=== PATIENT | female | born 1975 | race Caucasian/White ===

== ENCOUNTER 2020-03-08 21:37 | Observation (INO) | payer BC, SELFPAY ==
--- NOTE | ~2020-03-08 | CT_ITS ---
EXAMINATION: CT chest abdomen pelvis w con EXAM DATE: 03/09/2020 00:10 INDICATION: Shortness of air, upper abdominal pain. TECHNIQUE: Spiral CT of the chest, abdomen and pelvis was performed following intravenous injection o f 100 mL Omnipaque 350. Axial, coronal and sagittal images were reviewed. Coronal maximum intensity pixel images of chest reviewed. The dose-length product (DLP) for this examination was 1994.05 mGy- cm. The exposure was tailored according to patient size (auto mA exposure control), and iterative re construction (ASIR) was used as additional dose reduction technique. There is no prior study for jeremy corea. FINDINGS: CHEST: There is elevated right hemidiaphragm with right basilar subsegmental atelectasis. There are no pleural or pericardial effusions. Tracheobronchial tree is patent. There is no mediastinal, h ilar or axillary lymphadenopathy. There is no pneumothorax. Heart normal in size. There is mild coronary arterial calcification, arterial sclerosis. ABDOMEN PELVIS: There is hepatic steatosis without suspicious focal lesion identified. Spleen, adrena l glands, pancreas are unremarkable. Probable poorly calcified gallstone. Gallbladder otherwise unre markable. Portal and splenic veins are patent. Kidneys enhance symmetrically. There is no hydronep hrosis. The uterus is not identified and has likely been surgically resected. There is right adnexa l cystic lesion measuring 4 cm without evidence of solid nodule. Uncertain whether or not this is the same cyst seen in 2017 which measured 3.4 cm. Not likely clinically significant. The bladder is unre markable. There is no retroperitoneal or pelvic lymphadenopathy. The appendix is normal. Gastric banding procedure. There is mild scattered colonic diverticulosis. There is no adjacent inflammatory change to suggest diverticulitis. No free intraperitoneal gas. T he bones are unremarkable. IMPRESSION: 1. No acute chest abdomen or pelvis findings. 2. Elevated right hemidiaphragm with adjacent segmental atelectasis. 3. Right ovarian cystic lesion not likely clinically significant. 4. Colonic diverticulosis. 5. Hepatic steatosis. 6. Cholelithiasis. Reviewed, dictated and finalized at location A.
--- NOTE | ~2020-03-08 | XR_ITS ---
XR chest 2V 03/08/2020 23:10 Indication: Shortness of breath and chest congestion Procedure: 2 view chest Comparison: No prior studies for comparison. Findings: Elevation of the right diaphragm. Right basilar atelectasis. Heart size normal for techniqu e. Left lung clear. No pleural effusion or pneumothorax. Impression: 1: Right basilar atelectasis with elevation of the right diaphragm. Reviewed, dictated and finalized at location A. Impression: 1: Right basilar atelectasis with elevation of the right diaphragm.
[2020-03-08 21:46] VITALS: BP 129/73; PULSE 112; RESP 20; TEMP 36.3; O2SAT 97
--- NOTE | 2020-03-08 21:49 | ECG_ITS ---
Measurements Intervals [place] Rate: 113 P: 38 PA: 132 QRS: -4 QRSD: 86 T: -3 QT: 324 QTc: 445 Interpretive Statements SINUS TACHYCARDIA BORDERLINE R WAVE PROGRESSION, ANTERIOR LEADS BORDERLINE ST-T WAVE ABNORMALITY- DIFFUSE LEADS BASELINE ARTIFACT- I, II, III, AVR, AVL, AVF, V1-V3, V6 ABNORMAL ECG Electronically Signed On 03-09-2020 10:03:36 CDT by Alexis Reeves D.O.
[2020-03-08 22:07] VITALS: O2SAT 94
[2020-03-08 23:16] VITALS: BP 104/65; PULSE 105
[2020-03-08 23:17] VITALS: BP 107/77; BP 111/80; PULSE 103; PULSE 116
[2020-03-08 23:21] LABS: Basophils Absolute Auto 0.1 K/mm3 (0.0-0.1); Basophils Percent Auto 0.7 % (0.2-1.2); Eosinophils Absolute Auto 0.1 K/mm3 (0-0.3); Eosinophils Percent Auto 1.5 % (0-4.4); Hematocrit 34.5 % (37.0-47.0); Hemoglobin 11.3 g/dL (12.0-15.0); Immature Granulocyte Absolute 0.04 K/mm3 (0.00-0.031); Immature Granulocyte Percent A 0.5 % (0-0.5); Lymphocytes Absolute Auto 2.78 K/mm3 (0.9-3.2); Mean Corpuscular HGB Conc 32.8 g/dl (32-36); Mean Corpuscular Hemoglobin 33.5 pg (26-34); Mean Corpuscular Volume 102.4 fl (80-100); Mean Platelet Volume 10.3 fl (7.4-10.4); Monocytes Absolute Auto 0.8 K/mm3 (0.1-0.6); Monocytes Percent Auto 10.4 % (2.6-8.5); Neutrophils Absolute Auto 3.6 K/mm3 (1.3-6.7); Neutrophils Percent Auto 48.9 % (45.5-73.1); Platelet Count Result 241 k/mm3 (150-375); Red Blood Count 3.37 M/mm3 (4.2-5.4); Red Cell Distribution Width 17.6 % (11.5-14.5); White Blood Count 7.3 K/mm3 (4.5-10.0)
[2020-03-08] MEDS: SODIUM CHLORIDE 0.9% IV 1,000 ML 999 ML IV CONT (23:24)
[2020-03-08 23:33] LABS: Anion Gap 10 mmol/L (8-16); Blood Urea Nitrogen 29 mg/dL (7-17); Calcium 7.5 mg/dL (8.4-10.2); Carbon Dioxide 30 mmol/L (22-30); Chloride 95 mmol/L (98-107); Estimated CRCL calculation 122 ml/min; Estimated Glomerular Filt Rate > 60; Glucose 146 mg/dL (65-105); Potassium 2.7 mmol/L (3.4-5.0); Sodium 135 mmol/L (137-145)
--- NOTE | 2020-03-08 23:38 | ED.SOB ---
HPI - SOB/Dyspnea General Chief Complaint: Shortness of Breath/Dyspnea <Malachi Joyce MD - Last Filed: 03/10/20 03:20> Stated Complaint: SOB <Malachi Joyce MD - Last Filed: 03/10/20 03:20> Time Seen by Provider: 03/08/20 22:28 <Malachi Joyce MD - Last Filed: 03/10/20 03:20> History of Present Illness HPI Narrative: Patient is a 44-year-old female who presents ER with lightheadedness and weakness. Ongoing for last couple days. Feels similar to when she was very dehydrated in the past and had renal failure after having an episode of diverticulitis being on antihypertensives. Patient has been on no medications recently active because he is a sex. She reports she is feeling short of breath when she is walking and occasionally at rest. She has upper abdominal discomfort mainly on the left side and it seems more distended than typical. She is passing gas and having bowel movements. No nausea or vomiting. She has no chest pain or chest pressure. She also reports that her mentally she is getting some tingling in her arms and blurred vision. These will last for only a couple of seconds. Patient also thinks she has some swelling to her face and that she has gained some weight over the last couple of months. <Malachi Joyce MD - Last Filed: 03/10/20 03:20> Related Data Home Medications: Home Medications Medication Instructions Recorded Confirmed diphenhydramine HCl [Benadryl 25 mg PO HS PRN 03/08/20 03/09/20 Allergy] escitalopram oxalate 10 mg PO DAILY 03/08/20 03/09/20 hydrochlorothiazide 25 mg PO DAILY 03/08/20 03/09/20 lisinopril 40 mg PO DAILY 03/08/20 03/09/20 naproxen sodium 440 mg PO BID PRN 03/08/20 03/09/20 <Malachi Joyce MD - Last Filed: 03/10/20 03:20> Allergies/Adverse Reactions: Allergies Allergy/AdvReac Type Severity Reaction Status Date / Time No Known Allergies Allergy Unverified 03/08/20 21:57 <Malachi Joyce MD - Last Filed: 03/10/20 03:20> Review of Systems Review of Systems: All systems reviewed & are unremarkable except as noted in HPI and below <Malachi Joyce MD - Last Filed: 03/10/20 03:20> Constitutional: Constitutional: Denies chills, Denies fever(s) and Reports weakness <Malachi Joyce MD - Last Filed: 03/10/20 03:20> ENT: Denies nasal congestion and Denies sore throat <Malachi Joyce MD - Last Filed: 03/10/20 03:20> Cardiovascular: Cardiovascular: Denies chest pain, Denies rapid heart rate and Denies radiating jaw, neck or arm pain <Malachi Joyce MD - Last Filed: 03/10/20 03:20> Respiratory: Respiratory: Denies cough, Reports dyspnea and Denies wheezing <Malachi Joyce MD - Last Filed: 03/10/20 03:20> Gastrointestinal: Gastrointestinal: Reports abdominal pain, Denies constipation, Denies diarrhea, Denies nausea and Denies vomiting <Malachi Joyce MD - Last Filed: 03/10/20 03:20> Neurologic: Denies syncope, Denies focal weakness and Reports numbness <Malachi Joyce MD - Last Filed: 03/10/20 03:20> PMFSH Past Medical History Medical History: Medical History (Updated 03/10/20 @ 03:20 by Malachi Joyce MD) Anal polyp s/p removal Anxiety Cervical cancer s/p hysterectomy Depression Diverticulitis Essential hypertension Hemorrhoids Rectocele s/p intervention x2 <Malachi Joyce MD - Last Filed: 03/10/20 03:20> Surgical History Surgical History: Surgical History History of hysterectomy Hx of laparoscopic gastric banding <Malachi Joyce MD - Last Filed: 03/10/20 03:20> Family History Family History: Family History Mother Hypertension Familial primary pulmonary hypertension Carcinoma of colon Sibling Family history of irritable bowel syndrome Father Family history of congestive heart failure Other Family history of cardiovasc
[2020-03-08] MEDS: POTASSIUM CHLORIDE 20 MEQ TABLET 40 MEQ PO (23:52)
[2020-03-09] VITALS (11 sets, daily range): BP systolic 115–139; BP diastolic 69–75; PULSE 78–102; RESP 15–24; TEMP 35.9–36.5; O2SAT 94–97; BMI 44.5
--- NOTE | 2020-03-09 | ECHO_ITS ---
Patient Info Name: Rosie Abdalla Age: 44 years : 1975 Gender: Female Ht: 69 in Wt: 301 lbs BSA: 2.65 m2 HR: 80 bpm BP: 139 / 75 mmHg Technical Quality: Good Exam Date: 03/09/2020 11:11 AM Exam Location: [facility] Patient Status: Inpatient Admit Date: 03/09/2020 Staff Ordering Physician: Allegra Cunningham PA-C Software Licensing Analyst: Sravan Bernal RDCS, RT Attending Provider: Allegra Cunningham PA-C Referring Physician: Marisa SALAS; Exam Type: CA echo dop color flow w con Study Info Indications R06.02 - Shortness of breath Complete two-dimensional, color flow and Doppler transthoracic echocardiogram is performed with contrast to opacify the left ventricle and to improve the deliniation of the left ventricle endocardial borders. Summary 1. Left ventricular chamber size, wall thickness, systolic and diastolic function are normal with no regional wall motion abnormalities with an estimated ejection fraction of >70%. 2. No significant valve disease. 3. Unable to calculated right ventricular systolic pressure due to lack of sufficient tricuspid regurgitant envelope. 4. Somewhat technically difficult study; definity echo contrast used. 5. Normal sinus rhythm. Left Ventricle Left ventricular chamber dimension is normal. Left ventricular systolic function is normal, estimated at >70%. There is no increased left ventricular wall thickness. Left ventricular septal wall motion is normal. The left ventricular diastolic function is normal. Left ventricular chamber size, wall thickness, systolic and diastolic function are normal with no regional wall motion abnormalities with an estimated ejection fraction of >70%. Right Ventricle Right ventricular chamber dimension is normal. Right ventricular systolic function is normal. Left Atria Left atrial chamber dimension is normal. Right Atria Right atrial chamber dimension is normal. Aortic Valve The aortic valve is trileaflet. There is no aortic valve sclerosis. There is no aortic valve stenosis. There is no aortic valve regurgitation. Pulmonic Valve The pulmonic valve is normal. There is no pulmonic valve stenosis. There is no pulmonic regurgitation. Mitral Valve The mitral valve has normal leaflets. There is no mitral valve stenosis. There is no mitral valve regurgitation. Tricuspid Valve The tricuspid valve leaflets are normal. There is no significant tricuspid valve stenosis. There is trace tricuspid valve regurgitation. No pulmonary hypertension, estimated pulmonary arterial systolic pressure is Empty. Pericardium/Pleural The pericardium appears normal. There is no pericardial effusion. Inferior Vena Cava Normal inferior vena cava with >50% collapse upon inspiration consistent with Empty right atrial pressure, Empty. Aorta The aortic root size at the sinus of Valsalva is normal. The prox ascending aorta size is normal. Left Ventricular Outflow Tract Name Value Normal LVOT 2D LVOT Diameter 2.04 cm LVOT Doppler LVOT Peak Gradient 5 mmHg LVOT Mean Gradient 3 mmHg
--- NOTE | 2020-03-09 01:55 | PC.NURSE ---
pt states she does not feel like she can give a urine sample at this time. pt requests to wait until she gets to her room to try. EDP aware.
[2020-03-09 02:00] LABS: Free T4 Free Thyroxine Reflex 1.05 ng/dL (0.78-2.19)
[2020-03-09 02:42] LABS: Magnesium 1.7 mg/dL (1.6-2.3)
[2020-03-09 02:48] LABS: Total Triiodothyronine (T3) 1.62 NG/ML (0.97-1.69)
--- NOTE | 2020-03-09 03:54 | PC.NURSE ---
This patient, Rosie Abdalla, was admitted to Medical Room 248-. Patient/family oriented to hospital policies and general routines including ID bracelet, bed and alarms, visiting hours, pain management, procedures, bathroom and other care routines, personal items, smoking policy, room service/diet, and visiting hours. Valuables list has been completed. Information on how to activate the Rapid Response Team has been discussed. Patient/Family are encouraged to report perceived risks to care and to ask questions if they do not understand what they are told or what they should do.
[2020-03-09 04:15] LABS: Add Urine Microscopic? YES; Appearance Urine Clear (Clear); Bacteria Urine Trace /hpf; Bilirubin Urine Negative (Negative); Blood Urine Negative (Negative); Color Urine Yellow (Yellow); Glucose Urine UA Negative (Negative); Ketones Urine Negative (Negative); Leukocyte Esterase Ur Trace LEU/UL (Negative); Mucus Urine Rare /lpf; Nitrate Urine Negative (Negative); Protein Urine Negative (Negative); Squamous Epithelial Cell Urine Many /hpf (Few); WBC Urine 0-3 /hpf
[2020-03-09 04:16] LABS: Specific Grav Ur > 1.060 (1.001-1.035)
[2020-03-09 06:58] LABS: Magnesium 1.7 mg/dL (1.6-2.3)
[2020-03-09] MEDS: ESCITALOPRAM OXALATE 10 MG TABLET PO (08:19)
[2020-03-09] MEDS: lisinopriL 20 MG TABLET 40 MG PO (08:20)
[2020-03-09 08:38] LABS: Alanine Aminotransferase 23 U/L (4-35); Albumin Level 3.1 g/dL (3.5-5.1); Alkaline Phosphatase 75 U/L (38-126); Anion Gap 7 mmol/L (8-16); Aspartate Amino Transferase 61 U/L (14-36); Bilirubin,Total 0.3 mg/dL (0.2-1.3); Blood Urea Nitrogen 24 mg/dL (7-17); Calcium 7.1 mg/dL (8.4-10.2); Carbon Dioxide 32 mmol/L (22-30); Chloride 97 mmol/L (98-107); Estimated CRCL calculation 175 ml/min; Estimated Glomerular Filt Rate > 60; Glucose 114 mg/dL (65-105); Potassium 2.9 mmol/L (3.4-5.0); Sodium 136 mmol/L (137-145)
[2020-03-09 08:43] LABS: Iron 62 ug/dL (37-170)
[2020-03-09 08:45] LABS: Transferrin 259 mg/dL (206-381)
[2020-03-09 08:52] LABS: Percent Iron Saturation 18 % (20-50)
[2020-03-09 09:44] LABS: Folic Acid 7.2 ng/mL (2.76->20)
--- NOTE | 2020-03-09 10:30 | PM.IMHP ---
H&P: HPI History of Present Illness Date/Time: 03/09/20 10:30 Chief complaint: Hypokalemia, Abd distension Narrative: Rosie Abdalla is a 44 year old female with PMH significant for hypertension, obesity, hx of laparoscopic gastric band procedure, anxiety, depression, and hx of diverticulitis who presented to the emergency department for the evaluation of dyspnea on exertion for the past 3-4 days. She denies associated pleuritic pain or chest pain. She reports dry cough which occurs predominantly at night. She denies PND and lower extremity edema. She reports that she sleeps on 2 pillows at night but does not endorse orthopnea. She also reports vague upper abdominal discomfort which she notes is only present when pressure is applied to the area. She reports chronic diarrhea with 5-6 loose stools per day, unchanged from baseline. She denies nausea and vomiting. She was recently treated for cellulitis of the right foot February 23 with a 10 day course of cephalexin with resolution of erythema. She also reports intermittent and brief paresthesias of the bilateral upper extremities, mild frontal headache, generalized weakness, muscle cramps, and fatigue for 3-4 days. She denies lateralizing symptoms and speech change. Initial workup in the emergency department revealed WBC 7,300, Hb 11.3, Hct 34.5, MCV 102.4, sodium 135, potassium 2.7, chloride 95, CO2 30, BUN 29, Cr 0.7, magnesium 1.7, TSH 5.090 with normal free T4 and total T3, CXR with right basilar atelectasis and right diaphragm elevation, and chest/abd/pelvis CT with contrast with elevated right hemidiaphragm with adjacent atelectasis, right ovarian cyst measuring 4cm without evidence of solid nodule, diverticulosis, hepatic steatosis, and cholelithiasis. She was admitted to the hospitalist service for the treatment of her hypokalemia. She is currently comfortable at the time of my evaluation with no complaints. Review of Systems Review of Systems: Narrative: Constitutional: Denies fever, chills, recent contacts, and appetite change. Reports generalized weakness and fatigue. Eyes: Reports occasional blurred vision. No additional eye complaints. ENT: Denies change in hearing, dysphagia, odynophagia, and sore throat. Cardiovascular: Denies palpitations and chest pain. Denies PND and orthopnea. Reports dyspnea on exertion. Respiratory: Reports dry cough at night. Reports dyspnea on exertion. Gastrointestinal: As above. Reports upper abdominal discomfort when she presses on the area. Genitourinary: Denies dysuria, frequency, urgency, and hesitancy. Musculoskeletal: Denies joint pain and swelling. Reports occasional myalgias. Skin: Reports recent treatment for RLE cellulitis which has resolved. Neurologic: Denies focal weakness, focal paresthesias, confusion, and speech change. Reports occasional paresthesias of the upper extremities for 3-4 days. Psychiatric: Reports stable mood. All systems reviewed & are unremarkable except as noted in HPI and below PMFSH Past Medical History Medical History (Updated 03/09/20 @ 11:32 by Allegra Cunningham PA-C) Anal polyp s/p removal Anxiety Cervical cancer s/p hysterectomy Depression Diverticulitis Essential hypertension Hemorrhoids Rectocele s/p intervention x2 Surgical History Surgical History History of hysterectomy Hx of laparoscopic gastric banding Family History Family History Mother Hypertension Familial primary pulmonary hypertension Carcinoma of colon Sibling Family history of irritable bowel syndrome Father Family history of congestive heart failure Other Family history of cardiovascular disease Family history of malignant neoplasm Social History Social History (Updated 03/09/20 @ 11:36 by Allegra Cunningham PA-C) Social History: Ms. Abdalla reports that she lives at home with her son. She has 2 childr
[2020-03-09] MEDS: POTASSIUM CHLORIDE 20 MEQ PACKET (FOR LIQUID) 40 MEQ PO ×2 (11:06→17:18)
[2020-03-09 11:21] LABS: Creatine Kinase 76 U/L (30-135); Lipase 372 U/L (23-300)
[2020-03-09] MEDS: PERFLUTREN LIPID MICROSPHERES 1.5 ML VIAL DILUTED TO 10 ML TOTAL VOLUME IV PUSH (11:58)
[2020-03-09 13:01] LABS: Parathyroid Intact 445.2 pg/mL (7.5-53.5)
[2020-03-09] MEDS: CYANOCOBALAMIN INJ 1,000 MCG/ML VIAL 1000 MCG IM (13:24)
[2020-03-09 14:35] LABS: Vitamin D 25 Hydroxy < 12.8 ng/mL
[2020-03-09 15:13] LABS: Creatinine Urine 121.5 mg/dL
[2020-03-09 15:19] LABS: Potassium Urine Random 27.6 meq/L
[2020-03-09 16:01] LABS: Potassium 3.5 mmol/L (3.4-5.0)
[2020-03-09] MEDS: ENOXAPARIN 40 MG/0.4 ML SYRINGE SUB-Q (20:34)
[2020-03-09] MEDS: ACETAMINOPHEN 325 MG TABLET 650 MG PO (20:56)
[2020-03-10] VITALS: PULSE 70; PULSE 76
[2020-03-10 04:00] VITALS: PULSE 66
--- NOTE | 2020-03-10 04:59 | PC.NURSE ---
04:00 CIWA assessment not completed. Pt. is undergoing a sleep study at this time and is currently asleep
[2020-03-10 06:00] VITALS: BP 128/70; PULSE 84; RESP 16; TEMP 36.7; O2SAT 98
[2020-03-10 07:57] LABS: Alanine Aminotransferase 30 U/L (4-35); Albumin Level 3.1 g/dL (3.5-5.1); Alkaline Phosphatase 66 U/L (38-126); Anion Gap 5 mmol/L (8-16); Aspartate Amino Transferase 84 U/L (14-36); Bilirubin,Total 0.2 mg/dL (0.2-1.3); Blood Urea Nitrogen 16 mg/dL (7-17); Calcium 7.5 mg/dL (8.4-10.2); Carbon Dioxide 32 mmol/L (22-30); Chloride 100 mmol/L (98-107); Estimated CRCL calculation 213 ml/min; Estimated Glomerular Filt Rate > 60; Glucose 112 mg/dL (65-105); Magnesium 1.6 mg/dL (1.6-2.3); Phosphorus 2.5 mg/dL (2.5-4.5); Potassium 3.3 mmol/L (3.4-5.0); Sodium 137 mmol/L (137-145)
[2020-03-10 08:00] VITALS: PULSE 75; PULSE 91
[2020-03-10] MEDS: PANTOPRAZOLE 40 MG TABLET PO (08:41)
[2020-03-10] MEDS: CHOLECALCIFEROL 1,000 UNITS TABLET 1000 UNITS PO (08:41)
[2020-03-10] MEDS: THIAMINE HCL 50 MG TABLET PO (08:41)
[2020-03-10] MEDS: FOLIC ACID 1 MG TABLET PO (08:41)
[2020-03-10] MEDS: lisinopriL 20 MG TABLET 40 MG PO (08:41)
[2020-03-10] MEDS: ESCITALOPRAM OXALATE 10 MG TABLET PO (08:41)
[2020-03-10] MEDS: POTASSIUM CHLORIDE 20 MEQ PACKET (FOR LIQUID) 40 MEQ PO (08:42)
--- NOTE | 2020-03-10 10:00 | PM.DS ---
DS: Admitting Diagnosis Admitting Diagnosis Admitting Diagnosis: Hypokalemia, Abd distension DS: Discharge Diagnosis Discharge Diagnosis (1) Hypokalemia: Code(s): E87.6 - Hypokalemia Status: Acute Assessment and Plan: Discharge Summary (Date of service 03/10/20): Rosie Abdalla is a 44 year old female with PMH significant for hypertension, obesity, hx of laparoscopic gastric band procedure, anxiety, depression, and hx of diverticulitis who presented to the emergency department for the evaluation of several nonspecific complaints. She endorsed dyspnea on exertion, dry cough, vague upper abdominal discomfort, chronic diarrhea with 5-6 loose stools per day, brief paresthesias of the bilateral upper extremities, mild frontal headache, generalized weakness, muscle cramps, and fatigue. Please see HPI for additioanl details. Initial workup in the emergency department revealed WBC 7,300, Hb 11.3, Hct 34.5, MCV 102.4, sodium 135, potassium 2.7, chloride 95, CO2 30, BUN 29, Cr 0.7, magnesium 1.7, TSH 5.090 with normal free T4 and total T3, CXR with right basilar atelectasis and right diaphragm elevation, and chest/abd/pelvis CT with contrast with elevated right hemidiaphragm with adjacent atelectasis, right ovarian cyst measuring 4cm without evidence of solid nodule, diverticulosis, hepatic steatosis, and cholelithiasis. She was admitted to the hospitalist service for the treatment of her hypokalemia. She received PO and IV potassium replacement. Potassium improved. Etiology is unclear but likely due to hydrochlorothiazide therapy and chronic diarrhea. Hydrochlorothiazide was held and discontinued at discharge. She will need repeat BMP Saturday. Her symptoms, likely due to hypokalemia, resolved with potassium replacement. She was advised to continue low dose PO potassium for 2 weeks. 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 She was found to be calcium, vitamin D, and vitamin B12 deficient. These were supplemented and she was encouraged to follow-up with her PCP outpatient. PTH was likely elevated due to low vitamin D and calcium but will need outpatient follow-up to ensure this has resolved once her vitamin D and calcium are replaced. PTH related protein is still pending. Echocardiogram was performed for evaluation of her dyspnea and was unremarkable with normal EF. She was discharged in stable condition on the afternoon of 03/10/20. (2) Hypocalcemia: Code(s): E83.51 - Hypocalcemia Status: Acute Assessment and Plan: Calcium was 7.1 today with corrected calcium of 7.4. Vitamin D was deficient. Plan below. PO calcium supplement was prescribed. (3) Vitamin D deficiency: Code(s): E55.9 - Vitamin D deficiency, unspecified Status: Acute Assessment and Plan: Calcium was noted to be low. Vitamin D 25-Hydroxy was ordered and very low (<12.9). She received 1 dose of drisdol and was advised to continue this weekly for 4 weeks. She will need to follow-up with her PCP. Intact PTH was elevated, likely due to vitamin D/calcium deficiency. PTH related protein was ordered and is still pending. (4) Dyspnea on exertion: Code(s): R06.00 - Dyspnea, unspecified Status: Resolved Assessment and Plan: This may be due to hypokalemia. She reports that the onset was 3-4 days ago. She denies pleuritic pain. CT chest revealed elevated right hemidiaphragm with right basilar subsegmental atelectasis. Heart size was normal with no evidence of effusions, PE, lymphadenopathy, or consolidation. Echocardiogram was performed and unremarkable with normal EF. Apnea link was ordered due to reported snoring, daytime drowsiness, and large neck circumference/obesity as she seems at risk for sleep apnea. Apnea link was borderline but in the normal range. She may still consider formal sleep study outpatient. Her dyspnea resolved. (5) Abdominal pain: Code(s): R10.9 - Unspecifie
[2020-03-10] MEDS: ERGOCALCIFEROL 50,000 UNIT CAPSULE 50000 UNITS PO (11:35)
== END 2020-03-10 12:37 | disposition home or self-care (01) ==
LOC: ANHED 03-09 01:13 → ANH2MED 03-09 02:29
PROVIDERS: Emergency Medicine; Physician Assistant; Admitting Provider Internal Medicine; Emergency Provider Emergency Medicine; PCP Family Medicine Adolescent Medicine; Visit Provider Internal Medicine
DX: E87.6 Hypokalemia (principal); R14.0 Abdominal distension (gaseous); R19.7 Diarrhea, unspecified; N83.201 Unspecified ovarian cyst, right side; I10 Essential (primary) hypertension; E66.9 Obesity, unspecified; E83.51 Hypocalcemia; E53.8 Deficiency of other specified B group vitamins; F10.10 Alcohol abuse, uncomplicated; F32.9 Major depressive disorder, single episode, unspecified; K76.0 Fatty (change of) liver, not elsewhere classified; Z68.41 Body mass index [BMI] 40.0-44.9, adult; Z98.84 Bariatric surgery status; Z85.41 Personal history of malignant neoplasm of cervix uteri; Z79.899 Other long term (current) drug therapy
CPT/HCPCS: 36415; 71046; 71260; 74177; 80048; 80053; 81001; 82306; 82550; 82570; 82607; 82728; 82746; 83036; 83519; 83540; 83550; 83690; 83735; 83970; 84100; 84132; 84133; 84439; 84443; 84466; 84480; 85025; 93005; 94762; 96361; 96365; 96366; 96372; 96375; 99285; A9270; C8929; G0378; J1650; J3420; J3480; J7030; Q9957; Q9967

== ENCOUNTER 2020-04-06 08:48 | Outpatient (CLI) | payer BC, SELFPAY ==
--- NOTE | 2020-04-12 10:34 | WPDPFTINT ---
PFT Interpretation PFT Interpretation: This PFT met all criteria for ATS standards and reproducibility FEV/FVC post bronchodilator 79% of predicted FEV1 53% or 1.61 liters FVC 52% or 2.04 liters TLC 67% or 4.04 liters RV 90% or 1.92 liters RV/TLC 47% DLCO 56% when adjusted for alveolar volume but not adjusted for hemoglobin Flow volume loops showed some end expiratory coving. Impression: Possible mild obstruction. A restrictive ventilatory defect is present but this may be due to obesity rather than intrinsic lung disease. Moderately decreased diffusion capacity. Clinical correlation is advised.
== END 2020-04-06 08:49 | disposition home or self-care (01) ==
PROVIDERS: PCP Family Medicine Adolescent Medicine; Visit Provider Physician Assistant
DX: R06.02 Shortness of breath (principal); R94.2 Abnormal results of pulmonary function studies
CPT/HCPCS: 94060; 94726; 94729

== ENCOUNTER 2020-08-11 01:18 | Emergency (ER) | payer BC, SELFPAY ==
--- NOTE | ~2020-08-11 | XR_ITS ---
EXAMINATION: XR chest 1V EXAM DATE: 08/11/2020 01:42 INDICATION: Shortness of breath. TECHNIQUE: Portable AP frontal chest x-ray was obtained. Comparison is made to prior examination from 03/08/2020. FINDINGS: Again there is right basilar linear opacity likely atelectasis or scarring with elevated ri ght hemidiaphragm. The lungs are otherwise clear. There are no pleural effusions. The cardiomediast inal silhouette is within normal limits. There is no pneumothorax suspected. The bones and soft tis sues are unremarkable. IMPRESSION: Chronic right basilar atelectasis or scarring and elevated right hemidiaphragm. Reviewed, dictated and finalized at location A. R IMPRESSION: Chronic right basilar atelectasis or scarring and elevated right he midiaphragm.
--- NOTE | ~2020-08-11 | CT_ITS ---
EXAMINATION: CTA chest PE protocol EXAM DATE: 08/11/2020 02:46 INDICATION: Dyspnea. TECHNIQUE: Spiral CTA of the chest (pulmonary arteries) was performed with 100 cc Omnipaque 350 intr avenous contrast injection. Images were acquired during the pulmonary arterial phase. Coronal maxi mum intensity projection 3D-reconstructions were created by the technologist on dedicated workstation . Axial, coronal and sagittal reformatted images were reviewed. The dose-length product (DLP) for t his examination was 1030.15 mGy-cm. The exposure was tailored according to patient size (auto mA ex posure control), and iterative reconstruction (ASIR) was used as additional dose reduction technique. Comparison is made to prior examination from 03/08/2020. FINDINGS: There are no pulmonary emboli in the 1st through 3rd order (central and interlobar) pulmon romain arteries. Some loss of attenuation in the segmental pulmonary arteries due to respiratory motion , but no intraluminal filling defects suspected. No thoracic aortic dissection. There is subsegmental right basilar and right middle lobe atelectasis probably compressive atelectasi s from the elevated right hemidiaphragm. Possible hemidiaphragm paralysis. There is posterior periphe ral groundglass opacity in the left lower lobe, could be atelectasis or an acute infectious process. COVID pneumonia not excludable. There are no pleural or pericardial effusions. Tracheobronchial tree is patent. There is no media stinal, hilar or axillary lymphadenopathy. There is no pneumothorax. Heart normal in size. Ther e is mild coronary arterial calcification, arterial sclerosis. There is gastric banding device. Chol elithiasis. Hepatic steatosis. Subacute left 9th rib fracture. IMPRESSION: 1. No central pulmonary emboli. Some segmental pulmonary arteries not confidently evaluated. 2. Dependent posterior left lower lobe groundglass opacities, atelectasis or acute infectious proces s. COVID pneumonia not excludable. 3. Subacute left 9th rib fracture. 4. Hepatic steatosis. 5. Cholelithiasis. Reviewed, dictated and finalized at location A. REPAIRER IMPRESSION: 1. No central pulmonary emboli. Some segmental pulmonary arteries not confiden tly evaluated. 2. Dependent posterior left lower lobe groundglass opacities, atelectasis or a cute infectious process. COVID pneumonia not excludable. 3. Subacute left 9th rib fracture. 4. Hepatic steatosis. 5. Cholelithiasis.
[2020-08-11 01:22] VITALS: BP 177/102; PULSE 119; RESP 16; TEMP 36.3; O2SAT 96
[2020-08-11 01:25] VITALS: PULSE 104; O2SAT 94
--- NOTE | 2020-08-11 01:28 | ECG_ITS ---
Measurements Intervals [place] Rate: 112 P: 16 ID: 144 QRS: 0 QRSD: 93 T: -4 QT: 313 QTc: 428 Interpretive Statements SINUS TACHYCARDIA BORDERLINE R WAVE PROGRESSION, ANTERIOR LEADS BORDERLINE T WAVE ABNORMALITY- INFERIOR LEADS ABNORMAL ECG Electronically Signed On 08-11-2020 7:10:00 SOLAR SALES REPRESENTATIVE by Alexis Reeves D.O.
[2020-08-11 01:39] LABS: Basophils Absolute Auto 0.1 K/mm3 (0.0-0.1); Basophils Percent Auto 0.6 % (0.2-1.2); Eosinophils Absolute Auto 0.2 K/mm3 (0-0.3); Eosinophils Percent Auto 2.6 % (0-4.4); Hematocrit 41.8 % (37.0-47.0); Hemoglobin 12.8 g/dL (12.0-15.0); Immature Granulocyte Absolute 0.05 K/mm3 (0.00-0.031); Immature Granulocyte Percent A 0.6 % (0-0.5); Lymphocytes Absolute Auto 2.46 K/mm3 (0.9-3.2); Mean Corpuscular HGB Conc 30.6 g/dl (32-36); Mean Corpuscular Volume 98.1 fl (80-100); Mean Platelet Volume 9.6 fl (7.4-10.4); Monocytes Absolute Auto 1.1 K/mm3 (0.1-0.6); Monocytes Percent Auto 13.1 % (2.6-8.5); Neutrophils Absolute Auto 4.6 K/mm3 (1.3-6.7); Neutrophils Percent Auto 54.1 % (45.5-73.1); Platelet Count Result 237 k/mm3 (150-375); Red Blood Count 4.26 M/mm3 (4.2-5.4); Red Cell Distribution Width 18.4 % (11.5-14.5); White Blood Count 8.5 K/mm3 (4.5-10.0)
--- NOTE | 2020-08-11 01:41 | ED.GENADULT ---
HPI - General Adult General Chief complaint: Shortness of Breath/Dyspnea Stated complaint: Shortness of breath Time Seen by Provider: 08/11/20 01:28 History of Present Illness HPI narrative: Patient a 45-year-old female who presents to the emergency department with chief complaint of shortness of breath. Patient reports over the last several weeks has been having increasing shortness of breath particularly with exertion patient also noticed that she has had some swelling in her lower extremities and now has reached a point that when she sleeps she has to sleep in the recliner in a upright position. Patient denies fever denies chills Related Data Home Medications Medication Instructions Recorded Confirmed diphenhydramine HCl [Benadryl 25 mg PO HS PRN 03/08/20 03/09/20 Allergy] escitalopram oxalate 10 mg PO DAILY 03/08/20 03/09/20 lisinopril 40 mg PO DAILY 03/08/20 03/09/20 naproxen sodium 440 mg PO BID PRN 03/08/20 03/09/20 Allergies Allergy/AdvReac Type Severity Reaction Status Date / Time No Known Allergies Allergy Unverified 03/08/20 21:57 Review of Systems Review of Systems: Narrative: A 10 system review of systems was completed on the patient and is negative except for what is stated in the HPI. Nursing and ancillary documentation was reviewed. [facility] Past Medical History Medical History Anal polyp s/p removal Anxiety Cervical cancer s/p hysterectomy Depression Diverticulitis Essential hypertension Hemorrhoids Rectocele s/p intervention x2 Surgical History Surgical History History of hysterectomy Hx of laparoscopic gastric banding Family History Family History Mother Hypertension Familial primary pulmonary hypertension Carcinoma of colon Sibling Family history of irritable bowel syndrome Father Family history of congestive heart failure Other Family history of cardiovascular disease Family history of malignant neoplasm Social History Social History Social History: Ms. Abdalla reports that she lives at home with her son. She has 2 children. She reports that she drinks alcohol 4-5x per week and has 4-5 mixed drinks when she drinks. She denies tobacco use and other illicit substance use. 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 She wishes to be a full code. Smoking status: Never smoker Alcohol intake: current Substance use: never Gender identity (if verbalized by the patient): Female Spiritual care concerns: No Exam Narrative: Exam Narrative: GENERAL: Well-appearing, well-nourished, and in no acute distress. HEAD: Normocephalic, atraumatic. EYES: PERRLA and EOMI. ENT: Nares clear, no rhinorrhea or epistaxis. Mucous membranes moist. NECK: Supple. CHEST: Clear to auscultation. No respiratory distress. HEART: Regular rate and rhythm. No murmur heard. Normal peripheral pulses. ABDOMEN: Soft, nontender, nondistended, normal active bowel sounds. EXTREMITIES: Normal range of motion. +1 edema. SKIN: Warm, dry, no rash. NEURO: No focal deficits. Alert and oriented x3. PSYCH: Normal mood and affect. Course Course Emergency Course: CT chest shows evidence of 1/9 rib fracture with possible pneumonia. Vital Signs Vital signs: Vital Signs Temperature 36.3 C L 08/11/20 01:22 Pulse Rate 119 H 08/11/20 01:22 Respiratory Rate 16 08/11/20 01:22 Blood Pressure 177/102 H 08/11/20 01:22 Pulse Oximetry 96 08/11/20 01:22 Temperature 36.3 C L 08/11/20 01:22 Pulse Rate 117 H 08/11/20 02:14 Respiratory Rate 25 H 08/11/20 02:14 Blood Pressure 158/93 H 08/11/20 02:14 Pulse Oximetry 94 08/11/20 02:14 Medical Decision Making Vital Signs Vital Signs: Vital Signs Temperature 36.3 C L 08/11/20
[2020-08-11 01:57] LABS: Alanine Aminotransferase 29 U/L (4-35); Albumin Level 4.2 g/dL (3.5-5.1); Alkaline Phosphatase 97 U/L (38-126); Anion Gap 10 mmol/L (8-16); Aspartate Amino Transferase 44 U/L (14-36); Bilirubin,Total 0.6 mg/dL (0.2-1.3); Blood Urea Nitrogen 10 mg/dL (7-17); Calcium 9.5 mg/dL (8.4-10.2); Carbon Dioxide 31 mmol/L (22-30); Chloride 96 mmol/L (98-107); Estimated CRCL calculation 186 ml/min; Estimated Glomerular Filt Rate > 60; Glucose 115 mg/dL (65-105); Magnesium 1.4 mg/dL (1.6-2.3); Potassium 3.9 mmol/L (3.4-5.0); Sodium 137 mmol/L (137-145)
[2020-08-11 02:06] LABS: INR 0.9; NT Pro B Type Natriuretic Pept 200 PG/ML (5-100); Partial Thromboplastin Time 22.5 SECONDS (22.3-36.8); Prothrombin Time 12.2 Seconds (11.1-14.7); Troponin I < 0.012 ng/mL (0.000-0.034)
[2020-08-11 02:09] LABS: D Dimer 0.83 ug/mL (<0.48)
[2020-08-11 02:14] VITALS: BP 158/93; PULSE 117; RESP 25; O2SAT 94
[2020-08-11 02:45] LABS: Add Urine Microscopic? YES; Appearance Urine Cloudy (Clear); Bacteria Urine Trace /hpf; Bilirubin Urine Negative (Negative); Blood Urine Negative (Negative); Color Urine Yellow (Yellow); Glucose Urine UA Negative (Negative); Ketones Urine Trace mg/dL (Negative); Leukocyte Esterase Ur 1+ LEU/UL (Negative); Mucus Urine Rare /lpf; Nitrate Urine Negative (Negative); Protein Urine 1+ mg/dL (Negative); RBC Urine 0-2 /hpf (0-2); Specific Grav Ur 1.019 (1.001-1.035); Squamous Epithelial Cell Urine Many /hpf (Few); Urobilinogen Urine Negative mg/dL (<2.0)
[2020-08-11] MEDS: HYDROcodone/acetaminophen (*CRX) 5-325 MG TABLET 1 TAB PO (03:57)
[2020-08-11 04:12] VITALS: BP 145/84; PULSE 97; RESP 17; TEMP 37; O2SAT 99
[2020-08-11 04:15] VITALS: TEMP 37
== END 2020-08-11 04:15 | disposition home or self-care (01) ==
PROVIDERS: Emergency Provider Emergency Medicine; PCP Family Medicine Adolescent Medicine
DX: J18.9 Pneumonia, unspecified organism (principal); S22.32XA Fracture of one rib, left side, initial encounter for closed fracture; I10 Essential (primary) hypertension; Z85.41 Personal history of malignant neoplasm of cervix uteri; F41.9 Anxiety disorder, unspecified; F32.9 Major depressive disorder, single episode, unspecified; Z98.84 Bariatric surgery status; R00.0 Tachycardia, unspecified; R94.31 Abnormal electrocardiogram [ECG] [EKG]; K76.0 Fatty (change of) liver, not elsewhere classified; K80.20 Calculus of gallbladder without cholecystitis without obstruction; X58.XXXA Exposure to other specified factors, initial encounter
CPT/HCPCS: 36415; 71045; 71275; 80053; 81001; 81025; 83735; 83880; 84484; 85025; 85380; 85610; 85730; 93005; 99284; A9270; Q9967

== ENCOUNTER 2021-05-04 21:35 | Inpatient (IN) | payer BC, SELFPAY ==
--- NOTE | ~2021-05-04 | XR_ITS ---
EXAMINATION: XR chest 1V portable INDICATION: Shortness of breath TECHNIQUE: Portable AP chest at 2226 hours COMPARISON: 08/03/2020 FINDINGS: There are patchy bilateral airspace opacities. No pleural effusion or pneumothorax is ident ified. The cardiomediastinal silhouette is normal. There is chronic elevation of the right hemidiaphr agm. IMPRESSION: 1. Patchy bilateral airspace opacities, consistent with atelectasis versus pneumonia. Reviewed, dictated and finalized at location A. IMPRESSION: 1. Patchy bilateral airspace opacities, consistent with atelectasis versus pneu monia.
--- NOTE | ~2021-05-04 | XR_ITS ---
EXAMINATION: XR chest 2V EXAM DATE: 05/09/2021 10:02 INDICATION: Hypoxia. TECHNIQUE: Frontal and lateral projections of the chest obtained and reviewed. Comparison is made to prior examination from 05/04/2021. FINDINGS: Subsegmental bibasilar airspace disease, with some linear opacities in the right and evide nce of volume loss. Appearance is consistent with pneumonia and atelectasis. Appearance not significa ntly changed compared to prior examination. There are no pleural effusions. Borderline heart size. There are no osseous abnormalities identified. Gastric banding device. IMPRESSION: Bibasilar atelectasis and pneumonia unchanged. Reviewed, dictated and finalized at location B.
--- NOTE | ~2021-05-04 | CT_ITS ---
EXAMINATION: CTA chest PE abdomen pel DATE: 05/05/2021 00:14 INDICATION: Shortness of breath. Right chest pain. Right upper quadrant mass. TECHNIQUE: Computed tomography angiography (CTA) of the chest was performed with 100 mL Omnipaque-350 intravenous contrast timed to evaluate the pulmonary arteries. Coronal maximum intensity projection 3D-reconstructions were created by the technologist. Computed tomography (CT) of the abdomen and pelv is was performed with intravenous contrast. Automated exposure control and iterative reconstruction t echnique were employed. The dose-length product was 2579.73 mGy-cm. COMPARISON: Chest CT 08/11/2020, CT abdomen and pelvis 03/08/2020 FINDINGS: CTA chest: Again seen are small lung volumes with relative elevation of right hemidiaphragm. There is mild atelectasis bilaterally. There are dependent airspace and groundglass opacities in left lower l obe. No pleural effusion. Cardiomegaly is noted. The central pulmonary arteries are enlarged, consist ent with pulmonary arterial hypertension. There is no pulmonary embolus. There are old healed left ri b fractures. CT abdomen and pelvis: The liver, gallbladder, spleen are normal. There is a lap band in the proximal stomach. There is an ulcer of the inferomedial aspect of the first portion of the duodenum with abby cent fat stranding. The adrenal glands are normal. There is cortical thinning of the kidneys. There i s an 8 mm mass of fat in left kidney, consistent with an angiomyolipoma. There is a 4.2 cm cyst in ri ght ovary. There is diverticulosis of the colon without evidence of diverticulitis. The appendix is n ormal. There are no dilated loops of bowel. There are no pathologically enlarged lymph nodes. There i s no free intraperitoneal fluid. There is moderate lumbar spondylosis. IMPRESSION: 1. Ulcer of the inferomedial aspect of the first portion of the duodenum. 2. No pulmonary embolus. 3. Dependent airspace and groundglass opacities in left lung lower lobe, consistent with atelectasis versus pneumonia. Reviewed, dictated and finalized at location A. IMPRESSION: 1. Ulcer of the inferomedial aspect of the first portion of the duodenum. 2. No pulmonary embolus. 3. Dependent airspace and groundglass opacities in left lung lower lobe, consis tent with atelectasis versus pneumonia.
[2021-05-04 21:50] VITALS: BP 180/107; PULSE 108; RESP 19; TEMP 36.2; O2SAT 93
[2021-05-04 22:05] VITALS: PULSE 97; O2SAT 90
[2021-05-04 22:09] VITALS: BP 193/107; PULSE 100; RESP 33; O2SAT 95
--- NOTE | 2021-05-04 22:11 | PC.NURSE ---
Pt placed on 2L nasal cannula at this time. O2 saturation 97%.
--- NOTE | 2021-05-04 22:20 | ECG_ITS ---
Measurements Intervals [place] Rate: 87 P: 7 WI: 141 QRS: -14 QRSD: 89 T: -8 QT: 338 QTc: 407 Interpretive Statements SINUS RHYTHM VOLTAGE CRITERIA FOR LVH BORDERLINE R WAVE PROGRESSION, ANTERIOR LEADS INFERIOR INFARCT, AGE INDETERMINATE BASELINE ARTIFACT- I, III, AVL, AVF ABNORMAL ECG Electronically Signed On 05-05-2021 6:09:17 CDT by Alexis Reeves D.O.
--- NOTE | 2021-05-04 22:28 | ED.GENADULT ---
HPI - General Adult General Chief complaint: Shortness of Breath/Dyspnea Stated complaint: shortness of breath Time Seen by Provider: 05/04/21 22:06 History of Present Illness HPI narrative: Patient 46-year-old female presents the emergency department with chief complaint of shortness of breath. Patient reports that she started having shortness of breath today and reports that she has had discomfort in her right upper quadrant and noticed that she feels like appears to be a mass in the soft tissue on her right upper quadrant. The patient states the pain is worse with inspiration reports is worse with movement. Patient also reports that for some time she has noticed that she had a rash on her upper extremities the patient states that she has no history of lupus or other inflammatory condition Related Data Home Medications Medication Instructions Recorded Confirmed diphenhydramine HCl [Benadryl 25 mg PO HS PRN 03/08/20 03/09/20 Allergy] escitalopram oxalate 10 mg PO DAILY 03/08/20 03/09/20 lisinopril 40 mg PO DAILY 03/08/20 03/09/20 naproxen sodium 440 mg PO BID PRN 03/08/20 03/09/20 hydrochlorothiazide 25 mg PO DAILY 05/04/21 Allergies Allergy/AdvReac Type Severity Reaction Status Date / Time No Known Allergies Allergy Verified 05/04/21 22:12 Review of Systems Review of Systems: A 10 system review of systems was completed on the patient and is negative except for what is stated in the HPI. Nursing and ancillary documentation was reviewed. PMFSH Past Medical History Medical History Anal polyp s/p removal Anxiety Cervical cancer s/p hysterectomy Depression Diverticulitis Essential hypertension Hemorrhoids Rectocele s/p intervention x2 Surgical History Surgical History History of hysterectomy Hx of laparoscopic gastric banding Family History Family History Mother Hypertension Familial primary pulmonary hypertension Carcinoma of colon Sibling Family history of irritable bowel syndrome Father Family history of congestive heart failure Other Family history of cardiovascular disease Family history of malignant neoplasm Social History Social History Social History: Ms. Abdalla reports that she lives at home with her son. She has 2 children. She reports that she drinks alcohol 4-5x per week and has 4-5 mixed drinks when she drinks. She denies tobacco use and other illicit substance use. 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 She wishes to be a full code. Smoking status: Never smoker Alcohol intake: current Substance use: never Gender identity (if verbalized by the patient): Female Spiritual care concerns: No Exam Narrative: GENERAL: Well-appearing, well-nourished, and in no acute distress. HEAD: Normocephalic, atraumatic. EYES: PERRLA and EOMI. ENT: Nares clear, no rhinorrhea or epistaxis. Mucous membranes moist. NECK: Supple. CHEST: Clear to auscultation. No respiratory distress. HEART: Regular rate and rhythm. No murmur heard. Normal peripheral pulses. ABDOMEN: Soft, nontender, nondistended, normal active bowel sounds. EXTREMITIES: Normal range of motion. No edema. SKIN: Warm, dry, erythematous scaly rash on the upper extremities. NEURO: No focal deficits. Alert and oriented x3. PSYCH: Normal mood and affect. Course Vital Signs Vital signs: Vital Signs Temperature 36.2 C L 05/04/21 21:50 Pulse Rate 108 H 05/04/21 21:50 Respiratory Rate 19 05/04/21 21:50 Blood Pressure 180/107 H 05/04/21 21:50 Pulse Oximetry 93 05/04/21 21:50 Temperature 36.2 C L 05/04/21 21:50 Pulse Rate 89 05/04/21 23:48 Respiratory Rate 12 05/04/21 23:48 Blood Pressure 129/76 05/04/21 23:48 Pulse Oximetry 96
[2021-05-04] MEDS: ALBUTEROL SULFATE (*SP) INHALER 2 PUFF INHALATION (22:30)
[2021-05-04 22:31] VITALS: BP 156/103; PULSE 95; RESP 31; O2SAT 94
[2021-05-04] MEDS: MORPHINE SULFATE (*CRX) 4 MG/ML INJ IV PUSH (22:49)
--- NOTE | 2021-05-04 22:55 | PC.NURSE ---
Pt unable to void for sample at this time, refusing straight catheterization at this time. Urine cup at bedside.
[2021-05-04 23:18] LABS: Basophils Percent Auto 0.6 % (0.2-1.2); Eosinophils Absolute Auto 0.2 K/mm3 (0-0.3); Eosinophils Percent Auto 2.2 % (0-4.4); Hematocrit 41.9 % (37.0-47.0); Hemoglobin 13.2 g/dL (12.0-15.0); Immature Granulocyte Absolute 0.05 K/mm3 (0.00-0.031); Immature Granulocyte Percent A 0.7 % (0-0.5); Lymphocytes Absolute Auto 1.16 K/mm3 (0.9-3.2); Lymphocytes Percent Auto 16.8 % (18.3-44.2); Mean Corpuscular HGB Conc 31.5 g/dl (32-36); Mean Corpuscular Hemoglobin 28.8 pg (26-34); Mean Corpuscular Volume 91.3 fl (80-100); Monocytes Absolute Auto 0.7 K/mm3 (0.1-0.6); Monocytes Percent Auto 10.1 % (2.6-8.5); Neutrophils Absolute Auto 4.8 K/mm3 (1.3-6.7); Neutrophils Percent Auto 69.6 % (45.5-73.1); Platelet Count Result 326 k/mm3 (150-375); Red Blood Count 4.59 M/mm3 (4.2-5.4); Red Cell Distribution Width 20.9 % (11.5-14.5); White Blood Count 6.9 K/mm3 (4.5-10.0)
[2021-05-04 23:38] VITALS: BP 144/90; PULSE 81; RESP 19; O2SAT 94
[2021-05-04 23:38] LABS: Add Urine Microscopic? YES; Appearance Urine Cloudy (Clear); Bacteria Urine Trace /hpf; Bilirubin Urine 2+ (Negative); Color Urine Amber (Yellow); Glucose Urine UA Negative (Negative); Ketones Urine Trace mg/dL (Negative); Leukocyte Esterase Ur 3+ LEU/UL (Negative); Mucus Urine Heavy /lpf; Nitrate Urine Negative (Negative); Protein Urine 2+ mg/dL (Negative); Squamous Epithelial Cell Urine Many /hpf (Few); WBC Urine 51-75 /hpf
[2021-05-04 23:39] LABS: Blood Urine Negative (Negative); Specific Grav Ur 1.032 (1.001-1.035)
[2021-05-04 23:48] VITALS: BP 129/76; PULSE 89; RESP 12; O2SAT 96
[2021-05-04 23:50] LABS: Alanine Aminotransferase 20 U/L (4-35); Albumin Level 4.1 g/dL (3.5-5.1); Alkaline Phosphatase 89 U/L (38-126); Anion Gap 11 mmol/L (8-16); Aspartate Amino Transferase 25 U/L (14-36); Bilirubin,Total 0.5 mg/dL (0.2-1.3); Blood Urea Nitrogen 14 mg/dL (7-17); Calcium 8.8 mg/dL (8.4-10.2); Carbon Dioxide 27 mmol/L (22-30); Chloride 99 mmol/L (98-107); Estimated CRCL calculation 148 ml/min; Estimated Glomerular Filt Rate > 60; Glucose 127 mg/dL (65-110); Lipase 106 U/L (23-300); Potassium 3.9 mmol/L (3.4-5.0); Sodium 137 mmol/L (137-145)
[2021-05-05] VITALS (10 sets, daily range): BP systolic 149–170; BP diastolic 81–98; PULSE 63–94; RESP 16–30; TEMP 36.6–36.7; O2SAT 95–97; BMI 47.9
[2021-05-05 00:03] LABS: NT Pro B Type Natriuretic Pept 3470 pg/mL (5-100); Troponin I < 0.012 ng/mL (0.000-0.034)
[2021-05-05 00:06] LABS: INR 0.9; Prothrombin Time 11.8 Seconds (11.1-14.7)
[2021-05-05 00:07] LABS: Partial Thromboplastin Time 24.8 SECONDS (22.3-36.8)
[2021-05-05] MEDS: FUROSEMIDE INJ 40 MG/4 ML VIAL IV PUSH ×2 (01:31→09:57)
[2021-05-05 02:03] LABS: Troponin I < 0.012 ng/mL (0.000-0.034)
--- NOTE | 2021-05-05 03:04 | ADMGEN ---
This patient, Rosie Abdalla, was admitted to Medical Room 247-. Patient/family oriented to hospital policies and general routines including ID bracelet, bed and alarms, visiting hours, pain management, procedures, bathroom and other care routines, personal items, smoking policy, room service/diet, and visiting hours. Information on how to activate the Rapid Response Team has been discussed. Patient/Family are encouraged to report perceived risks to care and to ask questions if they do not understand what they are told or what they should do.
--- NOTE | 2021-05-05 03:17 | PM.IMHP ---
H&P: HPI History of Present Illness Date/Time: 05/05/21 03:17 Chief Complaint: Shortness of breath Narrative: is a 38-year-old female who presents to the ED with chief complaint of shortness of breath since past few days. She also reports that she been having discomfort in her right upper quadrant since past few days. She states that she has been having some dry cough since past several weeks. She denies any fever or chills. She does not think she has any increased abdominal distension which she does note some increased swelling in his legs. She states she drinks mostly daily hard liquor such as Tequila or Baylee since past 5-6 years. She feels like there is a mass in her right upper quadrant and has not had a drink for the past 3 days due to that discomfort in that area. She also reports he has been having this rash in her upper extremities since past few weeks. In the ED evaluation she was noted to be hypertensive and oxygen level in low 90s. Her BNP came back elevated at 3470 chest x-ray with patchy bilateral airway opacities consistent with atelectasis versus pneumonia. Chest abdomen pelvis CTA was done which showed reduced lung volumes with bibasilar consolidation no central PE cardiomegaly with elevation of the right her diaphragmatic mild thickening of the distal stomach that may be from ulcer with gastritis some colonic diverticula hysterectomy and dominant follicle in the right ovary. she got a dose of Lasix in the ER and is getting admitted for further evaluation and management. Review of Systems Review of Systems: - CONSTITUTIONAL: Denies weight loss, fever and chills. - HEENT: Denies changes in vision and hearing - RESPIRATORY: Reports SOB and cough. - CV: Denies palpitations and CP. - GI: reports right abdominal discomfort Denies abdominal pain, nausea, vomiting and diarrhea. - : Denies dysuria and urinary frequency. - MSK: Denies myalgia and joint pain. - SKIN: reports rash on her bilateral upper extremities, denies pruritus. - NEUROLOGICAL: Denies headache and syncope. - PSYCHIATRIC: Denies recent changes in mood. Denies anxiety and depression. All systems reviewed & are unremarkable except as noted in HPI and below Constitutional: Constitutional: Reports fatigue and Reports weakness Neurologic: Reports weakness Endocrine: Endocrine: Reports fatigue [facility] Past Medical History Medical History (Updated 05/05/21 @ 03:31 by Juanpablo Bee MD) Anal polyp s/p removal Anxiety Cervical cancer s/p hysterectomy Depression Diverticulitis Essential hypertension Hemorrhoids Rectocele s/p intervention x2 Surgical History Surgical History (Updated 05/05/21 @ 03:31 by Juanpablo Bee MD) History of hysterectomy Hx of laparoscopic gastric banding Family History Family History Mother Hypertension Familial primary pulmonary hypertension Carcinoma of colon Sibling Family history of irritable bowel syndrome Father Family history of congestive heart failure Other Family history of cardiovascular disease Family history of malignant neoplasm Social History Social History Social History: Ms. Abdalla reports that she lives at home with her son. She has 2 children. She reports that she drinks alcohol 4-5x per week and has 4-5 mixed drinks when she drinks. She denies tobacco use and other illicit substance use. 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 She wishes to be a full code. Smoking status: Never smoker Alcohol intake: current Substance use: never Gender identity (if verbalized by the patient): Female Spiritual care concerns: No Meds Home Medications and Allergies Home Medications Medication Instructions Recorded Confirmed Type diphenhydramine HCl [Benadryl 25 mg PO HS PRN 03/08/20 03/09/20 History Allergy] escitalopra
[2021-05-05 08:47] LABS: Magnesium 1.3 mg/dL (1.6-2.3)
--- NOTE | 2021-05-05 08:50 | P.PNIM_ITS ---
Progress Note: A&P Assessment and Plan (1) Duodenal ulcer: Code(s): K26.9 - Duodenal ulcer, unspecified as acute or chronic, without hemorrhage or perforation Status: Acute Assessment and Plan: * Chest CT shows: Ulcer of the inferomedial aspect of the first portion of the duodenum. * GI consulted thank you for your recommendations * Could be the reason for the Abdominal pain in the RUQ * Protonix and Carafate (2) Community acquired pneumonia: Qualifiers: Laterality: unspecified laterality Qualified Code(s): J18.9 - Pneumonia, unspecified organism Code(s): J18.9 - Pneumonia, unspecified organism Status: Acute Assessment and Plan: * Chest xray shows: Patchy bilateral airspace opacities, consistent with atelectasis vs PNA * Chest CTA:No pulmonary embolus, Dependent airspace and groundglass opacities in left lung lower lobe, consistent with atelectasis versus pneumonia * Complaint os a cough * WBC 6.9 * IV ceftriaxone and Azithromycin * Sputum culture ordered * Supplemental oxygen to maintain saturations greater than 94% (3) Congestive heart failure: Qualifiers: Heart failure chronicity: unspecified Heart failure type: unspecified Qualified Code(s): I50.9 - Heart failure, unspecified Code(s): I50.9 - Heart failure, unspecified Status: Acute Assessment and Plan: * Noted CTA and chest x-ray with cardiomegaly * possibility of congestive heart failure * gently diurese her as well with Lasix 40 mg IV daily * echocardiogram to determine systolic or diastolic * Could be acute exacerbation with need for oxygen * Troponins <0.012 x 2 * Echo from 03/09/2020 with ejection fraction more than 70% with no other valvular problem noted * Strict I&Os * BNP elevated 3470 (4) Alcohol abuse: Code(s): F10.10 - Alcohol abuse, uncomplicated Status: Acute Assessment and Plan: * 6 drinks a day for the last 6 years * CIWA * No sign of withdrawal * Education about cessation (5) B12 deficiency: Code(s): E53.8 - Deficiency of other specified B group vitamins Status: Acute Assessment and Plan: * Takes Vit B12 at home * Continue (6) Dyspnea on exertion: Code(s): R06.00 - Dyspnea, unspecified Status: Resolved Assessment and Plan: * raise right hemidiaphragm this is chronic also visible on CT scan from July 2020 * Supplemental oxygen * BNP is elevated * Could be related to PNA or CHF (7) Essential hypertension: Code(s): I10 - Essential (primary) hypertension Status: Chronic Assessment and Plan: * Uncontrolled * Current BP is 153/81 * Continue home lisinopril 40mg PO daily, HCTZ 25mg PO daily * Trend BP * Change therapy as needed (8) Depression: Code(s): F32.9 - Major depressive disorder, single episode, unspecified Status: Chronic Assessment and Plan: * Continue escitalopram (9) Cervical cancer: Code(s): C53.9 - Malignant neoplasm of cervix uteri, unspecified Status: Acute Assessment and Plan: * History s/p hysterectomy (10) Morbid obesity: Code(s): E66.01 - Morbid (severe) obesity due to excess calories Status: Acute Assessment and Plan: * Past history of lap band * BMI is 47.9 * Assistant Media Buyer consult
--- NOTE | 2021-05-05 08:50 | PM.IMPN ---
Progress Note: A&P Assessment and Plan (1) Duodenal ulcer: Code(s): K26.9 - Duodenal ulcer, unspecified as acute or chronic, without hemorrhage or perforation Status: Acute Assessment and Plan: Chest CT shows: Ulcer of the inferomedial aspect of the first portion of the duodenum. GI consulted thank you for your recommendations Could be the reason for the Abdominal pain in the RUQ Protonix and Carafate (2) Community acquired pneumonia: Qualifiers: Laterality: unspecified laterality Qualified Code(s): J18.9 - Pneumonia, unspecified organism Code(s): J18.9 - Pneumonia, unspecified organism Status: Acute Assessment and Plan: Chest xray shows: Patchy bilateral airspace opacities, consistent with atelectasis vs PNA Chest CTA:No pulmonary embolus, Dependent airspace and groundglass opacities in left lung lower lobe, consistent with atelectasis versus pneumonia Complaint os a cough WBC 6.9 IV ceftriaxone and Azithromycin Sputum culture ordered Supplemental oxygen to maintain saturations greater than 94% (3) Congestive heart failure: Qualifiers: Heart failure chronicity: unspecified Heart failure type: unspecified Qualified Code(s): I50.9 - Heart failure, unspecified Code(s): I50.9 - Heart failure, unspecified Status: Acute Assessment and Plan: Noted CTA and chest x-ray with cardiomegaly possibility of congestive heart failure gently diurese her as well with Lasix 40 mg IV daily echocardiogram to determine systolic or diastolic Could be acute exacerbation with need for oxygen Troponins <0.012 x 2 Echo from 03/09/2020 with ejection fraction more than 70% with no other valvular problem noted Strict I&Os BNP elevated 3470 (4) Alcohol abuse: Code(s): F10.10 - Alcohol abuse, uncomplicated Status: Acute Assessment and Plan: 6 drinks a day for the last 6 years CIWA No sign of withdrawal Education about cessation (5) B12 deficiency: Code(s): E53.8 - Deficiency of other specified B group vitamins Status: Acute Assessment and Plan: Takes Vit B12 at home Continue (6) Dyspnea on exertion: Code(s): R06.00 - Dyspnea, unspecified Status: Resolved Assessment and Plan: raise right hemidiaphragm this is chronic also visible on CT scan from July 2020 Supplemental oxygen BNP is elevated Could be related to PNA or CHF (7) Essential hypertension: Code(s): I10 - Essential (primary) hypertension Status: Chronic Assessment and Plan: Uncontrolled Current BP is 153/81 Continue home lisinopril 40mg PO daily, HCTZ 25mg PO daily Trend BP Change therapy as needed (8) Depression: Code(s): F32.9 - Major depressive disorder, single episode, unspecified Status: Chronic Assessment and Plan: Continue escitalopram (9) Cervical cancer: Code(s): C53.9 - Malignant neoplasm of cervix uteri, unspecified Status: Acute Assessment and Plan: History s/p hysterectomy (10) Morbid obesity: Code(s): E66.01 - Morbid (severe) obesity due to excess calories Status: Acute Assessment and Plan: Past history of lap band BMI is 47.9 Petrophysical Engineer consult Education about lifestyle changes Time Spent With Patient Time with patient: Greater than 35 minutes Subjective Date/time seen: 05/05/21 08:50 Interval history: Date/Time: 05/05/21 03:17 Narrative: is a 38-year-old female who presents to the ED with chief complaint of shortness of breath since past few days. She also reports that she been having discomfort in her right upper quadrant since past few days. She states that she has been having some dry cough since past several weeks. She denies any fever or chills. She does not think she has any increased abdominal distension w
[2021-05-05] MEDS: ESCITALOPRAM OXALATE 10 MG TABLET PO (09:56)
[2021-05-05] MEDS: lisinopriL 20 MG TABLET 40 MG PO (09:57)
[2021-05-05] MEDS: ERGOCALCIFEROL 50,000 UNIT CAPSULE 50000 UNITS PO (09:57)
[2021-05-05] MEDS: hydroCHLOROthiazide 25 MG TABLET PO (09:57)
[2021-05-05] MEDS: CYANOCOBALAMIN 1,000 MCG TABLET 1000 MCG PO (09:57)
[2021-05-05] MEDS: PANTOPRAZOLE 40 MG TABLET PO ×2 (09:58→20:28)
[2021-05-05] MEDS: THIAMINE HCL 100 MG TABLET PO (09:58)
[2021-05-05] MEDS: FOLIC ACID 1 MG TABLET PO (09:58)
[2021-05-05] MEDS: SUCRALFATE SUSP 100 MG/ML 10 ML UDC 1000 MG PO ×3 (12:06→20:28)
[2021-05-05] MEDS: MAGNESIUM SULF 4 GM/WATER100ML 4 GM/100 ML BAG IVPB (15:46)
[2021-05-06] VITALS (13 sets, daily range): BP systolic 115–152; BP diastolic 59–81; PULSE 63–123; RESP 16–20; TEMP 35.7–36.7; O2SAT 92–98
[2021-05-06] MEDS: SUCRALFATE SUSP 100 MG/ML 10 ML UDC 1000 MG PO ×4 (05:40→20:24)
[2021-05-06 05:41] LABS: Basophils Percent Auto 0.7 % (0.2-1.2); Eosinophils Absolute Auto 0.2 K/mm3 (0-0.3); Eosinophils Percent Auto 3.9 % (0-4.4); Hemoglobin 12.3 g/dL (12.0-15.0); Immature Granulocyte Absolute 0.03 K/mm3 (0.00-0.031); Immature Granulocyte Percent A 0.5 % (0-0.5); Lymphocytes Absolute Auto 1.62 K/mm3 (0.9-3.2); Lymphocytes Percent Auto 28.4 % (18.3-44.2); Mean Corpuscular Volume 93.2 fl (80-100); Mean Platelet Volume 9.9 fl (7.4-10.4); Monocytes Percent Auto 17.2 % (2.6-8.5); Neutrophils Absolute Auto 2.8 K/mm3 (1.3-6.7); Neutrophils Percent Auto 49.3 % (45.5-73.1); Platelet Count Result 206 k/mm3 (150-375); White Blood Count 5.7 K/mm3 (4.5-10.0)
[2021-05-06 05:52] LABS: Anion Gap 7 mmol/L (8-16); Blood Urea Nitrogen 13 mg/dL (7-17); Calcium 9.1 mg/dL (8.4-10.2); Carbon Dioxide 35 mmol/L (22-30); Chloride 94 mmol/L (98-107); Estimated CRCL calculation 179 ml/min; Estimated Glomerular Filt Rate > 60; Glucose 100 mg/dL (65-110); Potassium 3.2 mmol/L (3.4-5.0); Sodium 136 mmol/L (137-145)
--- NOTE | 2021-05-06 06:00 | ECHO_ITS ---
Patient Info Name: Rosie Abdalla Age: 46 years : 1975 Gender: Female Ht: 69 in Wt: 324 lbs BSA: 2.75 m2 HR: 68 bpm BP: 139 / 65 mmHg Heart Rhythm: Sinus Rhythm Technical Quality: Poor Exam Date: 05/06/2021 7:24 AM Exam Location: [facility] Pulmonary Exam Room: [facility] Patient Status: Inpatient Admit Date: 05/05/2021 Staff Ordering Physician: Olvin Hendrix MD Data Processing Operator: Alyssa Taylor RDCS Attending Provider: Juanpablo Bee MD Referring Physician: Simeon CARRION; Exam Type: CA echo dop color flow w con Study Info Indications - cardiomegaly elevated bnp sob chest pain Complete two-dimensional, color flow and Doppler transthoracic echocardiogram is performed with contrast to opacify the left ventricle and to improve the deliniation of the left ventricle endocardial borders. Contrast/Agitated Saline Contrast/Ag. Saline: Definity Amount: 2.00 ml Administered By: José Luis Abdalla RN Existing IV Access: Yes Reason for Poor Study: patient body habitus Summary 1. Left ventricular chamber dimension is normal. 2. Left ventricular systolic function is normal, estimated at 65-70%. 3. There is mildly increased left ventricular wall thickness. 4. The left ventricular diastolic function is grade I diastolic dysfunction. 5. Right ventricular chamber dimension is mildly enlarged. 6. There is mild tricuspid valve regurgitation. 7. Severe pulmonary hypertension, estimated pulmonary arterial systolic pressure is 68 mmHg. Left Ventricle Left ventricular chamber dimension is normal. Left ventricular systolic function is normal, estimated at 65-70%. There is mildly increased left ventricular wall thickness. The left ventricular diastolic function is grade I diastolic dysfunction. Right Ventricle Right ventricular chamber dimension is mildly enlarged. Right ventricular systolic function is normal. Left Atria Left atrial chamber dimension is normal. Right Atria Right atrial chamber dimension is normal. Atrial Septum Intact interatrial septum visualized by color flow imaging. Aortic Valve The aortic valve is trileaflet. There is no aortic valve sclerosis. There is no aortic valve stenosis. There is trace aortic valve regurgitation. Pulmonic Valve The pulmonic valve is normal. There is no pulmonic valve stenosis. There is trace pulmonic regurgitation. Mitral Valve The mitral valve has normal leaflets. There is no mitral valve stenosis. There is trace mitral valve regurgitation. Tricuspid Valve The tricuspid valve leaflets are normal. There is no significant tricuspid valve stenosis. There is mild tricuspid valve regurgitation. Severe pulmonary hypertension, estimated pulmonary arterial systolic pressure is 68 mmHg. Pericardium/Pleural The pericardium appears normal. There is no pericardial effusion. Inferior Vena Cava Normal inferior vena cava with >50% collapse upon inspiration consistent with normal right atrial pressure, 5 mmHg. Aorta The aortic root size at the sinus of Valsalva is normal. The prox ascending aorta size is normal. Left Ventricular Outflow Tract Name Value Normal LVOT 2D
--- NOTE | 2021-05-06 09:02 | P.PNIM_ITS ---
Progress Note: A&P Assessment and Plan (1) Duodenal ulcer: Code(s): K26.9 - Duodenal ulcer, unspecified as acute or chronic, without hemorrhage or perforation Status: Acute Assessment and Plan: * Chest CT shows: Ulcer of the inferomedial aspect of the first portion of the duodenum. * GI consulted thank you for your recommendations * Could be the reason for the Abdominal pain in the RUQ * Protonix and Carafate (2) Community acquired pneumonia: Qualifiers: Laterality: unspecified laterality Qualified Code(s): J18.9 - Pneumonia, unspecified organism Code(s): J18.9 - Pneumonia, unspecified organism Status: Acute Assessment and Plan: * Chest xray shows: Patchy bilateral airspace opacities, consistent with atelectasis vs PNA * Chest CTA:No pulmonary embolus, Dependent airspace and groundglass opacities in left lung lower lobe, consistent with atelectasis versus pneumonia * Complaint os a cough * WBC 5.7 * IV ceftriaxone and Azithromycin * Sputum culture ordered and pending * Supplemental oxygen to maintain saturations greater than 94% (3) Congestive heart failure: Qualifiers: Heart failure chronicity: unspecified Heart failure type: unspecified Qualified Code(s): I50.9 - Heart failure, unspecified Code(s): I50.9 - Heart failure, unspecified Status: Acute Assessment and Plan: * Noted CTA and chest x-ray with cardiomegaly * possibility of congestive heart failure * gently diurese her as well with Lasix 40 mg IV daily * echocardiogram to determine systolic or diastolic * Could be acute exacerbation with need for oxygen * Troponins <0.012 x 2 * Echo from 03/09/2020 with ejection fraction more than 70% with no other valvular problem noted * Strict I&Os * BNP elevated 3470 (4) Alcohol abuse: Code(s): F10.10 - Alcohol abuse, uncomplicated Status: Acute Assessment and Plan: * 6 drinks a day for the last 6 years * CIWA * No sign of withdrawal * Education about cessation (5) B12 deficiency: Code(s): E53.8 - Deficiency of other specified B group vitamins Status: Acute Assessment and Plan: * Takes Vit B12 at home * Continue (6) Dyspnea on exertion: Code(s): R06.00 - Dyspnea, unspecified Status: Resolved Assessment and Plan: * raise right hemidiaphragm this is chronic also visible on CT scan from July 2020 * Supplemental oxygen * BNP is elevated * Could be related to PNA or CHF (7) Essential hypertension: Code(s): I10 - Essential (primary) hypertension Status: Chronic Assessment and Plan: * Uncontrolled * Current BP is 152/81 * Continue home lisinopril 40mg PO daily, HCTZ 25mg PO daily * Trend BP * Change therapy as needed (8) Depression: Code(s): F32.9 - Major depressive disorder, single episode, unspecified Status: Chronic Assessment and Plan: * Continue escitalopram (9) Cervical cancer: Code(s): C53.9 - Malignant neoplasm of cervix uteri, unspecified Status: Acute Assessment and Plan: * History s/p hysterectomy (10) Morbid obesity: Code(s): E66.01 - Morbid (severe) obesity due to excess calories Status: Acute Assessment and Plan: * Past history of lap band * BMI is 47.9 * Dietic
--- NOTE | 2021-05-06 09:02 | PM.IMPN ---
Progress Note: A&P Assessment and Plan (1) Duodenal ulcer: Code(s): K26.9 - Duodenal ulcer, unspecified as acute or chronic, without hemorrhage or perforation Status: Acute Assessment and Plan: Chest CT shows: Ulcer of the inferomedial aspect of the first portion of the duodenum. GI consulted thank you for your recommendations Could be the reason for the Abdominal pain in the RUQ Protonix and Carafate (2) Community acquired pneumonia: Qualifiers: Laterality: unspecified laterality Qualified Code(s): J18.9 - Pneumonia, unspecified organism Code(s): J18.9 - Pneumonia, unspecified organism Status: Acute Assessment and Plan: Chest xray shows: Patchy bilateral airspace opacities, consistent with atelectasis vs PNA Chest CTA:No pulmonary embolus, Dependent airspace and groundglass opacities in left lung lower lobe, consistent with atelectasis versus pneumonia Complaint os a cough WBC 5.7 IV ceftriaxone and Azithromycin Sputum culture ordered and pending Supplemental oxygen to maintain saturations greater than 94% (3) Congestive heart failure: Qualifiers: Heart failure chronicity: unspecified Heart failure type: unspecified Qualified Code(s): I50.9 - Heart failure, unspecified Code(s): I50.9 - Heart failure, unspecified Status: Acute Assessment and Plan: Noted CTA and chest x-ray with cardiomegaly possibility of congestive heart failure gently diurese her as well with Lasix 40 mg IV daily echocardiogram to determine systolic or diastolic Could be acute exacerbation with need for oxygen Troponins <0.012 x 2 Echo from 03/09/2020 with ejection fraction more than 70% with no other valvular problem noted Strict I&Os BNP elevated 3470 (4) Alcohol abuse: Code(s): F10.10 - Alcohol abuse, uncomplicated Status: Acute Assessment and Plan: 6 drinks a day for the last 6 years CIWA No sign of withdrawal Education about cessation (5) B12 deficiency: Code(s): E53.8 - Deficiency of other specified B group vitamins Status: Acute Assessment and Plan: Takes Vit B12 at home Continue (6) Dyspnea on exertion: Code(s): R06.00 - Dyspnea, unspecified Status: Resolved Assessment and Plan: raise right hemidiaphragm this is chronic also visible on CT scan from July 2020 Supplemental oxygen BNP is elevated Could be related to PNA or CHF (7) Essential hypertension: Code(s): I10 - Essential (primary) hypertension Status: Chronic Assessment and Plan: Uncontrolled Current BP is 152/81 Continue home lisinopril 40mg PO daily, HCTZ 25mg PO daily Trend BP Change therapy as needed (8) Depression: Code(s): F32.9 - Major depressive disorder, single episode, unspecified Status: Chronic Assessment and Plan: Continue escitalopram (9) Cervical cancer: Code(s): C53.9 - Malignant neoplasm of cervix uteri, unspecified Status: Acute Assessment and Plan: History s/p hysterectomy (10) Morbid obesity: Code(s): E66.01 - Morbid (severe) obesity due to excess calories Status: Acute Assessment and Plan: Past history of lap band BMI is 47.9 Adjustment Clerk consult thank you Education about lifestyle changes Time Spent With Patient Time with patient: Greater than 35 minutes Subjective Date/time seen: 05/06/21 09:02 Interval history: Date/Time: 05/05/21 03:17 Narrative: is a 38-year-old female who presents to the ED with chief complaint of shortness of breath since past few days. She also reports that she been having discomfort in her right upper quadrant since past few days. She states that she has been having some dry cough since past several weeks. She denies any fever or chills. She does not think she has any increase
[2021-05-06] MEDS: ESCITALOPRAM OXALATE 10 MG TABLET PO (09:13)
[2021-05-06] MEDS: lisinopriL 20 MG TABLET 40 MG PO (09:13)
[2021-05-06] MEDS: hydroCHLOROthiazide 25 MG TABLET PO (09:13)
[2021-05-06] MEDS: CYANOCOBALAMIN 1,000 MCG TABLET 1000 MCG PO (09:13)
[2021-05-06] MEDS: FOLIC ACID 1 MG TABLET PO (09:13)
[2021-05-06] MEDS: THIAMINE HCL 100 MG TABLET PO (09:13)
[2021-05-06] MEDS: FUROSEMIDE INJ 40 MG/4 ML VIAL IV PUSH (09:13)
[2021-05-06] MEDS: PANTOPRAZOLE 40 MG TABLET PO ×2 (09:13→20:24)
[2021-05-06 10:10] LABS: Magnesium 1.9 mg/dL (1.6-2.3)
--- NOTE | 2021-05-06 13:43 | WPDGICN ---
Assessment and Plan Assessment and plan (1) Duodenal ulcer: Code(s): K26.9 - Duodenal ulcer, unspecified as acute or chronic, without hemorrhage or perforation Status: Acute Assessment and Plan: no signs of bleeding but noted abnormal duodenum by CT scan, will do EGD on Saturday to assess on ppi for now (2) Community acquired pneumonia: Qualifiers: Laterality: unspecified laterality Qualified Code(s): J18.9 - Pneumonia, unspecified organism Code(s): J18.9 - Pneumonia, unspecified organism Status: Acute Assessment and Plan: treated with antibiotics (3) Congestive heart failure: Qualifiers: Heart failure chronicity: unspecified Heart failure type: unspecified Qualified Code(s): I50.9 - Heart failure, unspecified Code(s): I50.9 - Heart failure, unspecified Status: Acute Assessment and Plan: by primary team, received diuretic (4) Alcohol abuse: Code(s): F10.10 - Alcohol abuse, uncomplicated Status: Acute Assessment and Plan: suggest to stop drinking (5) RUQ pain: Code(s): R10.11 - Right upper quadrant pain Status: Acute Assessment and Plan: could be from respiratory issues but will assess with egd (6) Morbid obesity: Code(s): E66.01 - Morbid (severe) obesity due to excess calories Status: Acute (7) Hx of laparoscopic gastric banding: Code(s): Z98.84 - Bariatric surgery status Status: Acute GI Consult Note Consult date/time: 05/06/21 13:43 Reason for consult: RUQ pain, duodenal ulcer per CT scan HPI: Rosie Abdalla is a 46 year old female who came to the ED with dry cough that has been going on for almost a month but recently also noted worsening shortness of breath, also reports that she been having discomfort in her right upper quadrant since past few days with abdominal distension. She also drinks hard liquor such as Tequila or Baylee since past 5-6 years but none last few days because discomfort in RUQ. ER evaluation revealed pneumonia with CHF, had elevated BNP and low O2 sat ~ 90%, started on antibiotics and given lasix, liver enzymes normal. She had CT chest/a/p reviewed and showed ulcer of the inferomedial aspect of the first portion of the duodenum, no pulmonary embolus, dependent airspace and groundglass opacities in left lung lower lobe, consistent with atelectasis versus pneumonia. Never had EGD, denies using nsaid's, no GIB or melena. She is eating regular food now, wearing oxygen. Hb is stable. Review of Systems Constitutional: Constitutional: Denies chills Eyes: Eyes: Denies blurry vision ENT: Reports Normal hearing present Cardiovascular: Cardiovascular: Denies lightheadedness Respiratory: Respiratory: Reports cough and Reports dyspnea on exertion Gastrointestinal: Gastrointestinal: Reports abdominal pain Genitourinary: Genitourinary: Denies hematuria Musculoskeletal: Musculoskeletal: Denies neck pain Integumentary/Breasts: Skin/Breast: Denies dry skin Neurologic: Denies headache(s) Psychiatric: Psychiatric: Reports no additional psychiatric complaints [facility] Past Medical History Medical History (Updated 05/06/21 @ 13:50 by Luis Lamar MD) Anal polyp s/p removal Anxiety Cervical cancer s/p hysterectomy Depression Diverticulitis Essential hypertension Hemorrhoids Rectocele s/p intervention x2 RUQ pain Surgical History Surgical History (Updated 05/05/21 @ 03:31 by Juanpablo Bee MD) History of hysterectomy Hx of laparoscopic gastric banding Family History Family History Mother Hypertension Familial primary pulmonary hypertension Carcinoma of colon Sibling Family history of irritable bowel syndrome Father Family history of congestive heart failure Other Family history of cardiovascular disease Family history of malignant neoplasm Soc
[2021-05-07] VITALS (11 sets, daily range): BP systolic 115–137; BP diastolic 63–73; PULSE 66–101; RESP 16–20; TEMP 35.4–36.2; O2SAT 92–97
[2021-05-07 05:25] LABS: Basophils Percent Auto 0.7 % (0.2-1.2); Eosinophils Absolute Auto 0.2 K/mm3 (0-0.3); Hemoglobin 12.2 g/dL (12.0-15.0); Immature Granulocyte Absolute 0.04 K/mm3 (0.00-0.031); Immature Granulocyte Percent A 0.7 % (0-0.5); Lymphocytes Percent Auto 29.9 % (18.3-44.2); Mean Corpuscular HGB Conc 30.5 g/dl (32-36); Mean Corpuscular Hemoglobin 28.2 pg (26-34); Mean Corpuscular Volume 92.4 fl (80-100); Mean Platelet Volume 9.9 fl (7.4-10.4); Monocytes Absolute Auto 1.1 K/mm3 (0.1-0.6); Monocytes Percent Auto 18.6 % (2.6-8.5); Neutrophils Absolute Auto 2.9 K/mm3 (1.3-6.7); Neutrophils Percent Auto 47.1 % (45.5-73.1); Platelet Count Result 203 k/mm3 (150-375); Red Blood Count 4.33 M/mm3 (4.2-5.4)
[2021-05-07 05:34] LABS: Alanine Aminotransferase 17 U/L (4-35); Albumin Level 3.7 g/dL (3.5-5.1); Alkaline Phosphatase 66 U/L (38-126); Anion Gap 8 mmol/L (8-16); Aspartate Amino Transferase 24 U/L (14-36); Bilirubin,Total 0.3 mg/dL (0.2-1.3); Blood Urea Nitrogen 19 mg/dL (7-17); Calcium 8.8 mg/dL (8.4-10.2); Carbon Dioxide 34 mmol/L (22-30); Chloride 92 mmol/L (98-107); Estimated CRCL calculation 152 ml/min; Estimated Glomerular Filt Rate > 60; Glucose 108 mg/dL (65-110); Magnesium 1.9 mg/dL (1.6-2.3); Potassium 2.9 mmol/L (3.4-5.0); Sodium 134 mmol/L (137-145)
[2021-05-07] MEDS: SUCRALFATE SUSP 100 MG/ML 10 ML UDC 1000 MG PO ×4 (06:09→20:32)
[2021-05-07] MEDS: POTASSIUM CHLORIDE 20 MEQ PACKET (FOR LIQUID) 60 MEQ PO (08:01)
--- NOTE | 2021-05-07 08:01 | WPDGIPROGNO ---
Progress Note: A&P Assessment and Plan (1) RUQ pain: Code(s): R10.11 - Right upper quadrant pain Status: Acute Assessment and Plan: could be from abnormal finding in duodenum by CT scan ? ulcer EGD tomorrow (2) Duodenal ulcer: Code(s): K26.9 - Duodenal ulcer, unspecified as acute or chronic, without hemorrhage or perforation Status: Acute Assessment and Plan: possible, will assess with egd tomorrow on iv protonix for now no signs of bleeding (3) Community acquired pneumonia: Qualifiers: Laterality: unspecified laterality Qualified Code(s): J18.9 - Pneumonia, unspecified organism Code(s): J18.9 - Pneumonia, unspecified organism Status: Acute Assessment and Plan: main reason of admission, on antibiotics by primary (4) Congestive heart failure: Qualifiers: Heart failure chronicity: unspecified Heart failure type: unspecified Qualified Code(s): I50.9 - Heart failure, unspecified Code(s): I50.9 - Heart failure, unspecified Status: Acute (5) Hx of laparoscopic gastric banding: Code(s): Z98.84 - Bariatric surgery status Status: Acute (6) Morbid obesity: Code(s): E66.01 - Morbid (severe) obesity due to excess calories Status: Acute Subjective Date/time seen: 05/07/21 08:01 Interval history: resting comfortable this morning, mild pain in ruq unchanged Review of Systems Review of Systems: All systems reviewed & are unremarkable except as noted in HPI and below Exam Const: General: comfortable and no acute distress Other: obese HENMT: General nose exam: Normal nares present Eyes: Sclera: sclerae normal Neck: Neck: supple Resp: Effort & Inspection: normal respiratory effort Other: using oxygen, coarse breath sounds Cardio: Rate: regular rate GI: Inspection: non-distended GI Palp: Yes Soft to palpation and Yes Tenderness to palpation present (GI) (mild ttp in ruq, no rebound) Auscultation: normal bowel sounds Skin: General skin exam: normal color Neuro: Speech: normal speech Motor exam (neuro): Normal motor muscle tone present throughout Extrem: General: pedal edema bilaterally Psych: Mental Status: mental status grossly normal Objective Data Vital Signs Vital Signs: Vital Signs - 24 hr 05/06/21 09:10 05/06/21 09:15 05/06/21 12:00 Temperature Pulse Rate 105 H 105 H 113 H Pulse Rate [Brachial] Respiratory Rate 16 16 Blood Pressure 152/81 H Pulse Oximetry 94 94 05/06/21 14:54 05/06/21 16:00 05/06/21 18:28 Temperature 96.2 F L Pulse Rate 102 H 99 Pulse Rate [Brachial] 78 100 Respiratory Rate 20 Blood Pressure 129/69 Pulse Oximetry 92 05/06/21 20:00 05/06/21 20:20 05/06/21 22:00 Temperature 98.1 F Pulse Rate 123 H 94 Pulse Rate [Brachial] 94 Respiratory Rate 16 Blood Pressure 115/59 L Pulse Oximetry 95 95 05/07/21 00:00 05/07/21 04:00 05/07/21 06:00 Temperature 97.0 F L Pulse Rate 86 70 66 Pulse Rate [Brachial] Respiratory Rate 16 Blood Pressure 137/73 Pulse Oximetry 94 Intake/Output Intake/Output: Intake & Output 05/04/21 05/05/21 05/06/21 05/07/21 23:59 23:59 23:59 23:59 Intake Total 1810 1590 500 Output Total 1600 2100 700 Balance 210 510 -200 Meds/Results Medications: Active Medications Generic Name Dose Route Start Last Admin Trade Name Freq PRN Reason Stop Dose Admin Albuterol 2 puff 05/05/21 03:42 Albuterol Sulfate (*Sp) Aerosol 1 Puff INHALATION Q6HRT PRN Shortness Of Breath Chlordiazepoxide HCl 25 mg 05/06/21 14:03 Chlordiazepoxide (*Crx) 25 Mg Capsule PO Q6H PRN Withdrawal Cyanocobalamin 1,000 mcg 05/05/21 09:00 05/06/21 09:13 Cyanocobalamin 1,000 Mcg Tablet PO 1,000 mcg DAILY FARNAZ Administration Cyclobenzaprine HCl 5 mg 05/06/21 14:05 Cyclobenzaprine Hcl 5 Mg Tablet PO Q12H PRN Muscle Spasm Diphenhydramine HC
[2021-05-07] MEDS: lisinopriL 20 MG TABLET 40 MG PO (08:03)
[2021-05-07] MEDS: hydroCHLOROthiazide 25 MG TABLET PO (08:03)
[2021-05-07] MEDS: ESCITALOPRAM OXALATE 10 MG TABLET PO (08:03)
[2021-05-07] MEDS: FUROSEMIDE INJ 40 MG/4 ML VIAL IV PUSH ×2 (08:03→16:57)
[2021-05-07] MEDS: FOLIC ACID 1 MG TABLET PO (08:03)
[2021-05-07] MEDS: PANTOPRAZOLE 40 MG TABLET PO ×2 (08:03→20:32)
[2021-05-07] MEDS: CYANOCOBALAMIN 1,000 MCG TABLET 1000 MCG PO (08:03)
[2021-05-07] MEDS: THIAMINE HCL 100 MG TABLET PO (08:03)
--- NOTE | 2021-05-07 11:40 | PM.IMPN ---
Progress Note: A&P Assessment and Plan (1) Duodenal ulcer: Code(s): K26.9 - Duodenal ulcer, unspecified as acute or chronic, without hemorrhage or perforation Status: Acute Assessment and Plan: CT chest/abd/pel shows: Ulcer of the inferomedial aspect of the first portion of the duodenum. GI consulted thank you for your recommendations Could be the reason for the Abdominal pain in the RUQ Protonix and Carafate EGD tomorrow (2) Community acquired pneumonia: Qualifiers: Laterality: unspecified laterality Qualified Code(s): J18.9 - Pneumonia, unspecified organism Code(s): J18.9 - Pneumonia, unspecified organism Status: Acute Assessment and Plan: Chest xray shows: Patchy bilateral airspace opacities, consistent with atelectasis vs PNA Chest CTA:No pulmonary embolus, Dependent airspace and groundglass opacities in left lung lower lobe, consistent with atelectasis versus pneumonia Complaint of a cough WBC 6.0 IV ceftriaxone and Azithromycin Sputum culture ordered and pending Supplemental oxygen to maintain saturations greater than 94% (3) Congestive heart failure: Qualifiers: Heart failure chronicity: unspecified Heart failure type: unspecified Qualified Code(s): I50.9 - Heart failure, unspecified Code(s): I50.9 - Heart failure, unspecified Status: Acute Assessment and Plan: Noted CTA and chest x-ray with cardiomegaly Probably acute exacerbation of diastolic heart failure possibility of congestive heart failure gently diurese her as well with Lasix 40 mg IV daily echocardiogram shows normal systolic function with EF of 65-70%, with grade one diastolic dysfunction Could be acute exacerbation with need for oxygen Troponins <0.012 x 2 Echo from 03/09/2020 with ejection fraction more than 70% with no other valvular problem noted Lasix 40mg IV BID Strict I&Os BNP elevated 3470 (4) Alcohol abuse: Code(s): F10.10 - Alcohol abuse, uncomplicated Status: Acute Assessment and Plan: 6 drinks a day for the last 6 years CIWA No sign of withdrawal Education about cessation (5) B12 deficiency: Code(s): E53.8 - Deficiency of other specified B group vitamins Status: Acute Assessment and Plan: Takes Vit B12 at home Continue (6) Dyspnea on exertion: Code(s): R06.00 - Dyspnea, unspecified Status: Resolved Assessment and Plan: raise right hemidiaphragm this is chronic also visible on CT scan from July 2020 Supplemental oxygen BNP is elevated Could be related to PNA or CHF (7) Essential hypertension: Code(s): I10 - Essential (primary) hypertension Status: Chronic Assessment and Plan: Uncontrolled Current BP is 125/72 Continue home lisinopril 40mg PO daily, HCTZ 25mg PO daily Trend BP Change therapy as needed (8) Depression: Code(s): F32.9 - Major depressive disorder, single episode, unspecified Status: Chronic Assessment and Plan: Continue escitalopram (9) Cervical cancer: Code(s): C53.9 - Malignant neoplasm of cervix uteri, unspecified Status: Acute Assessment and Plan: History s/p hysterectomy (10) Morbid obesity: Code(s): E66.01 - Morbid (severe) obesity due to excess calories Status: Acute Assessment and Plan: Past history of lap band BMI is 47.9 Cost Clerk consult thank you Education about lifestyle changes Time Spent With Patient Time with patient: Greater than 35 minutes Subjective Date/time seen: 05/07/21 11:43 Interval history: Date/Time: 05/05/21 03:17 Narrative: is a 38-year-old female who presents to the ED with chief complaint of shortness of breath since past few days. She also reports that she been having discomfort in her right upper quadrant since past few
--- NOTE | 2021-05-07 11:40 | P.PNIM_ITS ---
Progress Note: A&P Assessment and Plan (1) Duodenal ulcer: Code(s): K26.9 - Duodenal ulcer, unspecified as acute or chronic, without hemorrhage or perforation Status: Acute Assessment and Plan: * CT chest/abd/pel shows: Ulcer of the inferomedial aspect of the first portion of the duodenum. * GI consulted thank you for your recommendations * Could be the reason for the Abdominal pain in the RUQ * Protonix and Carafate * EGD tomorrow (2) Community acquired pneumonia: Qualifiers: Laterality: unspecified laterality Qualified Code(s): J18.9 - Pneumonia, unspecified organism Code(s): J18.9 - Pneumonia, unspecified organism Status: Acute Assessment and Plan: * Chest xray shows: Patchy bilateral airspace opacities, consistent with atelectasis vs PNA * Chest CTA:No pulmonary embolus, Dependent airspace and groundglass opacities in left lung lower lobe, consistent with atelectasis versus pneumonia * Complaint of a cough * WBC 6.0 * IV ceftriaxone and Azithromycin * Sputum culture ordered and pending * Supplemental oxygen to maintain saturations greater than 94% (3) Congestive heart failure: Qualifiers: Heart failure chronicity: unspecified Heart failure type: unspecified Qualified Code(s): I50.9 - Heart failure, unspecified Code(s): I50.9 - Heart failure, unspecified Status: Acute Assessment and Plan: * Noted CTA and chest x-ray with cardiomegaly * Probably acute exacerbation of diastolic heart failure * possibility of congestive heart failure * gently diurese her as well with Lasix 40 mg IV daily * echocardiogram shows normal systolic function with EF of 65-70%, with grade one diastolic dysfunction * Could be acute exacerbation with need for oxygen * Troponins <0.012 x 2 * Echo from 03/09/2020 with ejection fraction more than 70% with no other valvular problem noted * Lasix 40mg IV BID * Strict I&Os * BNP elevated 3470 (4) Alcohol abuse: Code(s): F10.10 - Alcohol abuse, uncomplicated Status: Acute Assessment and Plan: * 6 drinks a day for the last 6 years * CIWA * No sign of withdrawal * Education about cessation (5) B12 deficiency: Code(s): E53.8 - Deficiency of other specified B group vitamins Status: Acute Assessment and Plan: * Takes Vit B12 at home * Continue (6) Dyspnea on exertion: Code(s): R06.00 - Dyspnea, unspecified Status: Resolved Assessment and Plan: * raise right hemidiaphragm this is chronic also visible on CT scan from July 2020 * Supplemental oxygen * BNP is elevated * Could be related to PNA or CHF (7) Essential hypertension: Code(s): I10 - Essential (primary) hypertension Status: Chronic Assessment and Plan: * Uncontrolled * Current BP is 125/72 * Continue home lisinopril 40mg PO daily, HCTZ 25mg PO daily * Trend BP * Change therapy as needed (8) Depression: Code(s): F32.9 - Major depressive disorder, single episode, unspecified Status: Chronic Assessment and Plan: * Continue escitalopram (9) Cervical cancer: Code(s): C53.9 - Malignant neoplasm of cervix uteri, unspecified Status: Acute Assessment and Plan: * History s/p hysterectomy (10) Morbid obesity:
[2021-05-07] MEDS: ENOXAPARIN 40 MG/0.4 ML SYRINGE SUB-Q (14:35)
[2021-05-08] VITALS (13 sets, daily range): BP systolic 107–140; BP diastolic 57–72; PULSE 61–97; RESP 16–29; TEMP 36–36.2; O2SAT 94–99
[2021-05-08 05:32] LABS: Basophils Percent Auto 0.6 % (0.2-1.2); Eosinophils Absolute Auto 0.2 K/mm3 (0-0.3); Hemoglobin 12.9 g/dL (12.0-15.0); Immature Granulocyte Absolute 0.07 K/mm3 (0.00-0.031); Immature Granulocyte Percent A 1.1 % (0-0.5); Mean Corpuscular HGB Conc 30.7 g/dl (32-36); Mean Corpuscular Hemoglobin 28.6 pg (26-34); Mean Corpuscular Volume 93.1 fl (80-100); Mean Platelet Volume 9.9 fl (7.4-10.4); Monocytes Absolute Auto 1.3 K/mm3 (0.1-0.6); Monocytes Percent Auto 20.3 % (2.6-8.5); Neutrophils Absolute Auto 3.2 K/mm3 (1.3-6.7); Platelet Count Result 201 k/mm3 (150-375); Red Blood Count 4.51 M/mm3 (4.2-5.4); Red Cell Distribution Width 20.8 % (11.5-14.5); White Blood Count 6.3 K/mm3 (4.5-10.0)
[2021-05-08 05:59] LABS: Alanine Aminotransferase 17 U/L (4-35); Albumin Level 3.8 g/dL (3.5-5.1); Alkaline Phosphatase 59 U/L (38-126); Anion Gap 9 mmol/L (8-16); Aspartate Amino Transferase 23 U/L (14-36); Bilirubin,Total 0.5 mg/dL (0.2-1.3); Blood Urea Nitrogen 28 mg/dL (7-17); Carbon Dioxide 33 mmol/L (22-30); Chloride 91 mmol/L (98-107); Estimated CRCL calculation 117 ml/min; Estimated Glomerular Filt Rate > 60; Glucose 113 mg/dL (65-110); Magnesium 1.8 mg/dL (1.6-2.3); Potassium 3.4 mmol/L (3.4-5.0); Sodium 133 mmol/L (137-145)
[2021-05-08] MEDS: SUCRALFATE SUSP 100 MG/ML 10 ML UDC 1000 MG PO ×3 (06:52→20:13)
[2021-05-08] MEDS: MAGNESIUM SULF 2 GM/WATER 50ML 2 GM/50 ML BAG IVPB (08:59)
[2021-05-08] MEDS: CYANOCOBALAMIN 1,000 MCG TABLET 1000 MCG PO (09:09)
[2021-05-08] MEDS: PANTOPRAZOLE 40 MG TABLET PO ×2 (09:09→20:14)
[2021-05-08] MEDS: FUROSEMIDE INJ 40 MG/4 ML VIAL IV PUSH ×2 (09:09→16:21)
[2021-05-08] MEDS: THIAMINE HCL 100 MG TABLET PO (09:10)
[2021-05-08] MEDS: ESCITALOPRAM OXALATE 10 MG TABLET PO (09:10)
[2021-05-08] MEDS: FOLIC ACID 1 MG TABLET PO (09:10)
[2021-05-08] MEDS: hydroCHLOROthiazide 25 MG TABLET PO (09:10)
[2021-05-08] MEDS: lisinopriL 20 MG TABLET 40 MG PO (09:10)
--- NOTE | 2021-05-08 09:21 | P.PNIM_ITS ---
Progress Note: A&P Assessment and Plan (1) Duodenal ulcer: Code(s): K26.9 - Duodenal ulcer, unspecified as acute or chronic, without hemorrhage or perforation Status: Acute Assessment and Plan: * CT chest/abd/pel shows: Ulcer of the inferomedial aspect of the first portion of the duodenum. * GI consulted thank you for your recommendations * Could be the reason for the Abdominal pain in the RUQ * Protonix and Carafate * EGD today (2) Community acquired pneumonia: Qualifiers: Laterality: unspecified laterality Qualified Code(s): J18.9 - Pneumonia, unspecified organism Code(s): J18.9 - Pneumonia, unspecified organism Status: Acute Assessment and Plan: * Chest xray shows: Patchy bilateral airspace opacities, consistent with atelectasis vs PNA * Chest CTA:No pulmonary embolus, Dependent airspace and groundglass opacities in left lung lower lobe, consistent with atelectasis versus pneumonia * Complaint of a cough, with no production * WBC 6.3 * IV ceftriaxone and Azithromycin * Sputum culture ordered and pending * Supplemental oxygen to maintain saturations greater than 94% (3) Congestive heart failure: Qualifiers: Heart failure chronicity: unspecified Heart failure type: unspecified Qualified Code(s): I50.9 - Heart failure, unspecified Code(s): I50.9 - Heart failure, unspecified Status: Acute Assessment and Plan: * Noted CTA and chest x-ray with cardiomegaly * Probable combination of Acute exacerbation of diastolic heart failure and PNA, with the need for supplemental oxygen * echocardiogram shows normal systolic function with EF of 65-70%, with grade one diastolic dysfunction * Troponins <0.012 x 2 * Lasix 40mg IV BID x 4 doses * Strict I&Os * Repeat BNP (4) Alcohol abuse: Code(s): F10.10 - Alcohol abuse, uncomplicated Status: Acute Assessment and Plan: * 6 drinks a day for the last 6 years * CIWA * Librium 25mg PO Q6h * No sign of withdrawal * Education about cessation (5) B12 deficiency: Code(s): E53.8 - Deficiency of other specified B group vitamins Status: Acute Assessment and Plan: * Takes Vit B12 at home * Continue (6) Dyspnea on exertion: Code(s): R06.00 - Dyspnea, unspecified Status: Resolved Assessment and Plan: * raise right hemidiaphragm this is chronic also visible on CT scan from July 2020 * Supplemental oxygen * Repeat BNP * Increased lasix to 40mg IV BID * Could be related to PNA or CHF (7) Essential hypertension: Code(s): I10 - Essential (primary) hypertension Status: Chronic Assessment and Plan: * Uncontrolled * Current BP is 123/57 * Continue home lisinopril 40mg PO daily, HCTZ 25mg PO daily * Trend BP * Change therapy as needed (8) Depression: Code(s): F32.9 - Major depressive disorder, single episode, unspecified Status: Chronic Assessment and Plan: * Continue escitalopram (9) Cervical cancer: Code(s): C53.9 - Malignant neoplasm of cervix uteri, unspecified Status: Acute Assessment and Plan: * History s/p hysterectomy (10) Morbid obesity: Code(s): E66.01 - Morbid (severe) obesity due to excess calories Status: Acute Assessm
--- NOTE | 2021-05-08 09:21 | PM.IMPN ---
Progress Note: A&P Assessment and Plan (1) Duodenal ulcer: Code(s): K26.9 - Duodenal ulcer, unspecified as acute or chronic, without hemorrhage or perforation Status: Acute Assessment and Plan: CT chest/abd/pel shows: Ulcer of the inferomedial aspect of the first portion of the duodenum. GI consulted thank you for your recommendations Could be the reason for the Abdominal pain in the RUQ Protonix and Carafate EGD today (2) Community acquired pneumonia: Qualifiers: Laterality: unspecified laterality Qualified Code(s): J18.9 - Pneumonia, unspecified organism Code(s): J18.9 - Pneumonia, unspecified organism Status: Acute Assessment and Plan: Chest xray shows: Patchy bilateral airspace opacities, consistent with atelectasis vs PNA Chest CTA:No pulmonary embolus, Dependent airspace and groundglass opacities in left lung lower lobe, consistent with atelectasis versus pneumonia Complaint of a cough, with no production WBC 6.3 IV ceftriaxone and Azithromycin Sputum culture ordered and pending Supplemental oxygen to maintain saturations greater than 94% (3) Congestive heart failure: Qualifiers: Heart failure chronicity: unspecified Heart failure type: unspecified Qualified Code(s): I50.9 - Heart failure, unspecified Code(s): I50.9 - Heart failure, unspecified Status: Acute Assessment and Plan: Noted CTA and chest x-ray with cardiomegaly Probable combination of Acute exacerbation of diastolic heart failure and PNA, with the need for supplemental oxygen echocardiogram shows normal systolic function with EF of 65-70%, with grade one diastolic dysfunction Troponins <0.012 x 2 Lasix 40mg IV BID x 4 doses Strict I&Os Repeat BNP (4) Alcohol abuse: Code(s): F10.10 - Alcohol abuse, uncomplicated Status: Acute Assessment and Plan: 6 drinks a day for the last 6 years CIWA Librium 25mg PO Q6h No sign of withdrawal Education about cessation (5) B12 deficiency: Code(s): E53.8 - Deficiency of other specified B group vitamins Status: Acute Assessment and Plan: Takes Vit B12 at home Continue (6) Dyspnea on exertion: Code(s): R06.00 - Dyspnea, unspecified Status: Resolved Assessment and Plan: raise right hemidiaphragm this is chronic also visible on CT scan from July 2020 Supplemental oxygen Repeat BNP Increased lasix to 40mg IV BID Could be related to PNA or CHF (7) Essential hypertension: Code(s): I10 - Essential (primary) hypertension Status: Chronic Assessment and Plan: Uncontrolled Current BP is 123/57 Continue home lisinopril 40mg PO daily, HCTZ 25mg PO daily Trend BP Change therapy as needed (8) Depression: Code(s): F32.9 - Major depressive disorder, single episode, unspecified Status: Chronic Assessment and Plan: Continue escitalopram (9) Cervical cancer: Code(s): C53.9 - Malignant neoplasm of cervix uteri, unspecified Status: Acute Assessment and Plan: History s/p hysterectomy (10) Morbid obesity: Code(s): E66.01 - Morbid (severe) obesity due to excess calories Status: Acute Assessment and Plan: Past history of lap band BMI is 47.9 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 She also reports that she been having discomfort in her right upper quadrant since past few days. She states that she has been having some dry cough since past several weeks. She denies any fever or chills. She does not think she has any increased abdominal distensi
[2021-05-08 10:34] LABS: NT Pro B Type Natriuretic Pept 33 pg/mL (5-100)
--- NOTE | 2021-05-08 12:15 | PCDIET ---
Dietitian consult for obesity. Hx of ETOH. Patient states to eating a regular diet at home. She had Lap Band Surgery back in 2004. Lost 180 ibs and gained all the weight back. She has been eating 100% of heart healthy diet. She had not diet questions or concerns at this time, patient instruction attached. Patient is currently NPO for EGD today. Recommend advancing has tolerated to heart healthy diet. No further nutritional interventions needed. Thank you for the consult.
--- NOTE | 2021-05-08 12:56 | PC.NURSE ---
Report called to Miranda CORTES in GI Lab.
--- NOTE | 2021-05-08 13:40 | PC.NURSE ---
To GI Lab via wheelchair.
--- NOTE | 2021-05-08 13:54 | WPDANESEPPF ---
Anes - Initial Pre Proc Eval Procedure: Operation Date: 05/08/21 14:00 Proposed Procedures p Esophagogastroduodenoscopy - Luis Lamar MD Date/Time: 05/08/21 13:54 Surgeon: Juanpablo Bee MD Pre Op Diagnosis: SOB, Pneumonia, Cardiomegaly Elevated BNP Patient Data Age: 46 Gender: F Height: 1.75 m Weight: 147.2 kg Last Vital Signs Temp 96.8 F L 05/08/21 06:00 Pulse 69 05/08/21 12:00 Resp 16 05/08/21 09:10 BP 123/57 L 05/08/21 06:00 Pulse Ox 94 05/08/21 09:10 Allergies Allergy/AdvReac Type Severity Reaction Status Date / Time No Known Allergies Allergy Verified 05/04/21 22:12 Home Medications Medication Instructions Recorded Confirmed Type diphenhydramine HCl [Benadryl 25 mg PO HS PRN 03/08/20 05/05/21 History Allergy] escitalopram oxalate 10 mg PO DAILY 03/08/20 05/05/21 History lisinopril 40 mg PO DAILY 03/08/20 05/05/21 History cyanocobalamin (vitamin B-12) 1,000 mcg PO DAILY 30 Days #30 03/10/20 05/05/21 Rx tablet ergocalciferol (vitamin D2) 1,250 mcg PO WEEKLY 28 Days #4 cap 03/10/20 05/05/21 Rx [Drisdol] hydrochlorothiazide 25 mg PO DAILY 05/04/21 05/05/21 History Laboratory Tests 05/08/21 05/08/21 05/08/21 05:15 05:15 09:41 WBC 6.3 K/mm3 K/mm3 (4.5-10.0) RBC 4.51 M/mm3 M/mm3 (4.2-5.4) Hgb 12.9 g/dL g/dL (12.0-15.0) Hct 42.0 % % (37.0-47.0) MCV 93.1 fl fl (80-100) MCH 28.6 pg pg (26-34) MCHC 30.7 g/dl L g/dl (32-36) RDW 20.8 % H % (11.5-14.5) Plt Count 201 k/mm3 k/mm3 (150-375) MPV 9.9 fl fl (7.4-10.4) Immature Gran % (Auto) 1.1 % H % (0-0.5) Neut % (Auto) 51.0 % % (45.5-73.1) Lymph % (Auto) 24.0 % % (18.3-44.2) [place] % (Auto) 20.3 % H % (2.6-8.5) Eos % (Auto) 3.0 % % (0-4.4) Baso % (Auto) 0.6 % % (0.2-1.2) Lymph # (Auto) 1.50 K/mm3 K/mm3 (0.9-3.2) [place]wey # (Auto) 1.3 K/mm3 H K/mm3 (0.1-0.6) Eos # (Auto) 0.2 K/mm3 K/mm3 (0-0.3) Baso # (Auto) 0.0 K/mm3 K/mm3 (0.0-0.1) Abs Immat Gran (auto) 0.07 K/mm3 H K/mm3 (0.00-0.031) Absolute Neuts (auto) 3.2 K/mm3 K/mm3 (1.3-6.7) Absolute Nucleated RBC 0.0 K/mm3 K/mm3 (0.0-0.012) Nucleated RBC % 0.0 % % (0.0-0.2) Sodium 133 mmol/L L mmol/L (137-145) Potassium 3.4 mmol/L mmol/L (3.4-5.0) Chloride 91 mmol/L L mmol/L (98-107) Carbon Dioxide 33 mmol/L H mmol/L (22-30) Anion Gap 9 mmol/L mmol/L (8-16) BUN 28 mg/dL H mg/dL (7-17) Creatinine 0.80 mg/dL mg/dL (0.7-1.0) Estim Creat Clear Calc 117 ml/min ml/min Estimated GFR > 60 (59 - ) Glucose 113 mg/dL H mg/dL (65-110) Calcium 9.0 mg/dL mg/dL (8.4-10.2) Magnesium 1.8 mg/dL mg/dL (1.6-2.3) Total Bilirubin 0.5 mg/dL mg/dL (0.2-1.3) AST 23 U/L U/L (14-36) ALT 17 U/L U/L (4-35) Alkaline Phosphatase 59 U/L U/L (38-126) NT-Pro-B Natriuret Pep 33 pg/mL pg/mL (5-100) Total Protein 7.0 g/dL g/dL (6.3-8.2) Albumin 3.8 g/dL g/dL (3.5-5.1) Patient hx anesthesia problems: none Family hx anesthesia problems: none Results Review: All pre-operative results and documents have been reviewed as part of the pre-operative evaluation. [facility] Past Medical History Medical History (Updated 05/06/21 @ 13:50 by Luis Lamar MD) Anal polyp s/p removal Anxiety Cervical cancer s/p hysterectomy Depression Diverticulitis Essential hypertension Hemorrhoids Rectocele s/p intervention x2 RUQ pain Surgical History Surgical History (Updated 05/05/21 @ 03:31 by Juanpablo Bee MD) History of hysterectomy Hx of laparoscopic gastric banding Family History
[2021-05-08] MEDS: LACTATED RINGERS 1,000 ML 150 ML IV CONT (14:00)
--- NOTE | 2021-05-08 16:10 | PC.NURSE ---
Returned from GI Lab via stretcher.
[2021-05-09] VITALS (7 sets, daily range): BP systolic 100–130; BP diastolic 58–72; PULSE 70–87; RESP 18–20; TEMP 36.1–36.9; O2SAT 92–94
[2021-05-09 05:56] LABS: Basophils Absolute Auto 0.1 K/mm3 (0.0-0.1); Basophils Percent Auto 0.8 % (0.2-1.2); Eosinophils Absolute Auto 0.2 K/mm3 (0-0.3); Eosinophils Percent Auto 3.2 % (0-4.4); Hematocrit 40.1 % (37.0-47.0); Hemoglobin 12.2 g/dL (12.0-15.0); Immature Granulocyte Absolute 0.06 K/mm3 (0.00-0.031); Immature Granulocyte Percent A 0.9 % (0-0.5); Lymphocytes Percent Auto 22.7 % (18.3-44.2); Mean Corpuscular HGB Conc 30.4 g/dl (32-36); Mean Corpuscular Hemoglobin 28.4 pg (26-34); Mean Corpuscular Volume 93.5 fl (80-100); Mean Platelet Volume 10.3 fl (7.4-10.4); Monocytes Absolute Auto 1.5 K/mm3 (0.1-0.6); Monocytes Percent Auto 22.1 % (2.6-8.5); Neutrophils Absolute Auto 3.3 K/mm3 (1.3-6.7); Neutrophils Percent Auto 50.3 % (45.5-73.1); Platelet Count Result 214 k/mm3 (150-375); Red Blood Count 4.29 M/mm3 (4.2-5.4); Red Cell Distribution Width 20.4 % (11.5-14.5); White Blood Count 6.6 K/mm3 (4.5-10.0)
[2021-05-09 06:06] LABS: Alanine Aminotransferase 16 U/L (4-35); Albumin Level 3.7 g/dL (3.5-5.1); Alkaline Phosphatase 55 U/L (38-126); Anion Gap 9 mmol/L (8-16); Aspartate Amino Transferase 24 U/L (14-36); Bilirubin,Total 0.3 mg/dL (0.2-1.3); Blood Urea Nitrogen 35 mg/dL (7-17); Carbon Dioxide 35 mmol/L (22-30); Chloride 91 mmol/L (98-107); Estimated CRCL calculation 60 ml/min; Estimated Glomerular Filt Rate 34; Glucose 113 mg/dL (65-110); Magnesium 2.4 mg/dL (1.6-2.3); Potassium 3.2 mmol/L (3.4-5.0); Sodium 135 mmol/L (137-145)
[2021-05-09] MEDS: SUCRALFATE SUSP 100 MG/ML 10 ML UDC 1000 MG PO ×4 (06:19→21:11)
[2021-05-09] MEDS: LACTATED RINGERS 1,000 ML 100 ML IV CONT ×2 (08:46→21:10)
[2021-05-09] MEDS: ENOXAPARIN 40 MG/0.4 ML SYRINGE SUB-Q (08:47)
[2021-05-09] MEDS: THIAMINE HCL 100 MG TABLET PO (08:47)
[2021-05-09] MEDS: POTASSIUM CHLORIDE 20 MEQ TABLET 40 MEQ PO (08:47)
[2021-05-09] MEDS: FOLIC ACID 1 MG TABLET PO (08:48)
[2021-05-09] MEDS: ESCITALOPRAM OXALATE 10 MG TABLET PO (08:48)
[2021-05-09] MEDS: PANTOPRAZOLE 40 MG TABLET PO ×2 (08:48→21:11)
[2021-05-09] MEDS: CYANOCOBALAMIN 1,000 MCG TABLET 1000 MCG PO (08:48)
--- NOTE | 2021-05-09 10:50 | PM.IMPN ---
Progress Note: A&P Assessment and Plan (1) MONY (acute kidney injury): Code(s): N17.9 - Acute kidney failure, unspecified Status: Acute Assessment and Plan: MONY overnight with use of IV Lasix therapy. IV fluids at 100 cc an hour have been started. Will hold HCTZ, lisinopril, and discontinue the Lasix therapy. Monitor urine output Repeat BMP in the morning. (2) Acute respiratory failure with hypoxemia: Code(s): J96.01 - Acute respiratory failure with hypoxia Status: Acute Assessment and Plan: Patient was found to be hypoxic on arrival to the emergency room and oxygen has been between 1 L to 3 L via nasal cannula. Patient was believed to have community-acquired pneumonia from chest x-ray showing atelectasis versus pneumonia and started on IV azithromycin and Rocephin on 05/05/2021. Today would be day #5 of IV antibiotics for community-acquired pneumonia and she is wean down to 1 L via nasal cannula and 93%. Repeat chest x-ray 05/09/21 showed Bibasilar atelectasis and pneumonia unchanged. Echocardiogram showed normal EF 65-70%, mild LVH, diastolic grade 1 dysfunction, mild enlargement of RV chamber, severe pulmonary hypertension with a pulmonary arterial systolic pressure of 68 mmHg. I believe some of her hypoxia could be related to DAVIAN and obesity hypoventilation syndrome and needing further outpatient workup for sleep apnea Educated the patient she needs to use her incentive spirometer, get up and walk around the room frequently and we will reassess her oxygenation requirements tomorrow with a home oxygen evaluation. The previous provider believed she was in congestive heart failure and gave her IV Lasix 40 mg b.i.d. which was discontinued due to a today. It did not improve her oxygen requirements with 3 out of the 4 doses. Her BNP yesterday was normal at 33. Will continue monitoring her oxygenation status and wean as tolerated. (3) Community acquired pneumonia: Qualifiers: Laterality: unspecified laterality Qualified Code(s): J18.9 - Pneumonia, unspecified organism Code(s): J18.9 - Pneumonia, unspecified organism Status: Acute Assessment and Plan: Chest xray shows: Patchy bilateral airspace opacities, consistent with atelectasis vs PNA Chest CTA:No pulmonary embolus, Dependent airspace and groundglass opacities in left lung lower lobe, consistent with atelectasis versus pneumonia Complaint of a cough, with no production WBC 6.6 IV ceftriaxone and Azithromycin Day #5 Sputum culture ordered and pending Supplemental oxygen to maintain saturations greater than 94% (4) Duodenal ulcer: Code(s): K26.9 - Duodenal ulcer, unspecified as acute or chronic, without hemorrhage or perforation Status: Acute Assessment and Plan: CT chest/abd/pel shows: Ulcer of the inferomedial aspect of the first portion of the duodenum. GI consulted and performed EGD showing gastritis and duodenal ulcers. Recommends PPI BID and Avoid NSAIDS. Repeat EGD in 3 months to assess for healing of ulcer. (5) Congestive heart failure: Qualifiers: Heart failure chronicity: unspecified Heart failure type: unspecified Qualified Code(s): I50.9 - Heart failure, unspecified Code(s): I50.9 - Heart failure, unspecified Status: Acute Assessment and Plan: Previous provider felt she may have CHF exacerbation contributing to her hypoxia and ordered Lasix 40 mg BID and after the third dose of IV Lasix her creatinine doubled. I stopped further Lasix therapy, Held HCTZ and Losartan to prevent further MOYN. echocardiogram shows normal systolic function with EF of 65-70%, with grade one diastolic dysfunction Troponins <0.012 x 2 BNP was normal 05/08 at 33. She was found to have diastolic dysfunction, but do not believe she is in acute exacerbation (6) Alcohol abuse: Code(s): F10.10 - Alcohol abuse, uncomplicated Stat
--- NOTE | 2021-05-09 11:28 | PC.NURSE ---
On 05/09/21, the student, [Yumi Teresa ], provided care and completed [facility] documentation on this patient. I have reviewed the student's documentation and agree with the findings.
--- NOTE | 2021-05-09 16:48 | WPDGIPROGNO ---
Progress Note: A&P Assessment and Plan (1) Duodenal ulcer: Code(s): K26.9 - Duodenal ulcer, unspecified as acute or chronic, without hemorrhage or perforation Status: Acute Assessment and Plan: non-bleeding, continue with ppi twice daily no nsaid's egd in 3 months to assess healing will follow from af[place], call if questions (2) RUQ pain: Code(s): R10.11 - Right upper quadrant pain Status: Acute Assessment and Plan: resolved (3) MONY (acute kidney injury): Code(s): N17.9 - Acute kidney failure, unspecified Status: Acute Assessment and Plan: noted today, on fluids and medical management by primary (4) Acute respiratory failure with hypoxemia: Code(s): J96.01 - Acute respiratory failure with hypoxia Status: Acute (5) Community acquired pneumonia: Qualifiers: Laterality: unspecified laterality Qualified Code(s): J18.9 - Pneumonia, unspecified organism Code(s): J18.9 - Pneumonia, unspecified organism Status: Acute Subjective Date/time seen: 05/09/21 16:48 Interval history: egd yesterday found DU, no bleeding with bx pending. Review of Systems Review of Systems: All systems reviewed & are unremarkable except as noted in HPI and below Exam Const: General: comfortable and no acute distress Other: obese HENMT: General nose exam: Normal nares present Eyes: Sclera: sclerae normal Neck: Neck: supple Resp: Effort & Inspection: normal respiratory effort Other: using oxygen, coarse breath sounds Cardio: Rate: regular rate GI: Inspection: non-distended GI Palp: Yes Soft to palpation and No Guarding due to palpation present (GI) Auscultation: normal bowel sounds Skin: General skin exam: normal color Neuro: Speech: normal speech Motor exam (neuro): Normal motor muscle tone present throughout Extrem: General: pedal edema bilaterally Psych: Mental Status: mental status grossly normal Objective Data Vital Signs Vital Signs: Vital Signs - 24 hr 05/08/21 20:00 05/08/21 20:50 05/08/21 21:10 Temperature 97.2 F L Pulse Rate 97 Respiratory Rate 20 Blood Pressure 140/64 Pulse Oximetry 95 94 94 05/09/21 04:25 05/09/21 08:55 05/09/21 14:00 Temperature 97.6 F 98.5 F Pulse Rate 70 87 Respiratory Rate 20 20 18 Blood Pressure 100/58 L Pulse Oximetry 94 93 92 05/09/21 14:50 Temperature Pulse Rate Respiratory Rate Blood Pressure 130/72 Pulse Oximetry Intake/Output Intake/Output: Intake & Output 05/06/21 05/07/21 05/08/21 05/09/21 23:59 23:59 23:59 23:59 Intake Total 1590 1760 890 810 Output Total 2100 2750 1900 400 Balance -510 -990 -1010 410 Meds/Results Medications: Active Medications Generic Name Dose Route Start Last Admin Trade Name Freq PRN Reason Stop Dose Admin Albuterol 2 puff 05/05/21 03:42 Albuterol Sulfate (*Sp) Aerosol 1 Puff INHALATION Q6HRT PRN Shortness Of Breath Chlordiazepoxide HCl 25 mg 05/06/21 14:03 Chlordiazepoxide (*Crx) 25 Mg Capsule PO Q6H PRN Withdrawal Cyanocobalamin 1,000 mcg 05/05/21 09:00 05/09/21 08:48 Cyanocobalamin 1,000 Mcg Tablet PO 1,000 mcg DAILY FARNAZ Administration Cyclobenzaprine HCl 5 mg 05/06/21 14:05 Cyclobenzaprine Hcl 5 Mg Tablet PO Q12H PRN Muscle Spasm Diphenhydramine HCl 25 mg 05/05/21 03:41 Diphenhydramine Hcl Cap 25 Mg Capsule PO HS PRN Allergy Symptoms Enoxaparin Sodium 40 mg 05/07/21 12:45 05/09/21 08:47 Enoxaparin 40 Mg/0.4 Ml Syringe SUB-Q 40 mg DAILY FARNAZ Administration Ergocalciferol 50,000 unit 05/05/21 09:00 05/05/21 09:57 Ergocalciferol 50,000 Unit Capsule PO 50,000 unit WEEKLY FARNAZ Administration Escitalopram Oxalate 10 mg 05/05/21 09:00 05/09/21 08:48 Escitalopram Oxalate 10 Mg Tablet PO 10 mg DAILY FARNAZ Administration Folic Acid 1 mg 05/05/21 09:00 05/09/21 08:48 Folic Acid 1 Mg Tablet PO 1 m
[2021-05-10 04:48] VITALS: BP 110/54; PULSE 66; RESP 20; TEMP 36.6; O2SAT 95
[2021-05-10 05:50] LABS: Anion Gap 5 mmol/L (8-16); Blood Urea Nitrogen 36 mg/dL (7-17); Carbon Dioxide 38 mmol/L (22-30); Chloride 94 mmol/L (98-107); Estimated CRCL calculation 95 ml/min; Estimated Glomerular Filt Rate 59; Glucose 104 mg/dL (65-110); Potassium 3.4 mmol/L (3.4-5.0); Sodium 137 mmol/L (137-145)
[2021-05-10] MEDS: SUCRALFATE SUSP 100 MG/ML 10 ML UDC 1000 MG PO ×2 (06:16→11:48)
[2021-05-10] MEDS: LACTATED RINGERS 1,000 ML 100 ML IV CONT (06:17)
[2021-05-10] MEDS: CYANOCOBALAMIN 1,000 MCG TABLET 1000 MCG PO (09:29)
[2021-05-10] MEDS: POTASSIUM CHLORIDE 20 MEQ TABLET 40 MEQ PO (09:29)
[2021-05-10] MEDS: ESCITALOPRAM OXALATE 10 MG TABLET PO (09:30)
[2021-05-10] MEDS: THIAMINE HCL 100 MG TABLET PO (09:30)
[2021-05-10] MEDS: FOLIC ACID 1 MG TABLET PO (09:30)
[2021-05-10] MEDS: ENOXAPARIN 40 MG/0.4 ML SYRINGE SUB-Q (09:30)
[2021-05-10] MEDS: PANTOPRAZOLE 40 MG TABLET PO (09:30)
[2021-05-10 10:00] VITALS: PULSE 98; O2SAT 96
[2021-05-10 10:10] VITALS: PULSE 100; O2SAT 96
--- NOTE | 2021-05-10 11:27 | HOMEO2EVAL ---
Evaluation was performed at [facility]
--- NOTE | 2021-05-10 11:35 | HOMEO2EVAL ---
Evaluation was performed at [facility] Home Oxygen Evaluation RC: Home Oxygen (O2) Evaluation Start: 05/09/21 16:22 Freq: ONCE Status: Active Protocol: RPE Activity Type Activity Date Activity User E-Sign Co-Sign Detail Recorded Client Recorded Date Recorded By Document 05/10/21 10:00 KMV [id number] 05/10/21 11:35 KMV Document 05/10/21 10:10 KMV [id number] 05/10/21 11:35 KMV 05/10/21 05/10/21 10:00 10:10 Home O2 Evaluation Test Phase Resting Exercise Oxygen Delivery Room Air Room Air Pulse Oximetry (90-100 %) 96 96 Pulse Rate (60-100 beats/min) 98 100 Activity Tolerance Good Rate of Perceived Exertion (PE) 6 Very, very 6 Very, very light light Ambulation Distance (feet) 100 Treatment Charges O2 Evaluation - Inpatient
--- NOTE | 2021-05-10 11:45 | PM.DS ---
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 In the ED evaluation she was noted to be hypertensive and oxygen level in low 90s. Her BNP came back elevated at 3470 chest x-ray with patchy bilateral airway opacities consistent with atelectasis versus pneumonia. Chest abdomen pelvis CTA was done which showed reduced lung volumes with bibasilar consolidation, no central PE, cardiomegaly with elevation of the right her diaphragmatic, mild thickening of the distal stomach that may be from ulcer with gastritis, and some colonic diverticula. She received a dose of Lasix in the ER and is getting admitted for further evaluation and management. Further work up included Echogram showing normal EF 65-70%, Mild LVH, Diastolic grade 1, severe pulmonary HTN and RV chamber is mildly enlarged. She was give a few more days of diuresis which caused MONY 05/09/21 with Cr 1.6. IV diuresis was discontinued and IV fluids were started with improvement of creatinine overnight to 1.0. She was euvolemic at this time. The pt had still been requiring 1L of oxygen despite IV abx that were started of pneumonia by the previous provider and diuresis. Home O2 evaluated was completed showing she did not need oxygen at discharge. I feel she has obesity hypoventilation syndrome and needs further work up for DAVIAN due to echo showing increased pulmonary HTN. CT Findings suggested duodenal ulcer and Dr. Cortez was consulted and preformed EGD which showed gastritis and duodenal ulcer. Recommended PPI BID and Avoid NSAIDS. Repeat EGD recommended for 3 months. The patients RUQ pain improved during hospitalization and PPI. Not having eating issues. (2) Acute respiratory failure with hypoxemia: Code(s): J96.01 - Acute respiratory failure with hypoxia Status: Acute Assessment and Plan: Patient was found to be hypoxic on arrival to the emergency room and oxygen has been between 1 L to 3 L via nasal cannula. Patient was believed to have community-acquired pneumonia from chest x-ray showing atelectasis versus pneumonia and started on IV azithromycin and Rocephin on 05/05/2021. Today would be day #5 of IV antibiotics for community-acquired pneumonia and she is wean down to 1 L via nasal cannula and 93%. Repeat chest x-ray 05/09/21 showed Bibasilar atelectasis and pneumonia unchanged. Echocardiogram showed normal EF 65-70%, mild LVH, diastolic grade 1 dysfunction, mild enlargement of RV chamber, severe pulmonary hypertension with a pulmonary arterial systolic pressure of 68 mmHg. I believe some of her hypoxia could be related to DAVIAN and obesity hypoventilation syndrome and needing further outpatient workup for sleep apnea Educated the patient she needs to use her incentive spirometer, get up and walk around the room frequently and we will reassess her oxygenation requirements tomorrow with a home oxygen evaluation. Home O2 evaluation was normal and she does not need oxygen. (3) Community acquired pneumonia: Qualifiers: Laterality: unspecified laterality Qualified Code(s): J18.9 - Pneumonia, unspecified organism Code(s): J18.9 - Pneumonia, unspecified organism Status: Acute Assessment and Plan: Will receive a few more days of Cefdinir. Azithromycin course was completed x5 days. (4) Duodenal ulcer: Code(s): K26.9 - Duodenal ulcer, unspecified as acute or chronic, without hemorrhage or perforation Status: Acute Assessment and Plan: CT chest/abd/pel shows: Ulcer of the inferomedial aspect of the first portion of the duodenum. GI
== END 2021-05-10 14:00 | disposition home or self-care (01) | DRG 383 ==
LOC: ANHED 05-05 01:19 → ANH2MED 05-05 01:50
PROVIDERS: Internal Medicine Gastroenterology; Nurse Practitioner; Admitting Provider Internal Medicine; Emergency Provider Emergency Medicine; PCP Family Medicine Adolescent Medicine; Visit Provider Physician Assistant
PROC: 0DJ08ZZ Inspection of Upper Intestinal Tract, Via Natural or Artificial Opening Endoscopic (ICD-10-PCS; CPT 43235; principal; 2021-05-08 14:00)
DX: K26.9 Duodenal ulcer, unspecified as acute or chronic, without hemorrhage or perforation (principal); J18.9 Pneumonia, unspecified organism; J96.01 Acute respiratory failure with hypoxia; Z68.42 Body mass index [BMI] 45.0-49.9, adult; N17.9 Acute kidney failure, unspecified; K29.70 Gastritis, unspecified, without bleeding; E66.01 Morbid (severe) obesity due to excess calories; Z23 Encounter for immunization; K44.9 Diaphragmatic hernia without obstruction or gangrene; J98.6 Disorders of diaphragm; I27.20 Pulmonary hypertension, unspecified; F10.10 Alcohol abuse, uncomplicated; E53.8 Deficiency of other specified B group vitamins; F32.9 Major depressive disorder, single episode, unspecified; I11.0 Hypertensive heart disease with heart failure; I50.9 Heart failure, unspecified; R21 Rash and other nonspecific skin eruption; F41.9 Anxiety disorder, unspecified; R10.11 Right upper quadrant pain; Z79.899 Other long term (current) drug therapy; Z85.41 Personal history of malignant neoplasm of cervix uteri; Z90.710 Acquired absence of both cervix and uterus; Z98.84 Bariatric surgery status
CPT/HCPCS: 36415; 71045; 71046; 71275; 74177; 80048; 80053; 81001; 81025; 83690; 83735; 83880; 84484; 85025; 85610; 85730; 87040; 87070; 87081; 87086; 87088; 87205; 88305; 88342; 90471; 90653; 93005; 94618; 96365; 96366; 96367; 96375; 96376; 99285; A9270; C8929; G0008; G0378; J0456; J0696; J1650; J1940; J2270; J2704; J3475; J7120; Q9957; Q9967

== ENCOUNTER 2021-08-10 18:46 | Inpatient (IN) | payer BC, SELFPAY ==
[2021-08-10] VITALS (8 sets, daily range): BP systolic 123–174; BP diastolic 79–104; PULSE 64–88; RESP 17–34; TEMP 37.2; O2SAT 84–100
--- NOTE | ~2021-08-10 | CT_ITS ---
EXAMINATION: CTA chest PE protocol DATE: 08/10/2021 21:31 INDICATION: Shortness of breath, cough, congestion. Covid-positive. TECHNIQUE: Computed tomography angiography (CTA) of the chest was performed with 100 mL Omnipaque-350 intravenous contrast timed to evaluate the pulmonary arteries. Coronal maximum intensity projection 3D-reconstructions were created by the technologist. Automated exposure control and iterative reconst ruction technique were employed. Exam dose: 948.23 mGy-cm total exam DLP. COMPARISON: 08/10/2021 portable AP chest 05/04/2021 CT pulmonary scan FINDINGS: The pulmonary arteries are moderately opacified, without apparent embolism. Cardiomegaly. No pericardial or pleural effusion. No thoracic aortic aneurysm or dissection. No hilar or mediastinal mass lesion or lymphadenopathy. Elevated right diaphragm with associated atelectasis at the right lung base. Minimal dependent left l ower lobe atelectasis. The lungs otherwise appear clear of consolidation. Incidentally noted is a left band device. Normal morphology of the adrenal glands. Old healed posterolateral left ninth rib fracture. Hemangioma of T7 vertebral body. IMPRESSION: No evidence of pulmonary embolism Cardiomegaly Elevated right diaphragm with associated atelectasis at the right lung base Reviewed, dictated and finalized at [facility]. Reviewed, dictated and finalized at location A. TRIC RAZOR MECHANIC
--- NOTE | ~2021-08-10 | XR_ITS ---
XR chest 1V portable DATE: 08/10/2021 19:33 INDICATION: Shortness of breath TECHNIQUE: Portable upright AP chest on 08/10/2021 at 1929 hours COMPARISON: 05/09/2021 PA and lateral chest FINDINGS: There is prominent elevation right leaf of the diaphragm and right basilar atelectasis. Cardiomegaly. There is pulmonary vascular congestion and redistribution, consistent with congestive h eart failure. There are mild patchy predominantly central pulmonary infiltrates suggesting mild pulmo nary edema. Pneumonia is not excluded. IMPRESSION: Congestive heart failure Elevation right diaphragm and right basilar atelectasis Reviewed, dictated and finalized at location A. HT CREW SCHEDULER
--- NOTE | ~2021-08-10 | XR_ITS ---
EXAMINATION: XR chest 1V portable DATE: 08/16/2021 10:33 INDICATION: COVID pneumonia TECHNIQUE: frontal view of the chest was obtained. COMPARISON: Chest radiograph and CT dated 08/10/2021 FINDINGS: Unchanged elevation of the right hemidiaphragm with associated basilar compressive atelectasis. Left lung remains clear. No pulmonary edema, pleural effusion or pneumothorax. Cardiomegaly. IMPRESSION: 1. Cardiomegaly. 2. Unchanged elevation right hemidiaphragm with right basilar atelectasis. Reviewed, dictated and finalized at location A. TRUCK DISPATCHER
--- NOTE | ~2021-08-10 | XR_ITS ---
EXAMINATION: XR chest 1V portable DATE: 08/17/2021 09:31 INDICATION: Pneumonia. TECHNIQUE: A single frontal view of the chest was obtained. COMPARISON: Chest single view 08/16/2021, chest CT 08/10/2021 FINDINGS: There is marked elevation of right hemidiaphragm. There is mild atelectasis at the lung bas es. No pleural effusion or pneumothorax. Cardiomegaly is noted. IMPRESSION: 1. Chronic marked elevation of right hemidiaphragm. 2. Mild atelectasis at the lung bases. 3. Cardiomegaly. Reviewed, dictated and finalized at location E. IDE SALES INSPECTOR
--- NOTE | 2021-08-10 19:07 | ECG_ITS ---
Measurements Intervals [place] Rate: 87 P: 2 OK: 163 QRS: 21 QRSD: 96 T: 8 QT: 380 QTc: 459 Interpretive Statements SINUS RHYTHM BASELINE ARTIFACT- I, II, III, AVR, V6 NORMAL ECG Electronically Signed On 08-10-2021 20:15:53 RELIEF SALESPERSON by Alexis Reeves D.O.
--- NOTE | 2021-08-10 19:16 | ED.GENADULT ---
HPI - General Adult General Chief complaint: Shortness of Breath/Dyspnea Stated complaint: shortness of breath Time Seen by Provider: 08/10/21 19:06 Source: patient, RN notes reviewed and old records reviewed Limitations: no limitations History of Present Illness HPI narrative: 46-year-old female with recent diagnosis of pulmonary hypertension presents to the emergency department for evaluation of worsening shortness of breath. 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 Patient states she has had worsening shortness of breath since April and just recently received a diagnosis of pulmonary hypertension. Patient denies any current chest pain. Patient's primary complaint is exertional shortness of breath. Patient is dyspneic upon arrival. Patient was also 84% on room air. Patient is saturating at 100% on 2 L. Patient does take medications for high blood pressure. Patient denies any prior history of VT. Patient has no recent Covid testing. Patient was vaccinated against Covid. Related Data Home Medications Medication Instructions Recorded Confirmed lisinopril 40 mg PO DAILY 03/08/20 08/08/21 hydrochlorothiazide 25 mg PO DAILY 05/04/21 08/08/21 allopurinol 300 mg tablet 300 mg PO DAILY 08/08/21 08/08/21 amlodipine 5 mg tablet 5 mg PO DAILY 08/08/21 08/08/21 indomethacin 50 mg capsule 50 mg PO TID cap 08/08/21 08/08/21 Allergies Allergy/AdvReac Type Severity Reaction Status Date / Time No Known Allergies Allergy Verified 05/08/21 13:55 Review of Systems Review of Systems: CONSTITUTIONAL: Denies fever, chills, or sweats. EYES: Denies visual changes, redness, or discharge. ENT: Denies rhinorrhea, congestion, sore throat, or otalgia. CARDIOVASCULAR: Denies any chest pain but does report shortness of breath and worsening bilateral lower extremity edema RESPIRATORY: Shortness of breath GASTROINTESTINAL: Denies abdominal pain, nausea, vomiting, or diarrhea. GENITOURINARY: Denies dysuria or hematuria. SKIN: Denies rash or itching. MUSCULOSKELETAL: Denies back pain, joint pain, or myalgia. NEUROLOGIC: Denies headache, numbness, or weakness. [facility] Past Medical History Medical History Anal polyp s/p removal Anxiety Cervical cancer s/p hysterectomy Depression Diverticulitis Essential hypertension Hemorrhoids Rectocele s/p intervention x2 RUQ pain Surgical History Surgical History History of hysterectomy Hx of laparoscopic gastric banding Family History Family History Mother Hypertension Familial primary pulmonary hypertension Carcinoma of colon Sibling Family history of irritable bowel syndrome Father Family history of congestive heart failure Other Family history of cardiovascular disease Family history of malignant neoplasm Social History Social History Social History: Ms. Abdalla reports that she lives at home with her son. She has 2 children. She reports that she drinks alcohol 4-5x per week and has 4-5 mixed drinks when she drinks. She denies tobacco use and other illicit substance use. 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 She wishes to be a full code. Smoking status: Never smoker Alcohol intake: current Substance use: never Gender identity (if verbalized by the patient): Female Spiritual care concerns: No Exam Narrative: APPEARANCE: Dyspneic but in no distress HEAD: normocephalic, atraumatic. EYES: PERRLA/EOMI, conjunctivae clear. NOSE: Normal no drainage NECK: Supple. No adenopathy, no masses. RESPIRATORY: Airway patent, respirations nonlabored. Distant lung sounds bilaterally CARDIOVASCULAR: Regular rate and rhythm without murmurs rubs or gallops. ABDOMINAL: Soft, nontende
[2021-08-10] MEDS: FUROSEMIDE INJ 40 MG/4 ML VIAL IV PUSH (19:21)
[2021-08-10 19:34] LABS: Basophils Absolute Auto 0.1 K/mm3 (0.0-0.1); Eosinophils Absolute Auto 0.2 K/mm3 (0-0.3); Eosinophils Percent Auto 2.4 % (0-4.4); Hematocrit 40.2 % (37.0-47.0); Hemoglobin 11.6 g/dL (12.0-15.0); Immature Granulocyte Absolute 0.03 K/mm3 (0.00-0.031); Immature Granulocyte Percent A 0.5 % (0-0.5); Lymphocytes Absolute Auto 0.87 K/mm3 (0.9-3.2); Mean Corpuscular HGB Conc 28.9 g/dl (32-36); Mean Corpuscular Hemoglobin 25.7 pg (26-34); Mean Corpuscular Volume 89.1 fl (80-100); Monocytes Absolute Auto 0.9 K/mm3 (0.1-0.6); Monocytes Percent Auto 13.7 % (2.6-8.5); Neutrophils Absolute Auto 4.3 K/mm3 (1.3-6.7); Neutrophils Percent Auto 68.4 % (45.5-73.1); Platelet Count Result 310 k/mm3 (150-375); Red Blood Count 4.51 M/mm3 (4.2-5.4); Red Cell Distribution Width 18.7 % (11.5-14.5); White Blood Count 6.2 K/mm3 (4.5-10.0)
[2021-08-10 19:34] LABS: Alveolar/Arterial O2 Gradient 72.6 mmHg; Base Excess ABG 1.7 mEq/l (+/-2.0); Fractional Inspired Oxygen 36 %; HCO3 ABG 26.9 mEq/l (22.0-26.0); Oxygen Content ABG 16.2 %vol (16.0-22.0); Oxygen Saturation ABG 98.6 % (95.0-100.0); Oxyhemoglobin 96.5 % THb (90.0-100.0); PCO2 ABG 44.9 mmHg (35.0-45.0); PO2 FiO2 Ratio Arterial Blood 3.67 %; Total Hemoglobin 11.8 g/dL (12.0-18.0); pH ABG 7.396 (7.350-7.450)
[2021-08-10 19:36] LABS: Device NASAL CANNULA; Modified Allen's Test Pass; Site Drawn RIGHT RADIAL
[2021-08-10 19:45] LABS: Alanine Aminotransferase 17 U/L (4-35); Albumin Level 4.1 g/dL (3.5-5.1); Alkaline Phosphatase 80 U/L (38-126); Anion Gap 8 mmol/L (8-16); Aspartate Amino Transferase 27 U/L (14-36); Bilirubin,Total 1.5 mg/dL (0.2-1.3); Blood Urea Nitrogen 14 mg/dL (7-17); Calcium 9.1 mg/dL (8.4-10.2); Carbon Dioxide 32 mmol/L (22-30); Chloride 99 mmol/L (98-107); Estimated CRCL calculation 186 ml/min; Estimated Glomerular Filt Rate > 60; Glucose 127 mg/dL (65-110); Potassium 4.3 mmol/L (3.4-5.0); Sodium 139 mmol/L (137-145)
[2021-08-10 19:51] LABS: Anisocytosis 2+ (NORMAL); Hypochromasia 1+ (NORMAL); Platelet Estimate Adequate (Adequate)
[2021-08-10 19:57] LABS: NT Pro B Type Natriuretic Pept 8130 pg/mL (5-100); Troponin I < 0.012 ng/mL (0.000-0.034)
[2021-08-10 20:10] LABS: SARS-CoV-2 RNA PCR Positive
[2021-08-11] VITALS (17 sets, daily range): BP systolic 134–188; BP diastolic 80–126; PULSE 64–92; RESP 15–49; TEMP 36; O2SAT 92–98; BMI 48.3
[2021-08-11 00:50] LABS: Troponin I < 0.012 ng/mL (0.000-0.034)
--- NOTE | 2021-08-11 05:09 | PM.IMHP ---
H&P: HPI History of Present Illness Date/Time: 08/11/21 05:09 Chief Complaint: Shortness of breath and leg swelling Narrative: 46-year-old female with a past medical history of severe pulmonary hypertension, morbid obesity, gout and essential hypertension who presented to the ER with worsening shortness of breath. The patient reports that she has been short of breath ever since couple months before her last hospitalization and April. However over the last 2 weeks she has become more acutely short of breath and is short of breath even when going from sitting to standing. She has also noticed increased orthopnea over the last 4-6 weeks. She had an echocardiogram in April which demonstrated severe pulmonary hypertension. She reports that she has been referred to both a certified professional midwife and a shoe dresser but she does not recall the name of those providers. She had a at home sleep study which she reports was negative for obstructive sleep apnea. She reports that her daughter tested positive for COVID the 1st week in July. The patient herself has had a dry nonproductive cough for 2 weeks. She denies any fevers or chills. She reports a sense of heaviness to her chest like she cannot catch her breath but this sensation has been ongoing for several months. Although the heaviness is been worse over the last 2 weeks. She denies any chest pain or palpitations. She reports that the last time she was hospitalized she had been started on Lasix. However they over diuresed her and she required IV fluids. She is extremely nervous about receiving diuresis during this hospitalization. She does admit that she has been having increased lower extremity swelling for couple of months. Is been associated with a dry flaking skin from her legs. She does not weigh herself on a regular basis. She did have a lap band performed many years ago and she lost 180 lb. However the lap band slipped and since that time it is been nonfunctional. She has subsequently gained all of her weight back. She denies any nausea or vomiting. She has not had any changes in her bowel habits. She noted at home that she was having sensation of needing to urinate but only urinating small amounts. Since she arrived to the ER and received Lasix she has had good urine output feels like she is emptying her bladder completely. She has been vaccinated against COVID. Review of Systems Review of Systems: 12 systems were reviewed with pertinent positives and negatives per HPI. Except as documented in the HPI, all other systems were reviewed and are negative. [facility] Past Medical History Medical History (Updated 08/11/21 @ 05:28 by Danii Pereira DO) Alcohol abuse Anal polyp s/p removal Anxiety B12 deficiency Cervical cancer s/p hysterectomy Congestive heart failure Echocardiogram 04/2021: EF 65-70%, mild LVH, diastolic dysfunction grade 1, severe pulmonary hypertension, mildly enlarged right ventricular chamber Depression Diverticulitis Duodenal ulcer Essential hypertension Hemorrhoids Morbid obesity Rectocele s/p intervention x2 RUQ pain Severe pulmonary hypertension Vitamin D deficiency Surgical History Surgical History (Updated 08/11/21 @ 05:29 by Danii Pereira DO) History of esophagogastroduodenoscopy (EGD) (04/2021) Hiatal hernia, gastritis, duodenal ulcer performed by Dr. Lamar History of hysterectomy Hx of laparoscopic gastric banding Family History Family History Mother Hypertension Familial primary pulmonary hypertension Carcinoma of colon Sibling Family history of irritable bowel syndrome Father Family history of congestive heart failure Other Family history of cardiovascular disease Family history of malignant neoplasm Social History Social History Social History: Ms. Abdalla reports that she lives at home with her son. She h
--- NOTE | 2021-08-11 07:25 | PC.NURSE ---
community engagement leader has ordered pt room tray at [phone]
--- NOTE | 2021-08-11 07:52 | PC.NURSE ---
community mental health social worker delivered room tray at [phone]. pt is sitting up eating at this time.
[2021-08-11] MEDS: INDOMETHACIN 25 MG CAPSULE 50 MG PO (08:52)
[2021-08-11] MEDS: DEXAMETHASONE 2 MG TABLET 6 MG PO (08:53)
[2021-08-11] MEDS: allopurinoL 300 MG TABLET PO (08:53)
[2021-08-11] MEDS: lisinopriL 20 MG TABLET 40 MG PO (08:53)
[2021-08-11] MEDS: METOPROLOL SUCCINATE EXT REL 100 MG TABCR PO (08:54)
[2021-08-11] MEDS: ESCITALOPRAM OXALATE 10 MG TABLET PO (08:54)
[2021-08-11] MEDS: FUROSEMIDE INJ 40 MG/4 ML VIAL IV PUSH ×2 (08:54→21:55)
[2021-08-11] MEDS: ENOXAPARIN 40 MG/0.4 ML SYRINGE SUB-Q ×2 (08:55→21:55)
[2021-08-11] MEDS: amLODIPine BESYLATE 5 MG TABLET PO (08:55)
[2021-08-11 09:30] LABS: Alanine Aminotransferase 15 U/L (4-35)
[2021-08-11 09:31] LABS: Anion Gap 4 mmol/L (8-16); Blood Urea Nitrogen 13 mg/dL (7-17); Calcium 8.8 mg/dL (8.4-10.2); Carbon Dioxide 37 mmol/L (22-30); Chloride 97 mmol/L (98-107); Estimated CRCL calculation 158 ml/min; Estimated Glomerular Filt Rate > 60; Glucose 104 mg/dL (65-110); Potassium 3.5 mmol/L (3.4-5.0); Sodium 138 mmol/L (137-145)
[2021-08-11 09:39] LABS: INR 1.1; Prothrombin Time 13.7 Seconds (11.1-14.7)
[2021-08-11] MEDS: REMDESIVIR 200 MG/NS 250 ML 200 MG/250 ML BAG 250 MG IVPB (10:55)
--- NOTE | 2021-08-11 12:24 | PC.NURSE ---
Patient finished her lunch, currently resting on stretcher. Patient still awaiting inpatient bed placement. Aircraft Structural Repairer removed lunch tray out of patient's room since patient was finished with her lunch.
[2021-08-12] VITALS (10 sets, daily range): BP systolic 132–186; BP diastolic 81–110; PULSE 53–127; RESP 14–20; TEMP 35.8–36.4; O2SAT 95–100
[2021-08-12 06:53] LABS: INR 1.1; Prothrombin Time 13.7 Seconds (11.1-14.7)
[2021-08-12 06:59] LABS: Alanine Aminotransferase 13 U/L (4-35); Estimated CRCL calculation 180 ml/min; Estimated Glomerular Filt Rate > 60
[2021-08-12 07:31] LABS: Lactate Dehydrogenase 611 U/L (313-618)
[2021-08-12] MEDS: lisinopriL 20 MG TABLET 40 MG PO (10:09)
[2021-08-12] MEDS: DEXAMETHASONE 2 MG TABLET 6 MG PO (10:09)
[2021-08-12] MEDS: allopurinoL 300 MG TABLET PO (10:09)
[2021-08-12] MEDS: INDOMETHACIN 25 MG CAPSULE 50 MG PO (10:09)
[2021-08-12] MEDS: FUROSEMIDE INJ 40 MG/4 ML VIAL IV PUSH ×2 (10:09→20:53)
[2021-08-12] MEDS: ESCITALOPRAM OXALATE 10 MG TABLET PO (10:09)
[2021-08-12] MEDS: METOPROLOL SUCCINATE EXT REL 100 MG TABCR PO (10:10)
[2021-08-12] MEDS: amLODIPine BESYLATE 5 MG TABLET PO (10:10)
[2021-08-12] MEDS: ENOXAPARIN 40 MG/0.4 ML SYRINGE SUB-Q ×2 (10:10→20:53)
[2021-08-12] MEDS: REMDESIVIR 100 MG/NS 250 ML 100 MG/250 ML BAG 250 MG IVPB (12:16)
--- NOTE | 2021-08-12 14:15 | PM.IMPN ---
Progress Note: A&P Assessment and Plan (1) Acute respiratory failure with hypoxia: Code(s): J96.01 - Acute respiratory failure with hypoxia Status: Acute (2) COVID: Code(s): U07.1 - COVID-19 Status: Acute (3) Severe pulmonary hypertension: Code(s): I27.20 - Pulmonary hypertension, unspecified Status: Acute (4) Alcohol abuse: Code(s): F10.10 - Alcohol abuse, uncomplicated Status: Acute (5) Congestive heart failure: Qualifiers: Heart failure chronicity: unspecified Heart failure type: unspecified Qualified Code(s): I50.9 - Heart failure, unspecified Code(s): I50.9 - Heart failure, unspecified Status: Acute Additional Plan Patient has acute hypoxic respiratory failure likely combination of CHF due to severe pulmonary hypertension/diastolic heart failure and concomitant COVID 19 infection. Will give the patient IV Lasix and monitor strict I&O's. The patient at states that she actually does not take Lasix at home although ER nurses had Lasix 40 mg listed on the patient's home med rec. She states that she was not discharged on Lasix because she had acute kidney injury due to over-diuresis. I have encouraged the patient to start weighing herself daily at least every other day at home. 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 The patient does test positive for COVID. It sounds as if her COVID infection may have started about 2 weeks ago. She is technically outside the window for Remdesivir but she is requesting Remdesivir administration as it will not harm and may help Remdesivir has subsequently been ordered. Patient has also been started on Decadron. The patient's CT does not demonstrate significant evidence of COVID pneumonia and thusly do not feel strongly about placing patient on Baricitinib. CTA was negative for pulmonary embolism. Patient has been admitted as observation status. 08/12/21 pending cardio recs cont current care BP meds adjusted pending expert consultation cont COVID tx Atarax for anxiety Subjective Date/time seen: 08/12/21 14:15 ok no complaints on oxygen PAH and CHF reviewed w pt Exam Narrative: PHYSICAL EXAM: WEIGHT 158 kg BMI 51.4 General: Morbidly obese, appears stated age HEENT: Mucous membranes are tacky, no oral pharyngeal erythema, crowded posterior oropharynx, large neck circumference, good dentition Respiratory: Clear to auscultation bilaterally, no increased work of breathing Cardiovascular: Regular rate, regular rhythm, 2+ bilateral radial and pedal pulses Gastrointestinal: Obese, nontender Skin: Dry flaking skin to bilateral lower extremities, chronic venous stasis changes, small tattoo to the right dorsal foot Musculoskeletal: 2+ pitting edema bilateral lower extremities up to the knees, no clubbing, no cyanosis Neurological: Alert and oriented, speech is clear, no facial asymmetry Psychiatric: Appropriate mood and affect, pleasant and cooperative Objective Data Vital Signs Vital Signs: Vital Signs - 24 hr 08/11/21 14:45 08/11/21 15:44 08/11/21 15:45 Temperature Pulse Rate 81 80 82 Respiratory Rate 22 H 24 H 32 H Blood Pressure 177/112 H 188/126 H Pulse Oximetry 93 98 94 08/11/21 15:47 08/11/21 15:48 08/11/21 18:00 Temperature Pulse Rate 80 75 92 Respiratory Rate 29 H 18 24 H Blood Pressure 173/114 H Pulse Oximetry 97 96 94 08/11/21 22:21 08/12/21 01:19 08/12/21 05:17 Temperature 96.8 F L 97.2 F L Pulse Rate 71 53 L Respiratory Rate 20 18 Blood Pressure 164/103 H 170/99 H Pulse Oximetry 98 95 97 08/12/21 05:43 08/12/21 08:00 08/12/21 09:47 Temperature 97.4 F L 96.4 F L Pulse Rate 127 H 67 66 Respiratory Rate 20 14 Blood Pressure 154/100 H 186/104 H Pulse Oximetry 98 96 100 08/12/21 12:00 08/12/21 13:30 Temperature 97.1 F L Pulse R
[2021-08-13 00:53] VITALS: BP 164/92; PULSE 101; RESP 18; TEMP 35.8; O2SAT 96
[2021-08-13 06:34] VITALS: BP 151/91; PULSE 55; RESP 96; TEMP 35.8; O2SAT 96
[2021-08-13 08:00] VITALS: BP 176/99; PULSE 46; PULSE 62; RESP 20; TEMP 37; O2SAT 99
[2021-08-13 08:01] LABS: INR 1.1; Prothrombin Time 14.1 Seconds (11.1-14.7)
[2021-08-13 08:07] LABS: Alanine Aminotransferase 13 U/L (4-35); Estimated CRCL calculation 179 ml/min; Estimated Glomerular Filt Rate > 60
[2021-08-13] MEDS: lisinopriL 20 MG TABLET 40 MG PO (11:17)
[2021-08-13] MEDS: ENOXAPARIN 40 MG/0.4 ML SYRINGE SUB-Q ×2 (11:17→23:23)
[2021-08-13] MEDS: INDOMETHACIN 25 MG CAPSULE 50 MG PO (11:17)
[2021-08-13] MEDS: DEXAMETHASONE 2 MG TABLET 6 MG PO (11:17)
[2021-08-13] MEDS: ESCITALOPRAM OXALATE 10 MG TABLET PO (11:17)
[2021-08-13] MEDS: allopurinoL 300 MG TABLET PO (11:17)
[2021-08-13] MEDS: FUROSEMIDE INJ 40 MG/4 ML VIAL IV PUSH ×2 (11:17→23:23)
[2021-08-13] MEDS: NIFEdipine 30 MG TAB.ER.24 PO (11:18)
[2021-08-13] MEDS: METOPROLOL SUCCINATE EXT REL 100 MG TABCR PO (11:18)
[2021-08-13] MEDS: REMDESIVIR 100 MG/NS 250 ML 100 MG/250 ML BAG 250 MG IVPB (11:19)
[2021-08-13 12:00] VITALS: BP 161/85; PULSE 44; PULSE 78; RESP 20; TEMP 37; O2SAT 99
--- NOTE | 2021-08-13 13:28 | PM.CNPUL ---
Assessment and Plan Assessment and plan (1) Acute respiratory failure with hypoxia: Code(s): J96.01 - Acute respiratory failure with hypoxia Status: Acute Assessment and Plan: .l admitted with severe shortness of breath, swelling, limited ability to do any exertion including simply standing up new echo is pending to re-evaluate the findings from April karen the [facility]. she had an echo in Apr 2021 with grade I diastolic dysfunction, enlarged RV, EF 65%, mild LVH. She required O2 to maintian adequate saturation. this is due to COVID with a(+) test Aug 10 She had 2 vaccinations, not hte booster She is at increased risk for bad outcomes with elevated BMI 48.2, HTN She is on 4 L with saturation 95-99%. Will need walk study before discharge She reports having recurrent pneumonias. Maybe she had under-managed CHF. She has hypertension that is not controlled, and now as an in patient her BP is elevated 150-180/80-105. She needs more medications. (2) DAVIAN (obstructive sleep apnea): Code(s): G47.33 - Obstructive sleep apnea (adult) (pediatric) Status: Acute Assessment and Plan: She had a home sleep test out of [facility], AHI was 11 and lowest saturation was 56%, spent 90% of the night below 88%. She needs split night study. The prior test is too old to use for managing sleep apnea. Seh snores, wakes at night to urinate, she is tired in the day and she has pulmonary hypertension. Obstructive sleep apnea generally leads to mild pulmonary hypertension so the severity of her pulmonary hypertension may involve other factors such as left heart failure, collagen vascular disease,work up in progress. (3) Severe pulmonary hypertension: Code(s): I27.20 - Pulmonary hypertension, unspecified Status: Acute Assessment and Plan: per prior echo repeat echo pending (4) Congestive heart failure: Qualifiers: Heart failure chronicity: unspecified Heart failure type: unspecified Qualified Code(s): I50.9 - Heart failure, unspecified Code(s): I50.9 - Heart failure, unspecified Status: Acute Assessment and Plan: CHFpEF; cardiology is adjusting meds She has HTN with elevated BP now, (5) COVID: Code(s): U07.1 - COVID-19 Status: Acute Assessment and Plan: had initial series, no booster, whole family was sick with it. on remdesivir and dexamethasone Will need PFTS after discharge; follow inflammatory markers, wean O2, supplemental Vit D. (6) Mixed obstructive and restrictive ventilatory defect: Code(s): R94.2 - Abnormal results of pulmonary function studies Status: Acute Assessment and Plan: PFT showed TLC 67%, decreased FEV1 53% with decreased FEV1/FVC, DLCO 56%, increased RV/TLC = air trapping. Never smoker. May benefit from bronchodilator therapy. She has increased BMI which may contribute to the restrictive defect. History of Present Illness History of Present Illness Consult date: 08/13/21 Requesting physician: Adeline Salmeron MD Chief complaint: COVID,Pulm HTN, Pulm Edema Narrative: consulted requested by Dr Salmeron ; acute hypoxemic respiratory failure, pneumonia due to COVID NEW: Rosie Abdalla is a 46 year old female admitted with acute respiratory failure with acute COVID pneumonia. She has worsening shortness of breath for 6 months, swelling of the legs x 2 weeks, nonproductive cough for 2 weeks. She cannot breathe lying down, so rests with the head of the bed elevated. She is short of breath with simply standing. She works from home, forgets to take her medications on the weekends. Her a
--- NOTE | 2021-08-13 13:41 | PM.IMPN ---
Progress Note: A&P Assessment and Plan (1) Acute respiratory failure with hypoxia: Code(s): J96.01 - Acute respiratory failure with hypoxia Status: Acute (2) COVID: Code(s): U07.1 - COVID-19 Status: Acute (3) Severe pulmonary hypertension: Code(s): I27.20 - Pulmonary hypertension, unspecified Status: Acute (4) Alcohol abuse: Code(s): F10.10 - Alcohol abuse, uncomplicated Status: Acute (5) Congestive heart failure: Qualifiers: Heart failure chronicity: unspecified Heart failure type: unspecified Qualified Code(s): I50.9 - Heart failure, unspecified Code(s): I50.9 - Heart failure, unspecified Status: Acute Additional Plan Patient has acute hypoxic respiratory failure likely combination of CHF due to severe pulmonary hypertension/diastolic heart failure and concomitant COVID 19 infection. Will give the patient IV Lasix and monitor strict I&O's. The patient at states that she actually does not take Lasix at home although ER nurses had Lasix 40 mg listed on the patient's home med rec. She states that she was not discharged on Lasix because she had acute kidney injury due to over-diuresis. I have encouraged the patient to start weighing herself daily at least every other day at home. 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 The patient does test positive for COVID. It sounds as if her COVID infection may have started about 2 weeks ago. She is technically outside the window for Remdesivir but she is requesting Remdesivir administration as it will not harm and may help Remdesivir has subsequently been ordered. Patient has also been started on Decadron. The patient's CT does not demonstrate significant evidence of COVID pneumonia and thusly do not feel strongly about placing patient on Baricitinib. CTA was negative for pulmonary embolism. Patient has been admitted as observation status. 08/12/21 pending cardio recs cont current care BP meds adjusted pending expert consultation cont COVID tx Atarax for anxiety 08/13/21 doing ok spoke w cardio recommends repeat ECHO to reassess pulm htn pulm consulted cont current care cont current COVID apnea link test ordered Subjective Date/time seen: 08/13/21 13:41 pt doing ok seen by pulm and cardio today O2 requirements improving Exam Narrative: PHYSICAL EXAM: General: Morbidly obese, appears stated age HEENT: Mucous membranes are tacky, large neck circumference, good dentition Respiratory: symmetric chest rise, no increased work of breathing Cardiovascular: Regular rate, regular rhythm, 2+ bilateral radial and pedal pulses Gastrointestinal: Obese, nontender Skin: chronic venous stasis changes Musculoskeletal: 2+ pitting edema bilateral lower extremities up to the knees, no clubbing, no cyanosis Neurological: Alert and oriented, speech is clear, no facial asymmetry Psychiatric: Appropriate mood and affect, pleasant and cooperative Objective Data Vital Signs Vital Signs: Vital Signs - 24 hr 08/12/21 16:00 08/12/21 20:00 08/12/21 21:28 Temperature 97.4 F L 97.6 F Pulse Rate 70 62 62 Respiratory Rate 14 18 Blood Pressure 173/96 H 141/81 H Pulse Oximetry 95 95 08/13/21 00:53 08/13/21 06:34 08/13/21 08:00 Temperature 96.5 F L 96.5 F L 98.6 F Pulse Rate 101 H 55 L 46 L Respiratory Rate 18 96 H 20 Blood Pressure 164/92 H 151/91 H 176/99 H Pulse Oximetry 96 96 99 Intake/Output Intake/Output: Intake & Output 08/10/21 08/11/21 08/12/21 08/13/21 23:59 23:59 23:59 23:59 Intake Total 250 2470 490 Output Total 500 Balance -629 649 0254 490 Meds/Results Medications: Active Medications Generic Name Dose Route Start Last Admin Trade Name Freq PRN Reason Stop Dose Admin Allopurinol 300 mg 08/11/21 08:00 08/13/21 11:17 Allopurinol 300 Mg
--- NOTE | 2021-08-13 13:58 | PM.CNCAR ---
Assessment and Plan Assessment and plan (1) Congestive heart failure: Qualifiers: Heart failure chronicity: unspecified Heart failure type: unspecified Qualified Code(s): I50.9 - Heart failure, unspecified Code(s): I50.9 - Heart failure, unspecified Status: Acute Assessment and Plan: Acute heart failure with preserved ejection fraction likely multifactorial etiology complicated by uncontrolled hypertension, nocturnal hypoxia, untreated DAVIAN, probable underlying lung disease, alcohol abuse, intermittent medication noncompliance, and morbid obesity in addition to recent COVID infection. No clear evidence to suggest underlying obstructive CAD. Continue IV Lasix judiciously. Monitor renal function and electrolytes. Patient responding fairly well at this time. Continue accurate input and output, daily weight. Repeat 2D echocardiogram to assess LV size/function, valve pathology, pulmonary pressures. Recommendation to follow. DVT prophylaxis. Minimize NSAID therapy. Low sodium intake <2gram daily. Compliance with recommendations, medications, and follow up. (2) Severe pulmonary hypertension: Code(s): I27.20 - Pulmonary hypertension, unspecified Status: Acute Assessment and Plan: Likely multifactorial related to underlying lung disease, untreated DAVIAN, obesity hypoventilation syndrome. Appreciate pulmonology involvement. Repeat 2D echocardiogram to reassess pulmonary pressures. Recommendation to follow in this regard. We discussed potential need for further invasive evaluation such as right heart catheterization, however, at this time it appears likely her nocturnal hypoxia, DAVIAN or treatable contributors. We will confirm if in fact her pulmonary hypertension is as significant and was suggested on her echocardiogram April 2021. (3) Acute respiratory failure with hypoxia: Code(s): J96.01 - Acute respiratory failure with hypoxia Status: Acute Assessment and Plan: Continue O2 support, wean as tolerated. (4) Essential hypertension: Code(s): I10 - Essential (primary) hypertension Status: Chronic Assessment and Plan: Improved BP control. Repeat blood pressure remains significantly elevated. Monitor renal function. (5) Alcohol abuse: Code(s): F10.10 - Alcohol abuse, uncomplicated Status: Acute Assessment and Plan: Counseled on the importance of reduction and or abstinence. LFTs normal, coags normal. No laboratory or radiographic evidence of cirrhosis. (6) DAVIAN (obstructive sleep apnea): Code(s): G47.33 - Obstructive sleep apnea (adult) (pediatric) Status: Acute Assessment and Plan: Defer to primary service. Based on home sleep study AHI 11 May be underestimated. Significant nocturnal hypoxia. She would benefit from formal sleep study. Will defer further recommendation to pulmonology. Greatly appreciate their involvement. History of Present Illness History of Present Illness Consult date/time: Date of Service: 08/13/21 13:58 Cardiology consultation at the request of Dr. Salmeron Requesting physician: Adeline Salmeron MD Consult reason: congestive heart failure and Other (Pulmonary HTN) Reason For Visit: COVID,Pulm HTN, Pulm Edema Narrative: Patient is a 46-year-old female history significant for morbid obesity status post gastric band surgery, hypertension, alcohol abuse recent COVID-19 infection, DAVIAN, significant nocturnal hypoxia on sleep study May 2021 AHI 11, reported severe pulmonary hypertension by echocardiogram April 2021 RVSP 68 mm Hg who presents the ER with progressive shortness of breath, lower extremity edema, orthopnea and PND. Patient feels her weight has increased but she has not been weighing herself. She noted abdominal fullness which became uncomfortable. Patient reported nonproductive cough for 2 weeks with worsening shortness of breath progressive over the past several months. She not
[2021-08-13 16:00] VITALS: BP 158/99; PULSE 53; PULSE 58; RESP 20; TEMP 37; O2SAT 94
[2021-08-13 20:00] VITALS: BP 150/91; PULSE 55; PULSE 70; RESP 18; TEMP 36.3; O2SAT 92; O2SAT 93
--- NOTE | 2021-08-13 23:40 | PCRCNOTE ---
Therapist fully set up apnea link when RN came by to give pt Lasix. Pt then stated she will be up and down all night to use the restroom after Lasix are started and needed extension tubing. RT does not carry any extension tubing for apnea link studies. Therapist stated to pt that she would have to use a bed side commode. Pt stated she can not use a bed side commode due to the size and would rather hold off on the sleep study so that she has access to be up and down all night. RT agreed it would not be an accurate study if pt is up and down all night long. Pt also stated she had a sleep study in April 2021 and July 2021 that showed mild apnea. Pt stated that her primary doctor suggested low 02 at night VS a CPAP. Pt stated she is fine on 02 at night without a CPAP.
[2021-08-14] VITALS (9 sets, daily range): BP systolic 133–157; BP diastolic 69–94; PULSE 48–70; RESP 16–20; TEMP 36–36.8; O2SAT 93–95
--- NOTE | 2021-08-14 | ECHO_ITS ---
Patient Info Name: Rosie Abdalla Age: 46 years : 1975 Gender: Female Ht: 69 in Wt: 326 lbs BSA: 2.76 m2 HR: 54 bpm BP: 147 / 89 mmHg Technical Quality: Fair Exam Date: 08/14/2021 10:46 AM Exam Location: [facility] Patient Status: Inpatient Admit Date: 08/11/2021 Staff Ordering Physician: Adeline Salmeron MD Manager Clinical Research: Sravan Bernal, LELO, RT Attending Provider: Danii Pereira DO Referring Physician: Jaron GEIGER; Exam Type: CA echo dop color flow w con Study Info Indications I50.9 - Heart failure, unspecified I27.0 - Primary pulmonary hypertension Complete two-dimensional, color flow and Doppler transthoracic echocardiogram is performed with contrast to opacify the left ventricle and to improve the deliniation of the left ventricle endocardial borders. Summary 1. Left ventricular chamber dimension is normal. 2. Definity contrast administered improved wall motion interpretation. 3. Left ventricular systolic function is normal, estimated at 60-65%. 4. There is mildly increased left ventricular wall thickness. 5. The left ventricular diastolic function is grade III diastolic dysfunction. 6. E/e' 9 is minimally elevated. 7. Left atrial chamber dimension is moderately enlarged. 8. There is mild to moderate tricuspid valve regurgitation. 9. Severe pulmonary hypertension, estimated pulmonary arterial systolic pressure is 61 mmHg. 10. Dilated inferior vena cava with <50% collapse upon inspiration consistent with significantly elevated right atrial pressure, 15 mmHg. Left Ventricle Definity contrast administered improved wall motion interpretation. E/e' 9 is minimally elevated. Left ventricular chamber dimension is normal. Left ventricular systolic function is normal, estimated at 60-65%. There is mildly increased left ventricular wall thickness. The left ventricular diastolic function is grade III diastolic dysfunction. Right Ventricle Right ventricular chamber dimension is not well visualized. Left Atria Left atrial chamber dimension is moderately enlarged. Right Atria Right atrial chamber dimension is not well visualized. Aortic Valve The aortic valve is trileaflet. There is no aortic valve stenosis. There is no aortic valve regurgitation. Pulmonic Valve There is no pulmonic regurgitation. Mitral Valve There is no mitral valve stenosis. There is no mitral valve regurgitation. Tricuspid Valve There is mild to moderate tricuspid valve regurgitation. Severe pulmonary hypertension, estimated pulmonary arterial systolic pressure is 61 mmHg. Pericardium/Pleural There is no pericardial effusion. Inferior Vena Cava Dilated inferior vena cava with <50% collapse upon inspiration consistent with significantly elevated right atrial pressure, 15 mmHg. Aorta The aortic root size at the sinus of Valsalva is normal. Left Ventricular Outflow Tract Name Value Normal LVOT 2D LVOT Diameter 2.22 cm Mitral Valve Name Value Normal MV Doppler
[2021-08-14 07:47] LABS: Basophils Percent Auto 0.2 % (0.2-1.2); Eosinophils Percent Auto 0.2 % (0-4.4); Hematocrit 34.9 % (37.0-47.0); Hemoglobin 10.1 g/dL (12.0-15.0); Immature Granulocyte Absolute 0.02 K/mm3 (0.00-0.031); Immature Granulocyte Percent A 0.3 % (0-0.5); Lymphocytes Absolute Auto 0.79 K/mm3 (0.9-3.2); Lymphocytes Percent Auto 13.5 % (18.3-44.2); Mean Corpuscular HGB Conc 28.9 g/dl (32-36); Mean Corpuscular Hemoglobin 25.6 pg (26-34); Mean Corpuscular Volume 88.4 fl (80-100); Mean Platelet Volume 10.5 fl (7.4-10.4); Monocytes Absolute Auto 1.1 K/mm3 (0.1-0.6); Monocytes Percent Auto 18.1 % (2.6-8.5); Neutrophils Percent Auto 67.7 % (45.5-73.1); Platelet Count Result 242 k/mm3 (150-375); Red Blood Count 3.95 M/mm3 (4.2-5.4); Red Cell Distribution Width 18.6 % (11.5-14.5); White Blood Count 5.9 K/mm3 (4.5-10.0)
[2021-08-14 08:03] LABS: Alanine Aminotransferase 13 U/L (4-35); Blood Urea Nitrogen 32 mg/dL (7-17); Calcium 8.3 mg/dL (8.4-10.2); Carbon Dioxide > 40 mmol/L (22-30); Chloride 89 mmol/L (98-107); Estimated CRCL calculation 179 ml/min; Estimated Glomerular Filt Rate > 60; Glucose 106 mg/dL (65-110); Potassium 2.9 mmol/L (3.4-5.0); Sodium 136 mmol/L (137-145)
[2021-08-14 08:05] LABS: INR 1.1; Prothrombin Time 14.4 Seconds (11.1-14.7)
--- NOTE | 2021-08-14 09:34 | PM.PNCARD ---
Progress Note: A&P Assessment and Plan (1) Congestive heart failure: Qualifiers: Heart failure chronicity: unspecified Heart failure type: unspecified Qualified Code(s): I50.9 - Heart failure, unspecified Code(s): I50.9 - Heart failure, unspecified Status: Acute Assessment and Plan: Acute heart failure with preserved ejection fraction likely multifactorial etiology complicated by uncontrolled hypertension, nocturnal hypoxia, untreated DAVIAN, probable underlying lung disease, alcohol abuse, intermittent medication noncompliance, and morbid obesity in addition to recent COVID infection. No clear evidence to suggest underlying obstructive CAD. Improving on IV furosemide. Patient states she is making a lot of urine however the documentation of her output does not reflect this. Wonder if inaccurate charting. Continue furosemide 40 mg IV q.12 Continue to monitor renal function and electrolytes. Potassium 2.9 is a morning-repleted with 40 mEq IV. Recheck potassium this afternoon. May require additional supplementation. 2D echocardiogram completed but not yet interpreted. Will leave further recommendations upon review of the results of this study. Low-sodium diet Compression stockings Daily weights (2) Severe pulmonary hypertension: Code(s): I27.20 - Pulmonary hypertension, unspecified Status: Acute Assessment and Plan: Likely multifactorial related to underlying lung disease, untreated DAVIAN, obesity hypoventilation syndrome. Appreciate pulmonology involvement. Repeat 2D echocardiogram to reassess pulmonary pressures. Recommendation to follow in this regard. (3) Acute respiratory failure with hypoxia: Code(s): J96.01 - Acute respiratory failure with hypoxia Status: Acute Assessment and Plan: Continue O2 support, wean as tolerated. (4) Essential hypertension: Code(s): I10 - Essential (primary) hypertension Status: Chronic Assessment and Plan: Improved BP control. Repeat blood pressure remains significantly elevated. Monitor renal function. (5) Alcohol abuse: Code(s): F10.10 - Alcohol abuse, uncomplicated Status: Acute (6) DAVIAN (obstructive sleep apnea): Code(s): G47.33 - Obstructive sleep apnea (adult) (pediatric) Status: Acute Assessment and Plan: Defer to primary service. Based on home sleep study AHI 11 May be underestimated. Significant nocturnal hypoxia. She would benefit from formal sleep study. Will defer further recommendation to pulmonology. Greatly appreciate their involvement. Subjective Date/time seen: 08/14/21 09:34 cardiology follow-up for CHF Feeling better today. Her breathing is improved, she also thinks her swelling is improved. She says that she has been making a lot of urine. No complaints today. Review of Systems Review of Systems: All systems reviewed & are unremarkable except as noted in HPI and below Constitutional: Constitutional: Reports as per HPI, Reports no additional constitutional complaints, Reports fatigue, Reports lethargy and Reports weakness Eyes: Eyes: Reports as per HPI and Reports no additional eye complaints ENT: Reports system reviewed and no additional complaints, except as documented and Reports as per HPI Cardiovascular: Cardiovascular: Reports as per HPI, Reports no additional cardiovascular complaints, Reports chest pain, Denies diaphoresis, Reports pedal edema, Reports leg edema, Denies lightheadedness, Denies palpitations, Reports dyspnea and Reports dyspnea on exertion Respiratory: Respiratory: Reports as per HPI, Reports no additional respiratory complaints, Reports chest congestion, Reports cough, Denies hemoptysis, Reports dyspnea, Reports dyspnea on exertion and Denies wheezing Gastrointestinal: Gastrointestinal: Reports as per HPI, Reports no additional gastrointestinal complaints, Reports abdominal pain, Denies melena, Reports bloating and Denies h
[2021-08-14] MEDS: PERFLUTREN LIPID MICROSPHERES 1.5 ML VIAL DILUTED TO 10 ML TOTAL VOLUME IV PUSH (10:24)
--- NOTE | 2021-08-14 10:24 | IVDEFINITY ---
Prior to administration of IV Definity the patient was educated on the risks and benefits of the imaging enhancing agent including potential adverse side effects. The patient verbalized understanding. Allergies were verified. No exclusion criteria were identified and at least one of the following inclusion criteria were met: 1) physician request, 2) patient technically difficult to image (per the [place] [employer] guidelines of two or more segments not discernable within the apical view), or 3) questionable left ventricular function. ?
[2021-08-14] MEDS: FUROSEMIDE INJ 40 MG/4 ML VIAL IV PUSH ×2 (10:53→17:48)
[2021-08-14] MEDS: lisinopriL 20 MG TABLET 40 MG PO (10:53)
[2021-08-14] MEDS: allopurinoL 300 MG TABLET PO (10:53)
[2021-08-14] MEDS: METOPROLOL SUCCINATE EXT REL 100 MG TABCR PO (10:53)
[2021-08-14] MEDS: DEXAMETHASONE 2 MG TABLET 6 MG PO (10:53)
[2021-08-14] MEDS: REMDESIVIR 100 MG/NS 250 ML 100 MG/250 ML BAG 250 MG IVPB (10:54)
[2021-08-14] MEDS: ESCITALOPRAM OXALATE 10 MG TABLET PO (10:54)
[2021-08-14] MEDS: INDOMETHACIN 25 MG CAPSULE 50 MG PO (10:54)
[2021-08-14] MEDS: ENOXAPARIN 40 MG/0.4 ML SYRINGE SUB-Q ×2 (10:54→23:23)
[2021-08-14] MEDS: NIFEdipine 30 MG TAB.ER.24 PO (10:55)
--- NOTE | 2021-08-14 11:53 | PM.IMPN ---
Progress Note: A&P Assessment and Plan (1) Acute respiratory failure with hypoxia: Code(s): J96.01 - Acute respiratory failure with hypoxia Status: Acute (2) COVID: Code(s): U07.1 - COVID-19 Status: Acute (3) Severe pulmonary hypertension: Code(s): I27.20 - Pulmonary hypertension, unspecified Status: Acute (4) Alcohol abuse: Code(s): F10.10 - Alcohol abuse, uncomplicated Status: Acute (5) Congestive heart failure: Qualifiers: Heart failure chronicity: unspecified Heart failure type: unspecified Qualified Code(s): I50.9 - Heart failure, unspecified Code(s): I50.9 - Heart failure, unspecified Status: Acute Additional Plan Patient has acute hypoxic respiratory failure likely combination of CHF due to severe pulmonary hypertension/diastolic heart failure and concomitant COVID 19 infection. Will give the patient IV Lasix and monitor strict I&O's. The patient at states that she actually does not take Lasix at home although ER nurses had Lasix 40 mg listed on the patient's home med rec. She states that she was not discharged on Lasix because she had acute kidney injury due to over-diuresis. I have encouraged the patient to start weighing herself daily at least every other day at home. 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 The patient does test positive for COVID. It sounds as if her COVID infection may have started about 2 weeks ago. She is technically outside the window for Remdesivir but she is requesting Remdesivir administration as it will not harm and may help Remdesivir has subsequently been ordered. Patient has also been started on Decadron. The patient's CT does not demonstrate significant evidence of COVID pneumonia and thusly do not feel strongly about placing patient on Baricitinib. CTA was negative for pulmonary embolism. Patient has been admitted as observation status. 08/12/21 pending cardio recs cont current care BP meds adjusted pending expert consultation cont COVID tx Atarax for anxiety 08/13/21 doing ok spoke w cardio recommends repeat ECHO to reassess pulm htn pulm consulted cont current care cont current COVID apnea link test ordered 08/14/21 repeat ECHO shows severe pulm HTN cardio and pulm following down to 2L NC cont diuresis cont COVID tx for total of 5days lasix changed to 8am and 5pm dosing monitor renal fxn will need home O2 eval prior to dc Subjective Date/time seen: 08/14/21 11:53 doing ok no new complaints updated on new eCHO results, will need PFTs after dc and pulm fxn testing Exam Narrative: PHYSICAL EXAM: General: Morbidly obese, appears stated age HEENT: moist Mucous membranes, large neck circumference, good dentition Respiratory: symmetric chest rise, no increased work of breathing, no W/R/C Cardiovascular: Regular rate, regular rhythm, 2+ bilateral radial and pedal pulses Gastrointestinal: Obese, nontender Skin: chronic venous stasis changes Musculoskeletal: 2+ pitting edema bilateral lower extremities up to the knees improving , no clubbing, no cyanosis Neurological: Alert and oriented, speech is clear, no facial asymmetry Psychiatric: Appropriate mood and affect, pleasant and cooperative Objective Data Vital Signs Vital Signs: Vital Signs - 24 hr 08/13/21 12:00 08/13/21 16:00 08/13/21 20:00 Temperature 98.6 F 98.6 F 97.3 F L Pulse Rate 44 L 53 L 70 Respiratory Rate 20 20 18 Blood Pressure 161/85 H 158/99 H 150/91 H Pulse Oximetry 99 94 93 08/14/21 00:00 08/14/21 04:00 08/14/21 04:32 Temperature 97.6 F 98.1 F Pulse Rate 62 57 L Respiratory Rate 18 18 Blood Pressure 147/89 H 141/82 H Pulse Oximetry 93 93 93 08/14/21 09:38 Temperature 98.2 F Pulse Rate 70 Respiratory Rate 20 Blood Pressure 140/69 Pulse Oximetry 94 Intake/O
--- NOTE | 2021-08-14 12:18 | PM.PNPUL ---
Progress Note: A&P Assessment and Plan (1) COVID: Code(s): U07.1 - COVID-19 Status: Acute Assessment and Plan: Patient tested positive for COVID on 08/10/2021. Patient is receiving dexamethasone and Remdesivir since 08/11/2021. Initially her oxygen requirements were 4 L and currently she is on 2 L with saturations 93%. Overall she is clinically improved and I would continue current therapy for at least 5 days of remdesivir (reevaluate morning of 08/16). Agree with holding antibiotics at this point. Wean O2 as tolerated to maintain saturations greater than 90%. she will need a home O2 assessment and a chest x-ray prior to discharge to serve as a new baseline. Discussed with Adeline Salmeron (2) DAVIAN (obstructive sleep apnea): Code(s): G47.33 - Obstructive sleep apnea (adult) (pediatric) Status: Acute Assessment and Plan: 08/13 She had a home sleep test out of [facility], AHI was 11 and lowest saturation was 56%, spent 90% of the night below 88%. She needs split night study. The prior test is too old to use for managing sleep apnea. Seh snores, wakes at night to urinate, she is tired in the day and she has pulmonary hypertension. Obstructive sleep apnea generally leads to mild pulmonary hypertension so the severity of her pulmonary hypertension may involve other factors such as left heart failure, work up in progress. 08/14 While awaiting her outpatient split night sleep study I will perform an apnea link and try to provide her with adequate oxygenation to prevent nocturnal hypoxemia. She cannot perform the apnea link last night because of her p.m. dose of Lasix makes her urinate all night. Will speak with the hospitalist regarding her diuretics so that she can have this study tonight on 2 L. (3) Pulmonary hypertension: Code(s): I27.20 - Pulmonary hypertension, unspecified Status: Acute Assessment and Plan: Repeat echocardiogram with a pulmonary arterial systolic pressure of 61 which has marginally improved from 68 previously on 05/06/21. Etiologies include obstructive sleep apnea, hypoxic respiratory failure from COVID and Grade 3 diastolic dysfunction. She has improved edema with Lasix. (4) Mixed obstructive and restrictive ventilatory defect: Code(s): R94.2 - Abnormal results of pulmonary function studies Status: Acute Assessment and Plan: PFT showed TLC 67%, decreased FEV1 53% with decreased FEV1/FVC, DLCO 56%, increased RV/TLC = air trapping. Never smoker. May benefit from bronchodilator therapy. She has increased BMI which may contribute to the restrictive defect. Subjective Date/time seen: 08/14/21 12:18 Interval history: 08/13 Rosie Abdalla is a 46 year old female admitted with acute respiratory failure with acute COVID pneumonia. She has worsening shortness of breath for 6 months, swelling of the legs x 2 weeks, nonproductive cough for 2 weeks. She cannot breathe lying down, so rests with the head of the bed elevated. She is short of breath with simply standing. She works from home, forgets to take her medications on the weekends. Her adult daughter lives with her. Her BNP was 8130 on Aug 10, elevated. She has not had a PE or DVT. She has 2 pets, 1 dog and a cat. She had a home sleep test from May that shows hypoxemia for most of the night with an apnea-hypopnea index of 11 and severe hypoxemia with 90% of the night spent below 88%. She was admitted with CHF with preserved EF. She drinks heavy alcohol, does not smoke. She says she was admitted to the hospital April 2021 with pneumonia and she had pneumonia in February of 2020. She is a nonsmoker, no occupational exposure, works at [employer]. She has had worsening exertional dyspnea and even now just standing up caused her to be short of breath. Shortness of breath been terrible last 2 weeks and overall bad in the last 6 months. She still has to sleep with the head of the
[2021-08-14] MEDS: POTASSIUM CHLORIDE INJ 40 MEQ in SODIUM CHLORIDE 0.9% IV 500 ML 130 MEQ IVPB (13:20)
[2021-08-14 16:38] LABS: Potassium 3.9 mmol/L (3.4-5.0)
[2021-08-14 21:08] LABS: Alanine Aminotransferase 19 U/L (4-35); Albumin Level 3.9 g/dL (3.5-5.1); Alkaline Phosphatase 63 U/L (38-126); Aspartate Amino Transferase 28 U/L (14-36); Bilirubin,Total 0.8 mg/dL (0.2-1.3); Blood Urea Nitrogen 36 mg/dL (7-17); Carbon Dioxide > 40 mmol/L (22-30); Chloride 91 mmol/L (98-107); Estimated CRCL calculation 179 ml/min; Estimated Glomerular Filt Rate > 60; Glucose 148 mg/dL (65-110); Potassium 3.5 mmol/L (3.4-5.0); Sodium 137 mmol/L (137-145)
[2021-08-15] VITALS (17 sets, daily range): BP systolic 121–152; BP diastolic 68–96; PULSE 43–104; RESP 16; TEMP 36.1–36.6; O2SAT 86–98
[2021-08-15 06:55] LABS: Basophils Percent Auto 0.3 % (0.2-1.2); Eosinophils Percent Auto 0.3 % (0-4.4); Hematocrit 37.2 % (37.0-47.0); Hemoglobin 10.7 g/dL (12.0-15.0); Immature Granulocyte Absolute 0.01 K/mm3 (0.00-0.031); Immature Granulocyte Percent A 0.2 % (0-0.5); Lymphocytes Absolute Auto 0.96 K/mm3 (0.9-3.2); Lymphocytes Percent Auto 15.8 % (18.3-44.2); Mean Corpuscular HGB Conc 28.8 g/dl (32-36); Mean Corpuscular Hemoglobin 25.1 pg (26-34); Mean Corpuscular Volume 87.1 fl (80-100); Mean Platelet Volume 10.6 fl (7.4-10.4); Monocytes Percent Auto 17.1 % (2.6-8.5); Neutrophils Percent Auto 66.3 % (45.5-73.1); Platelet Count Result 242 k/mm3 (150-375); Red Blood Count 4.27 M/mm3 (4.2-5.4); Red Cell Distribution Width 18.6 % (11.5-14.5); White Blood Count 6.1 K/mm3 (4.5-10.0)
[2021-08-15 07:11] LABS: INR 1.1; Prothrombin Time 13.7 Seconds (11.1-14.7)
[2021-08-15 08:20] LABS: Hypochromasia 1+ (NORMAL); Platelet Estimate Adequate (Adequate)
--- NOTE | 2021-08-15 09:04 | PM.IMPN ---
Progress Note: A&P Assessment and Plan (1) Acute respiratory failure with hypoxia: Code(s): J96.01 - Acute respiratory failure with hypoxia Status: Acute (2) COVID: Code(s): U07.1 - COVID-19 Status: Acute (3) Severe pulmonary hypertension: Code(s): I27.20 - Pulmonary hypertension, unspecified Status: Acute (4) Alcohol abuse: Code(s): F10.10 - Alcohol abuse, uncomplicated Status: Acute (5) Congestive heart failure: Qualifiers: Heart failure chronicity: unspecified Heart failure type: unspecified Qualified Code(s): I50.9 - Heart failure, unspecified Code(s): I50.9 - Heart failure, unspecified Status: Acute Additional Plan Patient has acute hypoxic respiratory failure likely combination of CHF due to severe pulmonary hypertension/diastolic heart failure and concomitant COVID 19 infection. Will give the patient IV Lasix and monitor strict I&O's. The patient at states that she actually does not take Lasix at home although ER nurses had Lasix 40 mg listed on the patient's home med rec. She states that she was not discharged on Lasix because she had acute kidney injury due to over-diuresis. I have encouraged the patient to start weighing herself daily at least every other day at home. 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 The patient does test positive for COVID. It sounds as if her COVID infection may have started about 2 weeks ago. She is technically outside the window for Remdesivir but she is requesting Remdesivir administration as it will not harm and may help Remdesivir has subsequently been ordered. Patient has also been started on Decadron. The patient's CT does not demonstrate significant evidence of COVID pneumonia and thusly do not feel strongly about placing patient on Baricitinib. CTA was negative for pulmonary embolism. Patient has been admitted as observation status. 08/12/21 pending cardio recs cont current care BP meds adjusted pending expert consultation cont COVID tx Atarax for anxiety 08/13/21 doing ok spoke w cardio recommends repeat ECHO to reassess pulm htn pulm consulted cont current care cont current COVID apnea link test ordered 08/15/21 repeat ECHO shows severe pulm HTN due to bradycardia metoprolol and procardia held. Patient needs noturnal Oxygen supplementation cardio and pulm following down to 2L NC cont diuresis cont COVID tx for total of 5days lasix changed to 8am and 5pm dosing ; switch to PO today monitor renal fxn Home O2 eval tomorrowprior to dc Subjective Date/time seen: 08/15/21 11:00 S: Patient was seen and examined at the bedside; no complaints. She denies lightheadedness and dizziness. Bradycardia noticed on telemetry. Exam Narrative: PHYSICAL EXAM: General: Morbidly obese, appears stated age HEENT: moist Mucous membranes, large neck circumference, good dentition Respiratory: symmetric chest rise, no increased work of breathing, no W/R/C Cardiovascular: Regular rate, regular rhythm, 2+ bilateral radial and pedal pulses Gastrointestinal: Obese, nontender Skin: chronic venous stasis changes Musculoskeletal: 2+ pitting edema bilateral lower extremities up to the knees improving , no clubbing, no cyanosis Neurological: Alert and oriented, speech is clear, no facial asymmetry Psychiatric: Appropriate mood and affect, pleasant and cooperative Objective Data Vital Signs Vital Signs: Vital Signs - 24 hr 08/14/21 20:00 08/14/21 21:37 08/15/21 00:00 Temperature 96.8 F L Pulse Rate 61 55 L 47 L Respiratory Rate 16 Blood Pressure 133/73 Pulse Oximetry 93 95 08/15/21 01:14 08/15/21 04:00 08/15/21 05:37 Temperature 96.9 F L Pulse Rate 43 L 47 L Respiratory Rate 16 Blood Pressure 152/96 H Pulse Oximetry 93 96 08/15/21 08:00
[2021-08-15 09:13] LABS: Alanine Aminotransferase 17 U/L (4-35); Estimated CRCL calculation 179 ml/min; Estimated Glomerular Filt Rate > 60
[2021-08-15] MEDS: DEXAMETHASONE 2 MG TABLET 6 MG PO (09:25)
[2021-08-15] MEDS: ENOXAPARIN 40 MG/0.4 ML SYRINGE SUB-Q ×2 (09:25→21:57)
[2021-08-15] MEDS: INDOMETHACIN 25 MG CAPSULE 50 MG PO (09:25)
[2021-08-15] MEDS: allopurinoL 300 MG TABLET PO (09:25)
[2021-08-15] MEDS: FUROSEMIDE INJ 40 MG/4 ML VIAL IV PUSH ×2 (09:26→09:31)
[2021-08-15] MEDS: ESCITALOPRAM OXALATE 10 MG TABLET PO (09:26)
[2021-08-15] MEDS: REMDESIVIR 100 MG/NS 250 ML 100 MG/250 ML BAG 250 MG IVPB (09:29)
--- NOTE | 2021-08-15 09:54 | PM.PNPUL ---
Progress Note: A&P Assessment and Plan (1) COVID: Code(s): U07.1 - COVID-19 Status: Acute Assessment and Plan: 08/14 Patient tested positive for COVID on 08/10/2021. Patient is receiving dexamethasone and Remdesivir since 08/11/2021. Initially her oxygen requirements were 4 L and currently she is on 2 L with saturations 93%. Overall she is clinically improved and I would continue current therapy for at least 5 days of remdesivir (reevaluate morning of 08/16). Agree with holding antibiotics at this point. Wean O2 as tolerated to maintain saturations greater than 90%. she will need a home O2 assessment and a chest x-ray prior to discharge to serve as a new baseline. 08/15 Patient continues to slowly improve. She states she has breathing better today than she has in the last month. Currently she is on 2 L nasal cannula saturations 96%. If she remains stable overnight she will be ready for discharge from a pulmonary speck perspective on these medicines. Dexamethasone 6 mg p.o. q.day x4 days oxygen at rest and with ambulation per home O2 assessment ( I have ordered this today). Oxygen at night per repeat overnight oximetry on 3 L nasal cannula tonight. Diuretics per hospitalist team. Will follow with you. (2) DAVIAN (obstructive sleep apnea): Code(s): G47.33 - Obstructive sleep apnea (adult) (pediatric) Status: Acute Assessment and Plan: 08/13 She had a home sleep test out of [facility], AHI was 11 and lowest saturation was 56%, spent 90% of the night below 88%. She needs split night study. The prior test is too old to use for managing sleep apnea. Seh snores, wakes at night to urinate, she is tired in the day and she has pulmonary hypertension. Obstructive sleep apnea generally leads to mild pulmonary hypertension so the severity of her pulmonary hypertension may involve other factors such as left heart failure, work up in progress. 08/14 While awaiting her outpatient split night sleep study I will perform an apnea link and try to provide her with adequate oxygenation to prevent nocturnal hypoxemia. She cannot perform the apnea link last night because of her p.m. dose of Lasix makes her urinate all night. Will speak with the hospitalist regarding her diuretics so that she can have this study tonight on 2 L. 08/15 Patient had an overnight oximetry on 2 L nasal cannula with a baseline saturation 91%, Lowest saturation 78%. Time with saturation less than or equal to 88% was 13 minutes. I will repeat an overnight oximetry tonight on 3 L. (3) Pulmonary hypertension: Code(s): I27.20 - Pulmonary hypertension, unspecified Status: Acute Assessment and Plan: Repeat echocardiogram with a pulmonary arterial systolic pressure of 61 which has marginally improved from 68 previously on 05/06/21. Etiologies include obstructive sleep apnea, hypoxic respiratory failure from COVID and Grade 3 diastolic dysfunction. She has improved edema with Lasix. 08/15 Her swelling is better and she feels like she would be ready for discharge tomorrow on diuretics per hospitalist team. (4) Mixed obstructive and restrictive ventilatory defect: Code(s): R94.2 - Abnormal results of pulmonary function studies Status: Acute Assessment and Plan: PFT showed TLC 67%, decreased FEV1 53% with decreased FEV1/FVC, DLCO 56%, increased RV/TLC = air trapping. Never smoker. May benefit from bronchodilator therapy. She has increased BMI which may contribute to the restrictive defect. Subjective Date/time seen: 08/15/21 09:54 Interval history: 08/13 Rosie Abdalla is a 46 year old female admitted with acute respiratory failure with acute COVID pneumonia. She has worsening shortness of breath for 6 months, swelling of the legs x 2 weeks, nonproductive cough for 2 weeks. She cannot breathe lying down, so rests with the head of the bed elevated. She is short of breath with simp
--- NOTE | 2021-08-15 10:11 | PM.PNCARD ---
Progress Note: A&P Assessment and Plan (1) Congestive heart failure: Qualifiers: Heart failure chronicity: unspecified Heart failure type: unspecified Qualified Code(s): I50.9 - Heart failure, unspecified Code(s): I50.9 - Heart failure, unspecified Status: Acute Assessment and Plan: Acute heart failure with preserved ejection fraction likely multifactorial etiology complicated by uncontrolled hypertension, nocturnal hypoxia, untreated DAVIAN, probable underlying lung disease, alcohol abuse, intermittent medication noncompliance, and morbid obesity in addition to recent COVID infection. No clear evidence to suggest underlying obstructive CAD. Improving. Has had 10.5lb weight loss since admission. LE edema is minimal at this point. She is stable from a respiratory perspective 2D echocardiogram completed and revealed grade III diastolic dysfunction Now that she is reaching euvolemic state, would like to optimize medical therapy for her diastolic dysfunction Start Jardiance 25mg daily Start spironolactone 25mg daily Shift from IV furosemide to oral today. 40mg p.o. b.i.d. Continue to monitor renal function and electrolytes Low-sodium diet Compression stockings Daily weights (2) Severe pulmonary hypertension: Code(s): I27.20 - Pulmonary hypertension, unspecified Status: Acute Assessment and Plan: Echocardiogram showed severe pHTN with PASP 61mmHg (slight improvement from echo in Apr 2021 with PASP 68mmHg). Likely multifactorial related to underlying lung disease, untreated DAVIAN, obesity hypoventilation syndrome. Appreciate pulmonology involvement. (3) Acute respiratory failure with hypoxia: Code(s): J96.01 - Acute respiratory failure with hypoxia Status: Acute Assessment and Plan: Continue O2 support, wean as tolerated. (4) Essential hypertension: Code(s): I10 - Essential (primary) hypertension Status: Chronic Assessment and Plan: Improved BP control. Repeat blood pressure remains significantly elevated. Monitor renal function. (5) Alcohol abuse: Code(s): F10.10 - Alcohol abuse, uncomplicated Status: Acute (6) DAVIAN (obstructive sleep apnea): Code(s): G47.33 - Obstructive sleep apnea (adult) (pediatric) Status: Acute Assessment and Plan: Defer to primary service. Based on home sleep study AHI 11 May be underestimated. Significant nocturnal hypoxia. She would benefit from formal sleep study. Will defer further recommendation to pulmonology. Greatly appreciate their involvement. Subjective Date/time seen: 08/15/21 10:11 Cardiology follow up for CHF Feeling much better today. Swelling is essentially resolved, breathing has improved. Does not have any complaints today. Review of Systems Review of Systems: All systems reviewed & are unremarkable except as noted in HPI and below Constitutional: Constitutional: Reports as per HPI, Reports no additional constitutional complaints, Reports fatigue, Reports lethargy and Reports weakness Eyes: Eyes: Reports as per HPI and Reports no additional eye complaints ENT: Reports system reviewed and no additional complaints, except as documented and Reports as per HPI Cardiovascular: Cardiovascular: Reports as per HPI, Reports no additional cardiovascular complaints, Reports chest pain, Denies diaphoresis, Reports pedal edema, Reports leg edema, Denies lightheadedness, Denies palpitations, Reports dyspnea and Reports dyspnea on exertion Respiratory: Respiratory: Reports as per HPI, Reports no additional respiratory complaints, Reports chest congestion, Reports cough, Denies hemoptysis, Reports dyspnea, Reports dyspnea on exertion and Denies wheezing Gastrointestinal: Gastrointestinal: Reports as per HPI, Reports no additional gastrointestinal complaints, Reports abdominal pain, Denies melena, Reports bloating and Denies hematochezia Genitourinary: Genitourinary:
[2021-08-15] MEDS: lisinopriL 20 MG TABLET 40 MG PO (10:20)
--- NOTE | 2021-08-15 10:33 | PC.NURSE ---
MD Albrecht to recheck bp medication, pt HR in 40-50's, currently 56, metoprolol and procardia xl held this morning, MD Albrecht aware.
[2021-08-15 11:29] LABS: Troponin I 0.012 ng/mL (0.000-0.034)
--- NOTE | 2021-08-15 14:48 | HOMEO2EVAL ---
Evaluation was performed at [facility] Home Oxygen Evaluation RC: Home Oxygen (O2) Evaluation Start: 08/15/21 10:01 Freq: ONCE Status: Active Protocol: RPE Activity Type Activity Date Activity User E-Sign Co-Sign Detail Recorded Client Recorded Date Recorded By Document 08/15/21 13:45 EHSAN [email or web address] 08/15/21 14:48 EHSAN Document 08/15/21 13:46 EHSAN [email or web address] 08/15/21 14:48 EHSAN Document 08/15/21 13:47 EHSAN [email or web address] 08/15/21 14:48 EHSAN Document 08/15/21 13:50 EHSAN [email or web address] 08/15/21 14:48 EHSAN Document 08/15/21 13:52 EHSAN [email or web address] 08/15/21 14:48 EHSAN Document 08/15/21 13:55 EHSAN [email or web address] 08/15/21 14:48 EHSAN 08/15/21 08/15/21 08/15/21 13:45 13:46 13:47 Home O2 Evaluation Test Phase Resting Resting Resting Oxygen Delivery Room Air Nasal Cannula Nasal Cannula Oxygen Flow Rate (L/min) 1 2 Pulse Oximetry (90-100 %) 87 L 87 L 93 Home Oxygen Evaluation Comments Treatment Charges O2 Evaluation - Inpatient 08/15/21 08/15/21 08/15/21 13:50 13:52 13:55 Home O2 Evaluation Test Phase Exercise Exercise Resting Oxygen Delivery Nasal Cannula Nasal Cannula Nasal Cannula Oxygen Flow Rate (L/min) 2 3 2 Pulse Oximetry (90-100 %) 86 L 90 94 Home Oxygen Evaluation Comments Home O2 at 2 L at rest and 3 L with activity Treatment Charges
--- NOTE | 2021-08-15 15:00 | PCRCNOTE ---
Home O2 eval done, Home O2 set up with [facility]. 2L rest and 3L activity. tank to be delivered today for transport home.
[2021-08-15] MEDS: FUROSEMIDE 40 MG TABLET PO (16:19)
[2021-08-15 20:27] LABS: Alanine Aminotransferase 21 U/L (4-35); Albumin Level 3.7 g/dL (3.5-5.1); Alkaline Phosphatase 64 U/L (38-126); Aspartate Amino Transferase 32 U/L (14-36); Bilirubin,Total 0.6 mg/dL (0.2-1.3); Blood Urea Nitrogen 40 mg/dL (7-17); Calcium 8.7 mg/dL (8.4-10.2); Carbon Dioxide > 40 mmol/L (22-30); Chloride 91 mmol/L (98-107); Estimated CRCL calculation 152 ml/min; Estimated Glomerular Filt Rate > 60; Glucose 138 mg/dL (65-110); Potassium 3.4 mmol/L (3.4-5.0); Sodium 136 mmol/L (137-145)
[2021-08-16] VITALS (9 sets, daily range): BP systolic 120–159; BP diastolic 52–99; PULSE 40–80; RESP 16–20; TEMP 35.6–36.4; O2SAT 95–98
--- NOTE | 2021-08-16 09:12 | PM.PNPUL ---
Progress Note: A&P Assessment and Plan (1) COVID: Code(s): U07.1 - COVID-19 Status: Acute Assessment and Plan: 08/14 Patient tested positive for COVID on 08/10/2021. Patient is receiving dexamethasone and Remdesivir since 08/11/2021. Initially her oxygen requirements were 4 L and currently she is on 2 L with saturations 93%. Overall she is clinically improved and I would continue current therapy for at least 5 days of remdesivir (reevaluate morning of 08/16). Agree with holding antibiotics at this point. Wean O2 as tolerated to maintain saturations greater than 90%. she will need a home O2 assessment and a chest x-ray prior to discharge to serve as a new baseline. 08/15 Patient continues to slowly improve. She states she has breathing better today than she has in the last month. Currently she is on 2 L nasal cannula saturations 96%. 08/16 Ready for discharge from a pulmonary speck perspective on these medicines. Dexamethasone 6 mg p.o. q.day x3 days 2 L oxygen at rest and 3 with ambulation. 3 L at night and when she sleeps during the day. Diuretics per hospitalist team. Follow-up in pulmonary clinic in 3-4 weeks. Gave her business card and informed our air intercept controller. She will need an outpatient split night sleep study to diagnose and determine optimal pressures for CPAP. Will sign off, call with questions. (2) DAVIAN (obstructive sleep apnea): Code(s): G47.33 - Obstructive sleep apnea (adult) (pediatric) Status: Acute Assessment and Plan: 08/13 She had a home sleep test out of [facility], AHI was 11 and lowest saturation was 56%, spent 90% of the night below 88%. She needs split night study. The prior test is too old to use for managing sleep apnea. Seh snores, wakes at night to urinate, she is tired in the day and she has pulmonary hypertension. Obstructive sleep apnea generally leads to mild pulmonary hypertension so the severity of her pulmonary hypertension may involve other factors such as left heart failure, work up in progress. 08/14 While awaiting her outpatient split night sleep study I will perform an apnea link and try to provide her with adequate oxygenation to prevent nocturnal hypoxemia. She cannot perform the apnea link last night because of her p.m. dose of Lasix makes her urinate all night. Will speak with the hospitalist regarding her diuretics so that she can have this study tonight on 2 L. 08/15 Patient had an overnight oximetry on 2 L nasal cannula with a baseline saturation 91%, Lowest saturation 78%. Time with saturation less than or equal to 88% was 13 minutes. I will repeat an overnight oximetry tonight on 3 L. 08/16 Patient had an overnight oximetry last night on 3 L nasal cannula demonstrating baseline saturation 96%, average saturation 94%. Lowest saturation 85%. Time with saturation less than or equal to 88% was 1 minutes. Patient had a home O2 assessment yesterday which demonstrated she required 2 L at rest and 3 with ambulation. She will need an outpatient split night sleep study to diagnose and determine optimal pressures for CPAP. Follow-up in Pulmonary Clinic in 3-4 weeks. I have given her our business card and informed our air intercept controller. Will sign off. Call with questions. (3) Pulmonary hypertension: Code(s): I27.20 - Pulmonary hypertension, unspecified Status: Acute Assessment and Plan: Repeat echocardiogram with a pulmonary arterial systolic pressure of 61 which has marginally improved from 68 previously on 05/06/21. Etiologies include obstructive sleep apnea, hypoxic respiratory failure from COVID and Grade 3 diastolic dysfunction. She has improved edema with Lasix. 08/15 Her swelling is better and she feels like she would be ready for discharge tomorrow on diuretics per hospitalist team. (4) Mixed obstructive and restrictive ventilatory defect: Code(s): R94.2 - Abnormal results of pulmonar
[2021-08-16] MEDS: ENOXAPARIN 40 MG/0.4 ML SYRINGE SUB-Q ×2 (09:38→21:17)
[2021-08-16] MEDS: lisinopriL 20 MG TABLET 40 MG PO (09:39)
[2021-08-16] MEDS: FUROSEMIDE 40 MG TABLET PO ×2 (09:39→17:24)
[2021-08-16] MEDS: NIFEdipine 30 MG TAB.ER.24 PO (09:39)
[2021-08-16] MEDS: ESCITALOPRAM OXALATE 10 MG TABLET PO (09:39)
[2021-08-16] MEDS: EMPAGLIFLOZIN 25 MG TABLET PO (09:39)
[2021-08-16] MEDS: SPIRONOLACTONE 25 MG TABLET PO (09:39)
[2021-08-16] MEDS: DEXAMETHASONE 2 MG TABLET 6 MG PO (09:43)
[2021-08-16] MEDS: INDOMETHACIN 25 MG CAPSULE 50 MG PO (09:49)
[2021-08-16] MEDS: allopurinoL 300 MG TABLET PO (09:52)
--- NOTE | 2021-08-16 10:55 | PM.PNCARD ---
Progress Note: A&P Assessment and Plan (1) Congestive heart failure: Qualifiers: Heart failure chronicity: unspecified Heart failure type: unspecified Qualified Code(s): I50.9 - Heart failure, unspecified Code(s): I50.9 - Heart failure, unspecified Status: Acute Assessment and Plan: Acute heart failure with preserved ejection fraction likely multifactorial etiology complicated by uncontrolled hypertension, nocturnal hypoxia, untreated DAVIAN, probable underlying lung disease, alcohol abuse, intermittent medication noncompliance, and morbid obesity in addition to recent COVID infection. No clear evidence to suggest underlying obstructive CAD. 2D echocardiogram completed and revealed grade III diastolic dysfunction This has improved. No signs of decompensated heart failure on exam at this point. Continue Jardiance 25mg daily Continue spironolactone 25mg daily Continue furosemide 40mg p.o. b.i.d Continue lisinopril 40mg daily - consider shifting to Entresto at some point as an outpatient Decrease metoprolol to 75mg daily, has been having some mild bradycardia. Continue to monitor renal function and electrolytes Reviewed low-sodium diet Compression stockings Daily weights (2) Severe pulmonary hypertension: Code(s): I27.20 - Pulmonary hypertension, unspecified Status: Acute Assessment and Plan: Echocardiogram showed severe pHTN with PASP 61mmHg (slight improvement from echo in Apr 2021 with PASP 68mmHg). Likely multifactorial related to underlying lung disease, untreated DAVIAN, obesity hypoventilation syndrome. Appreciate pulmonology involvement. (3) Acute respiratory failure with hypoxia: Code(s): J96.01 - Acute respiratory failure with hypoxia Status: Acute Assessment and Plan: Continue O2 support, wean as tolerated. (4) Essential hypertension: Code(s): I10 - Essential (primary) hypertension Status: Chronic Assessment and Plan: Improved BP control. Repeat blood pressure remains significantly elevated. Monitor renal function. (5) Alcohol abuse: Code(s): F10.10 - Alcohol abuse, uncomplicated Status: Acute (6) DAVIAN (obstructive sleep apnea): Code(s): G47.33 - Obstructive sleep apnea (adult) (pediatric) Status: Acute Assessment and Plan: Defer to primary service. Based on home sleep study AHI 11 May be underestimated. Significant nocturnal hypoxia. She would benefit from formal sleep study. Will defer further recommendation to pulmonology. Greatly appreciate their involvement. Subjective Date/time seen: 08/16/21 10:55 Feeling about the same today. Swelling has resolved and respiratory status us stable she is breathing comfortably on 3L O2. Review of Systems Review of Systems: All systems reviewed & are unremarkable except as noted in HPI and below Constitutional: Constitutional: Reports as per HPI, Reports no additional constitutional complaints, Reports fatigue, Reports lethargy and Reports weakness Eyes: Eyes: Reports as per HPI and Reports no additional eye complaints ENT: Reports system reviewed and no additional complaints, except as documented and Reports as per HPI Cardiovascular: Cardiovascular: Reports as per HPI, Reports no additional cardiovascular complaints, Reports chest pain, Denies diaphoresis, Reports pedal edema, Reports leg edema, Denies lightheadedness, Denies palpitations, Reports dyspnea and Reports dyspnea on exertion Respiratory: Respiratory: Reports as per HPI, Reports no additional respiratory complaints, Reports chest congestion, Reports cough, Denies hemoptysis, Reports dyspnea, Reports dyspnea on exertion and Denies wheezing Gastrointestinal: Gastrointestinal: Reports as per HPI, Reports no additional gastrointestinal complaints, Reports abdominal pain, Denies melena, Reports bloating and Denies hematochezia Genitourinary: Genitourinary: Reports as per HPI Muscul
--- NOTE | 2021-08-16 11:04 | PM.IMPN ---
Progress Note: A&P Assessment and Plan (1) Acute respiratory failure with hypoxia: Code(s): J96.01 - Acute respiratory failure with hypoxia Status: Acute Assessment and Plan: Patient tested positive for COVID on 08/10/2021. Patient is receiving dexamethasone and Remdesivir since 08/11/2021. Initially her oxygen requirements were 4 L and currently she is on 2 L with saturations 93%. She has responded to current therapy; continue remdesivir to complete 5 days of therapy. Agree with holding antibiotics at this point. Wean O2 as tolerated to maintain saturations greater than 90%. Currently patient is stable from pulmonary perspective. She can be discharged on oxygen 2 L rest and 3 L with ambulation. She will need 3 to of oxygen at night and during naps. (2) COVID: Code(s): U07.1 - COVID-19 Status: Acute Assessment and Plan: As above. (3) Severe pulmonary hypertension: Code(s): I27.20 - Pulmonary hypertension, unspecified Status: Acute Assessment and Plan: Management by cardiology (4) Alcohol abuse: Code(s): F10.10 - Alcohol abuse, uncomplicated Status: Acute Assessment and Plan: CIWA scale protocol (5) Congestive heart failure: Qualifiers: Heart failure chronicity: unspecified Heart failure type: unspecified Qualified Code(s): I50.9 - Heart failure, unspecified Code(s): I50.9 - Heart failure, unspecified Status: Acute Assessment and Plan: Continue furosemide 40mg p.o. b.i.d Continue lisinopril 40mg daily - consider shifting to Entresto at some point as an outpatient (6) Bradycardia: Code(s): R00.1 - Bradycardia, unspecified Status: Acute Assessment and Plan: Decrease metoprolol to 75mg daily, has been having some mild bradycardia. Additional Plan Patient has acute hypoxic respiratory failure likely combination of CHF due to severe pulmonary hypertension/diastolic heart failure and concomitant COVID 19 infection. Will give the patient IV Lasix and monitor strict I&O's. The patient at states that she actually does not take Lasix at home although ER nurses had Lasix 40 mg listed on the patient's home med rec. She states that she was not discharged on Lasix because she had acute kidney injury due to over-diuresis. I have encouraged the patient to start weighing herself daily at least every other day at home. 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 The patient does test positive for COVID. It sounds as if her COVID infection may have started about 2 weeks ago. She is technically outside the window for Remdesivir but she is requesting Remdesivir administration as it will not harm and may help Remdesivir has subsequently been ordered. Patient has also been started on Decadron. The patient's CT does not demonstrate significant evidence of COVID pneumonia and thusly do not feel strongly about placing patient on Baricitinib. CTA was negative for pulmonary embolism. Patient has been admitted as observation status. 08/12/21 pending cardio recs cont current care BP meds adjusted pending expert consultation cont COVID tx Atarax for anxiety 08/13/21 doing ok spoke w cardio recommends repeat ECHO to reassess pulm htn pulm consulted cont current care cont current COVID apnea link test ordered 08/15/21 repeat ECHO shows severe pulm HTN due to bradycardia metoprolol and procardia held. Patient needs noturnal Oxygen supplementation cardio and pulm following down to 2L NC cont diuresis cont COVID tx for total of 5days lasix changed to 8am and 5pm dosing ; switch to PO today monitor renal fxn Home O2 eval tomorrowprior to dc Subjective Date/time seen: 08/16/21 10:04 S: Patient was seen and examined at the bedside; she denies any complaints; remains asymptomatic d
[2021-08-16 21:09] LABS: Alanine Aminotransferase 24 U/L (4-35); Albumin Level 3.7 g/dL (3.5-5.1); Alkaline Phosphatase 63 U/L (38-126); Aspartate Amino Transferase 26 U/L (14-36); Bilirubin,Total 0.7 mg/dL (0.2-1.3); Blood Urea Nitrogen 38 mg/dL (7-17); Calcium 9.1 mg/dL (8.4-10.2); Carbon Dioxide > 40 mmol/L (22-30); Chloride 92 mmol/L (98-107); Estimated CRCL calculation 132 ml/min; Estimated Glomerular Filt Rate > 60; Glucose 132 mg/dL (65-110); Potassium 3.7 mmol/L (3.4-5.0); Sodium 136 mmol/L (137-145)
[2021-08-17] VITALS (10 sets, daily range): BP systolic 119–158; BP diastolic 75–93; PULSE 43–57; RESP 16–20; TEMP 35.6–36.8; O2SAT 94–100
[2021-08-17] MEDS: ENOXAPARIN 40 MG/0.4 ML SYRINGE SUB-Q ×2 (08:45→21:00)
[2021-08-17] MEDS: lisinopriL 20 MG TABLET 40 MG PO (08:48)
[2021-08-17] MEDS: FUROSEMIDE 40 MG TABLET PO ×2 (08:48→17:26)
[2021-08-17] MEDS: SPIRONOLACTONE 25 MG TABLET PO (08:48)
[2021-08-17] MEDS: DEXAMETHASONE 2 MG TABLET 6 MG PO (08:48)
[2021-08-17] MEDS: INDOMETHACIN 25 MG CAPSULE 50 MG PO (08:48)
[2021-08-17] MEDS: ESCITALOPRAM OXALATE 10 MG TABLET PO (08:48)
[2021-08-17] MEDS: allopurinoL 300 MG TABLET PO (08:48)
[2021-08-17] MEDS: NIFEdipine 30 MG TAB.ER.24 PO (08:48)
[2021-08-17] MEDS: EMPAGLIFLOZIN 25 MG TABLET PO (08:48)
--- NOTE | 2021-08-17 09:50 | PM.PNCARD ---
Progress Note: A&P Assessment and Plan (1) Congestive heart failure: Qualifiers: Heart failure chronicity: unspecified Heart failure type: unspecified Qualified Code(s): I50.9 - Heart failure, unspecified Code(s): I50.9 - Heart failure, unspecified Status: Acute Assessment and Plan: Acute heart failure with preserved ejection fraction likely multifactorial etiology complicated by uncontrolled hypertension, nocturnal hypoxia, untreated DAVIAN, probable underlying lung disease, alcohol abuse, intermittent medication noncompliance, and morbid obesity in addition to recent COVID infection. No clear evidence to suggest underlying obstructive CAD. 2D echocardiogram completed and revealed grade III diastolic dysfunction This has improved. No signs of decompensated heart failure on exam at this point. Continue Jardiance 25mg daily Continue spironolactone 25mg daily Continue furosemide 40mg p.o. b.i.d Continue lisinopril 40mg daily - consider shifting to Entresto at some point as an outpatient Continue to monitor renal function and electrolytes Reviewed low-sodium diet Compression stockings Daily weights (2) Severe pulmonary hypertension: Code(s): I27.20 - Pulmonary hypertension, unspecified Status: Acute Assessment and Plan: Echocardiogram showed severe pHTN with PASP 61mmHg (slight improvement from echo in Apr 2021 with PASP 68mmHg). Likely multifactorial related to underlying lung disease, untreated DAVIAN, obesity hypoventilation syndrome. Appreciate pulmonology involvement. (3) Acute respiratory failure with hypoxia: Code(s): J96.01 - Acute respiratory failure with hypoxia Status: Acute Assessment and Plan: Continue O2 support, wean as tolerated. (4) Essential hypertension: Code(s): I10 - Essential (primary) hypertension Status: Chronic Assessment and Plan: Improved BP control. She has not been receiving her metoprolol due to bradycardia. Discontinue metoprolol, increase nifedipine to 60 mg daily. Monitor for blood pressure response. (5) Alcohol abuse: Code(s): F10.10 - Alcohol abuse, uncomplicated Status: Acute (6) DAVIAN (obstructive sleep apnea): Code(s): G47.33 - Obstructive sleep apnea (adult) (pediatric) Status: Acute Assessment and Plan: Defer to primary service. Based on home sleep study AHI 11 May be underestimated. Significant nocturnal hypoxia. She would benefit from formal sleep study. Will defer further recommendation to pulmonology. Greatly appreciate their involvement. Subjective Date/time seen: 08/17/21 09:50 Continues to feel well. Breathing comfortably on 2 L oxygen per nasal cannula. Not experiencing any shortness of breath. Swelling has resolved. Review of Systems Review of Systems: All systems reviewed & are unremarkable except as noted in HPI and below Constitutional: Constitutional: Reports as per HPI, Reports no additional constitutional complaints, Reports fatigue, Reports lethargy and Reports weakness Eyes: Eyes: Reports as per HPI and Reports no additional eye complaints ENT: Reports system reviewed and no additional complaints, except as documented and Reports as per HPI Cardiovascular: Cardiovascular: Reports as per HPI, Reports no additional cardiovascular complaints, Reports chest pain, Denies diaphoresis, Reports pedal edema, Reports leg edema, Denies lightheadedness, Denies palpitations, Reports dyspnea and Reports dyspnea on exertion Respiratory: Respiratory: Reports as per HPI, Reports no additional respiratory complaints, Reports chest congestion, Reports cough, Denies hemoptysis, Reports dyspnea, Reports dyspnea on exertion and Denies wheezing Gastrointestinal: Gastrointestinal: Reports as per HPI, Reports no additional gastrointestinal complaints, Reports abdominal pain, Denies melena, Reports bloating and Denies hematochezia Genitourinary: Genitourinary: R
--- NOTE | 2021-08-17 12:29 | P.PNIM_ITS ---
Progress Note: A&P Assessment and Plan (1) Acute respiratory failure with hypoxia: Code(s): J96.01 - Acute respiratory failure with hypoxia Status: Acute Assessment and Plan: Patient tested positive for COVID on 08/10/2021. Patient is receiving dexamethasone and Remdesivir since 08/11/2021. Initially her oxygen requirements were 4 L and currently she is on 2 L with saturations 93%. She has responded to current therapy; continue remdesivir to complete 5 days of therapy. Agree with holding antibiotics at this point. Wean O2 as tolerated to maintain saturations greater than 90%. Currently patient is stable from pulmonary perspective. She can be discharged on oxygen 2 L rest and 3 L with ambulation. She will need 3 to of oxygen at night and during naps. (2) COVID: Code(s): U07.1 - COVID-19 Status: Acute Assessment and Plan: As above. (3) Severe pulmonary hypertension: Code(s): I27.20 - Pulmonary hypertension, unspecified Status: Acute Assessment and Plan: Management by cardiology (4) Alcohol abuse: Code(s): F10.10 - Alcohol abuse, uncomplicated Status: Acute Assessment and Plan: CIWA scale protocol (5) Congestive heart failure: Qualifiers: Heart failure chronicity: unspecified Heart failure type: unspecified Qualified Code(s): I50.9 - Heart failure, unspecified Code(s): I50.9 - Heart failure, unspecified Status: Acute Assessment and Plan: Continue furosemide 40mg p.o. b.i.d Continue lisinopril 40mg daily - consider shifting to Entresto at some point as an outpatient (6) Bradycardia: Code(s): R00.1 - Bradycardia, unspecified Status: Acute Assessment and Plan: Decrease metoprolol to 75mg daily, has been having some mild bradycardia. Additional Plan Patient has acute hypoxic respiratory failure likely combination of CHF due to severe pulmonary hypertension/diastolic heart failure and concomitant COVID 19 infection. Will give the patient IV Lasix and monitor strict I&O's. The patient at states that she actually does not take Lasix at home although ER nurses had Lasix 40 mg listed on the patient's home med rec. She states that she was not discharged on Lasix because she had acute kidney injury due to over- diuresis. I have encouraged the patient to start weighing herself daily at least every other day at home. 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 The patient does test positive for COVID. It sounds as if her COVID infection may have started about 2 weeks ago. She is technically outside the window for Remdesivir but she is requesting Remdesivir administration as it will not harm a nd may help Remdesivir has subsequently been ordered. Patient has also been started on Decadron. The patient's CT does not demonstrate significant evidence of COVID pneumonia and thusly do not feel strongly about placing patient on Baricitinib. CTA was negative for pulmonary embolism. Patient has been admitted as observation status. 08/12/21 pending cardio recs cont current care BP meds adjusted pending expert consultation cont COVID tx Atarax for anxiety 08/13/21 doing ok spoke w cardio recommends repeat ECHO to reassess pulm htn pulm consulted cont current care cont current COVID apnea link test ordered 08/15/21 repeat ECHO shows severe pulm HTN due to bradycardia metoprolol and procardia held. Patient needs noturnal Oxygen supplementation
[2021-08-17 20:12] LABS: Alanine Aminotransferase 24 U/L (4-35); Albumin Level 3.8 g/dL (3.5-5.1); Alkaline Phosphatase 59 U/L (38-126); Anion Gap 5 mmol/L (8-16); Aspartate Amino Transferase 23 U/L (14-36); Bilirubin,Total 0.6 mg/dL (0.2-1.3); Blood Urea Nitrogen 30 mg/dL (7-17); Carbon Dioxide 39 mmol/L (22-30); Chloride 92 mmol/L (98-107); Estimated CRCL calculation 132 ml/min; Estimated Glomerular Filt Rate > 60; Glucose 177 mg/dL (65-110); Potassium 3.6 mmol/L (3.4-5.0); Sodium 136 mmol/L (137-145)
[2021-08-17] MEDS: REMDESIVIR 100 MG/NS 250 ML 100 MG/250 ML BAG 250 MG IVPB (21:00)
[2021-08-18] VITALS: PULSE 46
[2021-08-18 04:00] VITALS: BP 139/88; PULSE 43; PULSE 46; RESP 16; TEMP 36.1; O2SAT 95
[2021-08-18 07:42] LABS: Prothrombin Time 13.2 Seconds (11.1-14.7)
[2021-08-18 08:00] VITALS: BP 135/81; PULSE 51; PULSE 58; RESP 20; TEMP 35.9; O2SAT 98
[2021-08-18 09:00] VITALS: O2SAT 96
[2021-08-18] MEDS: INDOMETHACIN 25 MG CAPSULE 50 MG PO (09:00)
[2021-08-18] MEDS: ENOXAPARIN 40 MG/0.4 ML SYRINGE SUB-Q (09:00)
[2021-08-18] MEDS: NIFEdipine 30 MG TAB.ER.24 60 MG PO (09:00)
[2021-08-18] MEDS: FUROSEMIDE 40 MG TABLET PO (09:01)
[2021-08-18] MEDS: SPIRONOLACTONE 25 MG TABLET PO (09:01)
[2021-08-18] MEDS: ESCITALOPRAM OXALATE 10 MG TABLET PO (09:01)
[2021-08-18] MEDS: DEXAMETHASONE 2 MG TABLET 6 MG PO (09:01)
[2021-08-18] MEDS: lisinopriL 20 MG TABLET 40 MG PO (09:01)
[2021-08-18] MEDS: allopurinoL 300 MG TABLET PO (09:01)
[2021-08-18] MEDS: EMPAGLIFLOZIN 10 MG TABLET PO (09:02)
--- NOTE | 2021-08-18 09:12 | PCNWS ---
Weekly nutritional screen. Patient screened in for 7 day length of stay. Patient is tolerating current diet with adequate intake. Agree with diet orders at this time. No nutritional needs at this time.
--- NOTE | 2021-08-18 09:27 | PM.PNCARD ---
Progress Note: A&P Assessment and Plan (1) Congestive heart failure: Qualifiers: Heart failure chronicity: unspecified Heart failure type: unspecified Qualified Code(s): I50.9 - Heart failure, unspecified Code(s): I50.9 - Heart failure, unspecified Status: Acute Assessment and Plan: Acute heart failure with preserved ejection fraction likely multifactorial etiology complicated by uncontrolled hypertension, nocturnal hypoxia, untreated DAVIAN, probable underlying lung disease, alcohol abuse, intermittent medication noncompliance, and morbid obesity in addition to recent COVID infection. No clear evidence to suggest underlying obstructive CAD. 2D echocardiogram completed and revealed grade III diastolic dysfunction This has improved. No signs of decompensated heart failure on exam at this point. Continue Jardiance 10mg daily Continue spironolactone 25mg daily Reduce furosemide to 40mg p.o. daily Continue lisinopril 40mg daily - consider shifting to Entresto at some point as an outpatient Continue to monitor renal function and electrolytes Reviewed low-sodium diet Compression stockings Daily weights (2) Severe pulmonary hypertension: Code(s): I27.20 - Pulmonary hypertension, unspecified Status: Acute Assessment and Plan: Echocardiogram showed severe pHTN with PASP 61mmHg (slight improvement from echo in Apr 2021 with PASP 68mmHg). Likely multifactorial related to underlying lung disease, untreated DAVIAN, obesity hypoventilation syndrome. Appreciate pulmonology involvement. (3) Acute respiratory failure with hypoxia: Code(s): J96.01 - Acute respiratory failure with hypoxia Status: Acute Assessment and Plan: Continue O2 support, wean as tolerated. (4) Essential hypertension: Code(s): I10 - Essential (primary) hypertension Status: Chronic Assessment and Plan: Improved BP control. Continue current antihypertensive regimen. (5) Alcohol abuse: Code(s): F10.10 - Alcohol abuse, uncomplicated Status: Acute (6) DAVIAN (obstructive sleep apnea): Code(s): G47.33 - Obstructive sleep apnea (adult) (pediatric) Status: Acute Assessment and Plan: Defer to primary service. Based on home sleep study AHI 11 May be underestimated. Significant nocturnal hypoxia. She would benefit from formal sleep study. Will defer further recommendation to pulmonology. Greatly appreciate their involvement. Subjective Date/time seen: 08/18/21 09:27 Cardiology follow up for CHF Continues to improve. Feeling well today overall. Denies any shortness of breath or swelling. Reviewed new medications started for heart failure, salt restriction, fluid restriction, dietary/lifestyle modifications. She is stable from a cardiac perspective and appropriate for discharge from my perspective. She will follow up with me in 3-4 weeks as an outpatient. Review of Systems Review of Systems: All systems reviewed & are unremarkable except as noted in HPI and below Constitutional: Constitutional: Reports as per HPI, Reports no additional constitutional complaints, Reports fatigue, Reports lethargy and Reports weakness Eyes: Eyes: Reports as per HPI and Reports no additional eye complaints ENT: Reports system reviewed and no additional complaints, except as documented and Reports as per HPI Cardiovascular: Cardiovascular: Reports as per HPI, Reports no additional cardiovascular complaints, Reports chest pain, Denies diaphoresis, Reports pedal edema, Reports leg edema, Denies lightheadedness, Denies palpitations, Reports dyspnea and Reports dyspnea on exertion Respiratory: Respiratory: Reports as per HPI, Reports no additional respiratory complaints, Reports chest congestion, Reports cough, Denies hemoptysis, Reports dyspnea, Reports dyspnea on exertion and Denies wheezing Gastrointestinal: Gastrointestinal: Reports as per HPI, Reports no additional gas
[2021-08-18 11:59] VITALS: BP 149/85; PULSE 58; RESP 16; TEMP 35.6; O2SAT 96
[2021-08-18 12:00] VITALS: PULSE 52
[2021-08-18] MEDS: REMDESIVIR 100 MG/NS 250 ML 100 MG/250 ML BAG 250 MG IVPB (13:09)
--- NOTE | 2021-08-18 15:24 | PM.DS ---
DS: Admitting Diagnosis Discharge Date 08/18/2020 Admitting Diagnosis (1) Acute respiratory failure with hypoxia: Code(s): J96.01 - Acute respiratory failure with hypoxia Status: Acute (2) COVID: Code(s): U07.1 - COVID-19 Status: Acute (3) Severe pulmonary hypertension: Code(s): I27.20 - Pulmonary hypertension, unspecified Status: Acute (4) Alcohol abuse: Code(s): F10.10 - Alcohol abuse, uncomplicated Status: Acute (5) Congestive heart failure: Qualifiers: Heart failure chronicity: unspecified Heart failure type: unspecified Qualified Code(s): I50.9 - Heart failure, unspecified Code(s): I50.9 - Heart failure, unspecified Status: Acute DS: Discharge Diagnosis Discharge Diagnosis (1) Acute respiratory failure with hypoxia: Code(s): J96.01 - Acute respiratory failure with hypoxia Status: Acute Assessment and Plan: Patient tested positive for COVID on 08/10/2021. Patient is receiving dexamethasone and Remdesivir since 08/11/2021. Initially her oxygen requirements were 4 L and currently she is on 2 L with saturations 93%. She has responded to current therapy; continue remdesivir to complete 5 days of therapy. Agree with holding antibiotics at this point. Wean O2 as tolerated to maintain saturations greater than 90%. Currently patient is stable from pulmonary perspective. She can be discharged on oxygen 2 L rest and 3 L with ambulation. She will need 3 to of oxygen at night and during naps. (2) COVID: Code(s): U07.1 - COVID-19 Status: Acute Assessment and Plan: As above. (3) Severe pulmonary hypertension: Code(s): I27.20 - Pulmonary hypertension, unspecified Status: Acute Assessment and Plan: Management by cardiology (4) Alcohol abuse: Code(s): F10.10 - Alcohol abuse, uncomplicated Status: Acute Assessment and Plan: CIWA scale protocol (5) Congestive heart failure: Qualifiers: Heart failure chronicity: unspecified Heart failure type: unspecified Qualified Code(s): I50.9 - Heart failure, unspecified Code(s): I50.9 - Heart failure, unspecified Status: Acute Assessment and Plan: Continue furosemide 40mg p.o. b.i.d Continue lisinopril 40mg daily - consider shifting to Entresto at some point as an outpatient (6) Bradycardia: Code(s): R00.1 - Bradycardia, unspecified Status: Acute Assessment and Plan: Decrease metoprolol to 75mg daily, has been having some mild bradycardia. DS: Summary Hospital Course Reason for hospitalization: Chief Complaint: Shortness of breath and leg swelling Hospital Course: Narrative: 46-year-old female with a past medical history of severe pulmonary hypertension, morbid obesity, gout and essential hypertension who presented to the ER with worsening shortness of breath. The patient reports that she has been short of breath ever since couple months before her last hospitalization and April. However over the last 2 weeks she has become more acutely short of breath and is short of breath even when going from sitting to standing. She has also noticed increased orthopnea over the last 4-6 weeks. She had an echocardiogram in April which demonstrated severe pulmonary hypertension. She reports that she has been referred to both a cafeteria supervisor and a algebra teacher but she does not recall the name of those providers. She had a at home sleep study which she reports was negative for obstructive sleep apnea. She reports that her daughter tested positive for COVID the 1st week in July. The patient herself has had a dry nonproductive cough for 2 weeks. She denies any fevers or chills. She reports a sense of heaviness to her chest like she cannot catch her breath but this sensation has been ongoing for several months. Although the heaviness is been worse over the last 2 weeks. She denies any chest pa
== END 2021-08-18 16:06 | disposition home or self-care (01) | DRG 177 ==
LOC: ANHED 19:20 → ANH3MEDSUR 23:00
PROVIDERS: Hospitalist; Internal Medicine; Nurse Practitioner; Admitting Provider Internal Medicine; Emergency Provider Emergency Medicine; PCP Family Medicine Adolescent Medicine; Visit Provider Internal Medicine
DX: U07.1 COVID-19 (principal); J96.01 Acute respiratory failure with hypoxia; Z68.42 Body mass index [BMI] 45.0-49.9, adult; E66.2 Morbid (severe) obesity with alveolar hypoventilation; I50.32 Chronic diastolic (congestive) heart failure; I11.0 Hypertensive heart disease with heart failure; I27.20 Pulmonary hypertension, unspecified; F10.10 Alcohol abuse, uncomplicated; F41.9 Anxiety disorder, unspecified; R00.1 Bradycardia, unspecified; E53.8 Deficiency of other specified B group vitamins; E55.9 Vitamin D deficiency, unspecified; Z91.14 Patient's other noncompliance with medication regimen; Z85.41 Personal history of malignant neoplasm of cervix uteri; Z90.710 Acquired absence of both cervix and uterus; Z98.84 Bariatric surgery status
CPT/HCPCS: 36415; 36600; 71045; 71275; 80048; 80053; 82565; 82728; 82805; 83615; 83880; 84132; 84460; 84484; 85025; 85610; 86140; 93005; 94618; 94762; 96372; 96374; 99285; A9270; C8929; C9803; G0378; J1650; J1940; J3480; J7040; J8540; Q9957; Q9967; U0003; U0005

== ENCOUNTER 2021-10-19 10:04 | Outpatient (CLI) | payer BC, SELFPAY ==
--- NOTE | 2021-10-31 07:51 | WPDSLEEPSTUD ---
Sleep Study Date of Study: 10/19/21 Ordering Provider: Glenna Root MD Interpreting Physician: Glenna Root MD Sleep Study Type: BiPAP Titration Height: 1.75 m Weight: 138.346 kg Body Mass Index: 45.0 Neck Circumference (inches): 13.5 Lyons: 3 Reason for Sleep Study * home sleep test out of [facility], AHI was 11.1 and lowest saturation was 58%, spent 90% of the night below 88%. She has COPD, She needs split night study. The prior test is too old to use for managing sleep apnea. Seh snores, wakes at night to urinate, Sleep History Rosie Abdalla is a 46 year old female with a history of loud snoring and restless sleep. She had a home sleep test showing an apnea-hypopnea index of 11.1 and a minimum desaturation to 58%. She now presents for a CPAP titration. She was not able to tolerate CPAP at the start of the study and was switched over to BiPAP. She did not complete a sleep questionnaire. Her medical comorbidities include severe pulmonary hypertension, morbid obesity, gout and essential hypertension. she had COVID August 10, 2021. She has been admitted for acute hypoxemic respiratory failure and was required oxygen. She has lower extremity edema she had a lap band surgery for obesity several years ago and lost 180 lb, however the lap band slip and she regained much of the weight. [facility] Past Medical History Medical History Alcohol abuse Anal polyp s/p removal Anxiety B12 deficiency Cervical cancer s/p hysterectomy Congestive heart failure Echocardiogram 04/2021: EF 65-70%, mild LVH, diastolic dysfunction grade 1, severe pulmonary hypertension, mildly enlarged right ventricular chamber Depression Diverticulitis Duodenal ulcer Essential hypertension Hemorrhoids Morbid obesity Rectocele s/p intervention x2 RUQ pain Severe pulmonary hypertension Vitamin D deficiency Surgical History Surgical History History of esophagogastroduodenoscopy (EGD) (04/2021) Hiatal hernia, gastritis, duodenal ulcer performed by Dr. Lamar History of hysterectomy Hx of laparoscopic gastric banding Family History Family History Mother Hypertension Familial primary pulmonary hypertension Carcinoma of colon Sibling Family history of irritable bowel syndrome Father Family history of congestive heart failure Other Family history of cardiovascular disease Family history of malignant neoplasm Social History Social History Social History: Ms. Abdalla reports that she lives at home with her son. She has 2 children. She reports that she drinks alcohol 4-5x per week and has 4-5 mixed drinks when she drinks. She denies tobacco use and other illicit substance use. 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 She wishes to be a full code. Smoking status: Never smoker Alcohol intake: current Drinks per week: 28 Substance use: never Substance use type: does not use Gender identity (if verbalized by the patient): Female Spiritual care concerns: No Medications Home Medications Medication Instructions Recorded Confirmed Type allopurinol 300 mg tablet 300 mg PO DAILY 08/08/21 08/11/21 History spironolactone 25 mg tablet 25 mg PO QAM #30 tablet 08/29/21 08/29/21 Rx furosemide 40 mg tablet 40 mg PO QAM #90 tablet 09/11/21 Rx lisinopril 40 mg tablet 40 mg PO DAILY #90 tablet 09/13/21 Rx calcium carbonate 500 mg-vitamin 1 tablet PO BID tablet 09/19/21 09/19/21 History D3 5 mcg (200 unit) tablet escitalopram oxalate 10 mg tablet 10 mg PO DAILY tablet 09/19/21 09/19/21 History nifedipine 60 mg tablet,extended 120 mg PO DAILY tablet 09/19/21 History release empagliflozin 10 mg tablet 10 mg PO QAM #30 tablet 10/09/21 Rx eszopiclone 2 mg tablet 2 m
[2021-10-31 08:26] VITALS: BMI 45.0
--- NOTE | 2022-05-03 16:10 | SLEEP ---
Charge Payment laurel is calling pt to set up
== END 2021-10-20 06:25 | disposition home or self-care (01) ==
LOC: ANHCSM 10:05
PROVIDERS: PCP Family Medicine Adolescent Medicine; Visit Provider Internal Medicine Critical Care Medicine
DX: G47.33 Obstructive sleep apnea (adult) (pediatric) (principal)
CPT/HCPCS: 95811

== ENCOUNTER 2021-11-21 15:02 | Outpatient (CLI) | payer BC, SELFPAY ==
[2021-11-21 15:00] VITALS: PULSE 110; O2SAT 95
[2021-11-21 15:05] VITALS: PULSE 130; O2SAT 87
[2021-11-21 15:10] VITALS: PULSE 132; O2SAT 88
[2021-11-21 15:15] VITALS: PULSE 131; O2SAT 90
[2021-11-21 15:25] VITALS: PULSE 108; O2SAT 94
--- NOTE | 2021-11-21 15:58 | HOMEO2EVAL ---
Evaluation was performed at [facility] Home Oxygen Evaluation RC: Home Oxygen (O2) Evaluation Start: 11/21/21 15:54 Freq: Status: Active Protocol: RPE Activity Type Activity Date Activity User E-Sign Co-Sign Detail Recorded Client Recorded Date Recorded By Document 11/21/21 15:00 [email or web address] [email or web address] 11/21/21 15:58 DJO Document 11/21/21 15:05 [email or web address] [email or web address] 11/21/21 15:58 DJO Document 11/21/21 15:10 [email or web address] [email or web address] 11/21/21 15:58 DJO Document 11/21/21 15:15 [email or web address] [email or web address] 11/21/21 15:58 DJO Document 11/21/21 15:25 [email or web address] [email or web address] 11/21/21 15:58 DJO 11/21/21 11/21/21 11/21/21 15:00 15:05 15:10 Home O2 Evaluation Test Phase Resting Exercise Exercise Oxygen Delivery Room Air Room Air Nasal Cannula Oxygen Flow Rate (L/min) 1 Pulse Oximetry (90-100 %) 95 87 L 88 L Pulse Rate (60-100 beats/min) 110 H 130 H 132 H Activity Tolerance Good Ambulation Distance (feet) 500 Ambulation Distance (meters) 152.39 Treatment Charges O2 Evaluation - Outpatient 11/21/21 11/21/21 15:15 15:25 Home O2 Evaluation Test Phase Exercise Resting Oxygen Delivery Nasal Cannula Room Air Oxygen Flow Rate (L/min) 2 Pulse Oximetry (90-100 %) 90 94 Pulse Rate (60-100 beats/min) 131 H 108 H Activity Tolerance Ambulation Distance (feet) Ambulation Distance (meters) Treatment Charges
--- NOTE | 2021-11-22 06:47 | WPDPFTINT ---
PFT Procedure Performed PFT Procedure Performed Spirometry with Pre/Post Bronchodilator Plethysmography (Lung Vol) Diffusing Cap (DLCO) Flow Vol Loop PFT Interpretation This is a pulmonary function test with pre and post-bronchodilator spirometry, plethysmography and diffusing capacity. The test was performed and results interpreted in accordance with the 2019 and 2005 ATS/ERS Task Force guidelines respectively using the Global Lung Function Initiative-2012 reference equations. Patient demonstrated good effort and cooperation. Reproducibility criteria were met. The quality of the pre bronchodilator spirometry maneuver was Grade A and post bronchodilator spirometry maneuver was Grade A. Findings: Spirometry: The contour the inspiratory and expiratory flow tracing are normal. The pre bronchodilator FVC is 2.22 L, 54% predicted. The pre bronchodilator FEV1 is 1.71 L, 52% predicted. The FEV1: FVC ratio 77%. The post bronchodilator FVC is 2.25 L, representing 1% increase. The post bronchodilator FEV1 is 1.79 L, representing a 5% increase. The post bronchodilator FEV1: FVC ratio was 80%. Plethysmography: The total lung capacity is 3.96 L, 69% predicted. The functional residual capacity is 2.04 L, 63% predicted. The residual volume is 1.75 L, 88% predicted. Diffusing capacity: The diffusing capacity unadjusted for hemoglobin and carboxyhemoglobin is 19.1, 77% predicted. The diffusion capacity adjusted for alveolar volume is 6.25, 142% predicted. Impression: There is a moderately severe restrictive ventilatory abnormality. The spirometry is normal without evidence of an obstructive abnormality. There is no significant improvement after inhaling a single dose of albuterol. The diffusing capacity unadjusted for hemoglobin and carboxyhemoglobin is normal and is increased when adjusted for alveolar volume. There are no prior studies for comparison
== END 2021-11-21 15:03 | disposition home or self-care (01) ==
LOC: ANHPFT 15:04
PROVIDERS: PCP Family Medicine Adolescent Medicine; Visit Provider Internal Medicine Critical Care Medicine
DX: R06.00 Dyspnea, unspecified (principal); R94.2 Abnormal results of pulmonary function studies; R09.02 Hypoxemia
CPT/HCPCS: 94060; 94618; 94726; 94729

== ENCOUNTER 2022-05-29 00:51 | Day surgery (SDC) | payer BC, SELFPAY ==
[2022-05-25 13:56] VITALS: BMI 45.8
--- NOTE | 2022-05-25 14:42 | PC.NURSE ---
SPOKE WITH DR. SHARMA ANESTHESIA CONCERNING PTS ECHO AND PULMONARY HTN, PT HAS NOT FOLLOWED UP WITH CARDIOLOGY. OKAY FOR PATIENT TO COME IN FOR PROCEDURE ON . 05/29/2022. NO ORDERS RECEIVED
[2022-05-29 09:20] VITALS: BP 137/69; PULSE 104; RESP 18; TEMP 36.2; O2SAT 94
[2022-05-29] MEDS: LACTATED RINGERS 1,000 ML 150 ML IV CONT (09:29)
[2022-05-29 09:30] LABS: Glucose Point of Care 133 mg/dl (65-105)
--- NOTE | 2022-05-29 09:43 | WPDANESEPPF ---
Anes - Initial Pre Proc Eval Procedure: Operation Date: 05/29/22 10:30 Proposed Procedures p Esophagogastroduodenoscopy - Luis Lamar MD Date/Time: 05/29/22 09:43 Surgeon: Luis Lamar MD Pre Op Diagnosis: duodenal ulcer Patient Data Age: 47 Gender: F Height: 1.75 m Weight: 142.3 kg Last Vital Signs Temp 97.1 F L 05/29/22 09:20 Pulse 104 H 05/29/22 09:20 Resp 18 05/29/22 09:20 BP 137/69 05/29/22 09:20 Pulse Ox 94 05/29/22 09:20 O2 Del Method Room Air 05/29/22 09:20 Allergies Allergy/AdvReac Type Severity Reaction Status Date / Time No Known Allergies Allergy Verified 05/29/22 09:19 Home Medications Medication Instructions Recorded Confirmed Type calcium carbonate 500 mg-vitamin 1 tablet PO BID 09/19/21 05/29/22 History D3 5 mcg (200 unit) tablet (Oyster Shell Calcium-Vitamin D3) escitalopram oxalate 10 mg tablet 10 mg PO DAILY 09/19/21 05/29/22 History spironolactone 25 mg tablet 25 mg PO QAM #90 tabs 11/08/21 05/29/22 Rx allopurinol 300 mg tablet 300 mg PO DAILY #30 tabs 12/29/21 05/29/22 Rx cholecalciferol (vitamin D3) 1,250 1,250 mcg PO WEEKLY #8 caps 01/29/22 05/29/22 Rx mcg (50,000 unit) capsule empagliflozin 10 mg tablet 10 mg PO QAM #30 tabs 02/26/22 05/29/22 Rx (Jardiance) nifedipine 60 mg tablet,extended 120 mg PO DAILY #180 tabs 04/10/22 05/29/22 Rx release furosemide 40 mg tablet 40 mg PO QAM #90 tabs 04/23/22 05/29/22 Rx lisinopril 40 mg tablet 40 mg PO DAILY 05/25/22 05/29/22 History Laboratory Tests 05/29/22 09:23 POC Capillary Glucose 133 mg/dl H mg/dl (65-105) Patient hx anesthesia problems: none Family hx anesthesia problems: none Results Review: All pre-operative results and documents have been reviewed as part of the pre-operative evaluation. [facility] Past Medical History Medical History (Updated 04/19/22 @ 15:50 by Luis Lamar MD) Alcohol abuse Anal polyp s/p removal Anxiety B12 deficiency Cervical cancer s/p hysterectomy Colon cancer screening Congestive heart failure Echocardiogram 04/2021: EF 65-70%, mild LVH, diastolic dysfunction grade 1, severe pulmonary hypertension, mildly enlarged right ventricular chamber Depression Diverticulitis Duodenal ulcer Essential hypertension Hemorrhoids Morbid obesity Post-nasal drip Rectocele s/p intervention x2 RUQ pain Severe pulmonary hypertension Vitamin D deficiency Surgical History Surgical History History of esophagogastroduodenoscopy (EGD) (04/2021) Hiatal hernia, gastritis, duodenal ulcer performed by Dr. Lamar History of hysterectomy Hx of laparoscopic gastric banding Family History Family History Mother Hypertension Familial primary pulmonary hypertension Carcinoma of colon Sibling Family history of irritable bowel syndrome Father Family history of congestive heart failure Other Family history of cardiovascular disease Family history of malignant neoplasm Social History Social History Social History: Ms. Abdalla reports that she lives at home with her son. She has 2 children. She reports that she drinks alcohol 4-5x per week and has 4-5 mixed drinks when she drinks. She denies tobacco use and other illicit substance use. 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 She wishes to be a full code. Smoking status: Never smoker Alcohol intake: current Drinks per week: 6 Substance use: never Substance use type: does not use Living arrangements: with family Gender identity (if verbalized by the patient): Female Spiritual care concerns: No Anes - Eval Final PreProcedure Day of Procedure 05/29/22 09:43 Patient weight: morbidly obese Heart: regular rate and rhythm Lungs: clear to a
--- NOTE | 2022-05-29 09:53 | PM.HPGS ---
History of Present Illness History of Present Illness Consent: Risks, benefits, and alternatives have been discussed and questions answered. Patient agrees to proceed with procedure. Chief complaint: duodenal ulcer Narrative: Rosie Abdalla is a 47 year old female with DU last year, not longer using ppi but no abdominal pain just clearing her throat Review of Systems Constitutional: Constitutional: Denies headache(s) and Denies weakness Eyes: Eyes: Denies blurry vision ENT: Reports Normal hearing present, Denies headache(s) and Denies neck pain Cardiovascular: Cardiovascular: Denies chest pain and Denies dyspnea Respiratory: Respiratory: Denies dyspnea Gastrointestinal: Gastrointestinal: Reports no additional gastrointestinal complaints Genitourinary: Genitourinary: Denies dysuria Musculoskeletal: Musculoskeletal: Denies neck pain Integumentary/Breasts: Skin/Breast: Denies dry skin Neurologic: Reports Normal hearing present, Denies headache(s) and Denies weakness Psychiatric: Psychiatric: Denies anxiety Endocrine: Endocrine: Denies change in body appearance Hematologic/Lymphatic: Hematologic/Lymphatic: Denies easy bleeding Allergic/Immunologic: Allergic/Immunologic: Denies urticaria [facility] Past Medical History Medical History (Updated 04/19/22 @ 15:50 by Luis Lamar MD) Alcohol abuse Anal polyp s/p removal Anxiety B12 deficiency Cervical cancer s/p hysterectomy Colon cancer screening Congestive heart failure Echocardiogram 04/2021: EF 65-70%, mild LVH, diastolic dysfunction grade 1, severe pulmonary hypertension, mildly enlarged right ventricular chamber Depression Diverticulitis Duodenal ulcer Essential hypertension Hemorrhoids Morbid obesity Post-nasal drip Rectocele s/p intervention x2 RUQ pain Severe pulmonary hypertension Vitamin D deficiency Surgical History Surgical History History of esophagogastroduodenoscopy (EGD) (04/2021) Hiatal hernia, gastritis, duodenal ulcer performed by Dr. Lamar History of hysterectomy Hx of laparoscopic gastric banding Family History Family History Mother Hypertension Familial primary pulmonary hypertension Carcinoma of colon Sibling Family history of irritable bowel syndrome Father Family history of congestive heart failure Other Family history of cardiovascular disease Family history of malignant neoplasm Social History Social History Social History: Ms. Abdalla reports that she lives at home with her son. She has 2 children. She reports that she drinks alcohol 4-5x per week and has 4-5 mixed drinks when she drinks. She denies tobacco use and other illicit substance use. 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 She wishes to be a full code. Smoking status: Never smoker Alcohol intake: current Drinks per week: 6 Substance use: never Substance use type: does not use Living arrangements: with family Gender identity (if verbalized by the patient): Female Spiritual care concerns: No Meds Home Medications and Allergies Home Medications Medication Instructions Recorded Confirmed Type calcium carbonate 500 mg-vitamin 1 tablet PO BID 09/19/21 05/29/22 History D3 5 mcg (200 unit) tablet (Oyster Shell Calcium-Vitamin D3) escitalopram oxalate 10 mg tablet 10 mg PO DAILY 09/19/21 05/29/22 History spironolactone 25 mg tablet 25 mg PO QAM #90 tabs 11/08/21 05/29/22 Rx allopurinol 300 mg tablet 300 mg PO DAILY #30 tabs 12/29/21 05/29/22 Rx cholecalciferol (vitamin D3) 1,250 1,250 mcg PO WEEKLY #8 caps 01/29/22 05/29/22 Rx mcg (50,000 unit) capsule empagliflozin 10 mg tablet 10 mg PO QAM #30 tabs 02/26/22 05/29/22 Rx (Jardiance) nifedipine 60 mg tablet,extended 120 mg PO DAILY #180 tabs 04/10/2205/29
[2022-05-29 10:07] VITALS: BP 96/61; PULSE 91; RESP 31; O2SAT 99
[2022-05-29 10:17] VITALS: BP 109/67; PULSE 91; RESP 26; O2SAT 100
[2022-05-29 10:27] VITALS: BP 110/69; PULSE 87; RESP 25; O2SAT 97
== END 2022-05-29 10:29 | disposition home or self-care (01) ==
PROVIDERS: PCP Family Medicine Adolescent Medicine; Visit Provider Internal Medicine Gastroenterology
PROC: 0DJ08ZZ Inspection of Upper Intestinal Tract, Via Natural or Artificial Opening Endoscopic (ICD-10-PCS; CPT 43235; principal; 2022-05-29 10:30)
DX: K26.9 Duodenal ulcer, unspecified as acute or chronic, without hemorrhage or perforation (principal); F10.10 Alcohol abuse, uncomplicated; K44.9 Diaphragmatic hernia without obstruction or gangrene; K21.00 Gastro-esophageal reflux disease with esophagitis, without bleeding; R09.82 Postnasal drip; Z85.41 Personal history of malignant neoplasm of cervix uteri; I50.9 Heart failure, unspecified; I11.0 Hypertensive heart disease with heart failure; E66.01 Morbid (severe) obesity due to excess calories; Z68.42 Body mass index [BMI] 45.0-49.9, adult; E55.9 Vitamin D deficiency, unspecified; E53.8 Deficiency of other specified B group vitamins
CPT/HCPCS: 43235; 82948; J2704; J7120

== ENCOUNTER 2022-09-05 21:03 | Inpatient (IN) | payer BC, SELFPAY ==
[2022-09-05] VITALS (13 sets, daily range): BP systolic 111–149; BP diastolic 62–103; PULSE 100–118; RESP 14–36; TEMP 36.6; O2SAT 92–100
--- NOTE | ~2022-09-05 | CT_ITS ---
Clinical Indication: Dyspnea CT Scan of the Chest with Contrast: Technique: Contiguous sections were acquired throughout the chest after intravenous administration of 100 cc of Omnipaque 350. Dose reduction technique was used on this scan by utilizing automated expos ure control and iterative reconstruction technique. The dose-length product (DLP) was 907.48 mGy-cm. COMPARISON: 08/10/2021 Findings: There is no evidence of any significant mediastinal, hilar or axillary lymphadenopathy. No large cent ral pulmonary embolus seen. Streak artifact limits evaluation for smaller, more peripheral pulmonary emboli. There is no evidence of aortic dissection or aneurysm. There is no evidence of pleural or pericardial effusion. The lungs are clear, aside from mild dependent atelectatic changes. Images through the upper abdomen reveal LAP-Band in place. Impression: No large central pulmonary embolus. Technical artifact limits evaluation for smaller, more peripheral pulmonary emboli. Consider repeat exam or VQ scan as indicated. No significant pulmonary abnormality. Reviewed, dictated and finalized at [facility]. VERY COACH Impression: No large central pulmonary embolus. Technical artifact limits evaluation for sm aller, more peripheral pulmonary emboli. Consider repeat exam or VQ scan as ind icated. No significant pulmonary abnormality.
--- NOTE | ~2022-09-05 | CT_ITS ---
CT OF left ankle EXAMINATION: CT ankle LT wo con DATE: 09/08/2022 09:25 INDICATION: Pain, lateral malleolus, ankle sprain April TECHNIQUE: Computed tomography (CT) of the left ankle was performed without intravenous contrast. Aut omated exposure control and iterative reconstruction technique were employed. The dose-length product was 548.41 mGy-cm. COMPARISON: None FINDINGS: Normal mineralization. Small os cuboid. Minimal Achilles and moderate plantar enthesopathy. Small os trigonum. Small ossific fragments at the tips of the medial and lateral malleoli, may repre sent old avulsion fractures. Mild degenerative change at the tibiotalar joint. Suggestion of soft tis makayla inflammation and possible split tear of the peroneus brevis tendon as the peroneal tendons pass b ehind the lateral malleolus. Remaining flexor and extensor tendons are intact and grossly normal in a ppearance. IMPRESSION: No acute osseous finding in the left ankle. Likely split type tear of the peroneus brevis tendon, wit h inflammatory changes of the peroneus longus and brevis tendons, at the level of the lateral malleol us. Reviewed, dictated and finalized at location K. TER OPERATOR IMPRESSION: No acute osseous finding in the left ankle. Likely split type tear of the peron eus brevis tendon, with inflammatory changes of the peroneus longus and brevis tendons, at the level of the lateral malleolus.
--- NOTE | ~2022-09-05 | XR_ITS ---
EXAMINATION: XR chest 1V portable Exam Date/Time: 09/05/2022 22:26 SOLAR INSTALLER PV HISTORY: cough Comparison: 08/17/2021, CTPA 08/10/2021. RESULT: Lines, tubes, and devices: None. Lungs and pleura: Clear. Persistent right hemidiaphragm elevation and right basilar atelectasis/scar . Cardiomediastinal silhouette: Stable. Other: No acute osseous or upper abdominal finding. IMPRESSION: No acute cardiopulmonary process. Reviewed, dictated and finalized at location K. R INSTALLER PV
--- NOTE | ~2022-09-05 | US_ITS ---
Duplex Sonography of the left extremity: Indication: Pain Findings: Sagittal and transverse B-mode images as well as color-flow imaging were performed on the l eft femoral and popliteal veins. B-mode examination was done without and with compression in the tra nsverse plane. There is good visualization of the common femoral, proximal profunda femoral, superfi cial femoral, greater saphenous, and popliteal veins. Normal flow was seen on color-flow imaging. No rmal compressibility was demonstrated. Left posterior tibial veins also patent. Left peroneal vein no t visualized. Impression: No evidence of deep vein thrombosis in the visualized left lower extremity veins. Reviewed, dictated and finalized at location M. OSITION PLAYER Impression: No evidence of deep vein thrombosis in the visualized left lower extremity vein s.
--- NOTE | ~2022-09-05 | MR_ITS ---
MRI of the lumbar spine Clinical History: Left L5 radicular pain Technique: Axial T2-weighted images, and sagittal T1-weighted, T2-weighted, and T2 fat-sat images wer e acquired. Findings: There is no fracture or subluxation of the lumbar spine. Vertebral bodies maintain normal h eight and alignment. There are reactive marrow signal changes about the L4-L5 disc space due to under lying degenerative disc disease. At L1-L2 and L2-L3, there is no disc bulge or herniation. There are mild facet joint degenerative micheal nges. No spinal canal stenosis or neural foraminal narrowing at these levels. At L3-L4, there is no disc bulge or herniation. There is mild facet arthropathy. No spinal canal sten osis or neural foraminal narrowing. At L4-L5, there is degenerative disc narrowing with diffuse disc bulge. There is mild facet arthropat hy. No spinal canal stenosis. There is minimal left neural foraminal narrowing. At L5-S1, there is no disc bulge or herniation. No spinal canal stenosis or neural foraminal narrowin g. Impression: Minimal degenerative spondylosis, as detailed above. Probable minimal left neural foraminal narrowing at L4-L5. Reviewed, dictated and finalized at location . T COMPUTER Impression: Minimal degenerative spondylosis, as detailed above. Probable minimal left neur al foraminal narrowing at L4-L5.
--- NOTE | 2022-09-05 21:15 | ECG_ITS ---
Measurements Intervals [place] Rate: 111 P: 26 CO: 148 QRS: 1 QRSD: 90 T: -5 QT: 322 QTc: 439 Interpretive Statements SINUS TACHYCARDIA NONSPECIFIC ST AND T-WAVE ABNORMALITY POOR R-WAVE PROGRESSION ABNORMAL ECG COMPARED TO ECG 08/10/2021 19:14:[address] NOW PRESENT [address] (T WAVE) DEVIATION NOW PRESENT Electronically Signed On 09-06-2022 10:08:46 MICROBIOLOGY LAB ASSISTANT by Bill Pacheco M.D.
--- NOTE | 2022-09-05 21:37 | ED.GENADULT ---
HPI - General Adult General Chief complaint: Shortness of Breath/Dyspnea Stated complaint: SOB/ L Leg swelling Time Seen by Provider: 09/05/22 21:28 Source: RN notes reviewed History of Present Illness HPI narrative: Patient presents emergency department from home for shortness of breath. Patient states that shortness of breath began approximately 3 days ago.. Shortness of breath is worse with ambulation and any movement is improved with rest but still feels short of breath at rest. States she has had a mild cough this been nonproductive she denies any fevers or chills or chest pain denies any abdominal pain nausea or vomiting. States she has been having some swelling in her left leg. Patient states she has a history of CHF and is followed by the [facility] care [facility]. Also states she has a history of pulmonary hypertension and is followed by Dr. Root. States she does not have a history of pulmonary embolism denies any use of blood thinners Related Data Home Medications Medication Instructions Recorded Confirmed calcium carbonate 500 mg-vitamin 1 tablet PO BID 09/19/21 05/29/22 D3 5 mcg (200 unit) tablet (Oyster Shell Calcium-Vitamin D3) escitalopram oxalate 10 mg tablet 10 mg PO DAILY 09/19/21 05/29/22 Allergies Allergy/AdvReac Type Severity Reaction Status Date / Time No Known Allergies Allergy Verified 09/05/22 21:42 Review of Systems Review of Systems: Gen.: Denies fevers or chills ENT: Denies congestion Respiratory: See HPI CV: Denies chest pain or palpitations GI: Denies abdominal pain nausea, emesis or diarrhea Musculoskeletal: Denies back pain or muscle pain reports left leg swelling Neuro: Denies numbness, tingling, weakness or focal weakness Skin: Denies rash Except as documented, all other systems reviewed and negative [facility] Past Medical History Medical History Alcohol abuse Anal polyp s/p removal Anxiety B12 deficiency Cervical cancer s/p hysterectomy Colon cancer screening Congestive heart failure Echocardiogram 04/2021: EF 65-70%, mild LVH, diastolic dysfunction grade 1, severe pulmonary hypertension, mildly enlarged right ventricular chamber Depression Diverticulitis Duodenal ulcer Essential hypertension Hemorrhoids Morbid obesity Post-nasal drip Rectocele s/p intervention x2 RUQ pain Severe pulmonary hypertension Vitamin D deficiency Surgical History Surgical History History of esophagogastroduodenoscopy (EGD) (04/2021) Hiatal hernia, gastritis, duodenal ulcer performed by Dr. Lamar History of hysterectomy Hx of laparoscopic gastric banding Family History Family History Mother Hypertension Familial primary pulmonary hypertension Carcinoma of colon Sibling Family history of irritable bowel syndrome Father Family history of congestive heart failure Other Family history of cardiovascular disease Family history of malignant neoplasm Social History Social History Social History: Ms. Abdalla reports that she lives at home with her son. She has 2 children. She reports that she drinks alcohol 4-5x per week and has 4-5 mixed drinks when she drinks. She denies tobacco use and other illicit substance use. 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 She wishes to be a full code. Smoking status: Never smoker Alcohol intake: current Drinks per week: 6 Substance use: never Substance use type: does not use Living arrangements: with family Gender identity (if verbalized by the patient): Female Spiritual care concerns: No Exam Narrative: APPEARANCE: No acute distress, nontoxic, resting in bed EYES: EOMI HEENT: Normocephalic, atraumatic, OMM RESPIRATORY: No respiratory distress Clear to auscultation bilaterally with
--- NOTE | 2022-09-05 21:37 | PC.NURSE ---
pt. also reports R lower leg swelling and pain. as well as increased urgency to urinate but reports little urine output.
[2022-09-05 21:58] LABS: Basophils Absolute Auto 0.1 K/mm3 (0.0-0.1); Basophils Percent Auto 0.6 % (0.2-1.2); Eosinophils Absolute Auto 0.1 K/mm3 (0-0.3); Eosinophils Percent Auto 0.7 % (0-4.4); Hematocrit 31.6 % (37.0-47.0); Hemoglobin 11.2 g/dL (12.0-15.0); Immature Granulocyte Absolute 0.15 K/mm3 (0.00-0.031); Immature Granulocyte Percent A 1.9 % (0-0.5); Lymphocytes Absolute Auto 1.09 K/mm3 (0.9-3.2); Lymphocytes Percent Auto 13.5 % (18.3-44.2); Mean Corpuscular HGB Conc 35.4 g/dl (32-36); Mean Corpuscular Hemoglobin 38.6 pg (26-34); Mean Platelet Volume 9.5 fl (7.4-10.4); Monocytes Absolute Auto 0.6 K/mm3 (0.1-0.6); Monocytes Percent Auto 7.8 % (2.6-8.5); Neutrophils Absolute Auto 6.1 K/mm3 (1.3-6.7); Neutrophils Percent Auto 75.5 % (45.5-73.1); Platelet Count Result 219 k/mm3 (150-375); White Blood Count 8.1 K/mm3 (4.5-10.0)
[2022-09-05 22:09] LABS: Partial Thromboplastin Time 22.9 SECONDS (22.3-36.8)
[2022-09-05 22:22] LABS: Macrocytosis 1+ (NORMAL); Platelet Estimate Adequate (Adequate)
[2022-09-05 22:23] LABS: Hypochromasia 1+ (NORMAL); Schistocytes None Seen (NORMAL); Stomatocytes 2+ (NORMAL)
[2022-09-05 22:34] LABS: Influenza A QL RT-PCR Negative (Negative); Influenza B QL RT-PCR Negative (Negative); SARS-CoV-2 RNA PCR Negative
[2022-09-05 22:43] LABS: Alanine Aminotransferase 21 U/L (6-35); Albumin Level 3.6 g/dL (3.5-5.1); Alkaline Phosphatase 75 U/L (38-126); Anion Gap 8 mmol/L (8-16); Aspartate Amino Transferase 36 U/L (14-36); Bilirubin,Total 0.7 mg/dL (0.2-1.3); Blood Urea Nitrogen 10 mg/dL (7-17); Calcium 8.2 mg/dL (8.4-10.2); Carbon Dioxide 33 mmol/L (22-30); Chloride 87 mmol/L (98-107); Estimated Glomerular Filt Rate > 60; Glucose 114 mg/dL (65-110); Potassium 2.9 mmol/L (3.4-5.0); Sodium 128 mmol/L (137-145)
[2022-09-05 22:48] LABS: NT Pro B Type Natriuretic Pept 115 pg/mL (19.9-100); Troponin I < 0.012 ng/mL (0.000-0.034)
[2022-09-05 23:13] LABS: Alveolar/Arterial O2 Gradient 37.7 mmHg; Base Excess ABG 6.6 mEq/l (+/-2.0); Carboxyhemoglobin 0.6 % THb (0-2.0); Fractional Inspired Oxygen 21 %; HCO3 ABG 30.3 mEq/l (22.0-26.0); Methemoglobin ABG 0.2 %THb (0-1.5); Oxygen Content ABG 15.1 %vol (16.0-22.0); Oxygen Saturation ABG 94.3 % (95.0-100.0); Oxyhemoglobin 91.6 % THb (90.0-100.0); PCO2 ABG 39.6 mmHg (35.0-45.0); PO2 ABG 64.6 mmHg (80.0-100.0); PO2 FiO2 Ratio Arterial Blood 3.08 %; Reduced Hemoglobin 7.6 %THb (0-5.0); Total Hemoglobin 11.7 g/dL (12.0-18.0)
[2022-09-05 23:16] LABS: Modified Allen's Test Pass; Site Drawn RIGHT RADIAL; pH ABG 7.501 (7.350-7.450)
[2022-09-05 23:17] LABS: Device ROOM AIR
[2022-09-05] MEDS: POTASSIUM CHLORIDE 20 MEQ TABLET 40 MEQ PO (23:29)
[2022-09-05 23:36] LABS: Magnesium 1.4 mg/dL (1.6-2.3)
[2022-09-05] MEDS: MAGNESIUM SULF 2 GM/WATER 50ML 2 GM/50 ML BAG IVPB (23:44)
[2022-09-06] VITALS (18 sets, daily range): BP systolic 104–125; BP diastolic 55–85; PULSE 78–109; RESP 18–33; TEMP 36.8; O2SAT 90–100; BMI 45.6
--- NOTE | 2022-09-06 07:08 | PC.NURSE ---
Assumed care of pt, pt is alert and upright w/ VSS. Pt on 3 L NC O2. Discussed POC and given update. No request at this time.
--- NOTE | 2022-09-06 07:19 | PC.NURSE ---
Called dietary and ordered breakfast tray for pt, requested it to be sent to room 242.
[2022-09-06] MEDS: FOLIC ACID 1 MG TABLET PO (08:12)
[2022-09-06] MEDS: POTASSIUM CHLORIDE 20 MEQ TABLET 40 MEQ PO (08:12)
[2022-09-06] MEDS: THIAMINE HCL 200 MG/2 ML VIAL 100 MG IV PUSH (08:12)
[2022-09-06] MEDS: MAGNESIUM SULF 4 GM/WATER100ML 4 GM/100 ML BAG IVPB (08:13)
--- NOTE | 2022-09-06 08:17 | ADMGEN ---
This patient, Rosie Abdalla, was admitted to Medical Room 242-. Patient/family oriented to hospital policies and general routines including ID bracelet, bed and alarms, visiting hours, pain management, procedures, bathroom and other care routines, personal items, smoking policy, room service/diet, and visiting hours. Information on how to activate the Rapid Response Team has been discussed. Patient/Family are encouraged to report perceived risks to care and to ask questions if they do not understand what they are told or what they should do.
[2022-09-06] MEDS: POTASSIUM CHLORIDE INJ 40 MEQ in SODIUM CHLORIDE 0.9% IV 500 ML 130 MEQ IVPB (09:17)
--- NOTE | 2022-09-06 11:30 | PM.IMHP ---
H&P: HPI History of Present Illness Date/Time: 09/06/22 1130 Chief Complaint: Shortness of breath Narrative: Patient is a 47 year old female with a past medical history of pulmonary hypertension, CHF, HTN, Diabetes who presented to the ED with complaints of shortness of breath. Patient stated that everything started about 3 days ago. Patient stated that her left foot was very swollen and was hurting then she became very short of breath with very light activity. She also stated that she was having a little bit of palpitations and diarrhea. She stated that since it all started though she feels like she has been more constipated. She she stated that she feels like she could go however when she goes to sit on the toilet nothing comes out. She also stated that she has been having issues like that with urination and has been experiencing some urgency and frequency, however is not having a lot of output. She did state that she felt her swelling was up her name and hurts with a blanket, touching. She did state that she felt like her foot and leg was warm to the touch and red. Currently her foot is stable no swelling noted no redness or heat. Currently she rates her pain a 6/10 however if she does get up on it or does anything with her leg that is a 8/10. She does wear 3L at nighttime. She states that she is post have a BiPAP however it was very expensive for her to have 1. She has also been having some dizziness when she walks. ABG showed metabolic alkalosis. PH is high however CO2 is normal HC03 is also high. CTA was performed and did not show any PE however was a suboptimal test and is recommending repeating the CTA or getting a V/Q scan. Venous Dopplers were negative bilaterally. She does endorse a cough. Currently she denies any chest pain, she does state that she is short of breath, which is worse with minimal exertion. She also stated that she has a cough, however she stated that all she gets up is clear phlegm. Electrolytes are mildly abnormal and are being replaced. Will continue to trend labs. Spoke with Dr. Root about plan of care. Currently on room air. Respiratory system stable at this time. Appears to just need electrolyte replacement at this point. She is being admitted to the hospitalist service in observation. Review of Systems Review of Systems: All systems reviewed & are unremarkable except as noted in HPI and below PMFSH Past Medical History Medical History Acute dyspnea Alcohol abuse Anal polyp s/p removal Anxiety B12 deficiency Bradycardia Cervical cancer s/p hysterectomy Congestive heart failure Echocardiogram 04/2021: EF 65-70%, mild LVH, diastolic dysfunction grade 1, severe pulmonary hypertension, mildly enlarged right ventricular chamber COVID Depression Diverticulitis Duodenal ulcer Dyspnea on exertion Essential hypertension Hemorrhoids Hypocalcemia Hypokalemia Hypoxia Mixed obstructive and restrictive ventilatory defect Morbid obesity Morbid obesity DAVIAN (obstructive sleep apnea) Ovarian cyst Pulmonary hypertension Rectocele s/p intervention x2 Severe pulmonary hypertension Vitamin D deficiency Surgical History Surgical History History of esophagogastroduodenoscopy (EGD) (04/2021) Hiatal hernia, gastritis, duodenal ulcer performed by Dr. Lamar History of hysterectomy Hx of laparoscopic gastric banding Family History Family History Mother Familial primary pulmonary hypertension Carcinoma of colon Hypertension Sibling Family history of irritable bowel syndrome Father Family history of congestive heart failure Family history of cardiovascular disease Other Family history of malignant neoplasm Social History Social History Social History:
--- NOTE | 2022-09-06 13:57 | PM.CNPUL ---
Assessment and Plan Assessment and plan (1) Pulmonary hypertension: Code(s): I27.20 - Pulmonary hypertension, unspecified Status: Acute Assessment and Plan: Last occur was July 2021, pulmonary artery pressure was 61 mm mercury. I will repeat echo since it has been over a year. echo (2) Exertional dyspnea: Code(s): R06.09 - Other forms of dyspnea Status: Acute Assessment and Plan: Not clear what patient has having significant dyspnea. Her workup so far is negative for a significant pulmonary embolus. She has mild hypoxemia and a metabolic alkalosis. I am not sure why she has metabolic alkalosis. She has multiple electrolyte abnormalities specifically hyponatremia. She had some left leg swelling which is now improved. She has some localized pain in the left foot. I am checking a uric acid level for gout. She also has a macrocytic anemia is on checking anemia workup with iron, TIBC, ferritin, B12 folic acid and TSH. Her MCV is 109, previously was normal. Donn Lyman says that she does drink several beverages a day so this could be acute alcohol effect on the bone marrow. Her saturation is now normal on room air. She does have nocturnal hypoxemia. She has obstructive sleep apnea but apparently quit using BiPAP due to the cost. Untreated obstructive sleep apnea can worsen pulmonary hypertension but does not cause severe pulmonary hypertension on its own. History of Present Illness History of Present Illness Consult date: 09/06/22 Requesting physician: Nilesh Lyman APN-C Chief complaint: pulmonary hypertension,extional dyspnea,edema Narrative: patient was seen 09/06/2022 at 13:40 NEW: Rosie Abdalla is a 47-year-old woman followed in out clinic last visit was 12/03/2021, presents to the emergency department overnight with increased shortness of breath with left leg pain and swelling, was admitted for observation status. She has nocturnal hypoxemia, wears oxygen at night, pulmonary hypertension, hypertension, diabetes and congestive heart failure. She was in her usual state of health till 3 days ago when her left foot began to swell and become very tender, accompanied by increased shortness of breath with limited activity. She did not have any injury on the left foot. Her left leg became swollen to 3 times its normal size however on exam right now it is only slightly larger than the right leg. She also says the dorsum of the right foot is tender but not as sore as the left foot. Over the last few days she has also had difficulty with urinary urgency and frequency with decreased urine output, and cannot to empty her bladder fully. She has not started any new medications such as antihistamines. She tells me that she did not have any exposure to sick contacts, denied fever, chills, productive cough, nausea vomiting rash or joint pain. She has had some dizziness. There is no history of gout. She does not have big toe pain, just the whole foot and leg on left and top of foot right. ABG shows metabolic alkalosis, borderline hypoxemia, pO2 64, not normal. She had a CTA of the chest that did not confirm pulmonary embolus but it was read as sub optimal. She had lower extremity Dopplers that were negative for clots. Left leg pain is better. O2: She does wear 3L at nighttime.? She is not using BIPAP due to cost. DATA * 09/06/2022 CBC white blood cell count 8.1, 75% segs, hemoglobin 11.2 hematocrit 31.6 MCV is elevated 109, has always been in the normal range. * 09/06/2022 serology negative for influenza A and B, SARS-CoV-2 * 09/06/2022 ABG pH 7.50, pCO2 39, pO2 64.9, HCO3 30.3, sat 94%, carboxyhemoglobin 0.6, Room Air. * 09/06/2022 sodium 128, potassium 2.9, chloride 87, carbon dioxide 33, BUN 10, creatinine 0.7, glucose 114, calcium 8.2, magnesium 1.4, BNP 115. * 09/06/2022 LE dop
[2022-09-06] MEDS: allopurinoL 300 MG TABLET PO (14:51)
[2022-09-06] MEDS: FUROSEMIDE 40 MG TABLET PO (14:51)
[2022-09-06] MEDS: SPIRONOLACTONE 25 MG TABLET PO (14:51)
[2022-09-06] MEDS: ESCITALOPRAM OXALATE 10 MG TABLET PO (14:51)
[2022-09-06 15:01] LABS: Uric Acid 5.5 mg/dL (2.5-7.5)
[2022-09-06 18:15] LABS: Iron 100 ug/dL (37-170)
[2022-09-06 18:27] LABS: Percent Iron Saturation 25 % (20-50)
[2022-09-06 19:09] LABS: Folic Acid 4.9 ng/mL (2.76->20)
[2022-09-06] MEDS: HYDROcodone/acetaminophen (*CRX) 5-325 MG TABLET 1 TAB PO (20:51)
--- NOTE | 2022-09-07 | ECHO_ITS ---
Patient Info Name: Rosie Abdalla Age: 47 years : 1975 Gender: Female Ht: 69 in Wt: 309 lbs BSA: 2.68 m2 HR: 80 bpm BP: 133 / 82 mmHg Heart Rhythm: Sinus Rhythm Exam Date: 09/07/2022 9:00 AM Exam Location: [facility] Patient Status: Outpatient Admit Date: 09/06/2022 Staff Ordering Physician: Glenna Root MD Editorial Manager: Sravan Bernal, LELO, RT Attending Provider: Trinh Quiroz MD Referring Physician: Dk BERNARD; Exam Type: CA echo dop bubble study w con Study Info Indications J96.91 - Respiratory failure, unspecified with hypoxia R06.00 - Dyspnea, unspecified Complete two-dimentional, color flow and Doppler transthoracic echocardiogram is performed with agitated saline and with contrast to opacify the left ventricle and to improve the delineation of the left ventricle endocardial borders. Summary 1. Left ventricular chamber dimension is normal. 2. Left ventricular systolic function is normal, estimated at 60-65%. 3. There is moderately increased left ventricular wall thickness. 4. The left ventricular diastolic function is normal. 5. Left atrial chamber dimension is mildly enlarged. 6. Right ventricular chamber dimension is mildly enlarged. 7. There is mild tricuspid valve regurgitation. 8. Intact interatrial septum visualized by color flow and agitated saline imaging. Left Ventricle Left ventricular chamber dimension is normal. Left ventricular systolic function is normal, estimated at 60-65%. There is moderately increased left ventricular wall thickness. The left ventricular diastolic function is normal. Right Ventricle Right ventricular chamber dimension is mildly enlarged. Right ventricular systolic function is normal. Left Atria Left atrial chamber dimension is mildly enlarged. Right Atria Right atrial chamber dimension is normal. Atrial Septum Intact interatrial septum visualized by color flow and agitated saline imaging. Aortic Valve The aortic valve is trileaflet. There is mild aortic valve sclerosis. There is no aortic valve stenosis. There is trace aortic valve regurgitation. Pulmonic Valve The pulmonic valve is normal. There is no pulmonic valve stenosis. There is trace pulmonic regurgitation. Mitral Valve The mitral valve has normal leaflets. There is no mitral valve stenosis. There is trace mitral valve regurgitation. Tricuspid Valve The tricuspid valve leaflets are normal. There is no significant tricuspid valve stenosis. There is mild tricuspid valve regurgitation. Pericardium/Pleural The pericardium appears normal. There is no pericardial effusion. Inferior Vena Cava Normal inferior vena cava with >50% collapse upon inspiration consistent with normal right atrial pressure, 5 mmHg. Aorta The aortic root size at the sinus of Valsalva is normal. The prox ascending aorta size is normal. Left Ventricular Outflow Tract Name Value Normal LVOT 2D LVOT Diameter 2.0 cm LVOT Doppler LVOT Peak Gradient 5 mmHg LVOT Mean Gradient 2 mmHg LVOT VTI
[2022-09-07 04:35] VITALS: BP 133/82; PULSE 66; RESP 18; TEMP 37.1; O2SAT 100
[2022-09-07 05:13] LABS: Basophils Absolute Auto 0.1 K/mm3 (0.0-0.1); Eosinophils Absolute Auto 0.1 K/mm3 (0-0.3); Eosinophils Percent Auto 1.8 % (0-4.4); Hemoglobin 10.1 g/dL (12.0-15.0); Immature Granulocyte Absolute 0.11 K/mm3 (0.00-0.031); Immature Granulocyte Percent A 2.2 % (0-0.5); Lymphocytes Absolute Auto 1.59 K/mm3 (0.9-3.2); Lymphocytes Percent Auto 31.2 % (18.3-44.2); Mean Corpuscular HGB Conc 33.7 g/dl (32-36); Mean Corpuscular Hemoglobin 38.5 pg (26-34); Mean Corpuscular Volume 114.5 fl (80-100); Mean Platelet Volume 9.5 fl (7.4-10.4); Monocytes Absolute Auto 0.5 K/mm3 (0.1-0.6); Monocytes Percent Auto 10.4 % (2.6-8.5); Neutrophils Absolute Auto 2.7 K/mm3 (1.3-6.7); Neutrophils Percent Auto 53.4 % (45.5-73.1); Nucleated Red Blood Cells Perc 0.4 % (0.0-0.2); Platelet Count Result 188 k/mm3 (150-375); Red Blood Count 2.62 M/mm3 (4.2-5.4); White Blood Count 5.1 K/mm3 (4.5-10.0)
[2022-09-07 05:28] LABS: Alanine Aminotransferase 20 U/L (6-35); Albumin Level 3.5 g/dL (3.5-5.1); Alkaline Phosphatase 74 U/L (38-126); Anion Gap 2 mmol/L (8-16); Aspartate Amino Transferase 34 U/L (14-36); Bilirubin,Total 0.6 mg/dL (0.2-1.3); Blood Urea Nitrogen 9 mg/dL (7-17); Calcium 7.8 mg/dL (8.4-10.2); Carbon Dioxide 38 mmol/L (22-30); Chloride 87 mmol/L (98-107); Estimated CRCL calculation 146 ml/min; Estimated Glomerular Filt Rate > 60; Glucose 109 mg/dL (65-110); Potassium 3.1 mmol/L (3.4-5.0); Sodium 127 mmol/L (137-145)
[2022-09-07] MEDS: HYDROcodone/acetaminophen (*CRX) 5-325 MG TABLET 1 TAB PO ×2 (06:09→13:14)
[2022-09-07 06:45] LABS: Anisocytosis 1+ (NORMAL); Macrocytosis 1+ (NORMAL); Platelet Estimate Adequate (Adequate); Schistocytes None Seen (NORMAL); Stomatocytes 1+ (NORMAL)
[2022-09-07 07:30] LABS: Folic Acid 4.9 ng/mL (2.76->20)
[2022-09-07] MEDS: PERFLUTREN LIPID MICROSPHERES 1.5 ML VIAL DILUTED TO 10 ML TOTAL VOLUME IV PUSH (09:32)
--- NOTE | 2022-09-07 09:32 | IVDEFINITY ---
Prior to administration of IV Definity the patient was educated on the risks and benefits of the imaging enhancing agent including potential adverse side effects. The patient verbalized understanding. Allergies were verified. No exclusion criteria were identified and at least one of the following inclusion criteria were met: 1) physician request, 2) patient technically difficult to image (per the [place] [employer] guidelines of two or more segments not discernable within the apical view), or 3) questionable left ventricular function. ?
--- NOTE | 2022-09-07 09:43 | PC.NURSE ---
echocardiogram in progress, will administer meds once test in complete
[2022-09-07] MEDS: FUROSEMIDE 40 MG TABLET PO (09:59)
[2022-09-07] MEDS: lisinopriL 20 MG TABLET 40 MG PO (09:59)
[2022-09-07] MEDS: SPIRONOLACTONE 25 MG TABLET PO (09:59)
[2022-09-07] MEDS: FOLIC ACID 1 MG TABLET PO (09:59)
[2022-09-07] MEDS: allopurinoL 300 MG TABLET PO (09:59)
[2022-09-07] MEDS: ESCITALOPRAM OXALATE 10 MG TABLET PO (09:59)
[2022-09-07] MEDS: THIAMINE HCL 200 MG/2 ML VIAL 100 MG IV PUSH (10:00)
[2022-09-07] MEDS: ENOXAPARIN 40 MG/0.4 ML SYRINGE SUB-Q (10:00)
--- NOTE | 2022-09-07 13:45 | P.PNIM_ITS ---
Progress Note: A&P Assessment and Plan (1) Severe pulmonary hypertension: Code(s): I27.20 - Pulmonary hypertension, unspecified Status: Acute Assessment and Plan: * Echo from 08/2022 echo shows normal EF of 60-65% and normal diastolic * no heart failure noted * Pulmonary consulted thank you for your help * Echo does not really indicate any pulmonary hypertension with a Rt Atrial pressure of 5 (2) Exertional dyspnea: Code(s): R06.09 - Other forms of dyspnea Status: Acute Assessment and Plan: * Shortness of breath noted with minimal exertion * continue supplemental oxygen as indicated * Trend respiratory status (3) Acute respiratory failure with hypoxia: Code(s): J96.01 - Acute respiratory failure with hypoxia Status: Acute Assessment and Plan: * Blood gas pH 7.501, CO2 39.6, O2 64.6, HCO3 30.3, O2 Sat 94.3 * Respiratory alkalosis * Continue supplemental oxygen, wean to maintain saturations >90% * Trend respiratory status * Pulmonary on board (4) Hyponatremia: Code(s): E87.1 - Hypo-osmolality and hyponatremia Status: Acute Assessment and Plan: * NA 127 currently * Start patient on NS at 100ml/hr. * Seems that this could be related to diarrhea * Continue to trend * Adjust therapy as indicated * Consider nephrology if worsening (5) Acute hypokalemia: Code(s): E87.6 - Hypokalemia Status: Acute Assessment and Plan: * K is 3.1 * Supplement with 100meq x1 * Continue to trend labs * Supplement as indicated (6) Hypomagnesemia: Code(s): E83.42 - Hypomagnesemia Status: Acute Assessment and Plan: * Mag is 1.4, recheck in the am * Supplement with 4gm * Probably related to ETOH abuse * Continue to trend labs * Supplement as indicated (7) Alcohol abuse: Code(s): F10.10 - Alcohol abuse, uncomplicated Status: Acute Assessment and Plan: * CIWA protocol * Thiamine and folic acid * Librium and ativan ordered * Trend CIWA scores * Adjust therapy as indicated (8) Essential hypertension: Code(s): I10 - Essential (primary) hypertension Status: Chronic Assessment and Plan: * 102/60 currently * Continue home lisinopril 40mg PO daily * Trend BP * Adjust therapy as indicated (9) Neuropathy: Code(s): G62.9 - Polyneuropathy, unspecified Status: Acute Assessment and Plan: * Complains of a shooting pain in the left foot shooting up to the knee * Gabapentin started * Trend symptoms * Adjust therapy as indicated Time Spent With Patient Time: 48 minutes Time with patient: Greater than 35 minutes Subjective Date/time seen: 09/07/22 1345 Interval history: 09/07/22 134 Patient seems to be resting well. Patient stated that she still having lots of pain in her left foot that shoots up into her knee. Currently she denies any chest pain, nausea, vomiting, diarrhea or constipation. She did state that she was still is having some shortness of breath. Echo is normal. Will start patient on gabapentin. 09/06/22? 1130 Patient is a 47 year old female
--- NOTE | 2022-09-07 13:45 | PM.IMPN ---
Progress Note: A&P Assessment and Plan (1) Severe pulmonary hypertension: Code(s): I27.20 - Pulmonary hypertension, unspecified Status: Acute Assessment and Plan: Echo from 08/2022 echo shows normal EF of 60-65% and normal diastolic no heart failure noted Pulmonary consulted thank you for your help Echo does not really indicate any pulmonary hypertension with a Rt Atrial pressure of 5 (2) Exertional dyspnea: Code(s): R06.09 - Other forms of dyspnea Status: Acute Assessment and Plan: Shortness of breath noted with minimal exertion continue supplemental oxygen as indicated Trend respiratory status (3) Acute respiratory failure with hypoxia: Code(s): J96.01 - Acute respiratory failure with hypoxia Status: Acute Assessment and Plan: Blood gas pH 7.501, CO2 39.6, O2 64.6, HCO3 30.3, O2 Sat 94.3 Respiratory alkalosis Continue supplemental oxygen, wean to maintain saturations >90% Trend respiratory status Pulmonary on board (4) Hyponatremia: Code(s): E87.1 - Hypo-osmolality and hyponatremia Status: Acute Assessment and Plan: NA 127 currently Start patient on NS at 100ml/hr. Seems that this could be related to diarrhea Continue to trend Adjust therapy as indicated Consider nephrology if worsening (5) Acute hypokalemia: Code(s): E87.6 - Hypokalemia Status: Acute Assessment and Plan: K is 3.1 Supplement with 100meq x1 Continue to trend labs Supplement as indicated (6) Hypomagnesemia: Code(s): E83.42 - Hypomagnesemia Status: Acute Assessment and Plan: Mag is 1.4, recheck in the am Supplement with 4gm Probably related to ETOH abuse Continue to trend labs Supplement as indicated (7) Alcohol abuse: Code(s): F10.10 - Alcohol abuse, uncomplicated Status: Acute Assessment and Plan: CIWA protocol Thiamine and folic acid Librium and ativan ordered Trend CIWA scores Adjust therapy as indicated (8) Essential hypertension: Code(s): I10 - Essential (primary) hypertension Status: Chronic Assessment and Plan: 102/60 currently Continue home lisinopril 40mg PO daily Trend BP Adjust therapy as indicated (9) Neuropathy: Code(s): G62.9 - Polyneuropathy, unspecified Status: Acute Assessment and Plan: Complains of a shooting pain in the left foot shooting up to the knee Gabapentin started Trend symptoms Adjust therapy as indicated Time Spent With Patient Time: 48 minutes Time with patient: Greater than 35 minutes Subjective Date/time seen: 09/07/22 1345 Interval history: 09/07/22 1345 Patient seems to be resting well. Patient stated that she still having lots of pain in her left foot that shoots up into her knee. Currently she denies any chest pain, nausea, vomiting, diarrhea or constipation. She did state that she was still is having some shortness of breath. Echo is normal. Will start patient on gabapentin. 09/06/22? 1130 Patient is a 47 year old female with a past medical history of pulmonary hypertension, CHF, HTN, Diabetes who presented to the ED with complaints of shortness of breath.? Patient stated that everything started about 3 days ago.? Patient stated that her left foot was very swollen and was hurting then she became very short of breath with very light activity.? She also stated that she was having a little bit of palpitations and diarrhea.? She stated that since it all started though she feels like she has been more constipated.? She she stated that she feels like she could go however when she goes to sit on the toilet nothing comes out.? She also stated that she has been having issues like that with urination and has been experiencing some urgency and frequenc
[2022-09-07 13:51] VITALS: BP 102/60; PULSE 90; RESP 18; TEMP 36.8; O2SAT 95
[2022-09-07] MEDS: SODIUM CHLORIDE 0.9% IV 1,000 ML 100 ML IV CONT (16:26)
[2022-09-07] MEDS: POTASSIUM CHLORIDE 20 MEQ TABLET 100 MEQ PO (16:27)
[2022-09-07] MEDS: GABAPENTIN 100 MG CAPSULE PO ×2 (16:28→20:14)
[2022-09-07 20:00] VITALS: BP 121/74; PULSE 80; RESP 16; O2SAT 95
[2022-09-07 21:04] VITALS: BP 121/74; PULSE 80; RESP 16; TEMP 37.1; O2SAT 95
[2022-09-08] VITALS: BP 121/74
[2022-09-08 03:11] VITALS: BP 121/74
[2022-09-08] MEDS: SODIUM CHLORIDE 0.9% IV 1,000 ML 100 ML IV CONT (04:10)
[2022-09-08 05:37] LABS: Basophils Absolute Auto 0.1 K/mm3 (0.0-0.1); Basophils Percent Auto 1.3 % (0.2-1.2); Eosinophils Absolute Auto 0.1 K/mm3 (0-0.3); Eosinophils Percent Auto 1.6 % (0-4.4); Hematocrit 28.3 % (37.0-47.0); Hemoglobin 9.3 g/dL (12.0-15.0); Immature Granulocyte Absolute 0.13 K/mm3 (0.00-0.031); Immature Granulocyte Percent A 2.1 % (0-0.5); Lymphocytes Absolute Auto 1.68 K/mm3 (0.9-3.2); Lymphocytes Percent Auto 27.6 % (18.3-44.2); Mean Corpuscular HGB Conc 32.9 g/dl (32-36); Mean Corpuscular Hemoglobin 38.3 pg (26-34); Mean Corpuscular Volume 116.5 fl (80-100); Mean Platelet Volume 9.5 fl (7.4-10.4); Monocytes Absolute Auto 0.9 K/mm3 (0.1-0.6); Monocytes Percent Auto 14.1 % (2.6-8.5); Neutrophils Absolute Auto 3.2 K/mm3 (1.3-6.7); Neutrophils Percent Auto 53.3 % (45.5-73.1); Nucleated Red Blood Cells Perc 0.3 % (0.0-0.2); Platelet Count Result 190 k/mm3 (150-375); Red Blood Count 2.43 M/mm3 (4.2-5.4); White Blood Count 6.1 K/mm3 (4.5-10.0)
[2022-09-08 05:51] LABS: Alanine Aminotransferase 19 U/L (6-35); Albumin Level 3.2 g/dL (3.5-5.1); Alkaline Phosphatase 62 U/L (38-126); Anion Gap 4 mmol/L (8-16); Aspartate Amino Transferase 30 U/L (14-36); Bilirubin,Total 0.4 mg/dL (0.2-1.3); Blood Urea Nitrogen 12 mg/dL (7-17); Calcium 7.8 mg/dL (8.4-10.2); Carbon Dioxide 35 mmol/L (22-30); Chloride 95 mmol/L (98-107); Estimated CRCL calculation 127 ml/min; Estimated Glomerular Filt Rate > 60; Glucose 101 mg/dL (65-110); Magnesium 1.9 mg/dL (1.6-2.3); Potassium 3.9 mmol/L (3.4-5.0); Sodium 134 mmol/L (137-145)
[2022-09-08 06:00] VITALS: BP 132/80; PULSE 79; RESP 20; TEMP 36.7; O2SAT 99
[2022-09-08] MEDS: GABAPENTIN 100 MG CAPSULE PO ×3 (06:16→21:03)
[2022-09-08] MEDS: HYDROcodone/acetaminophen (*CRX) 5-325 MG TABLET 1 TAB PO ×2 (08:49→20:14)
[2022-09-08] MEDS: FOLIC ACID 1 MG TABLET PO (08:50)
[2022-09-08] MEDS: SPIRONOLACTONE 25 MG TABLET PO (08:50)
[2022-09-08] MEDS: ESCITALOPRAM OXALATE 10 MG TABLET PO (08:50)
[2022-09-08] MEDS: lisinopriL 20 MG TABLET 40 MG PO (08:50)
[2022-09-08] MEDS: ENOXAPARIN 40 MG/0.4 ML SYRINGE SUB-Q (08:51)
[2022-09-08] MEDS: THIAMINE HCL 200 MG/2 ML VIAL 100 MG IV PUSH (08:51)
[2022-09-08] MEDS: allopurinoL 300 MG TABLET PO (08:51)
--- NOTE | 2022-09-08 09:00 | P.PNIM_ITS ---
Progress Note: A&P Assessment and Plan (1) Severe pulmonary hypertension: Code(s): I27.20 - Pulmonary hypertension, unspecified Status: Acute Assessment and Plan: * Echo from 08/2022 echo shows normal EF of 60-65% and normal diastolic * no heart failure noted * Pulmonary consulted thank you for your help * Echo does not really indicate any pulmonary hypertension with a Rt Atrial pressure of 5 * Apnea link for tonight to see if she desats (2) Exertional dyspnea: Code(s): R06.09 - Other forms of dyspnea Status: Acute Assessment and Plan: * Shortness of breath noted with minimal exertion * continue supplemental oxygen as indicated * Trend respiratory status * Weight and lifestyle are probably contributing to the dyspnea * Education about life style changes and weight loss given (3) Acute respiratory failure with hypoxia: Code(s): J96.01 - Acute respiratory failure with hypoxia Status: Acute Assessment and Plan: * Blood gas pH 7.501, CO2 39.6, O2 64.6, HCO3 30.3, O2 Sat 94.3 * Respiratory alkalosis * Continue supplemental oxygen, wean to maintain saturations >90% * Trend respiratory status * Pulmonary on board (4) Hyponatremia: Code(s): E87.1 - Hypo-osmolality and hyponatremia Status: Acute Assessment and Plan: * NA 127 currently 134 * Should be ok to stop NS at 100ml/hr. * Seems that this could be related to diarrhea * Continue to trend * Adjust therapy as indicated * Consider nephrology if worsening (5) Acute hypokalemia: Code(s): E87.6 - Hypokalemia Status: Acute Assessment and Plan: * K is 3.9 * Continue to trend labs * Supplement as indicated (6) Hypomagnesemia: Code(s): E83.42 - Hypomagnesemia Status: Acute Assessment and Plan: * Mag is 1.9 today * Supplement with 4gm * Probably related to ETOH abuse * Continue to trend labs * Supplement as indicated (7) Alcohol abuse: Code(s): F10.10 - Alcohol abuse, uncomplicated Status: Acute Assessment and Plan: * CIWA protocol * Thiamine and folic acid * Librium and ativan ordered * Trend CIWA scores * Adjust therapy as indicated * Cessation education given (8) Essential hypertension: Code(s): I10 - Essential (primary) hypertension Status: Chronic Assessment and Plan: * 132/80 currently * Continue home lisinopril 40mg PO daily * Trend BP * Adjust therapy as indicated (9) Neuropathy: Code(s): G62.9 - Polyneuropathy, unspecified Status: Acute Assessment and Plan: * Complains of a shooting pain in the left foot shooting up to the knee * Gabapentin started * Trend symptoms * Adjust therapy as indicated Plan Complaining of left ankle pain, will CT scan the left ankle, due to no signs of infection, cellulitis, or any noted osteo abnormality. Seems to be more of a neuropathy Time Spent With Patient Time: 43 minutes Time with patient: Greater than 35 minutes Subjective Date/time seen: 09/08/22899 Interval history: 09/08/22899 Patient seems to be doing ok. She does still
--- NOTE | 2022-09-08 09:00 | PM.IMPN ---
Progress Note: A&P Assessment and Plan (1) Severe pulmonary hypertension: Code(s): I27.20 - Pulmonary hypertension, unspecified Status: Acute Assessment and Plan: Echo from 08/2022 echo shows normal EF of 60-65% and normal diastolic no heart failure noted Pulmonary consulted thank you for your help Echo does not really indicate any pulmonary hypertension with a Rt Atrial pressure of 5 Apnea link for tonight to see if she desats (2) Exertional dyspnea: Code(s): R06.09 - Other forms of dyspnea Status: Acute Assessment and Plan: Shortness of breath noted with minimal exertion continue supplemental oxygen as indicated Trend respiratory status Weight and lifestyle are probably contributing to the dyspnea Education about life style changes and weight loss given (3) Acute respiratory failure with hypoxia: Code(s): J96.01 - Acute respiratory failure with hypoxia Status: Acute Assessment and Plan: Blood gas pH 7.501, CO2 39.6, O2 64.6, HCO3 30.3, O2 Sat 94.3 Respiratory alkalosis Continue supplemental oxygen, wean to maintain saturations >90% Trend respiratory status Pulmonary on board (4) Hyponatremia: Code(s): E87.1 - Hypo-osmolality and hyponatremia Status: Acute Assessment and Plan: NA 127 currently 134 Should be ok to stop NS at 100ml/hr. Seems that this could be related to diarrhea Continue to trend Adjust therapy as indicated Consider nephrology if worsening (5) Acute hypokalemia: Code(s): E87.6 - Hypokalemia Status: Acute Assessment and Plan: K is 3.9 Continue to trend labs Supplement as indicated (6) Hypomagnesemia: Code(s): E83.42 - Hypomagnesemia Status: Acute Assessment and Plan: Mag is 1.9 today Supplement with 4gm Probably related to ETOH abuse Continue to trend labs Supplement as indicated (7) Alcohol abuse: Code(s): F10.10 - Alcohol abuse, uncomplicated Status: Acute Assessment and Plan: CIWA protocol Thiamine and folic acid Librium and ativan ordered Trend CIWA scores Adjust therapy as indicated Cessation education given (8) Essential hypertension: Code(s): I10 - Essential (primary) hypertension Status: Chronic Assessment and Plan: 132/80 currently Continue home lisinopril 40mg PO daily Trend BP Adjust therapy as indicated (9) Neuropathy: Code(s): G62.9 - Polyneuropathy, unspecified Status: Acute Assessment and Plan: Complains of a shooting pain in the left foot shooting up to the knee Gabapentin started Trend symptoms Adjust therapy as indicated Plan Complaining of left ankle pain, will CT scan the left ankle, due to no signs of infection, cellulitis, or any noted osteo abnormality. Seems to be more of a neuropathy Time Spent With Patient Time: 43 minutes Time with patient: Greater than 35 minutes Subjective Date/time seen: 09/08/22899 Interval history: 09/08/22899 Patient seems to be doing ok. She does still have the pain which seems to be a nerve pain in the left foot. She stated that she does remember at halloween she tripped in a hole. She stated that she did follow up with her primary care provider who stated that she did have a spring ankle along with an avulsion however they did not do any x-rays to confirm. Also spoke to her about her alcohol abuse and her echo results. It is concerning that she complains of shortness of breath however everything seems to be pretty normal. It almost seems as if this might be a liver shunting situation due to the severe alcoholism that she does possess. Spoke to her about alcohol cessation and about being active has a sedentary lifestyle could also cause generalized pain due to lack of m
[2022-09-08 10:33] LABS: Anisocytosis 1+ (NORMAL); Platelet Estimate Adequate (Adequate); Schistocytes None Seen (NORMAL)
[2022-09-08] MEDS: FUROSEMIDE 40 MG TABLET PO (11:06)
[2022-09-08 11:36] LABS: Hemoglobin A1C 5.7 % (<5.7)
[2022-09-08 14:00] VITALS: BP 105/63; PULSE 82; RESP 18; TEMP 36.9; O2SAT 95
[2022-09-08 20:15] VITALS: BP 116/69
[2022-09-08 20:44] VITALS: BP 116/69; PULSE 87; RESP 20; TEMP 37; O2SAT 96
[2022-09-09] VITALS: BP 116/69
[2022-09-09 04:00] VITALS: BP 116/69
[2022-09-09 05:34] VITALS: BP 115/64; PULSE 60; RESP 20; TEMP 36.5; O2SAT 100
[2022-09-09] MEDS: GABAPENTIN 100 MG CAPSULE PO ×3 (05:41→21:03)
[2022-09-09] MEDS: HYDROcodone/acetaminophen (*CRX) 5-325 MG TABLET 1 TAB PO ×3 (05:42→21:03)
[2022-09-09] MEDS: ESCITALOPRAM OXALATE 10 MG TABLET PO (08:41)
[2022-09-09] MEDS: FOLIC ACID 1 MG TABLET PO (08:41)
[2022-09-09] MEDS: allopurinoL 300 MG TABLET PO (08:41)
[2022-09-09] MEDS: SPIRONOLACTONE 25 MG TABLET PO (08:41)
[2022-09-09] MEDS: FUROSEMIDE 40 MG TABLET PO (08:42)
[2022-09-09] MEDS: THIAMINE HCL 200 MG/2 ML VIAL 100 MG IV PUSH (08:42)
[2022-09-09] MEDS: lisinopriL 20 MG TABLET 40 MG PO (08:42)
[2022-09-09] MEDS: ENOXAPARIN 40 MG/0.4 ML SYRINGE SUB-Q (08:42)
--- NOTE | 2022-09-09 10:15 | P.PNIM_ITS ---
Progress Note: A&P Assessment and Plan (1) Tear of tendon of left ankle: Code(s): S96.912A - Strain of unspecified muscle and tendon at ankle and foot level, left foot, initial encounter Status: Acute Assessment and Plan: * CT shows split type tear of the peroneus brevis tendon with inflammatory changes of the peroneus longus and brevis tendons at the level of the lateral malleolus * Most likely from the injury at [facility] * Ortho consulted * Will need a wt bearing status and most likely PT * Pain medications on board * Continue to trend pain (2) Severe pulmonary hypertension: Code(s): I27.20 - Pulmonary hypertension, unspecified Status: Acute Assessment and Plan: * Echo from 08/2022 echo shows normal EF of 60-65% and normal diastolic * no heart failure noted * Pulmonary consulted thank you for your help * Echo does not really indicate any pulmonary hypertension with a Rt Atrial pressure of 5 * Apnea link for tonight to see if she desats (3) Exertional dyspnea: Code(s): R06.09 - Other forms of dyspnea Status: Acute Assessment and Plan: * Shortness of breath noted with minimal exertion * continue supplemental oxygen as indicated * Trend respiratory status * Weight and lifestyle are probably contributing to the dyspnea * Education about life style changes and weight loss given (4) Acute respiratory failure with hypoxia: Code(s): J96.01 - Acute respiratory failure with hypoxia Status: Acute Assessment and Plan: * Blood gas pH 7.501, CO2 39.6, O2 64.6, HCO3 30.3, O2 Sat 94.3 * Respiratory alkalosis * Continue supplemental oxygen, wean to maintain saturations >90% * Trend respiratory status * Pulmonary on board (5) Hyponatremia: Code(s): E87.1 - Hypo-osmolality and hyponatremia Status: Acute Assessment and Plan: * NA 127 currently 129 * Seems that this could be related to diarrhea * Continue to trend * Adjust therapy as indicated * Consider nephrology if worsening (6) Acute hypokalemia: Code(s): E87.6 - Hypokalemia Status: Acute Assessment and Plan: * K is 3.6 * Continue to trend labs * Supplement as indicated (7) Hypomagnesemia: Code(s): E83.42 - Hypomagnesemia Status: Acute Assessment and Plan: * Mag is 1.6 today * Supplement with 4gm again * Probably related to ETOH abuse * Continue to trend labs * Supplement as indicated (8) Alcohol abuse: Code(s): F10.10 - Alcohol abuse, uncomplicated Status: Acute Assessment and Plan: * CIWA protocol * Thiamine and folic acid * Librium and ativan ordered * Trend CIWA scores * Adjust therapy as indicated * Cessation education given (9) Essential hypertension: Code(s): I10 - Essential (primary) hypertension Status: Chronic Assessment and Plan: * 115/64 currently * Continue home lisinopril 40mg PO daily * Trend BP * Adjust therapy as indicated (10) Neuropathy: Code(s): G62.9 - Polyneuropathy, unspecified Status: Acute Assessment and Plan: * Complains of a shooting pain in the left foot shooting up to the knee * Bon
--- NOTE | 2022-09-09 10:15 | PM.IMPN ---
Progress Note: A&P Assessment and Plan (1) Tear of tendon of left ankle: Code(s): S96.912A - Strain of unspecified muscle and tendon at ankle and foot level, left foot, initial encounter Status: Acute Assessment and Plan: CT shows split type tear of the peroneus brevis tendon with inflammatory changes of the peroneus longus and brevis tendons at the level of the lateral malleolus Most likely from the injury at [facility] Ortho consulted Will need a wt bearing status and most likely PT Pain medications on board Continue to trend pain (2) Severe pulmonary hypertension: Code(s): I27.20 - Pulmonary hypertension, unspecified Status: Acute Assessment and Plan: Echo from 08/2022 echo shows normal EF of 60-65% and normal diastolic no heart failure noted Pulmonary consulted thank you for your help Echo does not really indicate any pulmonary hypertension with a Rt Atrial pressure of 5 Apnea link for tonight to see if she desats (3) Exertional dyspnea: Code(s): R06.09 - Other forms of dyspnea Status: Acute Assessment and Plan: Shortness of breath noted with minimal exertion continue supplemental oxygen as indicated Trend respiratory status Weight and lifestyle are probably contributing to the dyspnea Education about life style changes and weight loss given (4) Acute respiratory failure with hypoxia: Code(s): J96.01 - Acute respiratory failure with hypoxia Status: Acute Assessment and Plan: Blood gas pH 7.501, CO2 39.6, O2 64.6, HCO3 30.3, O2 Sat 94.3 Respiratory alkalosis Continue supplemental oxygen, wean to maintain saturations >90% Trend respiratory status Pulmonary on board (5) Hyponatremia: Code(s): E87.1 - Hypo-osmolality and hyponatremia Status: Acute Assessment and Plan: NA 127 currently 129 Seems that this could be related to diarrhea Continue to trend Adjust therapy as indicated Consider nephrology if worsening (6) Acute hypokalemia: Code(s): E87.6 - Hypokalemia Status: Acute Assessment and Plan: K is 3.6 Continue to trend labs Supplement as indicated (7) Hypomagnesemia: Code(s): E83.42 - Hypomagnesemia Status: Acute Assessment and Plan: Mag is 1.6 today Supplement with 4gm again Probably related to ETOH abuse Continue to trend labs Supplement as indicated (8) Alcohol abuse: Code(s): F10.10 - Alcohol abuse, uncomplicated Status: Acute Assessment and Plan: CIWA protocol Thiamine and folic acid Librium and ativan ordered Trend CIWA scores Adjust therapy as indicated Cessation education given (9) Essential hypertension: Code(s): I10 - Essential (primary) hypertension Status: Chronic Assessment and Plan: 115/64 currently Continue home lisinopril 40mg PO daily Trend BP Adjust therapy as indicated (10) Neuropathy: Code(s): G62.9 - Polyneuropathy, unspecified Status: Acute Assessment and Plan: Complains of a shooting pain in the left foot shooting up to the knee Gabapentin started Trend symptoms Adjust therapy as indicated Time Spent With Patient Time: 53 minutes Time with patient: Greater than 35 minutes Subjective Date/time seen: 09/09/22 1015 Interval history: 09/09/22 1015 Patient is lying in bed. Patient stated that she feels about the same today especially in her leg. She is more excited that there was no signs of CHF or pulmonary hypertension for the echo. CT did show a ligament tear and the left ankle. Orthopedics has been consulted. Will await recommendations from them for further care. 09/08/22 0900 Patient seems to be doing ok. She does still have the pain which seems to be a nerve pain in the lef
[2022-09-09 11:20] LABS: Basophils Absolute Auto 0.1 K/mm3 (0.0-0.1); Basophils Percent Auto 0.9 % (0.2-1.2); Eosinophils Absolute Auto 0.1 K/mm3 (0-0.3); Eosinophils Percent Auto 1.5 % (0-4.4); Hematocrit 30.4 % (37.0-47.0); Immature Granulocyte Absolute 0.23 K/mm3 (0.00-0.031); Immature Granulocyte Percent A 3.5 % (0-0.5); Lymphocytes Percent Auto 27.3 % (18.3-44.2); Mean Corpuscular HGB Conc 32.9 g/dl (32-36); Mean Corpuscular Hemoglobin 38.5 pg (26-34); Mean Corpuscular Volume 116.9 fl (80-100); Mean Platelet Volume 9.6 fl (7.4-10.4); Monocytes Absolute Auto 0.9 K/mm3 (0.1-0.6); Monocytes Percent Auto 13.3 % (2.6-8.5); Neutrophils Absolute Auto 3.5 K/mm3 (1.3-6.7); Neutrophils Percent Auto 53.5 % (45.5-73.1); Nucleated Red Blood Cells Perc 0.3 % (0.0-0.2); Platelet Count Result 224 k/mm3 (150-375); Red Cell Distribution Width 18.3 % (11.5-14.5); White Blood Count 6.6 K/mm3 (4.5-10.0)
[2022-09-09 11:35] LABS: Alanine Aminotransferase 21 U/L (6-35); Albumin Level 3.7 g/dL (3.5-5.1); Alkaline Phosphatase 64 U/L (38-126); Anion Gap 2 mmol/L (8-16); Aspartate Amino Transferase 34 U/L (14-36); Bilirubin,Total 0.4 mg/dL (0.2-1.3); Blood Urea Nitrogen 15 mg/dL (7-17); Calcium 8.7 mg/dL (8.4-10.2); Carbon Dioxide 35 mmol/L (22-30); Chloride 92 mmol/L (98-107); Estimated CRCL calculation 146 ml/min; Estimated Glomerular Filt Rate > 60; Glucose 108 mg/dL (65-110); Magnesium 1.6 mg/dL (1.6-2.3); Potassium 3.6 mmol/L (3.4-5.0); Sodium 129 mmol/L (137-145)
[2022-09-09 12:01] LABS: Anisocytosis 1+ (NORMAL); Platelet Estimate Adequate (Adequate); Schistocytes None Seen (NORMAL)
[2022-09-09] MEDS: MAGNESIUM SULF 4 GM/WATER100ML 4 GM/100 ML BAG IVPB (13:49)
[2022-09-09 14:10] VITALS: BP 90/58; PULSE 94; RESP 16; TEMP 36.7; O2SAT 92
[2022-09-09 20:36] VITALS: BP 101/54; PULSE 91; RESP 20; TEMP 36.6; O2SAT 92
[2022-09-09 21:00] VITALS: BP 101/54
[2022-09-10] VITALS (7 sets, daily range): BP systolic 101–138; BP diastolic 52–85; PULSE 69–78; RESP 16–20; TEMP 36.2–36.6; O2SAT 90–93
[2022-09-10 05:40] LABS: Basophils Absolute Auto 0.1 K/mm3 (0.0-0.1); Eosinophils Absolute Auto 0.1 K/mm3 (0-0.3); Eosinophils Percent Auto 2.2 % (0-4.4); Hematocrit 30.9 % (37.0-47.0); Hemoglobin 9.9 g/dL (12.0-15.0); Immature Granulocyte Absolute 0.27 K/mm3 (0.00-0.031); Immature Granulocyte Percent A 5.3 % (0-0.5); Lymphocytes Absolute Auto 1.38 K/mm3 (0.9-3.2); Mean Corpuscular Hemoglobin 38.2 pg (26-34); Mean Corpuscular Volume 119.3 fl (80-100); Mean Platelet Volume 9.3 fl (7.4-10.4); Monocytes Absolute Auto 0.6 K/mm3 (0.1-0.6); Monocytes Percent Auto 12.5 % (2.6-8.5); Neutrophils Absolute Auto 2.7 K/mm3 (1.3-6.7); Platelet Count Result 220 k/mm3 (150-375); Red Blood Count 2.59 M/mm3 (4.2-5.4); Red Cell Distribution Width 18.4 % (11.5-14.5); White Blood Count 5.1 K/mm3 (4.5-10.0)
[2022-09-10 06:04] LABS: Alanine Aminotransferase 20 U/L (6-35); Albumin Level 3.6 g/dL (3.5-5.1); Alkaline Phosphatase 59 U/L (38-126); Anion Gap 3 mmol/L (8-16); Aspartate Amino Transferase 30 U/L (14-36); Bilirubin,Total 0.4 mg/dL (0.2-1.3); Blood Urea Nitrogen 15 mg/dL (7-17); Calcium 8.3 mg/dL (8.4-10.2); Carbon Dioxide 36 mmol/L (22-30); Chloride 90 mmol/L (98-107); Estimated CRCL calculation 146 ml/min; Estimated Glomerular Filt Rate > 60; Glucose 106 mg/dL (65-110); Magnesium 2.3 mg/dL (1.6-2.3); Potassium 3.3 mmol/L (3.4-5.0); Sodium 129 mmol/L (137-145)
[2022-09-10] MEDS: GABAPENTIN 100 MG CAPSULE PO ×3 (06:06→21:03)
[2022-09-10] MEDS: HYDROcodone/acetaminophen (*CRX) 5-325 MG TABLET 1 TAB PO ×3 (06:07→21:04)
--- NOTE | 2022-09-10 07:14 | PM.CNOR ---
Assessment and Plan Assessment and plan (1) Left lateral ankle pain: Code(s): M25.572 - Pain in left ankle and joints of left foot Status: Acute Assessment and Plan: Patient is a 47-year-old female who I am asked to see for evaluation of left lateral ankle pain. She had a CT scan of her left ankle which showed split tearing of the peroneal tendons which is a degenerative degradation of the tendons. Patient sprained her ankle in mid April of 2022. Prior to that she had no symptoms in her left ankle but since then it at the end of the day she has swelling over the lateral aspect of the ankle which is better by the morning after elevation at night. It is not particularly painful for her to step on it but she has a constant aching in the lateral aspect of her left ankle. She also has hypersensitivity to light stroking of the skin in the anterior and lateral calf as well as the top of the left foot. It causes pain with light stroking and a tingling sensation. She is not sure exactly when that started but it has started since the ankle sprain episode. She did use rice protocol in managing her left ankle sprain. She has had no other treatment no immobilization or therapy thus far. She is able to walk without gait aid. When I asked her about her back she does get pain when she stands for very long and states she cannot stand very long but was not specific as to with time. She indicates that she has to sit to do the dishes otherwise she has intolerable pain in her lower back. She also reports a history of sciatica symptoms into the thigh of she believes the left leg that were severe enough to require a series of epidural steroid injections in the remote past. She Was admitted the hospital to rule out pulmonary embolism presenting with shortness of breath hypoxia, elevated blood gas pH to 7.5 but normal blood gas CO2. She also has hyponatremia low-potassium. She has a history of congestive heart failure in the past and known history of significant pulmonary hypertension. She has morbid obesity with a BMI of 45.6. Her workup has included a pulmonary CT which ruled out a massive central PE but could not rule out peripheral smaller clots and radiologist recommended a ventilation perfusion scan which is pending. She had a venous duplex ultrasound left lower extremity which was negative for DVT. Because of the pain in her ankle she was complaining of she had a CT scan of the ankle which showed probable split tearing of the peroneal tendons with swelling in that area. An MRI scan would be necessary to delineate the pathology of her peroneal tendons more accurately. On examination today she had no swelling this morning in her ankle. She had rather severe tenderness over the anterior talofibular ligament anterolateral left ankle as well as severe tenderness over the posterior aspect of the lateral malleolus and distal tip of the lateral malleolus consistent with inflammation of her peroneal tendons are inconsistent we went with a possible split tearing of these tendons. She had moderately severe lateral ankle pain with inversion of the ankle also eversion of the ankle. She had no tenderness over the medial side of the ankle. Negative anterior drawer test at the ankle. She had normal inversion and eversion strength. She also had normal left ankle dorsiflexion strength and EHL strength. 2+ dorsalis pedis pulse palpable. Skin looked quite normal. No erythema or warmth. On light stroking of the skin top of her foot anterior prieto lateral prieto she reported significant pain and a tingling and she found it difficult to describe the symptoms. One thing we could agree on was that light stroking of the skin in these areas caused her pain. She did report a numbness type feeling the top of her foot as well. Impression patient's left ankle symptoms I think are related to 2 issues. One issue is that she has had a left lateral ankle sprain and she has apparently
[2022-09-10 07:49] LABS: Anisocytosis 1+ (NORMAL); Hypochromasia 2+ (NORMAL); Platelet Estimate Adequate (Adequate)
[2022-09-10 07:50] LABS: Atypical Lymphocytes Present; Schistocytes None Seen (NORMAL)
[2022-09-10] MEDS: FUROSEMIDE 40 MG TABLET PO (08:42)
[2022-09-10] MEDS: allopurinoL 300 MG TABLET PO (08:43)
[2022-09-10] MEDS: ENOXAPARIN 40 MG/0.4 ML SYRINGE SUB-Q (08:43)
[2022-09-10] MEDS: ESCITALOPRAM OXALATE 10 MG TABLET PO (08:43)
[2022-09-10] MEDS: lisinopriL 20 MG TABLET 40 MG PO (08:43)
[2022-09-10] MEDS: FOLIC ACID 1 MG TABLET PO (08:43)
[2022-09-10] MEDS: SPIRONOLACTONE 25 MG TABLET PO (08:44)
[2022-09-10] MEDS: THIAMINE HCL 200 MG/2 ML VIAL 100 MG IV PUSH (08:44)
--- NOTE | 2022-09-10 10:30 | P.PNIM_ITS ---
Progress Note: A&P Assessment and Plan (1) Tear of tendon of left ankle: Code(s): S96.912A - Strain of unspecified muscle and tendon at ankle and foot level, left foot, initial encounter Status: Acute Assessment and Plan: * CT shows split type tear of the peroneus brevis tendon with inflammatory changes of the peroneus longus and brevis tendons at the level of the lateral malleolus * Most likely from the injury at [facility] * Ortho consulted * Will need a wt bearing status and most likely PT * Pain medications on board * Continue to trend pain * PT and OT ordered * MRI of the lumbar spine does not show any significant findings (2) Severe pulmonary hypertension: Code(s): I27.20 - Pulmonary hypertension, unspecified Status: Acute Assessment and Plan: * Echo from 08/2022 echo shows normal EF of 60-65% and normal diastolic * no heart failure noted * Pulmonary consulted thank you for your help * Echo does not really indicate any pulmonary hypertension with a Rt Atrial pressure of 5 * Apnea link for tonight to see if she desats (3) Exertional dyspnea: Code(s): R06.09 - Other forms of dyspnea Status: Acute Assessment and Plan: * Shortness of breath noted with minimal exertion * continue supplemental oxygen as indicated * Trend respiratory status * Weight and lifestyle are probably contributing to the dyspnea * Education about life style changes and weight loss given (4) Acute respiratory failure with hypoxia: Code(s): J96.01 - Acute respiratory failure with hypoxia Status: Acute Assessment and Plan: * Blood gas pH 7.501, CO2 39.6, O2 64.6, HCO3 30.3, O2 Sat 94.3 * Respiratory alkalosis * Continue supplemental oxygen, wean to maintain saturations >90% * Trend respiratory status * Pulmonary on board (5) Hyponatremia: Code(s): E87.1 - Hypo-osmolality and hyponatremia Status: Acute Assessment and Plan: * NA 127 currently 129 * Seems that this could be related to diarrhea * Continue to trend * Adjust therapy as indicated * Consider nephrology if worsening (6) Acute hypokalemia: Code(s): E87.6 - Hypokalemia Status: Acute Assessment and Plan: * K is 3.3 * supplement with 40 mEq of K p.o. x1 * Continue to trend labs * Supplement as indicated (7) Hypomagnesemia: Code(s): E83.42 - Hypomagnesemia Status: Acute Assessment and Plan: * Mag is 2.3 today * Probably related to ETOH abuse * Continue to trend labs * Supplement as indicated (8) Alcohol abuse: Code(s): F10.10 - Alcohol abuse, uncomplicated Status: Acute Assessment and Plan: * CIWA protocol * Thiamine and folic acid * Librium and ativan ordered * Trend CIWA scores * Adjust therapy as indicated * Cessation education given (9) Essential hypertension: Code(s): I10 - Essential (primary) hypertension Status: Chronic Assessment and Plan: * 109/52 currently * Continue home lisinopril 40mg PO daily * Trend BP * Adjust therapy as indicated (10) Neuropathy: Code(s): G62.9 - Polyneuropathy, unspecified Status: Acute Asses
--- NOTE | 2022-09-10 10:30 | PM.IMPN ---
Progress Note: A&P Assessment and Plan (1) Tear of tendon of left ankle: Code(s): S96.912A - Strain of unspecified muscle and tendon at ankle and foot level, left foot, initial encounter Status: Acute Assessment and Plan: CT shows split type tear of the peroneus brevis tendon with inflammatory changes of the peroneus longus and brevis tendons at the level of the lateral malleolus Most likely from the injury at [place] Ortho consulted Will need a wt bearing status and most likely PT Pain medications on board Continue to trend pain PT and OT ordered MRI of the lumbar spine does not show any significant findings (2) Severe pulmonary hypertension: Code(s): I27.20 - Pulmonary hypertension, unspecified Status: Acute Assessment and Plan: Echo from 08/2022 echo shows normal EF of 60-65% and normal diastolic no heart failure noted Pulmonary consulted thank you for your help Echo does not really indicate any pulmonary hypertension with a Rt Atrial pressure of 5 Apnea link for tonight to see if she desats (3) Exertional dyspnea: Code(s): R06.09 - Other forms of dyspnea Status: Acute Assessment and Plan: Shortness of breath noted with minimal exertion continue supplemental oxygen as indicated Trend respiratory status Weight and lifestyle are probably contributing to the dyspnea Education about life style changes and weight loss given (4) Acute respiratory failure with hypoxia: Code(s): J96.01 - Acute respiratory failure with hypoxia Status: Acute Assessment and Plan: Blood gas pH 7.501, CO2 39.6, O2 64.6, HCO3 30.3, O2 Sat 94.3 Respiratory alkalosis Continue supplemental oxygen, wean to maintain saturations >90% Trend respiratory status Pulmonary on board (5) Hyponatremia: Code(s): E87.1 - Hypo-osmolality and hyponatremia Status: Acute Assessment and Plan: NA 127 currently 129 Seems that this could be related to diarrhea Continue to trend Adjust therapy as indicated Consider nephrology if worsening (6) Acute hypokalemia: Code(s): E87.6 - Hypokalemia Status: Acute Assessment and Plan: K is 3.3 supplement with 40 mEq of K p.o. x1 Continue to trend labs Supplement as indicated (7) Hypomagnesemia: Code(s): E83.42 - Hypomagnesemia Status: Acute Assessment and Plan: Mag is 2.3 today Probably related to ETOH abuse Continue to trend labs Supplement as indicated (8) Alcohol abuse: Code(s): F10.10 - Alcohol abuse, uncomplicated Status: Acute Assessment and Plan: CIWA protocol Thiamine and folic acid Librium and ativan ordered Trend CIWA scores Adjust therapy as indicated Cessation education given (9) Essential hypertension: Code(s): I10 - Essential (primary) hypertension Status: Chronic Assessment and Plan: 109/52 currently Continue home lisinopril 40mg PO daily Trend BP Adjust therapy as indicated (10) Neuropathy: Code(s): G62.9 - Polyneuropathy, unspecified Status: Acute Assessment and Plan: Complains of a shooting pain in the left foot shooting up to the knee Gabapentin increased to 200 b.i.d. Trend symptoms Adjust therapy as indicated lumbar spine showed minimal degenerative spondylolysis as detailed probable minimal left neural foraminal narrowing at L4-L5 Time Spent With Patient Time: 55 minutes Subjective Date/time seen: 09/10/22 10:30 Interval history: 09/10/22 1030 Patient is doing okay today. She still states that she is short of breath especially at night. However it is nothing abnormal for her. She is still having some pain and burning in her left ankle. Orthopedics did see the patient and is requesting a b
[2022-09-10] MEDS: methylPREDNISolone (MEDROL) DOSEPACK 4 MG TABLETS PO ×4 (13:05→21:03)
[2022-09-11] VITALS: BP 138/85
[2022-09-11] MEDS: GABAPENTIN 100 MG CAPSULE PO ×2 (05:28→15:35)
[2022-09-11] MEDS: methylPREDNISolone (MEDROL) DOSEPACK 4 MG TABLETS PO ×2 (05:30→12:21)
[2022-09-11 05:55] LABS: Basophils Percent Auto 0.5 % (0.2-1.2); Eosinophils Percent Auto 0.2 % (0-4.4); Hematocrit 31.5 % (37.0-47.0); Hemoglobin 10.2 g/dL (12.0-15.0); Immature Granulocyte Absolute 0.21 K/mm3 (0.00-0.031); Immature Granulocyte Percent A 3.8 % (0-0.5); Lymphocytes Absolute Auto 0.95 K/mm3 (0.9-3.2); Mean Corpuscular HGB Conc 32.4 g/dl (32-36); Mean Corpuscular Hemoglobin 38.2 pg (26-34); Mean Platelet Volume 9.5 fl (7.4-10.4); Monocytes Absolute Auto 0.5 K/mm3 (0.1-0.6); Monocytes Percent Auto 9.7 % (2.6-8.5); Neutrophils Absolute Auto 3.9 K/mm3 (1.3-6.7); Neutrophils Percent Auto 68.8 % (45.5-73.1); Platelet Count Result 241 k/mm3 (150-375); Red Blood Count 2.67 M/mm3 (4.2-5.4); Red Cell Distribution Width 17.6 % (11.5-14.5); White Blood Count 5.6 K/mm3 (4.5-10.0)
[2022-09-11 06:00] VITALS: BP 141/85; PULSE 53; RESP 16; TEMP 36.3; O2SAT 93
[2022-09-11 06:18] LABS: Alanine Aminotransferase 20 U/L (6-35); Albumin Level 3.9 g/dL (3.5-5.1); Alkaline Phosphatase 56 U/L (38-126); Anion Gap 6 mmol/L (8-16); Aspartate Amino Transferase 21 U/L (14-36); Bilirubin,Total 0.4 mg/dL (0.2-1.3); Blood Urea Nitrogen 18 mg/dL (7-17); Calcium 8.7 mg/dL (8.4-10.2); Carbon Dioxide 34 mmol/L (22-30); Chloride 91 mmol/L (98-107); Estimated CRCL calculation 146 ml/min; Estimated Glomerular Filt Rate > 60; Glucose 124 mg/dL (65-110); Potassium 3.8 mmol/L (3.4-5.0); Sodium 131 mmol/L (137-145)
--- NOTE | 2022-09-11 06:45 | PM.PNORT ---
Subjective Subjective Date/Time Seen: 09/11/22 06:45 Patient has cam walker boot and room. Have ordered physical therapy to start working range of motion well as ambulation in the boot starting today. Neurosurgery has been consulted about tingling in foot. She states she has had epidural injections in her back a very long time ago which worked well. She has no motor deficit this morning. Still complains of the tingling in the foot. Once patient is discharged she will need to have outpatient therapy on the ankle as well. Objective Data Vital Signs Vital Signs: Vital Signs - 24 hr 09/10/22 08:02 09/10/22 14:00 09/10/22 22:17 Temperature 36.2 C L 36.6 C Pulse Rate 78 70 Respiratory Rate 20 18 16 Blood Pressure 107/67 138/85 Pulse Oximetry 92 90 93 Oxygen Delivery Room Air 09/10/22 21:00 09/11/22 00:00 Temperature Pulse Rate Respiratory Rate Blood Pressure 138/85 138/85 Pulse Oximetry Oxygen Delivery Intake/Output Intake/Output: Intake & Output 09/08/22 09/09/22 09/10/22 09/11/22 23:59 23:59 23:59 23:59 Intake Total 2620 1160 1590 Balance 2620 1160 1590 Meds/Results Medications: Active Medications Generic Name Dose Route Start Last Admin Trade Name Freq PRN Reason Stop Dose Admin Hydrocodone Bitart/Acetaminophen 1 tab 09/06/22 16:14 09/10/22 21:04 Hydrocodone/Acetaminophen (*Crx) 5-325 Mg Tablet PO 1 tab Q6H PRN Administration Pain Rated 4-10 Allopurinol 300 mg 09/06/22 13:15 09/10/22 08:43 Allopurinol 300 Mg Tablet PO 300 mg DAILY FARNAZ Administration Calcium Carbonate 500 mg 09/06/22 08:00 09/10/22 16:55 Calcium/Vitamin D 500 Mg Tablet PO 500 mg BIDWM FARNAZ Administration Chlordiazepoxide HCl 25 mg 09/06/22 07:35 Chlordiazepoxide (*Crx) 25 Mg Capsule PO Q6H PRN Withdrawal Enoxaparin Sodium 40 mg 09/07/22 09:00 09/10/22 08:43 Enoxaparin 40 Mg/0.4 Ml Syringe SUB-Q 40 mg DAILY FARNAZ Administration Ergocalciferol 50,000 units 09/12/22 09:00 Ergocalciferol 50,000 Units Capsule PO WEEKLY FARNAZ Escitalopram Oxalate 10 mg 09/06/22 13:15 09/10/22 08:43 Escitalopram Oxalate 10 Mg Tablet PO 10 mg DAILY FARNAZ Administration Folic Acid 1 mg 09/06/22 09:00 09/10/22 08:43 Folic Acid 1 Mg Tablet PO 1 mg DAILY FARNAZ Administration Furosemide 40 mg 09/06/22 13:15 09/10/22 08:42 Furosemide 40 Mg Tablet PO 40 mg QAM FARNAZ Administration Gabapentin 100 mg 09/07/22 15:50 09/11/22 05:28 Gabapentin 100 Mg Capsule PO 100 mg Q8HR FARNAZ Administration Lisinopril 40 mg 09/07/22 09:00 09/10/22 08:43 Lisinopril 20 Mg Tablet PO 40 mg QAM FARNAZ Administration Methylprednisolone 4 mg 09/10/22 06:30 09/11/22 05:30 Methylprednisolone (Medrol) Dosepack 4 Mg Tablets PO 09/15/22 07:29 4 mg 0630,1200,1700 FARNAZ Administration Taper Ondansetron HCl 4 mg 09/06/22 07:35 Ondansetron Inj 4 Mg/2 Ml Vial IV PUSH Q6H PRN Nausea And Vomiting Spironolactone 25 mg 09/06/22 13:15 09/10/22 08:44 Spironolactone 25 Mg Tablet PO 25 mg QAM FARNAZ Administration Thiamine HCl 100 mg 09/06/22 09:00 09/10/22 08:44 Thiamine Hcl 200 Mg/2 Ml Vial IV PUSH 100 mg DAILY FARNAZ Administration Radiology Results: ITS Impressions Chest X-Ray 09/05/22 23:00 IMPRESSION: No acute cardiopulmonary process. Venous Doppler Study 09/06/22 06:15 Impression: No evidence of deep vein thrombosis in the visualized left lower extremity veins. Chest CTA 09/06/22 06:18 Impression: No large central pulmonary embolus. Technical artifact limits evaluation for smaller, more peripheral pulmonary emboli. Consider repeat exam or VQ scan as indicated. No significant pulmonary abnormality. Ankle CT 09/08/22 15:46 IMPRESSION: No acute osseous finding in the left ankle. Likely split type tear of the peroneus brevis tendon, with inflammatory changes of
[2022-09-11 07:23] LABS: Anisocytosis 1+ (NORMAL); Hypochromasia 2+ (NORMAL); Platelet Estimate Adequate (Adequate); Schistocytes None Seen (NORMAL)
[2022-09-11] MEDS: lisinopriL 20 MG TABLET 40 MG PO (08:45)
[2022-09-11] MEDS: FUROSEMIDE 40 MG TABLET PO (08:46)
[2022-09-11] MEDS: FOLIC ACID 1 MG TABLET PO (08:46)
[2022-09-11] MEDS: ESCITALOPRAM OXALATE 10 MG TABLET PO (08:46)
[2022-09-11] MEDS: ENOXAPARIN 40 MG/0.4 ML SYRINGE SUB-Q (08:46)
[2022-09-11] MEDS: THIAMINE HCL 200 MG/2 ML VIAL 100 MG IV PUSH (08:46)
[2022-09-11] MEDS: allopurinoL 300 MG TABLET PO (08:46)
--- NOTE | 2022-09-11 11:00 | P.DS_ITS ---
DS: Admitting Diagnosis Discharge Date 09/11/22 1100 Admitting Diagnosis Left ankle tendon tear, Acute respiratory failure,hyponatremia DS: Discharge Diagnosis Discharge Diagnosis (1) Tear of tendon of left ankle: Code(s): S96.912A - Strain of unspecified muscle and tendon at ankle and foot level, left foot, initial encounter Status: Acute Assessment and Plan: * CT shows split type tear of the peroneus brevis tendon with inflammatory changes of the peroneus longus and brevis tendons at the level of the lateral malleolus * Most likely from the injury at [facility] * Ortho consulted * Will need a wt bearing status and most likely PT * Pain medications on board * Continue to trend pain * PT and OT ordered * MRI of the lumbar spine does not show any significant findings (2) Severe pulmonary hypertension: Code(s): I27.20 - Pulmonary hypertension, unspecified Status: Acute Assessment and Plan: * Echo from 08/2022 echo shows normal EF of 60-65% and normal diastolic * no heart failure noted * Pulmonary consulted thank you for your help * Echo does not really indicate any pulmonary hypertension with a Rt Atrial pressure of 5 * Apnea link for tonight to see if she desats (3) Exertional dyspnea: Code(s): R06.09 - Other forms of dyspnea Status: Acute Assessment and Plan: * Shortness of breath noted with minimal exertion * continue supplemental oxygen as indicated * Trend respiratory status * Weight and lifestyle are probably contributing to the dyspnea * Education about life style changes and weight loss given (4) Acute respiratory failure with hypoxia: Code(s): J96.01 - Acute respiratory failure with hypoxia Status: Acute Assessment and Plan: * Blood gas pH 7.501, CO2 39.6, O2 64.6, HCO3 30.3, O2 Sat 94.3 * Respiratory alkalosis * Continue supplemental oxygen, wean to maintain saturations >90% * Trend respiratory status * Pulmonary on board (5) Hyponatremia: Code(s): E87.1 - Hypo-osmolality and hyponatremia Status: Acute Assessment and Plan: * NA 127 currently 129 * Seems that this could be related to diarrhea * Continue to trend * Adjust therapy as indicated * Consider nephrology if worsening (6) Acute hypokalemia: Code(s): E87.6 - Hypokalemia Status: Acute Assessment and Plan: * K is 3.3 * supplement with 40 mEq of K p.o. x1 * Continue to trend labs * Supplement as indicated (7) Hypomagnesemia: Code(s): E83.42 - Hypomagnesemia Status: Acute Assessment and Plan: * Mag is 2.3 today * Probably related to ETOH abuse * Continue to trend labs * Supplement as indicated (8) Alcohol abuse: Code(s): F10.10 - Alcohol abuse, uncomplicated Status: Acute Assessment and Plan: * CIWA protocol * Thiamine and folic acid * Librium and ativan ordered * Trend CIWA scores * Adjust therapy as indicated * Cessation education given (9) Essential hypertension: Code(s): I10 - Essential (primary) hypertension Status: Chronic Assessment and Plan: * 141/85 currently * Continue home lisinopril 40mg PO daily * Trend BP * Adjust therapy as indicated
--- NOTE | 2022-09-11 11:00 | PM.DS ---
DS: Admitting Diagnosis Discharge Date 09/11/22 1100 Admitting Diagnosis Left ankle tendon tear, Acute respiratory failure,hyponatremia DS: Discharge Diagnosis Discharge Diagnosis (1) Tear of tendon of left ankle: Code(s): S96.912A - Strain of unspecified muscle and tendon at ankle and foot level, left foot, initial encounter Status: Acute Assessment and Plan: CT shows split type tear of the peroneus brevis tendon with inflammatory changes of the peroneus longus and brevis tendons at the level of the lateral malleolus [facility] consulted Will need a wt bearing status and most likely PT Pain medications on board Continue to trend pain PT and OT ordered MRI of the lumbar spine does not show any significant findings (2) Severe pulmonary hypertension: Code(s): I27.20 - Pulmonary hypertension, unspecified Status: Acute Assessment and Plan: Echo from 08/2022 echo shows normal EF of 60-65% and normal diastolic no heart failure noted Pulmonary consulted thank you for your help Echo does not really indicate any pulmonary hypertension with a Rt Atrial pressure of 5 Apnea link for tonight to see if she desats (3) Exertional dyspnea: Code(s): R06.09 - Other forms of dyspnea Status: Acute Assessment and Plan: Shortness of breath noted with minimal exertion continue supplemental oxygen as indicated Trend respiratory status Weight and lifestyle are probably contributing to the dyspnea Education about life style changes and weight loss given (4) Acute respiratory failure with hypoxia: Code(s): J96.01 - Acute respiratory failure with hypoxia Status: Acute Assessment and Plan: Blood gas pH 7.501, CO2 39.6, O2 64.6, HCO3 30.3, O2 Sat 94.3 Respiratory alkalosis Continue supplemental oxygen, wean to maintain saturations >90% Trend respiratory status Pulmonary on board (5) Hyponatremia: Code(s): E87.1 - Hypo-osmolality and hyponatremia Status: Acute Assessment and Plan: NA 127 currently 129 Seems that this could be related to diarrhea Continue to trend Adjust therapy as indicated Consider nephrology if worsening (6) Acute hypokalemia: Code(s): E87.6 - Hypokalemia Status: Acute Assessment and Plan: K is 3.3 supplement with 40 mEq of K p.o. x1 Continue to trend labs Supplement as indicated (7) Hypomagnesemia: Code(s): E83.42 - Hypomagnesemia Status: Acute Assessment and Plan: Mag is 2.3 today Probably related to ETOH abuse Continue to trend labs Supplement as indicated (8) Alcohol abuse: Code(s): F10.10 - Alcohol abuse, uncomplicated Status: Acute Assessment and Plan: CIWA protocol Thiamine and folic acid Librium and ativan ordered Trend CIWA scores Adjust therapy as indicated Cessation education given (9) Essential hypertension: Code(s): I10 - Essential (primary) hypertension Status: Chronic Assessment and Plan: 141/85 currently Continue home lisinopril 40mg PO daily Trend BP Adjust therapy as indicated (10) Neuropathy: Code(s): G62.9 - Polyneuropathy, unspecified Status: Acute Assessment and Plan: Complains of a shooting pain in the left foot shooting up to the knee Gabapentin increased to 200 b.i.d. Trend symptoms Adjust therapy as indicated lumbar spine showed minimal degenerative spondylolysis as detailed probable minimal left neural foraminal narrowing at L4-L5 DS: Summary Hospital Course Hospital Course: Patient is a 47-year-old female with a past medical history of pulmonary hypertension, CHF, hypertension, diabetes who presented the ED with complaints of shortness of breath. Patient stated
--- NOTE | 2022-09-11 11:10 | WPDNEUROSGPN ---
Subjective Date/time seen: 09/11/22 11:10 Interval history: Asked to review patient's MRI by hospitalist team Patient admitted with ankle injury. Per hospitalist team, patient with complaints of left lower extremity sensory change MRI lumbar spine ordered by orthopedics team (caring for patient's known left ankle injury) Patient's MRI shows multilevel spondylotic changes. At the L4-5 level there is disc desiccation and a left paracentral disc bulge that contributes to mild to moderate left lateral recess stenosis. There are not acute changes that would warrant consideration of surgical intervention, nor does the patient require ANGELLA or other interventional measures during this hospitalization. Per the hospitalist, the patient does have an established pain management team with who she follows for her back. She should continue to follow with this provider as an outpatient. She also is welcome to follow up in the neurosurgical clinic to review the imaging. Please do not hesitate with any additional questions. Objective Data Vital Signs Vital Signs: Vital Signs - 24 hr 09/10/22 14:00 09/10/22 22:17 09/10/22 21:00 Temperature 97.1 F L 97.8 F Pulse Rate 78 70 Respiratory Rate 18 16 Blood Pressure 107/67 138/85 138/85 Pulse Oximetry 90 93 Oxygen Delivery 09/11/22 00:00 09/11/22 06:00 09/11/22 10:29 Temperature 97.4 F L Pulse Rate 53 L Respiratory Rate 16 Blood Pressure 138/85 141/85 H Pulse Oximetry 93 Oxygen Delivery Room Air Intake/Output Intake/Output: Intake & Output 09/08/22 09/09/22 09/10/22 09/11/22 23:59 23:59 23:59 23:59 Intake Total 2620 1160 1590 740 Balance 2620 1160 1590 740 Meds/Results Medications: Active Medications Generic Name Dose Route Start Last Admin Trade Name Freq PRN Reason Stop Dose Admin Hydrocodone Bitart/Acetaminophen 1 tab 09/06/22 16:14 09/10/22 21:04 Hydrocodone/Acetaminophen (*Crx) 5-325 Mg Tablet PO 1 tab Q6H PRN Administration Pain Rated 4-10 Allopurinol 300 mg 09/06/22 13:15 09/11/22 08:46 Allopurinol 300 Mg Tablet PO 300 mg DAILY FARNAZ Administration Calcium Carbonate 500 mg 09/06/22 08:00 09/11/22 08:45 Calcium/Vitamin D 500 Mg Tablet PO 500 mg BIDWM FARNAZ Administration Chlordiazepoxide HCl 25 mg 09/06/22 07:35 Chlordiazepoxide (*Crx) 25 Mg Capsule PO Q6H PRN Withdrawal Enoxaparin Sodium 40 mg 09/07/22 09:00 09/11/22 08:46 Enoxaparin 40 Mg/0.4 Ml Syringe SUB-Q 40 mg DAILY FARNAZ Administration Ergocalciferol 50,000 units 09/12/22 09:00 Ergocalciferol 50,000 Units Capsule PO WEEKLY FARNAZ Escitalopram Oxalate 10 mg 09/06/22 13:15 09/11/22 08:46 Escitalopram Oxalate 10 Mg Tablet PO 10 mg DAILY FARNAZ Administration Folic Acid 1 mg 09/06/22 09:00 09/11/22 08:46 Folic Acid 1 Mg Tablet PO 1 mg DAILY FARNAZ Administration Furosemide 40 mg 09/06/22 13:15 09/11/22 08:46 Furosemide 40 Mg Tablet PO 40 mg QAM FARNAZ Administration Gabapentin 100 mg 09/07/22 15:50 09/11/22 05:28 Gabapentin 100 Mg Capsule PO 100 mg Q8HR FARNAZ Administration Lisinopril 40 mg 09/07/22 09:00 09/11/22 08:45 Lisinopril 20 Mg Tablet PO 40 mg QAM FARNAZ Administration Methylprednisolone 4 mg 09/10/22 06:30 09/11/22 05:30 Methylprednisolone (Medrol) Dosepack 4 Mg Tablets PO 09/15/22 07:29 4 mg 0630,1200,1700 FARNAZ Administration Taper Ondansetron HCl 4 mg 09/06/22 07:35 Ondansetron Inj 4 Mg/2 Ml Vial IV PUSH Q6H PRN Nausea And Vomiting Spironolactone 25 mg 09/06/22 13:15 09/10/22 08:44 Spironolactone 25 Mg Tablet PO 25 mg QAM FARNAZ Administration Thiamine HCl 100 mg 09/06/22 09:00 09/11/22 08:46 Thiamine Hcl 200 Mg/2 Ml Vial IV PUSH 100 mg DAILY FARNAZ Administration Radiology Results: ITS Impressions Chest X-Ray 09/05/22 23:00 IMPRESSION: No acute cardiopulmonary process. Venous Doppler Study 0
[2022-09-11] MEDS: SPIRONOLACTONE 25 MG TABLET PO (12:21)
== END 2022-09-11 15:45 | disposition home or self-care (01) | DRG 189 ==
LOC: ANHED 09-06 03:24 → ANH2MED 09-06 06:49
PROVIDERS: Internal Medicine Critical Care Medicine; Admitting Provider Internal Medicine; Emergency Provider Emergency Medicine; PCP Family Medicine Adolescent Medicine; Visit Provider Nurse Practitioner
DX: J96.01 Acute respiratory failure with hypoxia (principal); E87.1 Hypo-osmolality and hyponatremia; I50.30 Unspecified diastolic (congestive) heart failure; Z68.42 Body mass index [BMI] 45.0-49.9, adult; I11.0 Hypertensive heart disease with heart failure; S96.912A Strain of unspecified muscle and tendon at ankle and foot level, left foot, initial encounter; I27.20 Pulmonary hypertension, unspecified; E87.6 Hypokalemia; E83.42 Hypomagnesemia; F10.10 Alcohol abuse, uncomplicated; E11.42 Type 2 diabetes mellitus with diabetic polyneuropathy; F41.9 Anxiety disorder, unspecified; E66.01 Morbid (severe) obesity due to excess calories; F32.A Depression, unspecified; G47.33 Obstructive sleep apnea (adult) (pediatric); Z20.822 Contact with and (suspected) exposure to COVID-19; Z82.49 Family history of ischemic heart disease and other diseases of the circulatory system; Z80.0 Family history of malignant neoplasm of digestive organs; Z79.899 Other long term (current) drug therapy
CPT/HCPCS: 36415; 36600; 71045; 71275; 72148; 73700; 80053; 82375; 82607; 82728; 82746; 82805; 83036; 83050; 83540; 83550; 83735; 83880; 84443; 84484; 84550; 85025; 85380; 85610; 85730; 87636; 93005; 93971; 96361; 96365; 96366; 96367; 96372; 96375; 96376; 97161; 97165; 97530; 99285; A9270; C8929; G0378; J1650; J3411; J3475; J3480; J7030; J7040; Q9957; Q9967

== ENCOUNTER 2023-04-16 08:27 | Outpatient (CLI) | payer BC, SELFPAY ==
--- NOTE | 2023-04-16 11:30 | NEURO_ITS ---
Impression: # Non-diabetic complains of burning feet with redness. 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 # Needle/EMG exam not requested. # Clinical correlation recommended. Nerve Conduction Studies Anti Sensory Summary Table Stim Site NR Peak (ms) P-T Amp (?V) Site1 Site2 Delta-P (ms) Dist (cm) Angel (m/s) Left Sup Fibular Anti Sensory (Ant Lat Mall) NO RESPONSE 14 cm NR 14 cm Ant Lat Mall 16.0 Right Sup Fibular Anti Sensory (Ant Lat Mall) NO RESPONSE 14 cm NR 14 cm Ant Lat Mall 16.0 Left Sural Anti Sensory (Lat Mall) NO RESPONSE Calf NR Calf Lat Mall 16.0 Right Sural Anti Sensory (Lat Mall) NO RESPONSE Calf NR Calf Lat Mall 16.0 Motor Summary Table Stim Site NR Onset (ms) O-P Amp (mV) Site1 Site2 Delta-0 (ms) Dist (cm) Angel (m/s) Left Peroneal Motor (Vastus Med) Ankle 3.9 1.0 Popit Ankle 10.9 43.0 39 Popit 14.8 0.7 Right Peroneal Motor (Vastus Med) Ankle 4.0 1.1 Popit Ankle 10.4 40.0 38 Popit 14.4 0.6 Left Tibial Motor (Abd Hendrix Brev) NO RESPONSE Ankle NR Knee NR Right Tibial Motor (Abd Hendrix Brev) Ankle 4.3 1.9 Knee Ankle 11.9 43.0 36 Knee 16.2 1.6 F Wave Studies NR F-Lat (ms) L-R F-Lat (ms) Left Peroneal (Mrkrs) (EDB) DISPERSED RESPONSE NR Right Peroneal (Mrkrs) (EDB) DISPERSED RESPONSE NR Left Tibial (Mrkrs) (Abd Hallucis) DISPERSED RESPONSE NR Right Tibial (Mrkrs) (Abd Hallucis) DISPERSED RESPONSE NR MTDD
== END 2023-04-16 08:28 | disposition home or self-care (01) ==
LOC: ANHNEURO 08:28
PROVIDERS: PCP Family Medicine Adolescent Medicine; Visit Provider Family Medicine Adolescent Medicine
DX: G62.9 Polyneuropathy, unspecified (principal)
CPT/HCPCS: 95910

== ENCOUNTER 2023-06-18 18:31 | Inpatient (IN) | payer BC, SELFPAY ==
--- NOTE | ~2023-06-18 | XR_ITS ---
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 RESULT: Lines, tubes, and devices: Gastric band. Lungs and pleura: Low volumes with crowding. Right hemidiaphragm elevation. Linear scar in the left lower lung. Streaky subsegmental left basilar opacities. Cardiomediastinal silhouette: Stable. Other: No acute osseous or upper abdominal finding. IMPRESSION: Subsegmental left basilar atelectasis/consolidation. Reviewed, dictated and finalized at location K. PROGRAMMER
--- NOTE | ~2023-06-18 | CT_ITS ---
Clinical Indication: Pulmonary embolus, shortness of breath CT Scan of the Chest with Contrast: Technique: Contiguous sections were acquired throughout the chest after intravenous administration of 200 cc of Omnipaque 350. Dose reduction technique was used on this scan by utilizing automated expos ure control and iterative reconstruction technique. The dose-length product (DLP) was 1790.97 mGy-cm. COMPARISON: 09/06/2022 Findings: There is no evidence of any significant mediastinal, hilar or axillary lymphadenopathy. No large cent ral pulmonary embolus seen. Respiratory motion artifact limits evaluation for smaller, more periphera l pulmonary emboli. There is no evidence of aortic dissection or aneurysm. There is no evidence of pleural or pericardial effusion. The lungs are clear, aside from right basilar atelectatic change. Images through the upper abdomen reveal gastric banding device in place. Impression: No large central pulmonary embolus seen. Respiratory motion artifact limits evaluation for smaller, m ore peripheral pulmonary emboli. Mild right basilar atelectatic change. Reviewed, dictated and finalized at location M. SITOLOGIST Impression: No large central pulmonary embolus seen. Respiratory motion artifact limits salvador luation for smaller, more peripheral pulmonary emboli. Mild right basilar atelectatic change.
--- NOTE | ~2023-06-18 | US_ITS ---
US retroperitoneal comp 06/19/2023 11:25 Procedure: Realtime transabdominal ultrasound of the kidneys and bladder. Indication: Acute renal insufficiency Comparison: Ultrasound dated 09/11/2016 Findings: Renal echotexture is normal bilaterally without hydronephrosis, contour deforming mass or r enal calculus. The right kidney measures 12.9 cm and left kidney measures 12.2 cm. Bladder within no rmal limits. Impression: 1: Unremarkable renal ultrasound. No stones, masses or hydronephrosis. Reviewed, dictated and finalized at location B. CUTTER Impression: 1: Unremarkable renal ultrasound. No stones, masses or hydronephrosis.
--- NOTE | 2023-06-18 18:34 | ECG_ITS ---
Measurements Intervals [place] Rate: 115 P: -4 AK: 145 QRS: -2 QRSD: 90 T: -1 QT: 293 QTc: 406 Interpretive Statements SINUS TACHYCARDIA ABNORMAL RHYTHM ECG LOW VOLTAGE COMPARED TO ECG 09/05/2022 21:19:59 NO SIGNIFICANT CHANGES Electronically Signed On 06-18-2023 20:25:54 ALUM OPERATOR by Lissette Marsh M.D.
[2023-06-18 18:46] VITALS: BP 113/63; PULSE 108; RESP 20; TEMP 36.3; O2SAT 98
[2023-06-18 22:59] VITALS: O2SAT 98
[2023-06-18 23:00] LABS: Basophils Absolute Auto 0.1 K/mm3 (0.0-0.1); Basophils Percent Auto 0.6 % (0.2-1.2); Eosinophils Absolute Auto 0.1 K/mm3 (0-0.3); Eosinophils Percent Auto 1.5 % (0-4.4); Hematocrit 34.8 % (37.0-47.0); Hemoglobin 11.4 g/dL (12.0-15.0); Immature Granulocyte Absolute 0.12 K/mm3 (0.00-0.031); Immature Granulocyte Percent A 1.3 % (0-0.5); Lymphocytes Absolute Auto 0.28 K/mm3 (0.9-3.2); Lymphocytes Percent Auto 3.1 % (18.3-44.2); Mean Corpuscular HGB Conc 32.8 g/dl (32-36); Mean Corpuscular Hemoglobin 29.4 pg (26-34); Mean Corpuscular Volume 89.7 fl (80-100); Mean Platelet Volume 10.1 fl (7.4-10.4); Monocytes Absolute Auto 0.8 K/mm3 (0.1-0.6); Monocytes Percent Auto 9.3 % (2.6-8.5); Neutrophils Absolute Auto 7.6 K/mm3 (1.3-6.7); Neutrophils Percent Auto 84.2 % (45.5-73.1); Platelet Count Result 252 k/mm3 (150-375); Red Blood Count 3.88 M/mm3 (4.2-5.4); Red Cell Distribution Width 14.8 % (11.5-14.5); White Blood Count 9.1 K/mm3 (4.5-10.0)
[2023-06-18 23:12] LABS: Partial Thromboplastin Time 24.1 SECONDS (22.3-36.8); Prothrombin Time 13.4 Seconds (11.1-14.7)
[2023-06-18 23:35] LABS: Alanine Aminotransferase 13 U/L (6-35); Albumin Level 4.1 g/dL (3.5-5.1); Alkaline Phosphatase 83 U/L (38-126); Anion Gap 12 mmol/L (8-16); Aspartate Amino Transferase 22 U/L (14-36); Bilirubin,Total 0.6 mg/dL (0.2-1.3); Blood Urea Nitrogen 33 mg/dL (7-17); Calcium 9.1 mg/dL (8.4-10.2); Carbon Dioxide 27 mmol/L (22-30); Chloride 84 mmol/L (98-107); Estimated CRCL calculation 65 ml/min; Estimated Glomerular Filt Rate 40; Glucose 115 mg/dL (65-110); Sodium 123 mmol/L (137-145)
[2023-06-18 23:47] LABS: NT Pro B Type Natriuretic Pept 65 pg/mL (19.9-100); Troponin I < 0.012 ng/mL (0.000-0.034)
[2023-06-19] VITALS (17 sets, daily range): BP systolic 115–143; BP diastolic 54–79; PULSE 95–115; RESP 16–44; TEMP 36.1–37.9; O2SAT 87–100; BMI 45.1
--- NOTE | 2023-06-19 01:00 | ED.SOB ---
HPI - SOB/Dyspnea General Chief Complaint: Shortness of Breath/Dyspnea Stated Complaint: SHORT OF BREATH Time Seen by Provider: 06/18/23 23:39 History of Present Illness HPI Narrative: Patient is a 48-year-old female with a history of hypertension, CHF, DAVIAN in presenting with shortness of breath. Patient states that for the last several days she has been increasingly short of breath especially with exertion or when talking. States that she has had a nonproductive cough. Coughing causes diffuse chest pain. No chest pain outside of coughing. States that she has also been swollen in her hands and her feet. She denies fevers, abdominal pain, nausea vomiting, diarrhea, dysuria. No rashes. No medication changes recently. Related Data Home Medications Medication Instructions Recorded Confirmed gabapentin 300 mg capsule 600 mg PO BID 06/19/23 06/19/23 lisinopril 40 mg tablet 40 mg PO DAILY 06/19/23 06/19/23 thiamine HCl (vitamin B1) 100 mg 100 mg PO DAILY 06/19/23 06/19/23 tablet Allergies Allergy/AdvReac Type Severity Reaction Status Date / Time No Known Allergies Allergy Verified 06/19/23 01:28 Review of Systems Review of Systems: All systems reviewed & are unremarkable except as noted in HPI and below PMFSH Past Medical History Medical History (Updated 06/26/23 @ 19:19 by Jamee Cramer MD) Acute dyspnea Alcohol abuse Anal polyp s/p removal Anxiety B12 deficiency Bradycardia Cervical cancer s/p hysterectomy Congestive heart failure Echocardiogram 04/2021: EF 65-70%, mild LVH, diastolic dysfunction grade 1, severe pulmonary hypertension, mildly enlarged right ventricular chamber COVID Depression Diverticulitis Duodenal ulcer Dyspnea on exertion Essential hypertension Hemorrhoids Hypocalcemia Hypokalemia Hypoxia Mixed obstructive and restrictive ventilatory defect Morbid obesity DAVIAN (obstructive sleep apnea) Ovarian cyst Pulmonary hypertension Rectocele s/p intervention x2 Vitamin D deficiency Surgical History Surgical History History of esophagogastroduodenoscopy (EGD) (04/2021) Hiatal hernia, gastritis, duodenal ulcer performed by Dr. Lamar History of hysterectomy with bilateral oophorectomy (2012) Hx of laparoscopic gastric banding (2004) Family History Family History Mother Familial primary pulmonary hypertension Carcinoma of colon Hypertension Sibling Family history of irritable bowel syndrome Father Family history of congestive heart failure Family history of cardiovascular disease Other Family history of malignant neoplasm Social History Social History Social History: Ms. Abdalla reports that she lives at home with her daughter. She has 2 children. She reports that she drinks alcohol about 3 per day. She drinks vodka and water. She denies tobacco use and other illicit substance use. 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 She wishes to be a full code. Smoking status: Never smoker Alcohol intake: current Drinks per week: 21 Alcohol use details: Vodka water about 3 per day Substance use: never Substance use type: does not use Lack of Transportation: No Lack of Food: Never True Current Housing: I Have Housing Concerned About Future Housing: No Difficulty Paying Gas/Electric Bills: No Difficulty Paying for Meds: No Currently Unemployed: No Education: High School Diploma/GED Difficulty w/ Childcare or Family Care: No Living arrangements: with family Occupation/Education: occupation Additional occupation/education comments: [employer] Gender identity (if verbalized by the patient): Female Sexual Orientation (if Verbalized by the Patient): Straight or Heterosexual Spiritual care concerns: No Agree to blood products: Yes Exa
[2023-06-19] MEDS: SODIUM CHLORIDE 0.9% IV 1,000 ML 999 ML IV CONT (01:14)
[2023-06-19 01:22] LABS: Appearance Urine Clear (Clear); Bilirubin Urine Negative (Negative); Blood Urine Negative (Negative); Color Urine Yellow (Yellow); Glucose Urine UA Negative (Negative); Ketones Urine Negative (Negative); Leukocyte Esterase Ur Negative LEU/UL (Negative); Nitrate Urine Negative (Negative); Protein Urine Negative (Negative); Specific Grav Ur 1.011 (1.001-1.035); Urobilinogen Urine 0.2 mg/dL (<2.0)
[2023-06-19 01:29] LABS: Creatinine Urine 168.8 mg/dL
[2023-06-19 01:39] LABS: Add Urine Microscopic? NO
[2023-06-19 01:53] LABS: Sodium Urine Random 20 meq/L
[2023-06-19 02:02] LABS: Influenza A QL RT-PCR Negative (Negative); Influenza B QL RT-PCR Negative (Negative); RSV RNA, RT-PCR Negative (Negative); SARS-CoV-2 RNA PCR Positive (Negative)
--- NOTE | 2023-06-19 05:06 | PM.IMHP ---
H&P: HPI History of Present Illness Date/Time: 06/19/23 05:06 Chief Complaint: swelling Narrative: This is a 48-year-old female with past medical history significant for obesity, restrictive lung disease, obstructive sleep apnea, hypertension, alcohol abuse, congestive heart failure. Patient presents to the emergency room due to cough, shortness of breath, body aches and pains, chills, poor per orally intake, poor appetite. Patient tested positive for COVID in the emergency room. Preliminary workup was significant for sodium 123, chloride 80, BUN 30 creatinine 1.6. Patient is been admitted for further evaluation management and treatment. EXAMINATION:? XR chest 2V Exam Date/Time:? 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 Comparison: Chest x-ray 09/05/2022; CTPA 09/05/2022. RESULT: Lines, tubes, and devices:? Gastric band. Lungs and pleura:? Low volumes with crowding. Right hemidiaphragm elevation. Linear scar in the left lower lung. Streaky subsegmental left basilar opacities. Cardiomediastinal silhouette:? Stable. Other:? No acute osseous or upper abdominal finding. ? IMPRESSION: Subsegmental left basilar atelectasis/consolidation. CT Scan of the Chest with Contrast: Technique: Contiguous sections were acquired throughout the chest after intravenous administration of 200 cc of Omnipaque 350. Dose reduction technique was used on this scan by utilizing automated exposure control and iterative reconstruction technique. The dose-length product (DLP) was 1790.97 mGy-cm. COMPARISON: 09/06/2022 Findings: There is no evidence of any significant mediastinal, hilar or axillary lymphadenopathy. No large central pulmonary embolus seen. Respiratory motion artifact limits evaluation for smaller, more peripheral pulmonary emboli. There is no evidence of aortic dissection or aneurysm. There is no evidence of pleural or pericardial effusion. The lungs are clear, aside from right basilar atelectatic change. Images through the upper abdomen reveal gastric banding device in place. Impression: No large central pulmonary embolus seen. Respiratory motion artifact limits evaluation for smaller, more peripheral pulmonary emboli. Mild right basilar atelectatic change. Review of Systems Review of Systems: Shortness of breath, dry cough, poor per orally intake, poor appetite Constitutional: Constitutional: Reports chills, Reports malaise and Reports poor appetite Eyes: Eyes: Denies change in vision ENT: Denies dysphagia and Denies odynophagia Cardiovascular: Cardiovascular: Denies chest pain, Denies radiating jaw, neck or arm pain and Denies palpitations Respiratory: Respiratory: Reports cough and Reports dyspnea Gastrointestinal: Gastrointestinal: Denies abdominal pain, Denies dyspepsia, Denies diarrhea, Denies nausea and Denies vomiting Genitourinary: Genitourinary: Denies dysuria Musculoskeletal: Musculoskeletal: Reports myalgias Integumentary/Breasts: Skin/Breast: Denies rash Neurologic: Denies focal weakness and Denies Sensory deficit (Neuro) Psychiatric: Psychiatric: Reports no additional psychiatric complaints and Reports as per HPI Endocrine: Endocrine: Denies cold intolerance, Denies flushing, Denies heat intolerance, Denies polyphagia, Denies polydipsia and Denies palpitations Hematologic/Lymphatic: Hematologic/Lymphatic: Reports no additional hematologic/lymphatic complaints and Reports as per HPI Allergic/Immunologic: Allergic/Immunologic: Reports no additional allergic/immunologic complaints and Reports as per HPI PMFSH Past Medical History Medical History (Updated 06/19/23 @ 05:09 by Trinh Quiroz MD) Acute dyspnea Alcohol abuse Anal polyp s/p removal Anxiety B12 deficiency Bradycardia Cervical cancer s/p hysterectomy Congestive heart failure Echocardiogram 04/2021: EF 65-70%, mild LVH, diastolic dysfunction grade 1, severe pulmonary hypertension, mildly enlarged right
--- NOTE | 2023-06-19 06:29 | ADMGEN ---
This patient, Rosie Abdalla, was admitted to [facility] Surg Room 330-02. Patient/family oriented to hospital policies and general routines including ID bracelet, bed and alarms, visiting hours, pain management, procedures, bathroom and other care routines, personal items, smoking policy, room service/diet, and visiting hours. Information on how to activate the Rapid Response Team has been discussed. Patient/Family are encouraged to report perceived risks to care and to ask questions if they do not understand what they are told or what they should do.
[2023-06-19 08:48] LABS: Basophils Percent Auto 0.5 % (0.2-1.2); Eosinophils Absolute Auto 0.1 K/mm3 (0-0.3); Eosinophils Percent Auto 1.3 % (0-4.4); Hemoglobin 10.2 g/dL (12.0-15.0); Immature Granulocyte Absolute 0.09 K/mm3 (0.00-0.031); Immature Granulocyte Percent A 1.5 % (0-0.5); Lymphocytes Absolute Auto 0.34 K/mm3 (0.9-3.2); Lymphocytes Percent Auto 5.6 % (18.3-44.2); Mean Corpuscular HGB Conc 32.9 g/dl (32-36); Mean Corpuscular Hemoglobin 29.9 pg (26-34); Mean Corpuscular Volume 90.9 fl (80-100); Mean Platelet Volume 10.2 fl (7.4-10.4); Monocytes Percent Auto 16.7 % (2.6-8.5); Neutrophils Absolute Auto 4.5 K/mm3 (1.3-6.7); Neutrophils Percent Auto 74.4 % (45.5-73.1); Platelet Count Result 223 k/mm3 (150-375); Red Blood Count 3.41 M/mm3 (4.2-5.4); White Blood Count 6.1 K/mm3 (4.5-10.0)
[2023-06-19 09:03] LABS: Alanine Aminotransferase 12 U/L (6-35); Albumin Level 3.5 g/dL (3.5-5.1); Alkaline Phosphatase 66 U/L (38-126); Anion Gap 7 mmol/L (8-16); Aspartate Amino Transferase 28 U/L (14-36); Bilirubin,Total 0.4 mg/dL (0.2-1.3); Blood Urea Nitrogen 26 mg/dL (7-17); Calcium 8.5 mg/dL (8.4-10.2); Carbon Dioxide 29 mmol/L (22-30); Chloride 90 mmol/L (98-107); Estimated CRCL calculation 82 ml/min; Estimated Glomerular Filt Rate 53; Glucose 99 mg/dL (65-110); Magnesium 1.4 mg/dL (1.6-2.3); Potassium 4.1 mmol/L (3.4-5.0); Sodium 126 mmol/L (137-145)
[2023-06-19 10:07] LABS: Alveolar/Arterial O2 Gradient 90.2 mmHg; Base Excess ABG 5.5 mEq/l (+/-2.0); Fractional Inspired Oxygen 30 %; HCO3 ABG 29.7 mEq/l (22.0-26.0); Oxygen Content ABG 14.5 %vol (16.0-22.0); Oxygen Saturation ABG 95.6 % (95.0-100.0); Oxyhemoglobin 94.1 % THb (90.0-100.0); PCO2 ABG 42.1 mmHg (35.0-45.0); PO2 ABG 74.2 mmHg (80.0-100.0); PO2 FiO2 Ratio Arterial Blood 2.47 %; Total Hemoglobin 10.9 g/dL (12.0-18.0); pH ABG 7.467 (7.350-7.450)
[2023-06-19 10:08] LABS: Device NASAL CANNULA; Liters per Minute 2.5 LPM; Modified Allen's Test Pass; Site Drawn RIGHT RADIAL
--- NOTE | 2023-06-19 10:09 | PCRCNOTE ---
Window of time for administration has passed. See next scheduled administration.
[2023-06-19] MEDS: guaiFENesin 600 MG/DEXTROMETHORPHAN 30 MG SR TAB 12 HR 1 TAB PO ×2 (10:21→21:30)
[2023-06-19] MEDS: GABAPENTIN 300 MG CAPSULE 600 MG PO ×2 (10:21→16:49)
[2023-06-19] MEDS: FOLIC ACID 1 MG TABLET PO (10:21)
[2023-06-19] MEDS: CYANOCOBALAMIN 1,000 MCG TABLET 2000 MCG PO (10:21)
[2023-06-19] MEDS: THIAMINE HCL 100 MG TABLET PO (10:21)
[2023-06-19] MEDS: allopurinoL 300 MG TABLET PO (10:21)
[2023-06-19] MEDS: SODIUM CHLORIDE 0.9% IV 1,000 ML 75 ML IV CONT (10:22)
[2023-06-19] MEDS: REMDESIVIR 200 MG/NS 250 ML 200 MG/250 ML BAG 250 MG IVPB (11:24)
--- NOTE | 2023-06-19 13:25 | PM.IMPN ---
Progress Note: A&P Assessment and Plan (1) Hyponatremia: Code(s): E87.1 - Hypo-osmolality and hyponatremia Status: Acute (2) COVID: Code(s): U07.1 - COVID-19 Status: Acute (3) Essential hypertension: Code(s): I10 - Essential (primary) hypertension Status: Chronic (4) MONY (acute kidney injury): Code(s): N17.9 - Acute kidney failure, unspecified Status: Resolved Plan 48-year-old female with past medical history significant for obesity, restrictive lung disease, obstructive sleep apnea, hypertension, alcohol abuse, congestive heart failure presented with worsening shortness of breath, cough, not feeling well in general. Tested positive for COVID-19. 1. Acute hypoxic respiratory failure: Secondary to COVID-19 CT chest angio was negative for any PE, any consolidation Continue with O2 support Will start on remdesivir Start on IV dexamethasone for 10 days Start on albuterol Tylenol p.r.n. for fever, malaise with body aches Add Mucinex for cough 2. MONY+ hypomagnesemia+ hyponatremia: Gentle hydration for next 24 hours Supplement magnesium Holding Lasix, lisinopril, Aldactone Avoid nephrotoxins Recheck BMP in a.m. Renal ultrasound unremarkable 3. Hypertension: Continue with nifedipine Holding Lasix, lisinopril and Aldactone as mentioned above 4. DVT prophylaxis: Heparin subQ 5. Code status: Full 6. Disposition: Pending improvement Time Spent With Patient Time with patient: 15 - 25 minutes Subjective Date/time seen: 06/19/23 13:25 Interval history: Shortness of breath Review of Systems Review of Systems: All systems reviewed & are unremarkable except as noted in HPI and below Exam Const: General: comfortable and no acute distress HENMT: Mouth: Yes moist mucous membranes Eyes: Sclera: sclerae normal Neck: Neck: supple Resp: Other: Bilateral decreased breath sounds with coarse breaths, no rhonchi Cardio: Rate: regular rate Rhythm: regular rhythm GI: GI Palp: Yes Soft to palpation Auscultation: normal bowel sounds Skin: General skin exam: normal color Neuro: Speech: normal speech Extrem: General: normal to inspection Psych: Mental Status: mental status grossly normal Objective Data Vital Signs Vital Signs: Vital Signs - 24 hr 06/18/23 18:46 06/18/23 22:59 06/19/23 02:12 Temperature 97.3 F L Pulse Rate 108 H 100 Respiratory Rate 20 22 H Blood Pressure 113/63 131/72 Pulse Oximetry 98 98 100 Oxygen Delivery Room Air Room Air Oxygen Flow Rate 06/19/23 00:15 06/19/23 03:23 06/19/23 04:44 Temperature Pulse Rate 106 H 108 H 95 Respiratory Rate 26 H 28 H 22 H Blood Pressure 128/73 124/68 115/62 Pulse Oximetry 95 96 97 Oxygen Delivery Oxygen Flow Rate 06/19/23 06:00 06/19/23 06:30 06/19/23 12:27 Temperature 98.8 F 99.5 F Pulse Rate 102 H 102 H Respiratory Rate 16 36 H Blood Pressure 125/54 L 121/55 L Pulse Oximetry 97 95 95 Oxygen Delivery Nasal Cannula Oxygen Flow Rate 3 06/19/23 08:45 06/19/23 08:45 06/19/23 08:50 Temperature Pulse Rate Respiratory Rate 44 H Blood Pressure Pulse Oximetry 87 L 98 Oxygen Delivery Room Air Nasal Cannula Oxygen Flow Rate 2.5 06/19/23 10:20 Temperature Pulse Rate 101 H Respiratory Rate 40 H Blood Pressure 117/59 L Pulse Oximetry 95 Oxygen Delivery Oxygen Flow Rate Intake/Output Intake/Output: Intake & Output 06/16/23 06/17/23 06/18/23 06/19/23 23:59 23:59 23:59 23:59 Intake Total 1490 Balance 1490 Meds/Results Medications: Active Medications Generic Name Dose Route Start Last Admin Trade Name Freq PRN Reason Stop Dose Admin Acetaminophen 650 mg 06/19/23 13:21 Acetaminophen 325 Mg Tablet PO Q4H PRN Mild Pain (1-3) or Fever Albuterol 2 puff 06/19/23 09:45 06/19/23 10:09 Albuterol Sulfate (*Sp) Aerosol 1 Puff INHALATION Not Given Q6HRT FARNAZ Allopurinol 3
[2023-06-19] MEDS: ALBUTEROL SULFATE (*SP) AEROSOL 1 PUFF 2 PUFF INHALATION ×2 (13:40→20:29)
[2023-06-19] MEDS: ALBUTEROL SULFATE (*SP) INHALER 1 PUFF (13:40)
[2023-06-19] MEDS: MAGNESIUM SULF 4 GM/WATER100ML 4 GM/100 ML BAG IVPB (14:42)
[2023-06-19] MEDS: HEPARIN SODIUM 5,000 UNITS/ML VIAL 5000 UNITS SUB-Q ×2 (14:43→21:30)
[2023-06-20] VITALS (8 sets, daily range): BP systolic 127–160; BP diastolic 83–86; PULSE 87–94; RESP 16–20; TEMP 36.1–36.8; O2SAT 94–98
[2023-06-20] MEDS: SODIUM CHLORIDE 0.9% IV 1,000 ML 75 ML IV CONT (00:44)
[2023-06-20] MEDS: ALBUTEROL SULFATE (*SP) AEROSOL 1 PUFF 2 PUFF INHALATION ×3 (02:18→18:08)
[2023-06-20] MEDS: HEPARIN SODIUM 5,000 UNITS/ML VIAL 5000 UNITS SUB-Q ×3 (05:35→21:52)
[2023-06-20 06:29] LABS: Basophils Percent Auto 0.6 % (0.2-1.2); Hematocrit 32.8 % (37.0-47.0); Hemoglobin 10.1 g/dL (12.0-15.0); Immature Granulocyte Absolute 0.14 K/mm3 (0.00-0.031); Lymphocytes Absolute Auto 0.72 K/mm3 (0.9-3.2); Lymphocytes Percent Auto 15.3 % (18.3-44.2); Mean Corpuscular HGB Conc 30.8 g/dl (32-36); Mean Corpuscular Hemoglobin 29.4 pg (26-34); Mean Corpuscular Volume 95.6 fl (80-100); Mean Platelet Volume 10.3 fl (7.4-10.4); Monocytes Percent Auto 21.5 % (2.6-8.5); Neutrophils Absolute Auto 2.8 K/mm3 (1.3-6.7); Neutrophils Percent Auto 59.6 % (45.5-73.1); Platelet Count Result 220 k/mm3 (150-375); Red Blood Count 3.43 M/mm3 (4.2-5.4); Red Cell Distribution Width 15.5 % (11.5-14.5); White Blood Count 4.7 K/mm3 (4.5-10.0)
[2023-06-20 06:47] LABS: Alanine Aminotransferase 12 U/L (6-35); Albumin Level 3.6 g/dL (3.5-5.1); Alkaline Phosphatase 64 U/L (38-126); Anion Gap 7 mmol/L (8-16); Aspartate Amino Transferase 26 U/L (14-36); Bilirubin,Total 0.3 mg/dL (0.2-1.3); Blood Urea Nitrogen 21 mg/dL (7-17); Carbon Dioxide 29 mmol/L (22-30); Chloride 98 mmol/L (98-107); Estimated CRCL calculation 89 ml/min; Estimated Glomerular Filt Rate 59; Glucose 111 mg/dL (65-110); Magnesium 2.5 mg/dL (1.6-2.3); Potassium 4.3 mmol/L (3.4-5.0); Sodium 134 mmol/L (137-145)
[2023-06-20] MEDS: NIFEdipine 30 MG TAB.ER.24 120 MG PO (08:59)
[2023-06-20] MEDS: allopurinoL 300 MG TABLET PO (09:00)
[2023-06-20] MEDS: THIAMINE HCL 100 MG TABLET PO (09:00)
[2023-06-20] MEDS: guaiFENesin 600 MG/DEXTROMETHORPHAN 30 MG SR TAB 12 HR 1 TAB PO ×2 (09:00→21:55)
[2023-06-20] MEDS: CYANOCOBALAMIN 1,000 MCG TABLET 2000 MCG PO (09:00)
[2023-06-20] MEDS: GABAPENTIN 300 MG CAPSULE 600 MG PO ×2 (09:01→18:01)
[2023-06-20] MEDS: FOLIC ACID 1 MG TABLET PO (09:01)
[2023-06-20] MEDS: REMDESIVIR 100 MG/NS 250 ML 100 MG/250 ML BAG 250 MG IVPB (09:44)
--- NOTE | 2023-06-20 14:30 | PM.IMPN ---
Progress Note: A&P Assessment and Plan (1) Hyponatremia: Code(s): E87.1 - Hypo-osmolality and hyponatremia Status: Acute (2) COVID: Code(s): U07.1 - COVID-19 Status: Acute (3) Essential hypertension: Code(s): I10 - Essential (primary) hypertension Status: Chronic (4) MONY (acute kidney injury): Code(s): N17.9 - Acute kidney failure, unspecified Status: Resolved Plan 48-year-old female with past medical history significant for obesity, restrictive lung disease, obstructive sleep apnea, hypertension, alcohol abuse, congestive heart failure presented with worsening shortness of breath, cough, not feeling well in general. Tested positive for COVID-19. 1. Acute hypoxic respiratory failure: Secondary to COVID-19 CT chest angio was negative for any PE, any consolidation Continue with O2 support Continue with remdesivir Continue with IV dexamethasone for total 10 days Continue with p.r.n. albuterol Tylenol p.r.n. for fever, malaise with body aches Continue with mucinex for cough 2. MONY+ hypomagnesemia+ hyponatremia: MONY resolved Hypomagnesemia resolved Hypernatremia improving Will continue to hold lasix, lisinopril, Aldactone(anticipate to restart by tomorrow morning) Avoid nephrotoxins Recheck BMP in a.m. Renal ultrasound unremarkable 3. Hypertension: Continue with nifedipine Holding Lasix, lisinopril and Aldactone as mentioned above 4. DVT prophylaxis: Heparin subQ 5. Code status: Full 6. Disposition: Pending improvement Time Spent With Patient Time with patient: 15 - 25 minutes Subjective Date/time seen: 06/20/23 14:30 Interval history: Feeling much better today Review of Systems Review of Systems: All systems reviewed & are unremarkable except as noted in HPI and below Exam Const: General: comfortable and no acute distress HENMT: Mouth: Yes moist mucous membranes Eyes: Sclera: sclerae normal Neck: Neck: supple Resp: Other: Bilateral decreased breath sounds with coarse breaths, no rhonchi Cardio: Rate: regular rate Rhythm: regular rhythm GI: GI Palp: Yes Soft to palpation Auscultation: normal bowel sounds Skin: General skin exam: normal color Neuro: Speech: normal speech Extrem: General: normal to inspection Psych: Mental Status: mental status grossly normal Objective Data Vital Signs Vital Signs: Vital Signs - 24 hr 06/19/23 16:00 06/19/23 16:10 06/19/23 20:32 Temperature 100.3 F H 100.1 F H Pulse Rate 106 H 115 H Respiratory Rate 30 H 18 Blood Pressure 117/64 Pulse Oximetry 92 Oxygen Delivery Oxygen Flow Rate 06/19/23 20:00 06/19/23 19:50 06/20/23 00:00 Temperature 97 F L 96.9 F L Pulse Rate 106 H 94 Respiratory Rate 24 H 20 Blood Pressure 143/79 H 127/83 Pulse Oximetry 92 92 95 Oxygen Delivery Nasal Cannula Oxygen Flow Rate 2.5 06/20/23 05:40 06/20/23 08:27 06/20/23 09:00 Temperature 97.0 F L Pulse Rate 92 Respiratory Rate 20 20 Blood Pressure 140/84 Pulse Oximetry 98 95 Oxygen Delivery Nasal Cannula Oxygen Flow Rate 2 06/20/23 11:51 Temperature 98.2 F Pulse Rate 87 Respiratory Rate 16 Blood Pressure 139/83 Pulse Oximetry 95 Oxygen Delivery Oxygen Flow Rate Intake/Output Intake/Output: Intake & Output 06/17/23 06/18/23 06/19/23 06/20/23 23:59 23:59 23:59 23:59 Intake Total 3570 1080 Balance 3570 1080 Meds/Results Medications: Active Medications Generic Name Dose Route Start Last Admin Trade Name Freq PRN Reason Stop Dose Admin Acetaminophen 650 mg 06/19/23 13:21 Acetaminophen 325 Mg Tablet PO Q4H PRN Mild Pain (1-3) or Fever Albuterol 2 puff 06/19/23 09:45 06/20/23 08:27 Albuterol Sulfate (*Sp) Aerosol 1 Puff INHALATION 2 puff Q6HRT FARNAZ Administration Allopurinol 300 mg 06/19/23 09:55 06/20/23 09:00 Allopurinol 300 Mg Tablet PO 300 mg DAILY FARNAZ Administration Calcium Car
--- NOTE | 2023-06-20 15:46 | PCRCNOTE ---
Window of time for administration has passed. See next scheduled administration.
[2023-06-21] VITALS (8 sets, daily range): BP systolic 130–164; BP diastolic 79–97; PULSE 72–89; RESP 16–20; TEMP 35.9–36.8; O2SAT 91–98
[2023-06-21] MEDS: ALBUTEROL SULFATE (*SP) AEROSOL 1 PUFF 2 PUFF INHALATION ×4 (02:57→20:42)
[2023-06-21] MEDS: HEPARIN SODIUM 5,000 UNITS/ML VIAL 5000 UNITS SUB-Q ×3 (05:33→21:59)
[2023-06-21 06:07] LABS: Basophils Percent Auto 0.6 % (0.2-1.2); Hemoglobin 10.4 g/dL (12.0-15.0); Immature Granulocyte Absolute 0.09 K/mm3 (0.00-0.031); Immature Granulocyte Percent A 1.8 % (0-0.5); Lymphocytes Absolute Auto 1.13 K/mm3 (0.9-3.2); Mean Corpuscular HGB Conc 30.6 g/dl (32-36); Mean Corpuscular Hemoglobin 29.5 pg (26-34); Mean Corpuscular Volume 96.3 fl (80-100); Mean Platelet Volume 10.3 fl (7.4-10.4); Monocytes Absolute Auto 1.1 K/mm3 (0.1-0.6); Monocytes Percent Auto 21.8 % (2.6-8.5); Neutrophils Absolute Auto 2.8 K/mm3 (1.3-6.7); Neutrophils Percent Auto 53.8 % (45.5-73.1); Platelet Count Result 222 k/mm3 (150-375); Red Blood Count 3.53 M/mm3 (4.2-5.4); Red Cell Distribution Width 15.4 % (11.5-14.5); White Blood Count 5.1 K/mm3 (4.5-10.0)
[2023-06-21 06:18] LABS: Alanine Aminotransferase 14 U/L (6-35); Albumin Level 3.7 g/dL (3.5-5.1); Alkaline Phosphatase 61 U/L (38-126); Anion Gap 5 mmol/L (8-16); Aspartate Amino Transferase 36 U/L (14-36); Bilirubin,Total 0.3 mg/dL (0.2-1.3); Blood Urea Nitrogen 21 mg/dL (7-17); Calcium 8.8 mg/dL (8.4-10.2); Carbon Dioxide 31 mmol/L (22-30); Chloride 97 mmol/L (98-107); Estimated CRCL calculation 99 ml/min; Estimated Glomerular Filt Rate > 60; Glucose 100 mg/dL (65-110); Magnesium 1.9 mg/dL (1.6-2.3); Potassium 4.2 mmol/L (3.4-5.0); Sodium 133 mmol/L (137-145)
[2023-06-21] MEDS: REMDESIVIR 100 MG/NS 250 ML 100 MG/250 ML BAG 250 MG IVPB (10:25)
[2023-06-21] MEDS: CYANOCOBALAMIN 1,000 MCG TABLET 2000 MCG PO (10:28)
[2023-06-21] MEDS: allopurinoL 300 MG TABLET PO (10:28)
[2023-06-21] MEDS: THIAMINE HCL 100 MG TABLET PO (10:28)
[2023-06-21] MEDS: GABAPENTIN 300 MG CAPSULE 600 MG PO ×2 (10:29→17:28)
[2023-06-21] MEDS: FOLIC ACID 1 MG TABLET PO (10:29)
[2023-06-21] MEDS: guaiFENesin 600 MG/DEXTROMETHORPHAN 30 MG SR TAB 12 HR 1 TAB PO ×2 (10:29→21:59)
[2023-06-21] MEDS: NIFEdipine 30 MG TAB.ER.24 120 MG PO (10:29)
--- NOTE | 2023-06-21 12:25 | PM.IMPN ---
Progress Note: A&P Assessment and Plan (1) Hyponatremia: Code(s): E87.1 - Hypo-osmolality and hyponatremia Status: Acute (2) COVID: Code(s): U07.1 - COVID-19 Status: Acute (3) Essential hypertension: Code(s): I10 - Essential (primary) hypertension Status: Chronic (4) MONY (acute kidney injury): Code(s): N17.9 - Acute kidney failure, unspecified Status: Resolved Plan 48-year-old female with past medical history significant for obesity, restrictive lung disease, obstructive sleep apnea, hypertension, alcohol abuse, congestive heart failure presented with worsening shortness of breath, cough, not feeling well in general. Tested positive for COVID-19. 1. Acute hypoxic respiratory failure: Secondary to COVID-19 CT chest angio was negative for any PE, any consolidation Continue with O2 support Continue with remdesivir Continue with IV dexamethasone for total 10 days Continue with p.r.n. albuterol Tylenol p.r.n. for fever, malaise with body aches Continue with mucinex for cough 2. MONY+ hypomagnesemia+ hyponatremia: MONY resolved Hypomagnesemia resolved Hyponatremia improving Will continue to hold lasix, Aldactone Avoid nephrotoxins Recheck BMP in a.m. Renal ultrasound unremarkable 3. Hypertension: Continue with nifedipine Will resume lisinopril today Will likely resume Aldactone tomorrow, Lasix thereafter 4. DVT prophylaxis: Heparin subQ 5. Code status: Full 6. Disposition: Pending improvement in hypoxia Time Spent With Patient Time with patient: 15 - 25 minutes Subjective Date/time seen: 06/21/23 12:25 Interval history: Feeling much better today, currently on 2 L of nasal cannula Review of Systems Review of Systems: All systems reviewed & are unremarkable except as noted in HPI and below Exam Const: General: comfortable and no acute distress HENMT: Mouth: Yes moist mucous membranes Eyes: Sclera: sclerae normal Neck: Neck: supple Resp: Other: Bilateral decreased breath sounds with coarse breaths, no rhonchi Cardio: Rate: regular rate Rhythm: regular rhythm GI: GI Palp: Yes Soft to palpation Auscultation: normal bowel sounds Skin: General skin exam: normal color Neuro: Speech: normal speech Extrem: General: normal to inspection Psych: Mental Status: mental status grossly normal Objective Data Vital Signs Vital Signs: Vital Signs - 24 hr 06/20/23 18:09 06/20/23 20:35 06/20/23 21:35 Temperature 97.2 F L Pulse Rate 87 Respiratory Rate 18 Blood Pressure 160/86 H Pulse Oximetry 94 95 95 Oxygen Delivery Nasal Cannula Nasal Cannula Oxygen Flow Rate 2.5 2 06/21/23 03:39 06/21/23 04:35 06/21/23 09:51 Temperature 98.3 F 96.6 F L Pulse Rate 74 74 Respiratory Rate 18 20 Blood Pressure 142/95 H 164/97 H Pulse Oximetry 96 97 94 Oxygen Delivery Nasal Cannula Oxygen Flow Rate 2 Intake/Output Intake/Output: Intake & Output 06/18/23 06/19/23 06/20/23 06/21/23 23:59 23:59 23:59 23:59 Intake Total 3570 2870 472 Balance 3570 2870 472 Meds/Results Medications: Active Medications Generic Name Dose Route Start Last Admin Trade Name Freq PRN Reason Stop Dose Admin Acetaminophen 650 mg 06/19/23 13:21 Acetaminophen 325 Mg Tablet PO Q4H PRN Mild Pain (1-3) or Fever Albuterol 2 puff 06/19/23 09:45 06/21/23 09:45 Albuterol Sulfate (*Sp) Aerosol 1 Puff INHALATION 2 puff Q6HRT FANRAZ Administration Allopurinol 300 mg 06/19/23 09:55 06/21/23 10:28 Allopurinol 300 Mg Tablet PO 300 mg DAILY FARNAZ Administration Calcium Carbonate 500 mg 06/19/23 09:55 06/21/23 10:28 Calcium/Vitamin D 500 Mg Tablet PO 500 mg BID FARNAZ Administration Cyanocobalamin 2,000 mcg 06/19/23 09:55 06/21/23 10:28 Cyanocobalamin 1,000 Mcg Tablet PO 2,000 mcg QAM FARNAZ Administration Dexamethasone Sodium Phosphate 6 mg 06/19/23 10:00 06/21/23 10:26 Dexametha
[2023-06-21] MEDS: lisinopriL 20 MG TABLET 40 MG PO (15:14)
[2023-06-21 16:32] LABS: Glucose Point of Care 157 mg/dl (65-105)
[2023-06-21 22:35] LABS: Glucose Point of Care 138 mg/dl (65-105)
[2023-06-22] VITALS (9 sets, daily range): BP systolic 142–150; BP diastolic 74–89; PULSE 67–92; RESP 16–20; TEMP 35.7–36.4; O2SAT 88–98
[2023-06-22] MEDS: HEPARIN SODIUM 5,000 UNITS/ML VIAL 5000 UNITS SUB-Q ×3 (05:57→20:22)
[2023-06-22 07:41] LABS: Basophils Percent Auto 0.6 % (0.2-1.2); Eosinophils Percent Auto 0.1 % (0-4.4); Hematocrit 34.9 % (37.0-47.0); Hemoglobin 10.8 g/dL (12.0-15.0); Immature Granulocyte Absolute 0.08 K/mm3 (0.00-0.031); Immature Granulocyte Percent A 1.1 % (0-0.5); Lymphocytes Absolute Auto 1.56 K/mm3 (0.9-3.2); Mean Corpuscular HGB Conc 30.9 g/dl (32-36); Mean Corpuscular Hemoglobin 29.7 pg (26-34); Mean Corpuscular Volume 95.9 fl (80-100); Mean Platelet Volume 10.1 fl (7.4-10.4); Monocytes Percent Auto 14.1 % (2.6-8.5); Neutrophils Absolute Auto 4.4 K/mm3 (1.3-6.7); Neutrophils Percent Auto 62.1 % (45.5-73.1); Platelet Count Result 225 k/mm3 (150-375); Red Blood Count 3.64 M/mm3 (4.2-5.4); Red Cell Distribution Width 15.3 % (11.5-14.5); White Blood Count 7.1 K/mm3 (4.5-10.0)
[2023-06-22 07:51] LABS: Glucose Point of Care 96 mg/dl (65-105)
[2023-06-22] MEDS: ALBUTEROL SULFATE (*SP) AEROSOL 1 PUFF 2 PUFF INHALATION ×3 (07:53→20:23)
[2023-06-22 07:55] LABS: Alanine Aminotransferase 14 U/L (6-35); Albumin Level 3.8 g/dL (3.5-5.1); Alkaline Phosphatase 62 U/L (38-126); Anion Gap 8 mmol/L (8-16); Aspartate Amino Transferase 25 U/L (14-36); Bilirubin,Total 0.2 mg/dL (0.2-1.3); Blood Urea Nitrogen 20 mg/dL (7-17); Calcium 9.1 mg/dL (8.4-10.2); Carbon Dioxide 27 mmol/L (22-30); Chloride 97 mmol/L (98-107); Estimated CRCL calculation 110 ml/min; Estimated Glomerular Filt Rate > 60; Glucose 93 mg/dL (65-110); Magnesium 1.8 mg/dL (1.6-2.3); Potassium 4.5 mmol/L (3.4-5.0); Sodium 132 mmol/L (137-145)
[2023-06-22 09:42] LABS: Osmolality, Urine 310 mOsm/kg (50-1200)
[2023-06-22] MEDS: FOLIC ACID 1 MG TABLET PO (09:55)
[2023-06-22] MEDS: GABAPENTIN 300 MG CAPSULE 600 MG PO ×2 (09:55→16:44)
[2023-06-22] MEDS: NIFEdipine 30 MG TAB.ER.24 120 MG PO (09:55)
[2023-06-22] MEDS: guaiFENesin 600 MG/DEXTROMETHORPHAN 30 MG SR TAB 12 HR 1 TAB PO ×2 (09:55→20:22)
[2023-06-22] MEDS: REMDESIVIR 100 MG/NS 250 ML 100 MG/250 ML BAG 250 MG IVPB (09:55)
[2023-06-22] MEDS: THIAMINE HCL 100 MG TABLET PO (09:55)
[2023-06-22] MEDS: allopurinoL 300 MG TABLET PO (09:55)
[2023-06-22] MEDS: lisinopriL 20 MG TABLET 40 MG PO (09:55)
[2023-06-22] MEDS: CYANOCOBALAMIN 1,000 MCG TABLET 2000 MCG PO (09:55)
[2023-06-22 11:53] LABS: Glucose Point of Care 121 mg/dl (65-105)
--- NOTE | 2023-06-22 15:12 | PM.IMPN ---
Progress Note: A&P Assessment and Plan (1) COVID: Code(s): U07.1 - COVID-19 Status: Acute Assessment and Plan: complete dexamethasone and remdesivir may be discharged if she remains stable after completion of remdesivir (2) Hypoxemia: Code(s): R09.02 - Hypoxemia Status: Acute Assessment and Plan: secondary to COVID-19 with underlying obstructive sleep apnea continue oxygen at 2 liters/minute and wean as tolerated (3) Hyponatremia: Code(s): E87.1 - Hypo-osmolality and hyponatremia Status: Acute Assessment and Plan: mild, likely due to acute infection, stable (4) Essential hypertension: Code(s): I10 - Essential (primary) hypertension Status: Chronic Assessment and Plan: 06/22 blood pressures reviewed and controlled (5) MONY (acute kidney injury): Code(s): N17.9 - Acute kidney failure, unspecified Status: Resolved Assessment and Plan: resolved (6) DAVIAN (obstructive sleep apnea): Code(s): G47.33 - Obstructive sleep apnea (adult) (pediatric) Status: Acute Plan 48-year-old female with past medical history significant for obesity, restrictive lung disease, obstructive sleep apnea, hypertension, alcohol abuse, congestive heart failure presented with worsening shortness of breath, cough, not feeling well in general. Tested positive for COVID-19. 1. Acute hypoxic respiratory failure: Secondary to COVID-19 CT chest angio was negative for any PE, any consolidation Continue with O2 support Continue with remdesivir Continue with IV dexamethasone for total 10 days Continue with p.r.n. albuterol Tylenol p.r.n. for fever, malaise with body aches Continue with mucinex for cough 2. MONY+ hypomagnesemia+ hyponatremia: MONY resolved Hypomagnesemia resolved Hyponatremia improving Will continue to hold lasix, Aldactone Avoid nephrotoxins Recheck BMP in a.m. Renal ultrasound unremarkable 3. Hypertension: Continue with nifedipine Will resume lisinopril today Will likely resume Aldactone tomorrow, Lasix thereafter 4. DVT prophylaxis: Heparin subQ 5. Code status: Full 6. Disposition: Pending improvement in hypoxia Subjective Date/time seen: 06/22/23 15:12 Interval history: still as dry cough without sputum production. Short of breath only with exertion. 2 L of oxygen. Has oxygen at home as she sleeps with it at night. Does not usually use it during the day. Intact. Appetite fair. No chest pain. No GI or symptoms. No abnormal bleeding. No fevers or chills. Review of Systems Review of Systems: All systems reviewed & are unremarkable except as noted in HPI and below Exam Narrative: HEENT: PERRL, sclerae nonicteric, pharyngeal mucosa pink and intact NECK: No JVD CHEST: Coarse breath sounds without crackles or wheezes. Normal effort. HEART: NL S1/S2, regular, no murmur ABDOMEN: BS+, soft, nontender, no mass, no bruits EXTREMITIES: No cyanosis, edema, or clubbing NEUROLOGIC: CN intact and symmetric to inspection. MUSCULOSKELETAL: Tone and strength symmetric. PSYCH: Alert. Oriented to person, place, and time. Objective Data Vital Signs Vital Signs: Vital Signs - 24 hr 06/21/23 15:59 06/21/23 20:44 06/21/23 21:40 Temperature 97.7 F 96.8 F L Pulse Rate 89 72 Respiratory Rate 16 20 Blood Pressure 130/79 150/86 H Pulse Oximetry 93 93 91 Oxygen Delivery Nasal Cannula Oxygen Flow Rate 1 06/22/23 05:50 06/22/23 07:53 06/21/23 21:55 Temperature 96.5 F L Pulse Rate 75 Respiratory Rate 16 Blood Pressure 150/89 H Pulse Oximetry 94 98 98 Oxygen Delivery Nasal Cannula Nasal Cannula Oxygen Flow Rate 3 3 06/22/23 08:00 06/22/23 09:55 06/22/23 14:00 Temperature 97.2 F L 97.5 F L Pulse Rate 70 92 Respiratory Rate 16 16 Blood Pressure 146/89 H 142/74 H Pulse Oximetry 96 95 94 Oxygen Delivery Room Air Oxygen Flow Rate Intake/Output Int
[2023-06-22 16:35] LABS: Glucose Point of Care 144 mg/dl (65-105)
[2023-06-22 21:04] LABS: Glucose Point of Care 137 mg/dl (65-105)
[2023-06-23] VITALS (7 sets, daily range): BP systolic 122–157; BP diastolic 74–99; PULSE 63–80; RESP 16–18; TEMP 35.6–36.2; O2SAT 95–100
[2023-06-23 07:59] LABS: Glucose Point of Care 100 mg/dl (65-105)
[2023-06-23] MEDS: lisinopriL 20 MG TABLET 40 MG PO (08:09)
[2023-06-23] MEDS: CYANOCOBALAMIN 1,000 MCG TABLET 2000 MCG PO (08:10)
[2023-06-23] MEDS: guaiFENesin 600 MG/DEXTROMETHORPHAN 30 MG SR TAB 12 HR 1 TAB PO ×2 (08:10→21:37)
[2023-06-23] MEDS: FOLIC ACID 1 MG TABLET PO (08:10)
[2023-06-23] MEDS: NIFEdipine 30 MG TAB.ER.24 120 MG PO (08:10)
[2023-06-23] MEDS: THIAMINE HCL 100 MG TABLET PO (08:10)
[2023-06-23] MEDS: allopurinoL 300 MG TABLET PO (08:10)
[2023-06-23] MEDS: GABAPENTIN 300 MG CAPSULE 600 MG PO ×2 (08:10→16:26)
[2023-06-23] MEDS: REMDESIVIR 100 MG/NS 250 ML 100 MG/250 ML BAG 250 MG IVPB (09:35)
[2023-06-23] MEDS: ALBUTEROL SULFATE (*SP) AEROSOL 1 PUFF 2 PUFF INHALATION ×3 (10:44→19:34)
[2023-06-23 11:18] LABS: Glucose Point of Care 111 mg/dl (65-105)
[2023-06-23] MEDS: HEPARIN SODIUM 5,000 UNITS/ML VIAL 5000 UNITS SUB-Q ×2 (13:53→21:36)
--- NOTE | 2023-06-23 14:42 | PM.IMPN ---
Progress Note: A&P Assessment and Plan (1) COVID: Code(s): U07.1 - COVID-19 Status: Acute Assessment and Plan: complete dexamethasone and remdesivir may be discharged if she remains stable after completion of remdesivir likely 7 days is enough (2) Hypoxemia: Code(s): R09.02 - Hypoxemia Status: Acute Assessment and Plan: secondary to COVID-19 with underlying obstructive sleep apnea continue oxygen at 3 liters/minute and wean as tolerated (3) Hyponatremia: Code(s): E87.1 - Hypo-osmolality and hyponatremia Status: Acute Assessment and Plan: mild, likely due to acute infection, stable (4) Essential hypertension: Code(s): I10 - Essential (primary) hypertension Status: Chronic Assessment and Plan: 06/22 blood pressures reviewed and controlled (5) MONY (acute kidney injury): Code(s): N17.9 - Acute kidney failure, unspecified Status: Resolved Assessment and Plan: resolved (6) DAVIAN (obstructive sleep apnea): Code(s): G47.33 - Obstructive sleep apnea (adult) (pediatric) Status: Acute Plan 48-year-old female with past medical history significant for obesity, restrictive lung disease, obstructive sleep apnea, hypertension, alcohol abuse, congestive heart failure presented with worsening shortness of breath, cough, not feeling well in general. Tested positive for COVID-19. 1. Acute hypoxic respiratory failure: Secondary to COVID-19 CT chest angio was negative for any PE, any consolidation Continue with O2 support Continue with remdesivir Continue with IV dexamethasone Continue with p.r.n. albuterol Tylenol p.r.n. for fever, malaise with body aches Continue with mucinex for cough 2. MONY+ hypomagnesemia+ hyponatremia: MONY resolved Hypomagnesemia resolved Hyponatremia improving Will continue to hold lasix, Aldactone Avoid nephrotoxins Recheck BMP in a.m. Renal ultrasound unremarkable 3. Hypertension: Continue with nifedipine Will resume lisinopril today Will likely resume Aldactone tomorrow, Lasix thereafter 4. DVT prophylaxis: Heparin subQ 5. Code status: Full 6. Disposition: Pending improvement in hypoxia Subjective Date/time seen: 06/23/23 14:42 Interval history: Pt admitted for covid ongoing symptoms slow improvement on 3 liters on day 5 remdesivir believe another 2 more days Review of Systems Review of Systems: Shortness of breath, dry cough, improving All systems reviewed & are unremarkable except as noted in HPI and below Exam Narrative: HEENT: PERRL, sclerae nonicteric, pharyngeal mucosa pink and intact NECK: No JVD CHEST: Coarse breath sounds without crackles or wheezes. Normal effort. HEART: NL S1/S2, regular, no murmur ABDOMEN: BS+, soft, nontender, no mass, no bruits EXTREMITIES: No cyanosis, edema, or clubbing NEUROLOGIC: CN intact and symmetric to inspection. MUSCULOSKELETAL: Tone and strength symmetric. PSYCH: Alert. Oriented to person, place, and time. Objective Data Vital Signs Vital Signs: Vital Signs - 24 hr 06/22/23 20:24 06/22/23 20:00 06/22/23 20:55 Temperature 35.7 C L Pulse Rate 92 67 Respiratory Rate 16 20 Blood Pressure 146/74 H Pulse Oximetry 93 93 96 Oxygen Delivery Nasal Cannula Nasal Cannula Oxygen Flow Rate 1 2 06/23/23 00:20 06/23/23 05:45 06/23/23 10:44 Temperature 35.7 C L 36.0 C L Pulse Rate 71 64 Respiratory Rate 16 16 Blood Pressure 143/99 H 157/98 H Pulse Oximetry 97 100 96 Oxygen Delivery Nasal Cannula Oxygen Flow Rate 1 06/23/23 10:49 Temperature Pulse Rate Respiratory Rate Blood Pressure Pulse Oximetry 95 Oxygen Delivery Oxygen Flow Rate Intake/Output Intake/Output: Intake & Output 06/20/23 06/21/23 06/22/23 06/23/23 23:59 23:59 23:59 23:59 Intake Total 2870 1166 1032 880 Balance 2870 1166 1032 880 Meds/Results Medications: Active Medications Generi
[2023-06-23 16:35] LABS: Glucose Point of Care 127 mg/dl (65-105)
[2023-06-23 20:21] LABS: Glucose Point of Care 134 mg/dl (65-105)
[2023-06-24] VITALS (7 sets, daily range): BP systolic 124–133; BP diastolic 70–85; PULSE 56–99; RESP 14–16; TEMP 35.9–36.9; O2SAT 86–97
[2023-06-24] MEDS: ALBUTEROL SULFATE (*SP) AEROSOL 1 PUFF 2 PUFF INHALATION ×3 (01:40→15:13)
[2023-06-24] MEDS: HEPARIN SODIUM 5,000 UNITS/ML VIAL 5000 UNITS SUB-Q ×2 (06:07→13:39)
[2023-06-24 07:13] LABS: Hematocrit 35.6 % (37.0-47.0); Hemoglobin 11.1 g/dL (12.0-15.0); Mean Corpuscular HGB Conc 31.2 g/dl (32-36); Mean Corpuscular Hemoglobin 29.4 pg (26-34); Mean Corpuscular Volume 94.4 fl (80-100); Mean Platelet Volume 9.8 fl (7.4-10.4); Platelet Count Result 242 k/mm3 (150-375); Red Blood Count 3.77 M/mm3 (4.2-5.4); Red Cell Distribution Width 14.9 % (11.5-14.5); White Blood Count 11.3 K/mm3 (4.5-10.0)
[2023-06-24 07:34] LABS: Alanine Aminotransferase 15 U/L (6-35); Albumin Level 3.6 g/dL (3.5-5.1); Alkaline Phosphatase 62 U/L (38-126); Anion Gap 4 mmol/L (8-16); Aspartate Amino Transferase 18 U/L (14-36); Bilirubin,Total 0.3 mg/dL (0.2-1.3); Blood Urea Nitrogen 21 mg/dL (7-17); Calcium 8.9 mg/dL (8.4-10.2); Carbon Dioxide 30 mmol/L (22-30); Chloride 97 mmol/L (98-107); Estimated CRCL calculation 125 ml/min; Estimated Glomerular Filt Rate > 60; Glucose 89 mg/dL (65-110); Potassium 4.4 mmol/L (3.4-5.0); Sodium 131 mmol/L (137-145)
[2023-06-24 07:59] LABS: Glucose Point of Care 86 mg/dl (65-105)
[2023-06-24] MEDS: NIFEdipine 30 MG TAB.ER.24 120 MG PO (09:47)
[2023-06-24] MEDS: GABAPENTIN 300 MG CAPSULE 600 MG PO (09:48)
[2023-06-24] MEDS: allopurinoL 300 MG TABLET PO (09:48)
[2023-06-24] MEDS: guaiFENesin 600 MG/DEXTROMETHORPHAN 30 MG SR TAB 12 HR 1 TAB PO (09:48)
[2023-06-24] MEDS: FOLIC ACID 1 MG TABLET PO (09:48)
[2023-06-24] MEDS: THIAMINE HCL 100 MG TABLET PO (09:48)
[2023-06-24] MEDS: lisinopriL 20 MG TABLET 40 MG PO (09:57)
[2023-06-24] MEDS: CYANOCOBALAMIN 1,000 MCG TABLET 2000 MCG PO (10:11)
--- NOTE | 2023-06-24 11:42 | HOMEO2EVAL ---
Evaluation was performed at [facility] Home Oxygen Evaluation RC: Home Oxygen (O2) Evaluation Start: 06/24/23 09:39 Freq: ONCE Status: Active Protocol: RPE Activity Type Activity Date Activity User E-sign Co-sign Detail Recorded Client Recorded Date Recorded By Document 06/24/23 11:00 EHSAN [email or web address] 06/24/23 11:42 EHSAN Document 06/24/23 11:05 EHSAN [email or web address] 06/24/23 11:42 EHSAN Document 06/24/23 11:06 EHSAN [email or web address] 06/24/23 11:42 EHSAN Document 06/24/23 11:15 EHSAN [email or web address] 06/24/23 11:42 EHSAN 06/24/23 06/24/23 06/24/23 11:00 11:05 11:06 Home O2 Evaluation [Oxygen] -Test Phase Resting Exercise Exercise -Oxygen Delivery Room Air Room Air Nasal Cannula -Oxygen Flow Rate (L/min) 2 [Pulse Oximetry] -Pulse Oximetry (90-100 %) 97 86 L 91 [Pulse Rate] -Pulse Rate (60-100 beats/min) 56 L 99 [Comments] -Home Oxygen Evaluation Comments Pt requires 2 L with activity [Charges] -Evaluation Charges O2 Evaluation by Pulmonary 06/24/23 11:15 Home O2 Evaluation [Oxygen] -Test Phase Resting -Oxygen Delivery Room Air -Oxygen Flow Rate (L/min) [Pulse Oximetry] -Pulse Oximetry (90-100 %) 96 [Pulse Rate] -Pulse Rate (60-100 beats/min) 66 [Comments] -Home Oxygen Evaluation Comments [Charges] -Evaluation Charges
--- NOTE | 2023-06-24 11:42 | PCRCNOTE ---
Home O2 eval completed, 2L with activity, room air at rest. she also wears 3 l at night. No changes from current settings, has [facility] for Home O2 equipment. Daughter will bring in portable tank at D/C for transport home. RN notified.
[2023-06-24 11:53] LABS: Glucose Point of Care 122 mg/dl (65-105)
[2023-06-24] MEDS: DEXAMETHASONE 2 MG TABLET 6 MG PO (12:38)
--- NOTE | 2023-06-24 14:48 | PM.DS ---
DS: Admitting Diagnosis Discharge Date 06/24/2023: Admitting Diagnosis Acute respiratory failure with hypoxia COVID-19 MONY Electrolyte imbalance DS: Discharge Diagnosis Discharge Diagnosis (1) Hypochloremia: Code(s): E87.8 - Other disorders of electrolyte and fluid balance, not elsewhere classified Status: Acute (2) Hyponatremia: Code(s): E87.1 - Hypo-osmolality and hyponatremia Status: Acute (3) COVID: Code(s): U07.1 - COVID-19 Status: Acute (4) Restrictive ventilatory defect: Code(s): R94.2 - Abnormal results of pulmonary function studies Status: Acute (5) DAVIAN (obstructive sleep apnea): Code(s): G47.33 - Obstructive sleep apnea (adult) (pediatric) Status: Acute (6) Hypoxemia: Code(s): R09.02 - Hypoxemia Status: Acute (7) Anemia: Code(s): D64.9 - Anemia, unspecified Status: Acute (8) Vitamin B12 deficiency: Code(s): E53.8 - Deficiency of other specified B group vitamins Status: Acute (9) Essential hypertension: Code(s): I10 - Essential (primary) hypertension Status: Chronic (10) Pulmonary hypertension: Code(s): I27.20 - Pulmonary hypertension, unspecified Status: Acute (11) Neuropathy: Code(s): G62.9 - Polyneuropathy, unspecified Status: Acute (12) Alcohol abuse: Code(s): F10.10 - Alcohol abuse, uncomplicated Status: Acute (13) Edema: Code(s): R60.9 - Edema, unspecified Status: Acute (14) Left lateral ankle pain: Code(s): M25.572 - Pain in left ankle and joints of left foot Status: Acute (15) Tear of tendon of left ankle: Code(s): S96.912A - Strain of unspecified muscle and tendon at ankle and foot level, left foot, initial encounter Status: Acute (16) Exertional dyspnea: Code(s): R06.09 - Other forms of dyspnea Status: Acute DS: Summary Hospital Course Reason for hospitalization: Patient admitted with shortness of breath. Workup was done with some COVID 19 with hypoxemia Hospital Course: H&P: HPI History of Present Illness Date/Time: 12/06/23? 05:06 Chief Complaint: swelling Narrative: This is a 48-year-old female with past medical history significant for obesity, restrictive lung disease, obstructive sleep apnea, hypertension, alcohol abuse, congestive heart failure.? Patient presents to the emergency room due to cough, shortness of breath, body aches and pains, chills, poor per orally intake, poor appetite.? Patient tested positive for COVID in the emergency room.? Preliminary workup was significant for sodium 123, chloride 80, BUN 30 creatinine 1.6.? Patient is been admitted for further evaluation management and treatment. HOSPITAL COURSE ... 06/19/2023 - 06/24/2023: Patient admitted with the hypoxic respiratory failure due to COVID-19. She was started on oxygen via nasal cannula as well as hydration and electrolyte replacement. She has received IV remdesivir and IV dexamethasone for 5 days. Her hypoxemia has resolved. She is maintaining O2 sats 93-97% on room air. She has been stable from medical standpoint to be discharged on oral dexamethasone for 5 more days to complete 10 days course of dexamethasone. We will advise her to self-quarantine at home for 5 more days to complete total 10 days of quarantine from onset of symptoms. She can go back to her work on Saturday07/01/2023. She has been advised to follow-up with her PCP within 1 week and establish with the community health for further management recommendations regarding her COVID-19 status. I will hold off on her diuretics in the form oral spironolactone and furosemide for 1 week until she sees her PCP giving given her recent MONY and electrolyte imbalance. I will request a PCP to follow up with her and evaluate her usage of diuretics. Status at Discharge Functional status at discharge: independent ambulation Overall st
== END 2023-06-24 16:15 | disposition home or self-care (01) | DRG 177 ==
LOC: ANHED 06-19 05:14 → ANH3MEDSUR 06-19 05:33
PROVIDERS: Family Medicine; Internal Medicine; Student in an Organized Health Care Education/Training Program; Admitting Provider Internal Medicine; Emergency Provider Emergency Medicine; PCP Family Medicine Adolescent Medicine; Visit Provider Family Medicine
DX: U07.1 COVID-19 (principal); J96.01 Acute respiratory failure with hypoxia; E87.1 Hypo-osmolality and hyponatremia; Z68.42 Body mass index [BMI] 45.0-49.9, adult; N17.9 Acute kidney failure, unspecified; I11.0 Hypertensive heart disease with heart failure; I27.20 Pulmonary hypertension, unspecified; I50.9 Heart failure, unspecified; E83.42 Hypomagnesemia; E53.8 Deficiency of other specified B group vitamins; E66.01 Morbid (severe) obesity due to excess calories; E55.9 Vitamin D deficiency, unspecified; K57.30 Diverticulosis of large intestine without perforation or abscess without bleeding; G47.33 Obstructive sleep apnea (adult) (pediatric); F10.10 Alcohol abuse, uncomplicated; F41.9 Anxiety disorder, unspecified; F32.A Depression, unspecified; Z85.41 Personal history of malignant neoplasm of cervix uteri
CPT/HCPCS: 36415; 36600; 71046; 71275; 76770; 80053; 81003; 82570; 82805; 82948; 83735; 83880; 83935; 84300; 84484; 85025; 85027; 85610; 85730; 87637; 93005; 94618; 94640; 96361; 99285; A9270; G0378; J0248; J1100; J1644; J3475; J7030; J8540; Q9967

== ENCOUNTER 2023-07-10 14:44 | Outpatient (CLI) | payer BC, SELFPAY ==
[2023-07-10 15:07] VITALS: PULSE 109; O2SAT 93
[2023-07-10 15:09] VITALS: PULSE 137; O2SAT 87
[2023-07-10 15:10] VITALS: PULSE 138; O2SAT 86
[2023-07-10 15:12] VITALS: PULSE 145; O2SAT 91
--- NOTE | 2023-07-10 15:44 | HOMEO2EVAL ---
Evaluation was performed at [facility] Home Oxygen Evaluation RC: Home Oxygen (O2) Evaluation Start: 07/10/23 15:42 Freq: Status: Active Protocol: RPE Activity Type Activity Date Activity User E-sign Co-sign Detail Recorded Client Recorded Date Recorded By Document 07/10/23 15:07 KRM [email or web address] 07/10/23 15:44 KRM Document 07/10/23 15:09 KRM [email or web address] 07/10/23 15:44 KRM Document 07/10/23 15:10 [email or web address] [email or web address] 07/10/23 15:44 KRM Document 07/10/23 15:12 [email or web address] [email or web address] 07/10/23 15:44 KRM 07/10/23 07/10/23 07/10/23 15:07 15:09 15:10 Home O2 Evaluation [Oxygen] -Test Phase Resting Exercise Exercise -Oxygen Delivery Room Air Room Air Nasal Cannula -Oxygen Flow Rate (L/min) 1 [Pulse Oximetry] -Pulse Oximetry (90-100 %) 93 87 L 86 L [Pulse Rate] -Pulse Rate (60-100 beats/min) 109 H 137 H 138 H [Evaluation] -Activity Tolerance Fair Fair [Exercise] -Ambulation Distance (feet) -Ambulation Distance (meters) [Comments] -Home Oxygen Evaluation Comments [Charges] -Evaluation Charges 07/10/23 15:12 Home O2 Evaluation [Oxygen] -Test Phase Exercise -Oxygen Delivery Nasal Cannula -Oxygen Flow Rate (L/min) 2 [Pulse Oximetry] -Pulse Oximetry (90-100 %) 91 [Pulse Rate] -Pulse Rate (60-100 beats/min) 145 H [Evaluation] -Activity Tolerance Fair [Exercise] -Ambulation Distance (feet) 100 -Ambulation Distance (meters) 30.47 [Comments] -Home Oxygen Evaluation Comments 2LPM WITH ACTIVITY. PT. REQUEST POC. [Charges] -Evaluation Charges O2 Evaluation by Pulmonary
--- NOTE | 2023-07-10 17:07 | WPDPFTINT ---
PFT Procedure Performed PFT Procedure Performed Spirometry with Pre/Post Bronchodilator Plethysmography (Lung Vol) Diffusing Cap (DLCO) Flow Vol Loop PFT Interpretation This is a pulmonary function test with pre and post-bronchodilator spirometry, plethysmography and diffusing capacity. The test was performed and results interpreted in accordance with the 2019 and 2005 ATS/ERS Task Force guidelines respectively using the Global Lung Function Initiative-2012 reference equations. Patient demonstrated good effort and cooperation. Reproducibility criteria were met. The quality of the pre bronchodilator spirometry maneuver was Grade A and post bronchodilator spirometry maneuver was Grade A. Findings: Spirometry: The contour the inspiratory and expiratory flow tracing are normal. The pre bronchodilator FVC is 1.89 L, 46% predicted. The pre bronchodilator FEV1 is 1.44 L, 45% predicted. The pre bronchodilator FEV1: FVC ratio 76%. The post bronchodilator FVC is 1.73 L, representing a 9% decrease. The post bronchodilator FEV1 is 1.35 L, representing a 6% decrease. The post bronchodilator FEV1: FVC ratio 79%. Plethysmography: The total lung capacity is 3.37 L, 58% predicted. The functional residual capacity is 1.84 L, 56% predicted. The residual volume is 1.48 L, 73% predicted. Diffusing capacity: The diffusing capacity unadjusted for hemoglobin and carboxyhemoglobin is 14.7, 59% predicted. The diffusing capacity adjusted for alveolar volume is 6.01, 138% predicted. In comparison to previous pulmonary function testing on 11/21/2021 the post bronchodilator FVC has decreased from 2.25 L to 1.73 L. The post bronchodilator FEV1 is decreased from 1.79 L to 1.35 L. The total lung capacity has decreased from 3.96 L to 3.37 L. The functional residual capacity is unchanged from 2.04 L to 1.84 L. The residual volume has decreased from 1.75 L to 1.48 L. The diffusing capacity unadjusted for hemoglobin and carboxyhemoglobin is decreased from 19.1 to 14.7. The diffusing capacity adjusted for alveolar volume is unchanged from 6.25 to 6.01. Impression: There is a severe restrictive ventilatory abnormality. The spirometry is normal without evidence of an obstructive abnormality. There is no significant improvement after inhaling a single dose of albuterol. The diffusing capacity unadjusted for hemoglobin and carboxyhemoglobin is moderately decreased and is increased when adjusted for alveolar volume. In comparison to previous pulmonary function testing on 11/21/2021 there has been a greater than anticipated time dependent decrease in the FVC, FEV1, total lung capacity, residual volume and diffusing capacity unadjusted for hemoglobin and carboxyhemoglobin. There has been no significant change in the functional residual capacity and diffusing capacity adjusted for alveolar volume. Clinical correlation is recommended.
== END 2023-07-10 14:45 | disposition home or self-care (01) ==
LOC: ANHPFT 14:45
PROVIDERS: PCP Family Medicine Adolescent Medicine; Visit Provider Internal Medicine Critical Care Medicine
DX: R09.02 Hypoxemia (principal); R94.2 Abnormal results of pulmonary function studies
CPT/HCPCS: 94060; 94618; 94726; 94729

== ENCOUNTER 2023-09-16 09:08 | Emergency (ER) | payer OTHER, SELFPAY ==
[2023-09-16] VITALS (29 sets, daily range): BP systolic 97–137; BP diastolic 62–79; PULSE 80–105; RESP 17–34; TEMP 36.4–36.6; O2SAT 90–100
--- NOTE | ~2023-09-16 | US_ITS ---
EXAMINATION: US venous doppler [facility] DATE: 09/16/2023 10:54 INDICATION: Bilateral lower limb swelling TECHNIQUE: Mai scale images without and with compression and Doppler images of the bilateral lower e xtremity veins were obtained. COMPARISON: 09/05/2022 FINDINGS: The right common femoral vein, profunda femoral vein, femoral vein, popliteal vein, peroneal trunk, p osterior tibial veins, and greater saphenous vein are patent. The left common femoral vein, profunda femoral vein, femoral vein, popliteal vein, peroneal trunk, po sterior tibial veins, and greater saphenous vein are patent. IMPRESSION: 1. Patent bilateral lower extremity veins. No evidence of deep venous thrombosis. Reviewed, dictated and finalized at location B. [facility] [employer] [employer] IMPRESSION: 1. Patent bilateral lower extremity veins. No evidence of deep venous thrombosi s.
--- NOTE | 2023-09-16 09:52 | ED.GENADULT ---
HPI - General Adult General Chief complaint: Extremity Problem,Nontraumatic Stated complaint: leg pain Time Seen by Provider: 09/16/23 09:16 History of Present Illness HPI narrative: Rosie Abdalla is a 48 y/o female who presents today with reports of noticing her lower extremities start to swell with redness and warmth about 4 days ago and she started to have decrease urine output for about 3 days. She states that she feels like she needs to pee but very little will come out. She adds that she recently started Zonisamide and wondering if these are adverse effects. Denies any chest pain/ SOB/ fever/ chills. Related Data Home Medications Medication Instructions Recorded Confirmed gabapentin 300 mg capsule 600 mg PO BID 06/19/23 06/19/23 thiamine HCl (vitamin B1) 100 mg 100 mg PO DAILY 06/19/23 06/19/23 tablet Allergies Allergy/AdvReac Type Severity Reaction Status Date / Time No Known Allergies Allergy Verified 09/16/23 10:12 Review of Systems Review of Systems: CONSTITUTIONAL: Denies fever, chills, or sweats. EYES: Denies visual changes, redness, or discharge. ENT: Denies rhinorrhea, congestion, sore throat, or otalgia. CARDIOVASCULAR: Denies chest pain, palpitations, or edema. RESPIRATORY: Denies cough or dyspnea. GASTROINTESTINAL: Denies abdominal pain, nausea, vomiting, or diarrhea. GENITOURINARY: Denies dysuria or hematuria. SKIN: Reports noticing some redness/ swelling to her bilateral lower extremities that started about 4 days ago MUSCULOSKELETAL: Denies back pain, joint pain, or myalgia. NEUROLOGIC: Denies headache, numbness, dizziness, or weakness. PSYCHIATRIC: Denies anxiety or depression. [facility] Past Medical History Medical History Acute dyspnea Alcohol abuse Anal polyp s/p removal Anxiety B12 deficiency Bradycardia Cervical cancer s/p hysterectomy Congestive heart failure Echocardiogram 04/2021: EF 65-70%, mild LVH, diastolic dysfunction grade 1, severe pulmonary hypertension, mildly enlarged right ventricular chamber COVID Depression Diverticulitis Duodenal ulcer Dyspnea on exertion Essential hypertension Hemorrhoids Hypocalcemia Hypokalemia Hypoxia Mixed obstructive and restrictive ventilatory defect Morbid obesity DAVIAN (obstructive sleep apnea) Ovarian cyst Polyneuropathy Pulmonary hypertension Rectocele s/p intervention x2 Screening for diabetes mellitus Vitamin D deficiency Surgical History Surgical History History of esophagogastroduodenoscopy (EGD) (04/2021) Hiatal hernia, gastritis, duodenal ulcer performed by Dr. Lamar History of hysterectomy with bilateral oophorectomy (2012) Hx of laparoscopic gastric banding (2004) Family History Family History Mother Familial primary pulmonary hypertension Carcinoma of colon Hypertension Sibling Family history of irritable bowel syndrome Father Family history of congestive heart failure Family history of cardiovascular disease Other Family history of malignant neoplasm Social History Social History Social History: Ms. Abdalla reports that she lives at home with her daughter. She has 2 children. She reports that she drinks alcohol about 3 per day. She drinks vodka and water. She denies tobacco use and other illicit substance use. 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 She wishes to be a full code. Smoking status: Never smoker Alcohol intake: current Drinks per week: 21 Alcohol use details: Vodka water about 3 per day Substance use: never Substance use type: does not use Do You Feel Safe in your Home?: Yes Lack of Transportation: No Lack of Food: Never True Current Housing: I Have Housing Concerned About Future Housing: No Difficulty Paying Gas/Electric Bills: No Dif
[2023-09-16 10:36] LABS: Basophils Absolute Auto 0.1 K/mm3 (0.0-0.1); Basophils Percent Auto 1.6 % (0.2-1.2); Eosinophils Absolute Auto 0.2 K/mm3 (0-0.3); Hematocrit 40.8 % (37.0-47.0); Hemoglobin 12.3 g/dL (12.0-15.0); Immature Granulocyte Absolute 0.06 K/mm3 (0.00-0.031); Immature Granulocyte Percent A 1.1 % (0-0.5); Lymphocytes Absolute Auto 1.81 K/mm3 (0.9-3.2); Lymphocytes Percent Auto 32.2 % (18.3-44.2); Mean Corpuscular HGB Conc 30.1 g/dl (32-36); Mean Corpuscular Hemoglobin 29.1 pg (26-34); Mean Corpuscular Volume 96.7 fl (80-100); Mean Platelet Volume 10.1 fl (7.4-10.4); Monocytes Absolute Auto 0.6 K/mm3 (0.1-0.6); Monocytes Percent Auto 11.4 % (2.6-8.5); Neutrophils Absolute Auto 2.9 K/mm3 (1.3-6.7); Neutrophils Percent Auto 50.7 % (45.5-73.1); Platelet Count Result 293 k/mm3 (150-375); Red Blood Count 4.22 M/mm3 (4.2-5.4); Red Cell Distribution Width 15.1 % (11.5-14.5); White Blood Count 5.6 K/mm3 (4.5-10.0)
[2023-09-16 10:48] LABS: Alanine Aminotransferase 33 U/L (6-35); Albumin Level 4.5 g/dL (3.5-5.1); Alkaline Phosphatase 66 U/L (38-126); Anion Gap 11 mmol/L (8-16); Aspartate Amino Transferase 60 U/L (14-36); Bilirubin,Total 0.3 mg/dL (0.2-1.3); Blood Urea Nitrogen 13 mg/dL (7-17); Calcium 9.6 mg/dL (8.4-10.2); Carbon Dioxide 32 mmol/L (22-30); Chloride 93 mmol/L (98-107); Estimated CRCL calculation 127 ml/min; Estimated Glomerular Filt Rate > 60; Glucose 100 mg/dL (65-110); Potassium 3.5 mmol/L (3.4-5.0); Sodium 136 mmol/L (137-145)
[2023-09-16 10:48] LABS: INR 0.9; Prothrombin Time 12.7 Seconds (11.1-14.7)
[2023-09-16 10:49] LABS: Partial Thromboplastin Time 22.5 SECONDS (22.3-36.8)
[2023-09-16 11:21] LABS: Erythrocyte Sedimentation Rate 13 mm/hr (0-20)
[2023-09-16 11:46] LABS: Appearance Urine Cloudy (Clear); Bacteria Urine 2+ /hpf; Bilirubin Urine Negative (Negative); Blood Urine Negative (Negative); Color Urine Yellow (Yellow); Glucose Urine UA Negative (Negative); Ketones Urine Trace mg/dL (Negative); Leukocyte Esterase Ur Trace LEU/UL (Negative); Nitrate Urine Negative (Negative); Protein Urine Negative (Negative); RBC Urine 0-2 /hpf (0-2); Specific Grav Ur 1.017 (1.001-1.035); Squamous Epithelial Cell Urine Moderate /hpf (Few)
[2023-09-16 11:49] LABS: Add Urine Microscopic? YES
== END 2023-09-16 13:07 | disposition home or self-care (01) ==
PROVIDERS: Emergency Provider Nurse Practitioner Family; PCP Family Medicine Adolescent Medicine
DX: N30.00 Acute cystitis without hematuria (principal); R60.0 Localized edema; I50.9 Heart failure, unspecified; I11.0 Hypertensive heart disease with heart failure; I27.20 Pulmonary hypertension, unspecified; E66.01 Morbid (severe) obesity due to excess calories; Z68.42 Body mass index [BMI] 45.0-49.9, adult; G47.33 Obstructive sleep apnea (adult) (pediatric); G62.9 Polyneuropathy, unspecified; E55.9 Vitamin D deficiency, unspecified; Z86.16 Personal history of COVID-19; Z85.41 Personal history of malignant neoplasm of cervix uteri; Z90.710 Acquired absence of both cervix and uterus; Z90.722 Acquired absence of ovaries, bilateral
CPT/HCPCS: 36415; 80053; 81001; 81025; 85025; 85610; 85652; 85730; 87086; 87088; 93970; 99284

== ENCOUNTER 2024-01-25 13:43 | Emergency (ER) | payer OTHER, SELFPAY ==
--- NOTE | ~2024-01-25 | XR_ITS ---
Clinical Indication: Dyspnea PA and lateral views of the chest: Comparison: 06/18/2023 Findings: Probable linear right basilar atelectasis or scarring. Left lung clear. Cardiomediastinal silhouette is within normal limits. Bones and soft tissues are unremarkable. Impression: Probably linear right basilar atelectasis or scarring, otherwise clear lungs. Reviewed, dictated and finalized at location . Impression: Probably linear right basilar atelectasis or scarring, otherwise clear lungs.
[2024-01-25 13:50] VITALS: BP 118/50; PULSE 108; RESP 18; TEMP 36.3; O2SAT 98
--- NOTE | 2024-01-25 13:52 | ECG_ITS ---
Test Date: 2024-01-25 14:07:29 Measurements Intervals [place] Rate: 107 P: 10 ME: 140 QRS: 1 QRSD: 102 T: -6 QT: 337 QTc: 451 Interpretive Statements SINUS TACHYCARDIA NONSPECIFIC ST-T WAVE ABNORMALITY- INFERIOR LEADS ABNORMAL ECG No previous ECG available for comparison Electronically Signed On 01-25-2024 20:48:56 CDT by Alexis Reeves D.O.
[2024-01-25 14:13] VITALS: O2SAT 96
--- NOTE | 2024-01-25 14:44 | ED.SOB ---
HPI - SOB/Dyspnea General Chief Complaint: Shortness of Breath/Dyspnea <Dahiana Bettencourt PA-C - Last Filed: 01/25/24 18:12> Stated Complaint: multiple complaints <Dahiana Bettencourt PA-C - Last Filed: 01/25/24 18:12> Time Seen by Provider: 01/25/24 14:05 <Dahiana Bettencourt PA-C - Last Filed: 01/25/24 18:12> History of Present Illness HPI Narrative: 48-year-old female with a history of polyneuropathy, DAVIAN, hypertension, chronic hypoxic respiratory failure on 3 L nasal cannula presents to emergency department for dyspnea and leg discoloration. Patient presents with her daughter at bedside he versus a history. States yesterday they noticed some discoloration to her lower extremities with associated pain. Patient states that she always has pain in her legs due to her neuropathy but she feels like they have become more painful in the past few days. She states she tried to scrub her legs yesterday without improvement. She does not have a value stream coach. She is also reporting dyspnea over the past few days. States she is always short of breath but it seems to be worse over the past few days. she reports associated exertional dyspnea and orthopnea. states she feels short of breath when talking. Denies cough or congestion, fever, chest pain, abdominal pain, nausea vomiting, diarrhea. Denies dysuria or hematuria. She is on 40 mg of Lasix and spironolactone and reports compliance with these. She notes that she is only supposed be on 2 L nasal cannula but a few months ago increased it due to progressive dyspnea. She has not had to increase her oxygen acutely since. Patient was admitted to our hospital on 06/19/2023 for acute hypoxic respiratory failure in the setting of COVID 19 and MONY. Upon admission she had an echocardiogram which showed: Summary 1. Left ventricular chamber dimension is normal. 2. Left ventricular systolic function is normal, estimated at 60-65%. 3. There is moderately increased left ventricular wall thickness. 4. The left ventricular diastolic function is normal. 5. Left atrial chamber dimension is mildly enlarged. 6. Right ventricular chamber dimension is mildly enlarged. 7. There is mild tricuspid valve regurgitation. 8. Intact interatrial septum visualized by color flow and agitated saline imaging. <Dahiana Bettencourt PA-C - Last Filed: 01/25/24 18:12> Related Data Home Medications: Home Medications Medication Instructions Recorded Confirmed gabapentin 300 mg capsule 600 mg PO BID 06/19/23 10/30/23 thiamine HCl (vitamin B1) 100 mg 100 mg PO DAILY 06/19/23 10/30/23 tablet <Dahiana Bettencourt PA-C - Last Filed: 01/25/24 18:12> Allergies/Adverse Reactions: Allergies Allergy/AdvReac Type Severity Reaction Status Date / Time No Known Allergies Allergy Verified 12/26/23 14:58 <Dahiana Bettencourt PA-C - Last Filed: 01/25/24 18:12> Review of Systems Review of Systems: CONSTITUTIONAL: Denies fever, chills, or sweats. EYES: Denies visual changes, redness, or discharge. ENT: Denies rhinorrhea, congestion, sore throat, or otalgia. CARDIOVASCULAR: see HPI RESPIRATORY: Denies cough or dyspnea. GASTROINTESTINAL: Denies abdominal pain, nausea, vomiting, or diarrhea. GENITOURINARY: Denies dysuria or hematuria. SKIN: see HPI MUSCULOSKELETAL: Denies back pain, joint pain, or myalgia. NEUROLOGIC: Denies headache, numbness, or weakness. PSYCHIATRIC: Denies anxiety or depression. <Dahiana Bettencourt PA-C - Last Filed: 01/25/24 18:12> [facility] Past Medical History Medical History: Medical History Acute dyspnea Alcohol abuse Anal polyp s/p removal Anxiety B12 deficiency Bradycardia Cervical cancer s/p hysterectomy Congestive heart failure Echocardiogram 04/2021: EF 65-70%, mild LVH, diastolic dysfunction grade 1, severe pulmonary hypertension, mildly enlarged right ventricular chamber COVID
[2024-01-25 15:00] VITALS: BP 130/74; PULSE 89; RESP 20; TEMP 36.6; O2SAT 98
[2024-01-25 15:12] LABS: Basophils Absolute Auto 0.1 K/mm3 (0.0-0.1); Basophils Percent Auto 0.5 % (0.2-1.2); Eosinophils Absolute Auto 0.1 K/mm3 (0-0.3); Eosinophils Percent Auto 0.8 % (0-4.4); Hematocrit 32.6 % (37.0-47.0); Hemoglobin 10.4 g/dL (12.0-15.0); Immature Granulocyte Absolute 0.17 K/mm3 (0.00-0.031); Immature Granulocyte Percent A 1.6 % (0-0.5); Lymphocytes Absolute Auto 1.47 K/mm3 (0.9-3.2); Lymphocytes Percent Auto 13.5 % (18.3-44.2); Mean Corpuscular HGB Conc 31.9 g/dl (32-36); Mean Corpuscular Hemoglobin 29.5 pg (26-34); Mean Corpuscular Volume 92.4 fl (80-100); Monocytes Absolute Auto 0.7 K/mm3 (0.1-0.6); Neutrophils Absolute Auto 8.5 K/mm3 (1.3-6.7); Neutrophils Percent Auto 77.6 % (45.5-73.1); Platelet Count Result 277 k/mm3 (150-375); Red Blood Count 3.53 M/mm3 (4.2-5.4); Red Cell Distribution Width 15.6 % (11.5-14.5); White Blood Count 10.9 K/mm3 (4.5-10.0)
[2024-01-25 15:16] VITALS: BP 138/72; PULSE 93; RESP 20; TEMP 36.6; O2SAT 99
[2024-01-25 15:25] LABS: Alanine Aminotransferase 20 U/L (6-35); Albumin Level 3.8 g/dL (3.5-5.1); Alkaline Phosphatase 87 U/L (38-126); Anion Gap 11 mmol/L (4-12); Aspartate Amino Transferase 38 U/L (14-36); Bilirubin,Total 0.3 mg/dL (0.2-1.3); Blood Urea Nitrogen 21 mg/dL (7-17); Calcium 8.8 mg/dL (8.4-10.2); Carbon Dioxide 33 mmol/L (22-30); Chloride 85 mmol/L (98-107); Estimated CRCL calculation 82 ml/min; Estimated Glomerular Filt Rate 53; Glucose 132 mg/dL (65-110); Sodium 129 mmol/L (137-145)
[2024-01-25 15:29] LABS: INR 0.9; Prothrombin Time 12.8 Seconds (11.1-14.7)
[2024-01-25 15:30] LABS: Partial Thromboplastin Time 23.1 Seconds (22.3-36.8)
[2024-01-25 15:36] LABS: NT Pro B Type Natriuretic Pept 155 pg/mL (19.9-100); Troponin I 0.033 ng/mL (0.000-0.034)
[2024-01-25 15:40] LABS: D Dimer 0.59 ug/mL (<0.48)
[2024-01-25 15:44] LABS: Magnesium 1.4 mg/dL (1.6-2.3)
[2024-01-25] MEDS: POTASSIUM CHLORIDE 20 MEQ PACKET (FOR LIQUID) 40 MEQ PO (15:56)
[2024-01-25] MEDS: MAGNESIUM SULF 2 GM/WATER 50ML 2 GM/50 ML BAG IVPB (16:02)
[2024-01-25 17:01] VITALS: BP 151/76; PULSE 95; RESP 24; TEMP 36.6; O2SAT 98
[2024-01-25 17:43] LABS: Influenza A QL RT-PCR Negative (Negative); Influenza B QL RT-PCR Negative (Negative); SARS-CoV-2 RNA PCR Negative (Negative)
[2024-01-25] MEDS: CEPHALEXIN 500 MG CAPSULE PO (18:17)
== END 2024-01-25 18:28 | disposition home or self-care (01) ==
PROVIDERS: Emergency Medicine; Emergency Provider Physician Assistant; PCP Family Medicine Adolescent Medicine
DX: L03.115 Cellulitis of right lower limb (principal); R06.00 Dyspnea, unspecified; E87.1 Hypo-osmolality and hyponatremia; E87.6 Hypokalemia; R60.0 Localized edema; I10 Essential (primary) hypertension; Z99.81 Dependence on supplemental oxygen; I11.0 Hypertensive heart disease with heart failure; I50.9 Heart failure, unspecified; Z20.822 Contact with and (suspected) exposure to COVID-19
CPT/HCPCS: 36415; 71046; 80053; 83735; 83880; 84443; 84484; 85025; 85380; 85610; 85730; 87636; 93005; 96365; 96366; 99284; A9270; J3475

== ENCOUNTER 2024-04-02 18:44 | Emergency (ER) | payer OTHER, SELFPAY ==
[2024-04-02] VITALS (10 sets, daily range): BP systolic 87–124; BP diastolic 45–78; PULSE 97–122; RESP 15–28; TEMP 36.7; O2SAT 93–100
--- NOTE | ~2024-04-02 | XR_ITS ---
XR chest 1V portable Ordering provider: Olag Tobias APRN History: 48 years Female with . increased shortness of breath . Comparison: January 25, 2024. FINDINGS: MEDIASTINUM: The cardiac silhouette is moderately enlarged. Congestive nelson. LUNGS: No infiltrates, effusions or pneumothorax. Bilateral interstitial changes with prominent markings. OTHER: No free air under the diaphragm. IMPRESSION: Cardiomegaly with cardiac decompensation and pulmonary edema. Pneumonitis is not excluded. Reviewed, dictated and finalized at location A. IMPRESSION: Cardiomegaly with cardiac decompensation and pulmonary edema. Pneumonitis is no t excluded.
--- NOTE | ~2024-04-02 | CT_ITS ---
CT abdomen pelvis w con Ordering provider: Sven Barragan MD History: 48 years Female with . diarrhea and cramping . Comparison: May 04, 2021 Technique: CT abdomen and pelvis with IV and without oral contrast. Automated exposure control and it erative reconstruction technique were employed. The dose-length product was 2458.79 mGy-cm. 100 mL of Omnipaque 350 was given IV. Findings: VISUALIZED LOWER CHEST: Dependent atelectatic changes. UPPER ABDOMINAL ORGANS: Liver: Fat infiltration. Hepatomegaly. Gallbladder: Not demonstrated most likely status post cholecystectomy. Spleen: Normal. Stomach/duodenum: Gastric band is seen around the fundus of the stomach. Pancreas: Normal. Adrenals: Normal. Kidneys: Normal. PELVIC ORGANS: The bladder is underfilled. Right ovarian mass is seen which measures 6.4 x 3.9 cm. Po ssibility of a complex cyst is not excluded. Small left ovarian cyst is seen measuring 2 cm. BOWEL AND MESENTERY: Colon: Mild sigmoid diverticulosis without diverticulitis. Slight thickening of the wall of the ascen ding colon is seen which may indicate colitis. Normal appendix. Small Bowel: Normal. No obstruction. Peritoneum/mesentery: No free air or free fluid. No mesenteric lymphadenopathy. RETROPERITONEUM: Normal aorta. No retroperitoneal lymphadenopathy. MUSCULOSKELETAL: Superficial soft tissues: The superficial soft tissues are normal. Bones: Age appropriate degenerative changes of the spine. Bilateral sacroiliitis. IMPRESSION: 1. Hepatomegaly with fat infiltration. 2. Gastric band seen in the stomach. 3. Right ovarian mass which may be a complex cyst. Further evaluation with ultrasound advised. 4. Slight thickening of the wall of the ascending colon which may indicate colitis. Reviewed, dictated and finalized at location A. IMPRESSION: 1. Hepatomegaly with fat infiltration. 2. Gastric band seen in the stomach. 3. Right ovarian mass which may be a complex cyst. Further evaluation with ult rasound advised. 4. Slight thickening of the wall of the ascending colon which may indicate col itis.
--- NOTE | 2024-04-02 19:04 | ECG_ITS ---
Test Date: 2024-04-02 19:25:28 Measurements Intervals [place] Rate: 105 P: 8 WV: 148 QRS: 5 QRSD: 92 T: -3 QT: 300 QTc: 398 Interpretive Statements SINUS TACHYCARDIA ST-T WAVE ABNORMALITY IN INFERIOR LEADS- CONSIDER ISCHEMIA BASELINE ARTIFACT- I, II, AVR, AVL, AVF, V1 ABNORMAL ECG Compared to ECG 01/25/2024 14:07:29 ST-T WAVE ABNORMALITY NOW PRESENT Electronically Signed On 04-03-2024 06:27:45 CDT by Alexis Reeves D.O.
--- NOTE | 2024-04-02 19:06 | ED.GENADULT ---
HPI - General Adult General Chief complaint: Nausea/Vomiting/Diarrhea <Olga Tobias APRN - Last Filed: 04/02/24 19:12> Stated complaint: diarrhea <Olga Tobias APRN - Last Filed: 04/02/24 19:12> Time Seen by Provider: 04/02/24 19:00 <Olga Tobias APRN - Last Filed: 04/02/24 19:12> Focused HPI: Patient is a a 48-year-old female who presents to the ER with increased shortness of breath. She reports she history of elevated diaphragm which causes her to use oxygen at baseline. Pt reports she is normally on 3 L nasal cannula but has decreased it to 1 L while in the ER in order to conserve oxygen in her tank. She reports she has a history of high blood pressure. Patient reports she thinks she is getting ill. She started feeling sick and had increased shortness of breath yesterday. Patient denies chest pain, but reports her mouth feels dry. GENERAL: Ill-appearing, obese, in mild distress d/t SOB. CHEST: Clear to auscultation. ?Mild respiratory distress on 1L NC. HEART: Tachycardic regular rhythm.? NEURO: ?Alert and oriented x3. Able to move all extremities, but endorses generalized weakness. Patient screened in triage and initial orders placed.? ?Additional care and disposition to be based upon?diagnostic testing and treatment. <Olga Tobias APRN - Last Filed: 04/02/24 19:12> History of Present Illness HPI narrative: Agree with the HPI. <Sven Barragan MD - Last Filed: 04/03/24 07:25> Related Data Allergies/adverse reactions: Allergies Allergy/AdvReac Type Severity Reaction Status Date / Time No Known Allergies Allergy Verified 12/26/23 14:58 <Olga Tobias APRN - Last Filed: 04/02/24 19:12> Review of Systems Review of Systems: All systems reviewed & are unremarkable except as noted in HPI and below <Sven Barragan MD - Last Filed: 04/03/24 07:25> [facility] Past Medical History Medical History: Medical History Acute dyspnea Alcohol abuse Anal polyp s/p removal Anxiety B12 deficiency Bradycardia Cervical cancer s/p hysterectomy Congestive heart failure Echocardiogram 04/2021: EF 65-70%, mild LVH, diastolic dysfunction grade 1, severe pulmonary hypertension, mildly enlarged right ventricular chamber COVID Depression Diverticulitis Duodenal ulcer Dyspnea on exertion Essential hypertension Hemorrhoids Hypocalcemia Hypokalemia Hypoxia Mixed obstructive and restrictive ventilatory defect Morbid obesity DAVIAN (obstructive sleep apnea) Ovarian cyst Polyneuropathy Pulmonary hypertension Rectocele s/p intervention x2 Screening for diabetes mellitus Vitamin D deficiency <Olga Tobias, DOUGH MIXER OPERATOR - Last Filed: 04/02/24 19:12> Surgical History Surgical History: Surgical History History of esophagogastroduodenoscopy (EGD) (04/2021) Hiatal hernia, gastritis, duodenal ulcer performed by Dr. Lamar History of hysterectomy with bilateral oophorectomy (2012) Hx of laparoscopic gastric banding (2004) <Olga Tobias, DOUGH MIXER OPERATOR - Last Filed: 04/02/24 19:12> Family History Family History: Family History Mother Familial primary pulmonary hypertension Carcinoma of colon Hypertension Sibling Family history of irritable bowel syndrome Father Family history of congestive heart failure Family history of cardiovascular disease Other Family history of malignant neoplasm <Olga Tobias, DOUGH MIXER OPERATOR - Last Filed: 04/02/24 19:12> Social History Social History: Social History Social History: Ms. Abdalla reports that she lives at home with her daughter. She has 2 children. She reports that she drinks alcohol about 3 per day. She drinks vodka and water. She denies tobacco use and other illicit mays
[2024-04-02 19:31] LABS: Basophils Percent Auto 0.3 % (0.2-1.2); Eosinophils Absolute Auto 0.2 K/mm3 (0-0.3); Eosinophils Percent Auto 2.2 % (0-4.4); Hematocrit 31.2 % (37.0-47.0); Hemoglobin 9.7 g/dL (12.0-15.0); Immature Granulocyte Absolute 0.08 K/mm3 (0.00-0.031); Immature Granulocyte Percent A 0.9 % (0-0.5); Lymphocytes Absolute Auto 1.06 K/mm3 (0.9-3.2); Lymphocytes Percent Auto 12.2 % (18.3-44.2); Mean Corpuscular HGB Conc 31.1 g/dl (32-36); Mean Corpuscular Hemoglobin 29.8 pg (26-34); Monocytes Absolute Auto 0.7 K/mm3 (0.1-0.6); Monocytes Percent Auto 8.1 % (2.6-8.5); Neutrophils Absolute Auto 6.6 K/mm3 (1.3-6.7); Neutrophils Percent Auto 76.3 % (45.5-73.1); Platelet Count Result 182 k/mm3 (150-375); Red Blood Count 3.25 M/mm3 (4.2-5.4); Red Cell Distribution Width 14.4 % (11.5-14.5); White Blood Count 8.7 K/mm3 (4.5-10.0)
[2024-04-02] MEDS: SODIUM CHLORIDE 0.9% IV 1,000 ML 999 ML IV CONT (19:37)
[2024-04-02 19:42] LABS: Lactic Acid Reflex 2.9 mmol/L (0.7-2.0); Magnesium 1.5 mg/dL (1.6-2.3)
[2024-04-02 19:44] LABS: Alanine Aminotransferase 26 U/L (6-35); Albumin Level 3.6 g/dL (3.5-5.1); Alkaline Phosphatase 112 U/L (38-126); Anion Gap 6 mmol/L (4-12); Aspartate Amino Transferase 56 U/L (14-36); Bilirubin,Total 0.3 mg/dL (0.2-1.3); Blood Urea Nitrogen 27 mg/dL (7-17); Calcium 7.4 mg/dL (8.4-10.2); Carbon Dioxide 38 mmol/L (22-30); Chloride 89 mmol/L (98-107); Estimated CRCL calculation 56 ml/min; Estimated Glomerular Filt Rate 32; Glucose 105 mg/dL (65-110); Potassium 3.4 mmol/L (3.4-5.0); Sodium 133 mmol/L (137-145)
[2024-04-02 19:46] LABS: Partial Thromboplastin Time 24.6 Seconds (22.3-36.8); Prothrombin Time 13.8 Seconds (11.1-14.7)
[2024-04-02 19:52] LABS: NT Pro B Type Natriuretic Pept 96 pg/mL (19.9-100)
[2024-04-02 19:56] LABS: Troponin I < 0.012 ng/mL (0.000-0.034)
[2024-04-02 19:56] LABS: Alveolar/Arterial O2 Gradient 71.6 mmHg; Base Excess ABG 4.1 mEq/l (+/-2.0); Fractional Inspired Oxygen 32 %; HCO3 ABG 29.7 mEq/l (22.0-26.0); Oxygen Content ABG 13.7 %vol (16.0-22.0); Oxygen Saturation ABG 97.4 % (95.0-100.0); Oxyhemoglobin 96.5 % THb (90.0-100.0); PCO2 ABG 49.2 mmHg (35.0-45.0); PO2 FiO2 Ratio Arterial Blood 3.09 %; pH ABG 7.398 (7.350-7.450)
[2024-04-02 19:57] LABS: Device NASAL CANNULA; Modified Allen's Test Pass; Site Drawn LEFT RADIAL
[2024-04-02 20:07] LABS: Influenza A QL RT-PCR Negative (Negative); Influenza B QL RT-PCR Negative (Negative); RSV RNA, RT-PCR Negative (Negative); SARS-CoV-2 RNA PCR Negative (Negative)
[2024-04-02] MEDS: SODIUM CHLORIDE 0.9% IV 1,000 ML 500 ML IV CONT (20:16)
--- NOTE | 2024-04-02 20:35 | PC.NURSE ---
care and report given to SEBASTIAN Guzmán. all questions answered.
[2024-04-02 20:37] LABS: Add Urine Microscopic? YES
[2024-04-02 20:38] LABS: Appearance Urine Cloudy (Clear); Blood Urine 2+ (Negative); Color Urine Yellow (Yellow); Glucose Urine UA Negative (Negative); Ketones Urine Trace mg/dL (Negative); Protein Urine 2+ mg/dL (Negative); Specific Grav Ur >= 1.030 (1.001-1.035); pH Urine 5.5 (5.0-9.0)
[2024-04-02 20:39] LABS: Bilirubin Urine 2+ (Negative); Leukocyte Esterase Ur 2+ LEU/UL (Negative); Nitrate Urine Negative (Negative)
[2024-04-02 20:42] LABS: Bacteria Urine 2+ /hpf; Squamous Epithelial Cell Urine Few /hpf (Few)
[2024-04-02 22:28] LABS: Reflex Lactic Acid Yes or No Add Lactic
== END 2024-04-02 23:09 | disposition home or self-care (01) ==
PROVIDERS: Registered Nurse; Emergency Provider Emergency Medicine; PCP Family Medicine Adolescent Medicine
DX: R19.7 Diarrhea, unspecified (principal); E86.0 Dehydration; N83.201 Unspecified ovarian cyst, right side; Z20.822 Contact with and (suspected) exposure to COVID-19; I50.9 Heart failure, unspecified; I11.0 Hypertensive heart disease with heart failure; E66.01 Morbid (severe) obesity due to excess calories; Z68.42 Body mass index [BMI] 45.0-49.9, adult; E53.8 Deficiency of other specified B group vitamins; E55.9 Vitamin D deficiency, unspecified; G47.33 Obstructive sleep apnea (adult) (pediatric); G62.9 Polyneuropathy, unspecified; Z99.81 Dependence on supplemental oxygen; Z98.84 Bariatric surgery status; Z85.41 Personal history of malignant neoplasm of cervix uteri; Z86.16 Personal history of COVID-19; Z87.19 Personal history of other diseases of the digestive system; Z90.710 Acquired absence of both cervix and uterus; Z79.899 Other long term (current) drug therapy; R00.0 Tachycardia, unspecified; R94.31 Abnormal electrocardiogram [ECG] [EKG]; K76.0 Fatty (change of) liver, not elsewhere classified; R93.3 Abnormal findings on diagnostic imaging of other parts of digestive tract; N83.9 Noninflammatory disorder of ovary, fallopian tube and broad ligament, unspecified; I51.7 Cardiomegaly
CPT/HCPCS: 36415; 36600; 71045; 74177; 80053; 81001; 82805; 82810; 83605; 83735; 83880; 84484; 85025; 85610; 85730; 87040; 87086; 87088; 87637; 93005; 96360; 96361; 99284; J7030; Q9967

== ENCOUNTER 2024-04-29 13:42 | Outpatient (CLI) | payer OTHER, SELFPAY ==
--- NOTE | ~2024-04-29 | US_ITS ---
Pelvic ultrasound. Clinical History: Other noninflammatory disorder of ovary Technique: Realtime transabdominal and transvaginal scanning of the pelvis was performed. Color flow Doppler and Doppler spectral analysis were performed. Findings: The uterus is absent, compatible prior hysterectomy. The right ovary measures 8.6 x 6.2 x 5.0 cm. Simple appearing right ovarian cystic mass measures 7.1 x 4.7 x 4.0 cm. The left ovary measures 3.1 x 3.5 x 2.6 cm. Simple left ovarian cyst measures 2.6 cm in diameter. No definite evidence for torsion. There is no evidence of free fluid in the cul de sac. Impression: 7.1 x 4.7 x 4.0 cm simple appearing right ovarian cyst. This correlates with lesion seen on prior CT scan dated 04/02/2024. 2.6 cm simple left ovarian cyst. Reviewed, dictated and finalized at [facility]. Impression: 7.1 x 4.7 x 4.0 cm simple appearing right ovarian cyst. This correlates with le santa seen on prior CT scan dated 04/02/2024. 2.6 cm simple left ovarian cyst.
== END 2024-04-29 13:43 | disposition home or self-care (01) ==
PROVIDERS: PCP Family Medicine Adolescent Medicine; Visit Provider Family Medicine Adolescent Medicine
DX: N83.292 Other ovarian cyst, left side (principal); N83.291 Other ovarian cyst, right side; N83.8 Other noninflammatory disorders of ovary, fallopian tube and broad ligament
CPT/HCPCS: 76856

== ENCOUNTER 2024-11-04 12:44 | Outpatient (CLI) | payer OTHER, SELFPAY ==
[2024-11-04 12:30] VITALS: PULSE 92; O2SAT 83
[2024-11-04 12:35] VITALS: PULSE 94; O2SAT 84
[2024-11-04 12:40] VITALS: PULSE 94; O2SAT 87
[2024-11-04 12:45] VITALS: PULSE 95; O2SAT 91
[2024-11-04 13:00] VITALS: PULSE 105; O2SAT 90
[2024-11-04 13:10] VITALS: PULSE 94; O2SAT 91
--- NOTE | 2024-11-04 13:19 | HOMEO2EVAL ---
Evaluation was performed at [facility] Home Oxygen Evaluation RC: Home Oxygen (O2) Evaluation Start: 11/04/24 13:12 Freq: Status: Active Protocol: RPE Activity Type Activity Date Activity User E-sign Co-sign Detail Recorded Client Recorded Date Recorded By Document 11/04/24 12:30 PKH [email or web address] 11/04/24 13:18 PKH Document 11/04/24 12:35 [email or web address] [email or web address] 11/04/24 13:18 PKH Document 11/04/24 12:40 [email or web address] [email or web address] 11/04/24 13:18 PKH Document 11/04/24 12:45 [email or web address] [email or web address] 11/04/24 13:18 PKH Document 11/04/24 13:00 [email or web address] [email or web address] 11/04/24 13:18 PKH Document 11/04/24 13:10 [email or web address] [email or web address] 11/04/24 13:18 PKH 11/04/24 11/04/24 11/04/24 12:30 12:35 12:40 Home O2 Evaluation [Oxygen] -Test Phase Resting Resting Resting -Oxygen Delivery Room Air Nasal Cannula Nasal Cannula -Oxygen Flow Rate (L/min) 1 2 [Pulse Oximetry] -Pulse Oximetry (90-100 %) 83 L 84 L 87 L [Pulse Rate] -Pulse Rate (60-100 beats/min) 92 94 94 [Charges] -Evaluation Charges O2 Evaluation by Pulmonary 11/04/24 11/04/24 11/04/24 12:45 13:00 13:10 Home O2 Evaluation [Oxygen] -Test Phase Resting Exercise Resting -Oxygen Delivery Nasal Cannula Nasal Cannula Nasal Cannula -Oxygen Flow Rate (L/min) 3 3 3 [Pulse Oximetry] -Pulse Oximetry (90-100 %) 91 90 91 [Pulse Rate] -Pulse Rate (60-100 beats/min) 95 105 H 94 [Charges] -Evaluation Charges
--- NOTE | 2024-11-04 13:45 | ECHO_ITS ---
Patient Info Name: Rosie Abdalla Age: 49 years : 1975 Gender: Female Ht: 69 in Wt: 330 lbs BSA: 2.78 m2 HR: 98 bpm BP: 147 / 80 mmHg Heart Rhythm: Sinus Rhythm Technical Quality: Poor Exam Date: 11/04/2024 1:47 PM Exam Location: Echo Lab Patient Status: Outpatient Admit Date: 11/04/2024 Staff Ordering Physician: Leo Gage APRN Dressmaking Teacher: Haylee Solitario RDCS Attending Provider: Leo Gage APRN Referring Physician: Too HARRIS; Exam Type: CA echo doppler color flow Study Info Indications R06.00 - Dyspnea, unspecified Complete two-dimensional, color flow and Doppler transthoracic echocardiogram is performed. Summary 1. Complete two-dimensional, color flow and Doppler transthoracic echocardiogram is performed. 2. Left ventricular chamber dimension is normal. 3. Left ventricular systolic function is normal, estimated at 65-70%. 4. There is mild concentric increased left ventricular wall thickness. 5. The left ventricular diastolic function is abnormal. 6. E/e' 10 is mildly elevated. 7. Right atrial chamber dimension is mildly enlarged. 8. No pulmonary hypertension, estimated pulmonary arterial systolic pressure is 23 mmHg. Left Ventricle E/e' 10 is mildly elevated. Left ventricular chamber dimension is normal. Left ventricular systolic function is normal, estimated at 65-70%. There is mild concentric increased left ventricular wall thickness. The left ventricular diastolic function is abnormal. Right Ventricle Right ventricular chamber dimension is not well visualized. Left Atria Left atrial chamber dimension is normal. Right Atria Right atrial chamber dimension is mildly enlarged. Aortic Valve The aortic valve is trileaflet. There is no aortic valve stenosis. There is no aortic valve regurgitation. Pulmonic Valve There is no pulmonic regurgitation. Mitral Valve There is no mitral valve stenosis. There is no mitral valve regurgitation. Tricuspid Valve There is no tricuspid valve regurgitation. No pulmonary hypertension, estimated pulmonary arterial systolic pressure is 23 mmHg. Pericardium/Pleural There is no pericardial effusion. Inferior Vena Cava Normal inferior vena cava with >50% collapse upon inspiration consistent with normal right atrial pressure, 5 mmHg. Aorta The aortic root size at the sinus of Valsalva is normal. Left Ventricular Outflow Tract Name Value Normal LVOT 2D LVOT Diameter 2.0 cm LVOT Doppler LVOT Peak Gradient 7 mmHg LVOT Mean Gradient 3 mmHg LVOT VTI 23 cm LVOT VTI/AV VTI Ratio 0.7 LVOT Stroke Volume 73 ml Pulmonic Valve Name Value Normal RVOT Doppler RVOT Peak Gradient 3 mmHg PV Doppler PV Peak Gradient 5 mmHg Mitral Valve Name Value Normal MV Doppler MV Decel Charles 1,095 cm/s2 MV PHT 25 ms MV Area (PHT) 8.9 cm2 4.0-5.0 MV Diastolic Function MV E Peak Velocity 93 cm/s MV A Peak Velocity 79 cm/s MV E/A 1.2 MV Decel Time 85 ms MV Annular TDI MV E/e' (Septal) 10.4 <=8.0 MV E/e' (Lateral) 11.0 <=8.0 MV E/e' (Average) 10.7 Tricuspid Valve Name Value Normal TV Regurgitation Doppler TR Peak Velocity 213 cm/s TR Peak Gradient 18 mmHg Estimated PAP/RSVP RA Pressure 5 mmHg <=5 PA Systolic Pressure 23 mmHg <36 RV Systolic Pressure 23 mmHg <36 Aorta Name Value Normal Ascending Aorta Ao Root Diameter (MM) 3.2 cm Ao Root Diam Index (MM) 1.2 cm/m2 Aortic Valve Name Value Normal AV Doppler AV Peak Velocity 168 cm/s AV Peak Gradient 11 mmHg AV Mean Gradient 6 mmHg AV VTI 32 cm AV Area (Cont Eq VTI) 2.3 cm2 >=3.0 AV Area (Cont Eq Angel) 2.5 cm2 AV Regurgitation 2D LVOT Area 3.2 cm2 Ventricles Name Value Normal LV Dimensions 2D/MM IVS Diastolic Thickness (2D) 1.4 cm 0.6-1.0 LVID Diastole (2D) 4.7 cm 3.8-5.2 LVIW Diastolic Thickness (2D) 1.3 cm 0.6-0.9 LVID Systole (2D) 3.3 cm 2.2-3.5 LVOT Diameter 2.0 cm LV Mass (2D Cubed) 238.32 g 67.00-162.00 LV Mass Index (2D Cubed) 86 g/m2 43-95 Relative Wall Thickness (2D) 0.54 LV Fractional Shortening/Ejection Fraction 2D/MM LV Fractional Shortening (2D) 28 % 27-45 LV EF (2D Teicholz) 55 % 54-74 Atria Name Value Normal LA Dimensions LA Dimension (MM) 4.6 cm 2.7-3.8 LA Volume (4C A-L) 87 ml LA Volume (BP A-L) 72 ml RA Dimensions RA Area (4C) 20.7 cm2 <=18.0 Report Signatures
--- OUTSIDE RECORDS SUMMARY | 2024-11-04 14:10 | XMS_ITS | Continuity of Care Document ---
Author Organization [facility] Address [id number] [place] [address] [address] [place] [address] Phone Care Team Providers Care Electrical Service Technician Name Role Phone Arreaga OD, Jose Unavailable Unavailable Procedures Procedure Date Eye Exam, New Patient Advance Directives Directive Yes / No Effective Date File Name No Information Encounters Encounter Description Practice Location Reason(s) For Visit Diagnoses Date Provider Providers Copied on Encounter [facility], [address], [place], [place], [id number], [place] tel:[phone] [facility] [place] No Information [phone] Arreaga OD Jose. [address] [facility] [address] , [address], [place], [address], [place]. tel:[phone] Family History Family Member Type Diagnosis Age At Onset No Information Payers Payer name Insurance type Covered green party ID Authoriza tion(s) [place] [id number] Social History Type Description Quantity Date Captured Comments Sex Female Smoking Status No Information Chief Complaint And Reason For Visit No Information Reason For Referral Reason For Referral No Information History Of Present Illness Encounter Date Complaint History Of Prese nt Illness No Information Functional Status Date Functional Assessmen t No Information Instructions Date Instruction Additional Infor mation No Information Assessments Type Assessment Date No Information Patient Care Teams Name Effective Dates (start - stop) Status Members No Information
--- OUTSIDE RECORDS SUMMARY | 2024-11-04 14:10 | XMS_ITS | Clinical Summary ---
Author Organization [facility] [address] Address [address] [place] [address] Care Team Providers Care Semiconductor Testing Group Leader Name Role Phone Wendy Cardozo Primary Care Provider [phone] Allergies No known active allergies Medications Oysco 500/D 500 mg-5 mcg (200 unit) per tablet Take 1 tablet by mouth 2 (two) times a day 08/29/2021 Active doxycycline hyclate 100 mg capsule Take 100 mg by mouth 2 (two) times a day 08/29/2021 Active Jardiance 10 mg tablet Take 10 mg by mouth every morning 08/22/2021 Active escitalopram (LEXAPRO) 10 mg tablet Take 10 mg by mouth daily 08/09/2021 Active furosemide (LASIX) 40 mg tablet 09/11/2021 Active ketorolac (ACULAR) 0.5 % ophthalmic solution 09/12/2021 Active metoprolol XL (TOPROL-XL) 100 mg 24 hr tablet Take 100 mg by mouth daily 08/29/2021 Active ofloxacin (OCUFLOX) 0.3 % ophthalmic solution 09/12/2021 Active prednisoLONE acetate (PRED FORTE) 1 % ophthalmic suspension 09/12/2021 Active spironolactone (ALDACTONE) 25 mg tablet 09/09/2021 Active lisinopriL (PRINIVIL,ZESTR IL) 40 mg tablet 06/22/2021 Active allopurinoL (ZYLOPRIM) 300 mg tablet 07/13/2021 Active NIFEdipine XL 30 mg 24 hr tablet Take 60 mg by mouth every morning 08/29/2021 Active Active Problems No known active problems Surgical History Surgery Date Site/Laterality Comments LAPAROSCOPIC GASTRIC BANDING HYSTERECTOMY Medical History Medical History Date Comments Hypertension CHF (congestive heart failure) (HCC) Acid indigestion Diverticulitis Anxiety Cataracts, bilateral Gout Cervical cancer (HCC) History of COVID-19 Family History Medical History Relation Name Comments Heart attack Father Atrial fibrillation Mother Hypertension Mother No Known Problems Sister Relation Name Status Comments Father (Age 57) Mother Alive Sister Alive Social History Tobacco Use Types Packs/Day Years Used Date Smoking Tobacco: Never Smokeless Tobacco: Never AUDIT-C Answer Date Recorded Q1: How often do you have a drink containing alc ohol? Never 09/13/2021 Average Number of Drinks Not on file 022 Frequency of Binge Drinking Not on file 08/2021 Personal Safety Answer Date Recorded Getting School Help Needed Not on file 09/12 Comments Unknown Sex and Gender Information Value Date Recorded Sex Assigned at Not on file Legal Sex Female 2:31 AM WARP DRAWER Gender Identity Not on file Sexual Orientation Not on file Obstetrics History Last Filed Vital Signs Vital Sign Reading Time Taken Comments Blood Pressure 104/66 09/13/2021 10:24 AM WARP DRAWER Pulse 110 09/13/2021 10:24 AM WARP DRAWER Temperature - - Respiratory Rate - - Oxygen Saturation 93% 09/13/2021 10:24 AM WARP DRAWER Inhaled Oxygen Concentration - - Weight 136.5 kg (301 lb) 09/13/2021 10:24 AM WARP DRAWER Height 175.3 cm (5' 9 ) 09/13/2021 10:24 AM WARP DRAWER Body Mass Index 44.45 09/13/2021 10:24 AM WARP DRAWER Plan of Treatment Health Maintenance Due Date Last Done Comments Breast Cancer Screening-Mammogram 1975 Colon Cancer Screening-Colonoscopy 1975 Depression Screening 1975 Hepatitis C Screening 1975 DTaP/Tdap/Td Vaccine (1 - Tdap) 1984 Hepatitis B Screening 1991 Regular Well Visit/Exam 18-64 1991 Zoster Vaccine (1 of 2) 2023 Covid-19 Vaccine (3 - 2023-2 5 season) 2024 12/02/2020, 10/22/2020 Influenza Vaccine (#1) 2024 05/10/2021 Pneumococcal vaccine <65 Aged Out No longer eligible based on patient's age to complete this topic Insurance [employer] OOS Care Teams Semiconductor Testing Group Leader Relationship Specialty Start Date End Date Wendy Cardozo PA [address] [place] [address] PCP - General 06/25/19
--- OUTSIDE RECORDS SUMMARY | 2024-11-04 14:10 | XMS_ITS | Referral Summary ---
Author Organization [facility] [address] Address [address] [place] [address] Care Team Providers Care Rivet Hole Machine Operator Name Role Phone Wendy Cardozo Primary Care Provider [phone] Allergies No known active allergies Medications Oysco [...] Active Active Problems No known active problems Social History Tobacco Use Types Packs/Day Years [...] on file Legal Sex Female 2:31 AM REGULATORY AGENCY DIRECTOR Gender Identity Not on file Sexual Orientation Not on file Last Filed Vital Signs Vital Sign Reading Time Taken Comments Blood Pressure 104/66 09/13/2021 10:24 AM REGULATORY AGENCY DIRECTOR Pulse 110 09/13/2021 10:24 AM REGULATORY AGENCY DIRECTOR Temperature - - Respiratory Rate - - Oxygen Saturation 93% 09/13/2021 10:24 AM REGULATORY AGENCY DIRECTOR Inhaled Oxygen Concentration - - Weight 136.5 kg (301 lb) 09/13/2021 10:24 AM REGULATORY AGENCY DIRECTOR Height 175.3 cm (5' 9 ) 09/13/2021 10:24 AM REGULATORY AGENCY DIRECTOR Body Mass Index 44.45 09/13/2021 10:24 AM REGULATORY AGENCY DIRECTOR Plan of Treatment Not on file Insurance [employer] OOS Care Teams Rivet Hole Machine Operator Relationship Specialty Start Date End Date Wendy Cardozo PA [address] [place] [address] PCP - General 06/25/19
--- OUTSIDE RECORDS SUMMARY | 2024-11-04 14:10 | XMS_ITS | Clinical Summary ---
Author Organization [facility] Address [address] [place] [address] Care Team Providers Care Formstone Fitter Name Role Phone Efren Canada MD Primary Care Provider + Source Comments [facility],non-owned Affiliates and Associated Physician Practices is amultiple site organization consisting of ambulatory clinics and hospital sitesin [place], [place], [place] and [place]. This disclosure is being madepursuant to the Care Everywhere program and may not contain all informatio navailable regarding this patient. Last updated 18.[facility] Allergies No known active allergies Medications * Be aware that medications may not be up to date on this document. Alwaysverify current medications with the patient. allopurinol (Zyloprim) 300 MG tablet Take 1 (one) tablet by mouth once daily 04/28/2024 Active Calcium + Vitamin D3 600-10 MG-MCG Take 1 (one) tablet by mouth 2 times daily 09/28/2024 Active Cholecalciferol (vitamin D3) 1.25 MG (71740 UT) capsule Take 1 (one) capsule by mouth once 04/02/2024 Active doxazosin (Cardura) 4 MG tablet Take 1 (one) tablet by mouth once daily 06/04/2024 Active gabapentin (Neurontin) 300 MG capsule Take 1 (one) capsule by mouth 4 times daily 11/06/2023 Active lisinopril (Prinivil; Zestril) 40 MG tablet Take 1 (one) tablet by mouth once daily Active Encounters Date Type Department Care Team Description 10/14/2024 1:20 PM CDT Office Visit [facility] - OUTBOUND TELEMARKETING REPRESENTATIVE [address] [place] [address] Marilee Garcia MD Ovarian cyst, right (Primary Dx) 10/14/2024 Travel 08/25/2024 Travel 08/14/2024 Travel from Last 3 Months Social History Tobacco Use Types Packs/Day Years Used Date Smoking Tobacco: Never Smokeless Tobacco: Never Tobacco Cessation:Counseling Given: Not Answered Alcohol Use Standard Drinks/Week Comments Not Currently 0 (1 standard drink = 0.6 oz pur e alcohol) Comments Unknown Sex and Gender Information Value Date Recorded Sex Assigned at Not on file Legal Sex Female 7:40 AM COMPUTER EQUIPMENT REPAIRER Gender Identity Not on file Sexual Orientation Not on file Last Filed Vital Signs Vital Sign Reading Time Taken Comments Blood Pressure 140/76 10/14/2024 1:29 PM CDT Pulse - - Temperature - - Respiratory Rate - - Oxygen Saturation - - Inhaled Oxygen Concentration - - Weight 140.6 kg (310 lb) 10/14/2024 1:29 PM CDT Height 175.3 cm (5' 9 ) 10/14/2024 1:29 PM CDT Body Mass Index 45.78 10/14/2024 1:29 PM CDT Plan of Treatment Health Maintenance Due Date Last Done Comments COLOGUARD (AGES 45-75) - COL ON CA SCREENING 1975 COLON MONITORING 1975 COLONOSCOPY - COLON CA SCREENING 1973 CT COLONOGRAPHY - COLON CA SCREENING 1975 Colorectal Cancer Screening 1975 FIT - COLON CA SCREENING 1975 FLEX SIG - COLON CA SCREENING 1975 LIPID TESTING 1975 MAMMOGRAM 1975 PAP SMEAR 1975 HIV SCREENING 1988 HEPATITIS C SCREENING 03/30/1991 DTAP/TDAP/TD VACCINES (1 - Tdap) 1992 HEPATITIS B VACCINE (1 of 3 - 19+ 3-dose series) 1992 PNEUMOCOCCAL VACCINE 50+ (1 of 1 - PCV) 2023 ZOSTER VACCINE (1 of 2) 2023 COVID-19 VACCINE (3 - 2023-2 5 season) 2024 12/02/2020, 10/22/2020 DEPRESSION SCREENING 07/15/2024 SCREENING FOR DIABETES 10/14/2024 INFLUENZA VACCINE (Season Ended) 2025 05/07/2022, 05/10/2021 HIB VACCINE Aged Out No longer eligi ble based on patient's age to complete this topic HPV VACCINE Aged Out No longer eligi ble based on patient's age to complete this topic MENINGOCOCCAL (Group B) VACCINE SHARED DECISION-MAKING Aged Out No longer eligible based on patient's age to complete this topic MENINGOCOCCAL GROUPS A/C/Y/W VACCINE Aged Out No longer eligible b ased on patient's age to complete this topic Insurance [facility] [place] [address] [place] [address] Care Teams Formstone Fitter Relationship Specialty Start Date End Date Efren Canada MD [address] [address] PCP - General 08/27/18
--- OUTSIDE RECORDS SUMMARY | 2024-11-04 14:10 | XMS_ITS | Clinical Summary ---
Author Organization [facility] Address [address] [place] [address] Phone Care Team Providers Care Clerical Support Specialist Name Role Phone Efren Canada MD Primary Care Provider + Allergies No known active allergies Medications metoprolol Succinate (TOPROL-XL) 25 MG TABLET SR 24 HR 6 Active Escitalopram Oxalate (LEXAPRO PO) Take by mouth. Ac tive LORAZEPAM PO Take by mouth. Ac tive acetaminophen- codeine (TYLENOL #3) 300-30 MG Tablet Take 1 Tab by mouth every 4 hours as needed for Pain. Active acetaminophen (TYLENOL) 325 MG Tablet Take 1 Tab by mouth every 6 hours as needed for Pain or Fever (for temperature greater than 100.4 F). Do not exceed 4000 mg of acetaminophen in 24 hour from all sources. 6 Active hydrochlorothi azide 25 MG Tablet Take 25 mg by mouth daily. Active lisinopril (PRINIVIL, ZESTRIL) 20 MG Tablet Take 20 mg by mouth daily. Active acetaminophen (TYLENOL) 325 MG Tablet Take 1 Tab by mouth every 6 hours as needed for Pain or Fever (for temperature greater than 100.4 F). Do not exceed 4000 mg of acetaminophen in 24 hour from all sources. 6 Active Active Problems Problem Noted Date Diagnosed Date Lumbar spinal stenosis 11/10/2015 Family History Medical History Relation Name Comments Heart Attack Father Hypertension Mother Osteoarthritis Mother Relation Name Status Comments Father Mother Alive Social History Tobacco Use Types Packs/Day Years Used Date Smoking Tobacco: Never Alcohol Use Standard Drinks/Week Comments Yes 2 (1 standard drink = 0.6 oz pur e alcohol) social Comments Unknown Sex and Gender Information Value Date Recorded Sex Assigned at Not on file Legal Sex Female 2:41 AM DAMPPROOFER Gender Identity Not on file Sexual Orientation Not on file Last Filed Vital Signs Vital Sign Reading Time Taken Comments Blood Pressure 120/80 12/02/2015 3:00 PM CDT Pulse 74 12/02/2015 3:00 PM CDT Temperature 36.2 C (97.2 F) 12/02/2015 3:00 PM CDT Respiratory Rate 16 12/02/2015 3:00 PM CDT Oxygen Saturation 98% 12/02/2015 3:00 PM CDT Inhaled Oxygen Concentration - - Weight 109.8 kg (242 lb) 11/29/2015 11:00 AM CDT Height 175.3 cm (5' 9 ) 11/29/2015 11:00 AM CDT Body Mass Index 35.74 11/29/2015 11:00 AM CDT Plan of Treatment Not on file Care Teams Clerical Support Specialist Relationship Specialty Start Date End Date Efren Canada MD [address] [place] [address] PCP - General Family Medicine 11/08/15
== END 2024-11-04 12:45 | disposition home or self-care (01) ==
PROVIDERS: Visit Provider Nurse Practitioner Family
DX: R93.1 Abnormal findings on diagnostic imaging of heart and coronary circulation (principal); R06.00 Dyspnea, unspecified
CPT/HCPCS: 93306; 94618